=== PATIENT | male | born 1950 | race Two or more races ===

== ENCOUNTER 2023-07-20 11:18 | Outpatient (OUT) | payer MEDICARE, OTHER, SELFPAY ==
[2023-07-20 12:17] LABS: Erythrocyte Sedimentation Rate 32 mm/hr (<=20)
[2023-07-21 06:09] LABS: Rheumatoid Factor (RF) 18.8 IU/mL (<14.0)
[2023-07-21 11:09] LABS: ANA Direct Negative (Negative)
[2023-07-21 12:10] LABS: Anti-CCP Ab, IgG/IgA 8 units (0-19)
[2023-07-21 16:10] LABS: Angiotensin-Converting Enzyme 70 U/L (14-82)
[2023-07-21 20:07] LABS: Anti-GBM Antibodies <0.2 units (0.0-0.9); Anti-MPO Antibodies <0.2 units (0.0-0.9); Anti-PR3 Antibodies <0.2 units (0.0-0.9); Cytoplasmic (C-ANCA) <1:20 titer (Neg:<1:20); Perinuclear (P-ANCA) <1:20 titer (Neg:<1:20)
[2023-07-22 06:11] LABS: QuantiFERON-TB Gold Plus Negative (Negative)
[2023-07-22 17:08] LABS: Coccidioides Ab, IgG, EIA 0.4 EIA Units (.); Coccidioides Ab, IgM, EIA 0.2 EIA Units (.)
[2023-07-23 17:08] LABS: Blastomyces Abs, Qn, DID Negative (Neg:<1:1)
[2023-07-26 13:08] LABS: Histoplasma Gal'mannan Ag Ur Negative (<0.5 ng/mL)
== END 2023-07-20 11:19 | disposition home or self-care (01) ==
LOC: LAB 11:27
PROVIDERS: Visit Provider Internal Medicine
DX: J84.10 Pulmonary fibrosis, unspecified (principal); R91.1 Solitary pulmonary nodule; R59.0 Localized enlarged lymph nodes
CPT/HCPCS: 36415; 82164; 83516; 85652; 86037; 86038; 86200; 86431; 86480; 86612; 86635; 87385

== ENCOUNTER 2023-07-26 12:45 | Outpatient (OUT) | payer MEDICARE, OTHER, SELFPAY ==
--- NOTE | 2023-07-26 | RT_ITS ---
[facility] Test Date: 2023-07-26 Pat Name: ISIDRO CALHOUN Department: Room: - Gender: Male Manager Print: Onelia Hidalgo RRT : 1950 Requested By: Carl Jaime Order Number: [id number] Reading MD: Carl Jaime Interpretive Statements Pulmonary function testing was completed according to ATS criteria. Findings were considered accurate and reproducible. Both pre- and post-bronchodilator values utilized for spirometry. Spirometry: -FEV1/FVC: Normal @ 85% -FEV1: Normal @ 92% -FVC: Low normal @ 80% Lung volumes by plethysmography: -RV: Reduced @ 74% -TLC: Mildly reduced @ 76% Diffusion capacity: -DLCO: Severe reduction @ 45% when corrected for Hb 11.3g/dL Flow-volume loop: -Mild restrictive pattern Impressions: -Spirometry trends towards mild restriction, which is confirmed based on a mildly decreased TLC. Severe diffusion impairment. Overall study is compatible with stated history of pulmonary fibrosis. Clinical correlation required. Electronically Signed On 07-27-2023 16:43:09 EST by Carl Jaime
[2023-07-26 12:56] LABS: Hemoglobin 11.3 g/dL (14.0-18.0)
== END 2023-07-26 12:46 | disposition home or self-care (01) ==
LOC: CARD 12:46
PROVIDERS: Visit Provider Internal Medicine
DX: J84.10 Pulmonary fibrosis, unspecified (principal); J47.9 Bronchiectasis, uncomplicated
CPT/HCPCS: 36415; 85018; 94010; 94726; 94729

== ENCOUNTER 2023-07-29 14:01 | Outpatient (OUT) | payer MEDICARE, OTHER, SELFPAY ==
--- NOTE | 2023-07-29 14:07 | PE_ITS ---
The [address] [address] Patient Name: ISIDRO CALHOUN MRN: [id number] date: 1950 Sex: M Assigned Patient Location: PETCT Current Patient Location: PETCT Accession/Order Number: [id number] Exam Date: 07/29/2023 14:06 Report Date: 07/30/2023 15:53 At the request of: TYLOR JERRY Procedure: PET skull to mid thigh PET/CT: HISTORY: Solitary pulmonary nodule. COMPARISON: Outside CT chest high resolution 06/15/2023. TECHNIQUE: The patient was injected with 14.63 mCi of F-18 fluorodeoxyglucose (FDG), and an emission scan was performed from the base of the skull to the mid thigh. Noncontrast CT was performed for attenuation correction and anatomic localization. The blood glucose level was 113 mg/dl. The uptake time was 50 minutes. FINDINGS: HEAD AND NECK: There is a physiologic distribution of activity, with no hypermetabolic foci. CHEST: The SUVmax of the mediastinum = 3.1 using the patient's body weight as the normalization method. There is a physiologic distribution of activity, with no hypermetabolic mediastinal, hilar, or pulmonary foci. There are no hypermetabolic pulmonary nodules identified. There are fibrotic interstitial lung abnormalities as seen on previous high-resolution chest CT with some associated inflammatory related tracer activity particularly at the bases, left greater than right with SUV max ranging to 3.9. ABDOMEN AND PELVIS: There is a physiologic distribution of activity within the liver, spleen, adrenal glands, urinary tract and bowel, with no hypermetabolic foci. MUSCULOSKELETAL SYSTEM: There is a physiologic distribution of activity within the bone marrow, with no hypermetabolic foci. ADDITIONAL CT FINDINGS: There is moderate partial opacification of the right maxillary sinus. There is moderate cardiomegaly. There is severe atherosclerotic coronary artery calcification. The main pulmonary artery is dilated at 4 cm suspicious for pulmonary hypertension. There is mild cholelithiasis. Spleen is enlarged measuring 15 cm in length. There are multiple nonobstructing bilateral renal stones measuring up to 8 mm on the right. There is a small right renal cyst. There is an exophytic left lower pole renal cyst also noted measuring 3.1 cm. There is a small duodenal diverticulum. There is extensive diverticulosis throughout the colon but no acute diverticulitis. The prostate gland is mildly enlarged. There is mild bladder wall thickening which may be due to underdistention, chronic outlet obstruction, or cystitis. There is a moderate fat-containing right inguinal hernia and a small fat-containing left inguinal hernia. PET/PET skull to mid thigh IMPRESSION: 1. No definite hypermetabolic pulmonary nodules are identified. 2. Fibrotic interstitial lung abnormalities as seen on the previous high-resolution chest CT with some associated inflammatory tracer activity, particularly at the left lung base. 3. Additional CT findings as described above. Electronically authenticated by: HARPAL BARBOSA Date: 07/30/2023 15:53
== END 2023-07-29 14:02 | disposition home or self-care (01) ==
LOC: PETCT 14:01
PROVIDERS: Visit Provider Internal Medicine
DX: R91.1 Solitary pulmonary nodule (principal); R59.0 Localized enlarged lymph nodes
CPT/HCPCS: 78815; A9552

== ENCOUNTER 2023-11-02 10:01 | Outpatient (OUT) | payer MEDICARE, OTHER, SELFPAY ==
--- NOTE | 2023-11-02 10:04 | CT_ITS ---
[address] [address] Patient Name: ISIDRO CALHOUN MRN: [id number] date: 1950 Sex: M Assigned Patient Location: CT Current Patient Location: CT Accession/Order Number: [id number] Exam Date: 11/02/2023 10:10 Report Date: 11/02/2023 11:07 At the request of: TYLOR JERRY Procedure: CT chest wo con EXAMINATION: CT chest wo con HISTORY: Pulmonary Fibrosis J84.10 COMPARISON: CT chest high-resolution 06/15/2023 TECHNIQUE: Multi-planar CT images were obtained without and/or with IV contrast as indicated by examination type. Axial, Coronal, and Sagittal images. Dose reduction techniques were achieved by using automated exposure control and/or adjustment of mA and/or kV according to patient size and/or use of iterative reconstruction technique. FINDINGS: LUNGS: Bilateral peripheral fibrosis, greatest involving the lingula. Coarsening of interstitial markings bilaterally. Bilateral bronchiectasis. No appreciable acute infiltrates. PLEURA: No mass, effusion, or pneumothorax. VASCULATURE: No abnormality. LADARIUS: Mild adenopathy. MEDIASTINUM: Mild adenopathy. CARDIAC: No enlargement or pericardial thickening.. Coronary artery calcifications: Moderate. AORTA: No aneurysm or dissection. CHEST WALL: No mass or axillary adenopathy. BONES: No bone lesion or fracture. LIMITED ABDOMEN: No suspicious findings Limited images of the upper abdomen. OTHER: Negative. CT/CT chest wo con IMPRESSION: 1. Stable moderate peripheral fibrosis and chronic interstitial changes bilaterally. No acute infiltrates. 2. Minimal hilar and mediastinal lymphadenopathy, likely reactive. 3. Mild bilateral bronchiectasis; unchanged. Electronically authenticated by: HARPAL GLOVER Date: 11/02/2023 11:07
--- OUTSIDE RECORDS SUMMARY | 2023-11-02 10:21 | XMS_ITS ---
Patient Summarization (C-CDA 2.1 CCD) Created on: November 02, 2023 ISIDRO CALHOUN : 1950 Sex: Male Author Organization Sample organization Care Team Providers Care Dimension Specification Inspector Name Role Phone Alix Estes Unavailable Unavailable Unavailable Hong Salguero Unavailable BakSaeed hathaway Unavailable Radha Hernandez Unavailable Bakhous, Aziz Admitting Unavailable Bakshys, Aziz Attending Unavailable Alix Estes Primary Care Unavailable Bakhous, Aziz Admitting Unavailable Bakshys, Aziz Attending Unavailable Alix Estes Primary Care Unavailable Joan, Dr. Anayeli Dang Referring Kenisha vailable Franco, Dr. Anayeli Dang Attending Kenisha vailable Joan, Dr. Anayeli Dang Attending Kenisha vailable Joan, Dr. Anayeli Dang Referring Kenisha vailable Alix Estes DO Primary Care Provider ANAYELI FRANCO Attending Unavailable ALIX ESTES Primary Care Unavailable ANAYELI FRANCO Referring Unavailable ALIX ESTES Primary Care Unavailable ADEEL SHARPE Attending Unavailable JOSE LUIS CONWAY Attending Unavailable DANAE SNYDER Admitting Unavailable DANAE SNYDER Attending Unavailable Kashif Gonzalez V. Attending Unavailevelina e BAKHOUS, AZIZ Admitting Unavailable BAKHOUS, AZIZ Attending Unavailable BAKHOUS, AZIZ Attending Unavailable BAKHOUS, AZIZ Admitting Unavailable MD ISIDRO MUHAMMAD Admitting Unavailable MD ISIDRO MUHAMMAD Attending Unavailable BAKHOUS, AZIZ Admitting Unavailable BAKSHYS, AZIZ Attending Unavailable Yamilet YADAV Admitting Unavailable Yamilet YADAV Attending Unavailable [facility], XXXX Consulting Unavailable Traboulssi, Mourhaf Consulting Unavailable Traboulssi, Mourhaf Consulting Unavailable Traboulssi, Mourhaf Consulting Unavailable Traboulssi, Mourhaf Consulting Unavailable Traboulssi, Mourhaf Consulting Unavailable Traboulssi, Mourhaf Consulting Unavailable Traboulssi, Mourhaf Consulting Unavailable Traboulssi, Mourhaf Consulting Unavailable Traboulssi, Mourhaf Consulting Unavailable BAKHOUS, AZIZ Attending Unavailable BAKHOUS, AZIZ Referring Unavailable BAKHOUS, AZIZ Admitting Unavailable Allergies Allergy Classification Reported Allergen(s) Allergy Type Date of Onset Reaction(s) Facility (20 sources) Lisinopril; Translations: [lisinopril] Drug Allergy 04-28-2023 [facility] (15 sources) shellfish, unspecified; Translations: [shellfish] Allergy to substance (finding) [facility] (1 source) Lisinopril Drug Allergy 12-10-2021 [facility] Repository (3 sources) Shellfish; Translations: [SHELLFISH CONTAINING PRODUCTS] Drug Allergy 04-28-2023 Unknown [facility] Work Phone: Encounters Encounter Date Encounter Type Care Provider Facility Start: 09-27-2023 End: 09-28-2023 ambulatory MD ISIDRO MUHAMMAD Facility:[facility] Start: 08-30-2023 End: 08-30-2023 ambulatory ADEEL SHARPE Not Available Start: 06-15-2023 End: 06-16-2023 [facility] Start: 06-09-2023 End: 06-09-2023 ambulatory [facility] Start: 06-09-2023 End: 06-09-2023 Office outpatient visit 25 minutes Anayeli Franco MD Work Phone: [facility] Comment on above: ASCVD (arteriosclero tic cardiovascular disease) (Primary Dx); Benign essential hypertension; Mixed hyperlipidemia; Stage 4 chronic kidney disease (CMS/HCC); Type 2 diabetes mellitus without complication, without long-term current use of insulin (CMS/HCC); Shortness of breath; Lung crackles; Obstructive sleep apnea; Morbid obesity (CMS/HCC) Start: 06-07-2023 End: 06-08-2023 ambulatory Alaa MARCELINOAD Facility:[facility] Start: 05-31-2023 End: 05-31-2023 ambulatory Aziz Bakhous Other [employer] Other Start: 05-31-2023 Office outpatient vi sit 25 minutes Aziz Bakhous [facility] Start: 05-24-2023 End: 05-25-2023 ambulatory AZIZ BAKHOUS Facility:[facility] Start: 05-09-2023 End: 05-09-2023 ambulatory JOSE LUIS CONWAY Not Available Start: 04-19-2023 End: 04-19-2023 ambulatory Aziz Bakhous Other [employer] Other Start: 04-19-2023 Telephone encounter Aziz Bakhous [facility] Start: 04-14-2023 End: 04-15-2023 ambulatory DANAE SNYDER Facility:[facility] Start: 03-08-2023 End: 03-08-2023 ambulatory Aziz Bakhous Other [employer] Other Start: 03-08-2023 Telephone encounter Aziz Bakhous [facility] Start: 01-25-2023 End: 01-25-2023 ambulatory Aziz Bakhous Other [employer] Other Start: 01-25-2023 Office outpatient vi sit 25 minutes Aziz Bakhous [facility] Start: 01-19-2023 End: 01-20-2023 ambulatory AZIZ BAKHOUS Facility:[facility] Start: 12-15-2022 Office outpatient vi sit 25 minutes Alix Estes Work Phone: -[facility] 250 DO Work Phone: Start: 12-15-[address] Anayeli Franco Facility: Start: 11-22-2022 End: 11-22-2022 ambulatory Radha Mary Other [employer] Other Start: 11-22-2022 Telephone encounter Radha Mary [facility] Start: 11-01-2022 Rx Renewal Alix C Meera Work Phone: [facility] 250 DO Work Phone: Start: 10-26-2022 End: 10-26-2022 ambulatory Aziz Bakhous Other [employer] Other Start: 10-26-2022 Office outpatient vi sit 25 minutes Aziz Bakhous [facility] Start: 10-22-2022 End: 10-23-2022 ambulatory AZIZ BAKHOUS Facility:[facility] Start: 10-19-2022 End: 10-20-2022 ambulatory AZIZ BAKHOUS Facility:[facility] Start: 10-04-2022 End: 10-04-2022 ambulatory Aziz Bakhous Facility:[facility] Start: 09-10-2022 Rx Renewal Alix C Meera Work Phone: [facility] 250 DO Work Phone: Start: 08-11-2022 Chart Update Alix C Meera Work Phone: [facility] 250 DO Work Phone: Start: 07-19-2022 Rx Renewal Alix C Meera Work Phone: [facility] 600 DO Work Phone: Start: 07-13-2022 End: 07-13-2022 ambulatory Aziz Bakhous Other [employer] Other Start: 07-13-2022 Telephone encounter Aziz Bakhous [facility] Start: 07-12-2022 End: 07-12-2022 ambulatory Aziz Bakhous Other [employer] Other Start: 07-12-2022 Office outpatient vi sit 25 minutes Aziz Bakhous [facility] Start: 06-15-2022 Office outpatient vi sit 25 minutes Alix C Meera Work Phone: [facility] 250 DO Work Phone: Start: 06-15-[address] Anayeli Franco Facility: Start: 05-25-2022 Rx Renewal Alix C Meera Work Phone: [facility] 250 DO Work Phone: Start: 05-12-2022 Chart Update Alix C Meera Work Phone: [facility] 250 DO Work Phone: Start: 04-15-2022 End: 04-15-2022 ambulatory Hong Salguero Other [facility] [employer] Other Start: 04-15-2022 Telephone encounter Essfrieda Arieashi [facility] Start: 03-01-2022 End: 03-01-2022 ambulatory Aziz Bakhous Other [facility] Other Start: 03-01-2022 Office outpatient vi sit 25 minutes Aziz Bakhous [facility] Start: 02-12-2022 Rx Renewal Alix C Meera Work Phone: [facility] 250 DO Work Phone: Start: 01-14-2022 End: 01-14-2022 ambulatory Aziz Bakhous Other [employer] Other Start: 01-14-2022 Telephone encounter Aziz Bakhous [facility] Start: 01-13-2022 End: 01-13-2022 ambulatory Aziz Bakhous Other [employer] Other Start: 01-13-2022 Office outpatient vi sit 25 minutes Aziz Bakhous [facility] Start: 12-21-2021 End: 12-21-2021 ambulatory Radha Mary Other [employer] Other Start: 12-21-2021 Telephone encounter Radha Mary [facility] Start: 12-11-2021 End: 12-11-2021 ambulatory Aziz Bakhous Other [employer] Other Start: 12-11-2021 Telephone encounter Aziz Bakhous [facility] Start: 12-10-2021 End: 12-10-2021 ambulatory Aziz Bakhous Facility:[facility] Start: 12-04-2021 End: 12-04-2021 ambulatory Aziz Bakhous Other [employer] Other Start: 12-04-2021 Telephone encounter Aziz Bakhous [facility] Start: 11-25-2021 End: 11-25-2021 ambulatory Aziz Bakhous Other [employer] Other Start: 11-25-2021 Office outpatient vi sit 25 minutes Aziz Bakhous [facility] Start: 11-09-2021 Rx Renewal Alix C Meera Work Phone: [facility] [employer] 250 DO Work Phone: Start: 10-14-2021 End: 10-14-2021 ambulatory Aziz Bakhous Other [employer] Other Start: 10-14-2021 Office outpatient vi sit 25 minutes Aziz Bakhous [facility] Start: 09-23-2021 Office outpatient vi sit 25 minutes Alix C Meera Work Phone: [facility] [employer] 250 DO Work Phone: Start: 07-09-2021 Rx Renewal Alixdave Estes Work Phone: [facility] 250 DO Work Phone: Start: 04-16-2021 End: 04-16-2021 ambulatory Hong Jose M Other [facility] Other Start: 04-16-2021 Office outpatient vi sit 15 minutes Hong Jose M [facility] Start: 03-23-2021 Chart Update Alix C Meera Work Phone: [facility] [address] [place] Work Phone: Immunizations Immunization Date Immunization Notes Care Provider Onel [facility] 05-07-2022 pneumococcal polysaccharide vaccine, 23 valent Alix Estes Work Phone: [facility] 04-13-2022 Fluzone High-Dose Quadrivalent 0.7 ML Intramuscular Suspension Prefilled Syringe [facility] Work [facility]: 04-13-2022 influenza, high dose seasonal, preservative-free Anayeli Franco MD Work Phone: [facility] Work Phone: 04-13-2022 Pfizer COVID-19 Vac Bivalent 30 MCG/0.3ML Intramuscular Suspension [facility] Work Phone: 10-15-2021 Comirnaty 30 MCG/0.3 ML Intramuscular Suspension Alix C Meera Work Phone: [facility] 250 DO Work Phone: 05-13-2021 Fluzone High-Dose Quadrivalent 0.7 ML Intramuscular Suspension Prefilled Syringe Alix C Meera Work Phone: [facility] 250 DO Work Phone: 05-13-2021 influenza, high dose seasonal, preservative-free Anayeli Franco MD Work Phone: [facility] Work Phone: 05-06-2021 Pfizer-BioNTech COVI D-19 Vacc 30 MCG/0.3ML Intramuscular Suspension Alix C Meera Work Phone: [facility] 08-22-2020 Pfizer-BioNTech COVI D-19 Vacc 30 MCG/0.3ML Intramuscular Suspension Alix C Meera Work Phone: [facility] 250 DO Work Phone: 08-01-2020 Pfizer-BioNTech COVI D-19 Vacc 30 MCG/0.3ML Intramuscular Suspension Alix C Meera Work Phone: [facility] 250 DO Work Phone: 03-28-2020 influenza, high dose seasonal, preservative-free Alix C Meera Work Phone: [facility] 250 DO Work Phone: 02-28-2020 influenza virus vacc ine, unspecified formulation Alix C Meera Work Phone: [facility] 250 DO Work Phone: 03-30-2019 influenza virus vacc ine, unspecified formulation Alix C Meera Work Phone: [facility] 250 DO Work Phone: 03-21-2019 influenza, high dose seasonal, preservative-free Alix C Meera Work Phone: [facility] 250 DO Work Phone: 02-27-2019 pneumococcal polysaccharide vaccine, 23 valent Alix C Meera Work Phone: [place] [address] DO Work Phone: 02-21-2019 pneumococcal conjuga te vaccine, 13 valent Alix C Meera Work Phone: [place] [address] DO Work Phone: 02-28-2018 influenza, seasonal, injectable Alix C Meera Work Phone: [place] [address] DO Work Phone: 01-28-2018 influenza virus vacc ine, unspecified formulation Alix C Meera Work Phone: [place] [address] DO Work Phone: 04-04-2017 pneumococcal polysaccharide vaccine, 23 valent Alix C Meera Work Phone: [place] [address] DO Work Phone: 01-28-2017 influenza virus vacc ine, unspecified formulation Alix C Meera Work Phone: [place] [address] DO Work Phone: 05-30-2016 pneumococcal polysaccharide vaccine, 23 valent Alix C Meera Work Phone: [place] [address] DO Work Phone: 03-15-2016 influenza, seasonal, injectable, preservative free Alix C Meera Work Phone: [place] [address] DO Work Phone: 02-28-2016 influenza virus vacc ine, unspecified formulation Alix C Meera Work Phone: [facility] 250 DO Work Phone: 02-26-2015 influenza, seasonal, injectable Alix C Meera Work Phone: [facility] 250 DO Work Phone: 01-28-2015 influenza virus vacc ine, unspecified formulation Alix C Meera Work Phone: [facility] [employer] 250 DO Work Phone: 05-30-2014 zoster vaccine, live Alix C Meera Work Phone: [facility] [employer] 250 DO Work Phone: 02-06-2014 influenza virus vacc ine, unspecified formulation Alix C Meera Work Phone: [facility] [employer] 250 DO Work Phone: 04-17-2013 influenza virus vacc ine, unspecified formulation Alix C Meera Work Phone: [facility] [employer] 250 DO Work Phone: influenza virus vacc ine, unspecified formulation Alix C Meera Work Phone: [facility] [employer] DO Work Phone: Comment on above: 2011Feb 2011 Medications Current Medications Medication Drug Class(es) Dates Sig (Normalized) Sig (Original) ascorbic acid 500 mg oral tablet (7 sources) Vitamin C End: 06-09-2023 take 1 tablet by mouth once daily ascorbic acid (Vitamin C) 500 mg tablet Take 1 tablet (500 mg) by mouth once daily. 0 06/09/2023 Discontinued (Therapy completed) aspirin 81 mg delayed release oral tablet (20 sources) Platelet Aggregation Inhibitor, Nonsteroidal Anti-inflammatory Drug Start: 02-12-2022 take 1 tablet by mouth once daily aspirin 81 mg EC tablet Take 1 tablet (81 mg) by mouth once daily. 0 02/12/2022 Active take 1 tablet by tiana th every twenty-four hours Aspirin 81 MG 1 tablet Orally Once a day Active atorvastatin 40 mg oral tablet (20 sources) HMG-CoA Reductase Inhibitor Start: 05-11-2021 take 1 tablet by mouth once daily at bedtime atorvastatin (Lipitor) 40 mg tablet Indications: Hyperlipidemia, unspecified TAKE 1 TABLET BY MOUTH EVERY DAY AT BEDTIME 90 tablet 3 05/18/2023 Active Benadryl Allergy 25 MG (4 sources) take 1 tablet by mouth once daily at bedtime as needed Benadryl Allergy 25 MG 1 tablet at bedtime as needed Orally Once a day Active cholecalciferol 0.125 mg oral capsule (13 sources) Vitamin D End: 06-09-2023 take 1 capsule by mouth once daily cholecalciferol (Vitamin D-3) 125 MCG (5000 UT) capsule Take 1 capsule (125 mcg) by mouth once daily. 0 06/09/2023 Discontinued (Therapy completed) cinnamon bark 500 mg oral capsule (2 sources) take 2 tablets by mouth once daily Cinnamon 500 mg capsule Take 2 tablets by mouth once daily. 0 Active Cinnamon 500 MG as directed Orally Active cinnamon preparation 500 mg oral tablet (20 sources) Non-Standardized Food Allergenic Extract Cinnamon 500 MG as directed Orally Active Cinnamon TABS TA KE 2 TABLET Daily Quantity: 0 Refills: 0 Ordered: 23-Sep-2021 DO Active CoQ10 200 MG (1 source) take 1 capsule by mouth once daily CoQ10 200 MG 1 capsule with a meal Orally Once a day Active diphenhydrAMINE hydrochloride 25 mg oral tablet (20 sources) Histamine-1 Receptor Antagonist take 1 tablet by mouth once daily at bedtime diphenhydrAMINE (Benadryl Allergy) 25 mg tablet Take 1 tablet (25 mg) by mouth once daily at bedtime. 0 Active 0.5 ml dulaglutide 1.5 mg/ml auto-injector (20 sources) GLP-1 Receptor Agonist dulaglutide (Trulici ty) 0.75 mg/0.5 mL pen injector Inject under the skin. 0 Active Trulicity 0.75 M G/0.5ML as directed Subcutaneous Active Trulicity 0.75 M G/0.5ML Subcutaneous Solution Pen-injector once weekly Quantity: 0 Refills: 0 Ordered: 23-Sep-2021 DO Active ezetimibe 10 mg oral tablet (16 sources) Dietary Cholesterol Absorption Inhibitor Start: 06-03-2023 take 1 tablet by mouth once daily ezetimibe (Zetia) 10 mg tablet Indications: Mixed hyperlipidemia TAKE 1 TABLET BY MOUTH EVERY DAY 90 tablet 3 06/03/2023 Active Start: 06-15-2022 take 1 tablet by tiana once daily Ezetimibe 10 MG Oral Tablet TAKE 1 TABLET DAILY. Quantity: 90 Refills: 3 Ordered: 15-Jun-2022 Anayeli Franco MD Start : 15-Jun-2022 Active new start febuxostat 40 mg oral tablet (11 sources) Xanthine Oxidase Inhibitor Start: 07-12-2022 End: 06-09-2023 take 1 tablet by mouth once daily febuxostat (Uloric) 40 mg tablet Take 1 tablet (40 mg) by mouth once daily. 0 07/13/2022 06/09/2023 Discontinued (Therapy completed) fenofibric acid 135 mg delayed release oral capsule (20 sources) Peroxisome Proliferator Receptor alpha Agonist Start: 11-09-2021 End: 04-27-2024 take 1 capsule by mouth once daily choline fenofibrate (Trilipix) [address] capsule Indications: Mixed hyperlipidemia Take 1 capsule (135 mg) by mouth once daily. Do not crush, chew, or split. 30 capsule 11 04/28/2023 04/27/2024 Active take 1 capsule by mouth once abdoul ly Fenofibrate 67 MG Oral Capsule TAKE 1 CAPSULE Daily Quantity: 0 Refills: 0 Ordered: 15-Dec-2022 DO Active take 1 capsule by mouth once abdoul ly Fenofibrate 134 MG Oral Capsule TAKE 1 CAPSULE Daily Quantity: 0 Refills: 0 Ordered: 23-Sep-2021 DO Active finerenone (Kerendia) 10 mg tablet tablet (1 source) End: 06-09-2023 take 1 tablet by mouth once daily finerenone (Kerendia) 10 mg tablet tablet Take 1 tablet (10 mg) by mouth once daily. 0 06/09/2023 Discontinued (Therapy completed) finerenone 10 MG Oral Tablet [Kerendia] (8 sources) Start: 07-12-2022 take 1 tablet by mouth every twenty-four hours Kerendia 10 MG 1 tablet Orally Once a day for 90 days Jun, Active take 1 tablet by tiana th every twenty-four hours Kerendia 10 MG 1 tablet Orally Once a day for 90 days Active take 1 tablet by tiana th every twenty-four hours Kerendia 10 MG 1 tablet Orally Once a day for 30 days Active furosemide 20 mg oral tablet (20 sources) Loop Diuretic Start: 06-09-2023 End: 06-08-2024 take 2 tablets by mouth once daily furosemide (Lasix) 20 mg tablet Indications: Benign essential hypertension Take 2 tablets (40 mg) by mouth once daily. 180 tablet 3 06/09/2023 06/08/2024 Active take 1 tablet by tiana th every twenty-four hours Furosemide 40 MG 1 tablet Orally Once a day for 90 days Active take 1 tablet by mouth once khadar y Furosemide 20 MG Oral Tablet TAKE 1 TABLET DAILY. Quantity: 0 Refills: 0 Ordered: 23-Sep-2021 DO Active garlic preparation 500 mg oral capsule (20 sources) Non-Standardized Food Allergenic Extract garlic 500 mg capsul e Take by mouth. As directed 0 Active Garlic 1000 MG O ral Capsule TAKE DIRECTED. Quantity: 0 Refills: 0 Ordered: 15-Jun-2022 DO Active Garlic 1000 MG O rally Active glimepiride 2 mg oral tablet (20 sources) Sulfonylurea Start: 05-25-2022 take 2 tablets by mouth once daily before mealtime glimepiride (Amaryl) 2 mg tablet Take 2 tablets (4 mg) by mouth once daily in the morning. Take before meals. 0 08/23/2022 Active take 1 tablet by tiana th every twelve hours Glimepiride 4 MG 1 tablet with breakfast or the first main meal of the day Orally BID Active isosorbide dinitrate 30 mg oral tablet (1 source) Nitrate Vasodilator End: 06-09-2023 take 1 tablet by mouth once daily isosorbide dinitrate (Isordil) 30 mg tablet Take 1 tablet (30 mg) by mouth once daily. 0 06/09/2023 Discontinued (Therapy completed) kerendia 10 mg tablet (1 source) take 1 tablet by mouth every twenty-four hours Kerendia 10 MG 1 tablet Orally Once a day for 30 days Active Multivitamin preparation (20 sources) Multivitamin Ora lly Active nitroglycerin 0.4 mg sublingual tablet (20 sources) Nitrate Vasodilator nitroglycerin (Nitrostat) 0.[address] 1 tablet (0.4 mg) under the tongue every 5 minutes if needed for chest pain. 0 Active Nitrostat 0.4 MG as directed Sublingual Active Bagdad 3 1200 MG (20 sources) take 1 capsule by mouth once daily Bagdad 3 1200 MG 1 capsule Orally Once a day Active omega-3 (Super Bagdad-3) 1,000 mg capsule capsule (1 source) take 1 capsule by mouth twice daily omega-3 (Super [place]-3) 1,000 mg capsule capsule Take 1 capsule (1,000 mg) by mouth 2 times a day. 0 Active predniSONE 10 mg oral tablet (2 sources) Start: 01-13-2022 predniSONE 10 MG as directed Orally Once a day for 35 days take 6 tabs daily for 14 days then 4 tabs daily for 7 days then 2 tabs daily for 7 days then 1 tabs daily for 7days then stop Dec, Active tamsulosin hydrochloride 0.4 mg oral capsule (8 sources) alpha-Adrenergic Russell Start: 09-14-2022 take 1 capsule by mouth once daily tamsulosin (Flomax) 0.4 mg 24 hr capsule Take 1 capsule (0.4 mg) by mouth once daily. 0 09/14/2022 Active ubidecarenone 100 mg oral capsule (20 sources) take 1 capsule by mouth once daily coenzyme Q-10 100 mg capsule Take 1 capsule (100 mg) by mouth once daily. 0 Active take 1 capsule by mo ut every twenty-four hours CoQ10 200 MG 1 capsule with a meal Orally Once a day Active vitamin e d-alpha 400 unt oral capsule (1 source) take 1 capsule by mo ut every twenty-four hours Vitamin E 400 UNIT 1 capsule Orally Once a day Active Vitamin E 400 UNIT (19 sources) take 1 capsule by mo uth once daily Vitamin E 400 UNIT 1 capsule Orally Once a day Active Completed/Discontinued Medications Medication Drug Class(es) Dates Sig (Normalized) Sig (Original) allopurinol 300 mg oral tablet (17 sources) Xanthine Oxidase Inhibitor take 1 tablet by mouth once daily Allopurinol 300 MG Oral Tablet TAKE 1 TABLET DAILY. Quantity: 0 Refills: 0 Ordered: 23-Sep-2021 DO Active docosahexaenoic acid 120 mg / eicosapentaenoic acid 180 mg oral capsule (6 sources) take 1 capsule by mouth once daily [place] 3 1000 MG Oral Capsule TAKE 1 CAPSULE Daily Quantity: 0 Refills: 0 Ordered: 15-Jun-2022 DO Active Gluco Cor CAPS (6 sources) Gluco Cor CAPS TAKE 2 CAPSULE Twice daily Quantity: 0 Refills: 0 Ordered: 23-Sep-2021 DO Active indomethacin 50 mg oral capsule (6 sources) Nonsteroidal Anti-inflammatory Drug take 1 capsule by mouth three times daily as needed Indomethacin 50 MG Oral Capsule TAKE 1 CAPSULE 3 TIMES DAILY. NEEDED Quantity: 0 Refills: 0 Ordered: 23-Sep-2021 DO Active irbesartan 150 mg oral tablet (9 sources) Angiotensin 2 Receptor Russell Start: 07-09-2021 take 1 tablet by mouth once daily Irbesartan 150 MG Oral Tablet TAKE 1 TABLET Daily Quantity: 90 Refills: 3 Ordered: 09-Jul-2021 Anayeli Franco MD Start : 09-Jul-2021 Active Kerendia 10 MG Oral Tablet (1 source) take 1 tablet by mouth once daily Kerendia 10 MG Oral Tablet Take 1 tablet daily Quantity: 0 Refills: 0 Ordered: 15-Dec-2022 DO Active [id number] 500 MG (19 sources) [id number] 500 MG Orally Not-Taking [id number] 5 00 MG Orally Active metFORMIN hydrochloride 1000 mg oral tablet (7 sources) Biguanide take 1 tablet by mouth every twelve hours metFORMIN HCl - 1000 MG Oral Tablet TAKE 1 TABLET EVERY 12 HOURS. Quantity: 0 Refills: 0 Ordered: 23-Sep-2021 DO Active take 1 tablet by tiana th every twelve hours metFORMIN HCl 1000 MG 1 tablet with meal s Orally Twice a day Active metoprolol tartrate 25 mg oral tablet (20 sources) beta-Adrenergic Russell Start: 09-10-2022 take 1 tablet by mouth twice daily Metoprolol Tartrate 25 MG Oral Tablet Take 1 tablet twice a day Quantity: 180 Refills: 3 Ordered: 12-Sep-2022 Anayeli Franco MD Start : 10-Sep-2022 Active SITagliptin 25 mg oral tablet (20 sources) Dipeptidyl Peptidase 4 Inhibitor Start: 01-21-2022 End: 06-09-2023 take 1 tablet by mouth once daily Januvia 25 MG Oral Tablet TAKE 1 TABLET BY MOUTH EVERY DAY Quantity: 30 Refills: 0 Ordered: 29-Mar-2022 DO Start : 21-Jan-2022 Active take 1 tablet by tiana th every twenty-four hours Januvia 50 MG 1 tablet Orally Once a day WAITING ON SHIPMENT Active take 1 tablet by tiana th every twenty-four hours Januvia 100 MG 1 tablet Orally Once a day WAITING ON SHIPMENT Active ubidecarenone 100 mg / vitamin e 5 unt oral capsule (1 source) take 1 capsule by mouth once daily CoQ10 100 MG Oral Capsule TAKE 1 CAPSULE Daily Quantity: 0 Refills: 0 Ordered: 15-Dec-2022 DO Active vardenafil 20 mg oral tablet (19 sources) Phosphodiesterase 5 Inhibitor take 1 tablet by mouth once daily as needed Levitra 20 MG 1 tablet as needed 60 minutes before sexual activity Orally Once a day for 30 day(s) Not-Taking Payers Date Payer Category Payer Self-pay 2021 Unknown [id number] 2. [id number] 2017 Medicare [id number] 2.1 6.840.1.178337.19 2017 Medicare [id number]. [id number] 1952 Unknown [id number] 2.16. 840.1.176956.3.579.2.356 1952 Unknown [id number] 2.16. 840.1.035450.3.579.2.356 1952 Unknown [id number] 2.16.8 40.1.782596.3.579.2.1244 1952 Unknown [id number] 2.16.84 0.1.393573.3.579.2.1246 1952 Unknown [id number] 2.16.84 0.1.370257.3.579.2.1259 1952 Unknown [id number] 2.16.840 .1.271146.3.579.2.1259 1952 Unknown [id number] 2.16.8 40.1.304233.3.579.2.727 1952 Unknown [id number] 2.16.8 40.1.367587.3.579.2.727 1952 Unknown [id number] 2.16.8 40.1.101941.3.579.2.727 1952 Unknown [id number] 2.16.8 40.1.915757.3.579.2.727 1952 Unknown [id number] 2.16.8 40.1.382761.3.579.2.727 1952 Unknown [id number] 2.16.8 40.1.600866.3.579.2.727 1952 Unknown [id number] 2.16.8 40.1.512620.3.579.2.727 1952 Unknown [id number] 2.16.8 40.1.747969.3.579.2.727 Unknown Unknown [id number] 2.16.8 40.1.353696.3.579.2.531 Unknown [id number] 2.16.8 40.1.490187.3.579.2.531 Plan of Treatment Date Care Activity Detail Author Start: 12-21-2023 End: 12-21-2023 Patient encounter procedure 12/21/2023 10:10 AM EDT Office Visit [facility] [address] [phone] Anayeli Franco MD 703 [facility] 2, [address] [address] [facility] Start: 06-23-2023 COVID-19 Vaccine (4 - Pfizer series) COVID-19 Vaccine (4 - Pfizer series) [facility] Start: 06-09-2023 End: 06-09-[address] chest high resolution Imaging Routine Shortness of breath Lung crackles Expected: 06/09/2023, Expires: 06/09/2024 [facility] Service Area Work Phone: Comment on above: Expected: 06/09/2023 , Expires: 06/09/2024 Start: 06-09-2023 FUV, Provider: Anayeli Franco, Status: Pen, Time: 10:30 AM [facility], Provider: Anayeli Franco, Status: Pen, Time: 10:30 AM [place] [address] DO Work Phone: Start: 01-08-2023 Glaucoma screening Diabetes: R etinopathy Screening [facility] Start: 12-15-2022 FUV, Provider: Anayeli Franco, Status: Pen, Time: 10:40 AM [facility]UV, Provider: Anayeli Franco, Status: Pen, Time: 10:40 AM [facility] [employer] 250 DO Work Phone: Start: 06-15-2022 FUV, Provider: Anayeli Franco, Status: Pen, Time: 10:50 AM [facility]UV, Provider: Anayeli Franco, Status: Pen, Time: 10:50 AM [facility] [employer] 250 DO Work Phone: Start: 09-23-2021 FUV, Provider: Anayeli Franco, Status: Pen, Time: 10:15 AM [facility]UV, Provider: Anayeli Franco, Status: Pen, Time: 10:15 AM [facility] [employer] [address] [place] Work Phone: Start: 2017 Abdominal aortic aneurysm screening Abdominal Aortic Aneurysm (AAA) Screening [facility] Start: 07-25-2014 Zoster Vaccines (2 o f 3) Zoster Vaccines (2 of 3) [facility] Start: 1974 DTaP/Tdap/Td Vaccine s (1 - Tdap) DTaP/Tdap/Td Vaccines (1 - Tdap) [facility] Start: 09-13-1971 Urine screening for protein Diabetes: Urine Protein Screening [facility] Start: 1970 Hepatitis C screening Hepatitis C Sc reening [facility] Start: 1962 Diabetic foot examination Diabetes: Foot Exam [facility] Start: 1952 Hemoglobin A1c measurement Diabetes: Hemoglobin A1C [facility] Start: 1952 Lipid panel Lipid Panel [facility] Start: 1952 Medicare Annual Wellness Visit Medicare Annual Wellness Visit (AWV) [facility] Start: 1952 Screening for malign ant neoplasm of colon [facility] Problems Active Problems Problem Classification Problem Date Documented Date Episodic/Chronic Chronic kidney disease (20 sources) Chronic kidney disease stage 3; Translations: [Chronic kidney disease, Stage III (moderate)] Onset: 04-28-2023 06-09-2023 Chronic Coronary atherosclerosis and other heart disease (20 sources) Arteriosclerotic vascular disease; Translations: [Cardiovascular disease, unspecified] Onset: 04-28-2023 06-09-2023 Chronic Deficiency and other anemia (9 sources) Anemia, unspecified; Translations: [Anemia, unspecified] Onset: 10-14-2021 Resolved: 01-13-2022 Episodic Diabetes mellitus with complications (20 sources) Disorder of kidney due to diabetes mellitus; Translations: [DM II with renal manifestations, not stated as uncontrolled] Onset: 04-16-2021 Resolved: 01-13-2022 Chronic Diabetes mellitus without complication (16 sources) Diabetes mellitus; Translations: [Diabetes mellitus without mention of complication, type II or unspecified type, not stated as uncontrolled] Onset: 04-28-2023 06-09-2023 Chronic Disorders of lipid metabolism (20 sources) Hyperlipidemia; Translations: [Other and unspecified hyperlipidemia] Onset: 04-16-2021 Resolved: 01-13-2022 Chronic Essential hypertension (20 sources) Benign essential hypertension; Translations: [Benign essential hypertension] Onset: 04-28-2023 06-09-2023 Chronic Fluid and electrolyte disorders (14 sources) Hyperkalemia; Translations: [Acidosis] Onset: 04-16-2021 Resolved: 01-13-2022 Episodic Gout and other crystal arthropathies (20 sources) Gout; Translations: [Gout, unspecified] Onset: 04-16-2021 Resolved: 01-13-2022 Chronic Hyperplasia of prostate (11 sources) Benign prostatic hyperplasia with lower urinary tract symptoms; Translations: [Benign prostatic hypertrophy with outflow obstruction] Onset: 10-04-2022 Chronic Hypertension with complications and secondary hypertension (20 sources) Chronic kidney disease due to hypertension; Translations: [Hypertensive chronic kidney disease with stage 1 through stage 4 chronic kidney disease, or unspecified chronic kidney disease] Onset: 04-16-2021 Resolved: 01-13-2022 Chronic Nutritional deficiencies (20 sources) Vitamin D deficiency; Translations: [Vitamin D deficiency, unspecified] Chronic Other circulatory disease (1 source) Respiratory crackles; Translations: [Other specified symptoms and signs involving the circulatory and respiratory systems] 06-09-2023 Episodic Other circulatory disease (4 sources) Other specified symptoms and signs involving the circulatory and respiratory systems; Translations: [Other specified symptoms and signs involving the circulatory and respiratory systems] Onset: 06-09-2023 Episodic Other endocrine disorders (9 sources) Osteitis fibrosa cystica; Translations: [Primary hyperparathyroidism] Chronic Other endocrine disorders (5 sources) Primary hyperparathyroidism; Translations: [Primary hyperparathyroidism] Onset: 10-04-2022 Chronic Other lower respiratory disease (3 sources) Dyspnea; Translations: [Shortness of breath] Onset: 06-09-2023 06-09-2023 Episodic Other lower respiratory disease (2 sources) Shortness of breath; Translations: [Shortness of breath] Onset: 06-09-2023 Episodic Other nutritional; endocrine; and metabolic disorders (20 sources) Obesity; Translations: [Obesity, unspecified] Chronic Other nutritional; endocrine; and metabolic disorders (20 sources) Body mass index 40+ - severely obese; Translations: [Body mass index (BMI) 40.0-44.9, adult] Chronic Other nutritional; endocrine; and metabolic disorders (10 sources) Body mass index (BMI) 40.0-44.9, adult; Translations: [Body mass index [BMI] 40.0-44.9, adult] Onset: 04-16-2021 Resolved: 01-13-2022 Chronic Other nutritional; endocrine; and metabolic disorders (1 source) Severe obesity; Translations: [Morbid obesity] Chronic Other nutritional; endocrine; and metabolic disorders (1 source) Morbid obesity; Translations: [Morbid (severe) obesity due to excess calories] 06-09-2023 Chronic Residual codes; unclassified (13 sources) Sleep apnea; Translations: [Unspecified sleep apnea] Onset: 04-28-2023 04-28-2023 Chronic Residual codes; unclassified (1 source) Obstructive sleep apnea syndrome; Translations: [Obstructive sleep apnea (adult) (pediatric)] 06-09-2023 Chronic Screening and history of mental health and substance abuse codes (12 sources) Ex-smoker; Translations: [Personal history of tobacco use] Episodic Comment on above: quit 34 years ago; Past or Other Problems Problem Classification Problem Date Documented Da te Episodic/Chronic Chronic kidney disease (19 sources) Chronic kidney disease; Translations: [Chronic kidney disease, stage 3b] Onset: 04-16-2021 Resolved: 01-13-2022 Unclassified (2 sources) Metabolic acidemia E87.20 Unclassified (1 source) Onset: 06-09-2023 06-09-2023 Procedures Date Procedure Procedure Detail Performing Clinician Start: 06-15-2023 CT CHEST HIGH RESOLUTION ANAYELI YANAHIM Adenoid excision Alix mueller Work Phone: Operation on nose Alix Knott nkcarla Work Phone: Tonsillectomy Alix Jayker Work Phone: Total colonoscopy Alix Delgado Ti nker Work Phone: Results Test Name Value Interpretation Reference Range Facility [facility] [place] 09-28-2023 Parathyrin.intact [Mass/Vol] 70 pg/mL High 15-65 [facility] Comment on above: Result Comment: Perf ormed at: [facility] [address] [id number] PhD Christine Galdamez Performed By: #### 2 139041, 91602579, 3502016, 2069001, 8052007, 4908063, 05553889, 6865471, 6715831, 3129462, 699882203, 4683375 #### [facility] [address] [place] [address] CBC w/Indiceson 09-27-2023 Erythrocyte distribution width (RBC) [Ratio] 14.6 % High 10.9-14.2 [facility] Comment on above: Performed By: #### 2 031846, 73306934, 5929986, 6883087, 8877083, 7166810, 71648588, 7700127, 5346099, 4953425, 761656943, 8390211 #### [facility] [address] [place] [address] Hematocrit (Bld) [Volume fraction] 38.6 % Normal 37.7-49.0 [facility] Comment on above: Performed By: #### 2 549995, 04072811, 0927282, 8019139, 5558514, 6757426, 43789137, 7481120, 5815057, 1194019, 492015147, 1813389 #### [facility] [address] [place] [address] Hemoglobin (Bld) [Mass/Vol] 12.7 g/dL Low 13.5-17.5 [facility] Comment on above: Performed By: #### 2 475345, 31960809, 4931755, 6705783, 9845806, 5307446, 33909416, 4050444, 6400292, 9422438, 731316664, 3531816 #### [facility] [address] [place] [address] MCH (RBC) [Entitic mass] 28.4 pg Normal 27.0-34.0 [facility] Comment on above: Performed By: #### 2 800695, 23832890, 6814775, 6673606, 6126305, 8154004, 58240409, 3509849, 1455633, 7314281, 943430435, 0659361 #### [facility] [address] [place] [address] MCHC (RBC) [Mass/Vol] 32.8 g/dL Normal 31.4-36.0 [facility] Comment on above: Performed By: #### 2 701004, 29818525, 4148724, 8049683, 8910450, 3574186, 19495427, 6316781, 9793654, 0462766, 963511602, 8071930 #### [facility] [address] [place] [address] MCV (RBC) [Entitic vol] 86.4 fL Normal 80.0-100.0 [facility] Comment on above: Performed By: #### 2 420869, 31900399, 3467780, 9519356, 3548781, 3348445, 90499780, 3154383, 5514025, 4325124, 948052499, 5976960 #### [facility] [address] [place] [address] Platelet 156.0 E9/L Normal 150.0-500.0 [facility] Comment on above: Performed By: #### 2 484272, 91265097, 2602885, 0306901, 5599783, 1648752, 98033454, 6163114, 7351546, 1777195, 075823422, 6764485 #### [facility] [address] [place] [address] Platelet mean volume (Bld) [Entitic vol] 8.4 fL Normal 6.4-10.8 [facility] Comment on above: Performed By: #### 2 240581, 15557125, 8156094, 2317733, 2723442, 7010849, 55292704, 9313679, 0268958, 4897516, 925664596, 5623718 #### [facility] [address] [place] [address] RBC (Bld) [#/Vol] 4.5 E12/L Normal 4.3-5.9 [facility] Comment on above: Performed By: #### 2 635817, 46058297, 3843687, 5869681, 3909348, 3143182, 44509168, 4172862, 1581780, 9122058, 421805791, 3092472 #### [facility] [address] [place] [address] RBC size Nom (Bld) NORMAL Invalid Interpretation Code [facility] Comment on above: Performed By: #### 2 818448, 38170455, 9387458, 5314546, 9724858, 3059717, 19291483, 9841856, 1711912, 6378042, 508143822, 5774862 #### [facility] [address] [place] [address] WBC corrected for nucl RBC Auto (Bld) [#/Vol] 5.8 E9/L Normal 4.0-11.0 [facility] Comment on above: Performed By: #### 2 390869, 06155668, 7743221, 5129828, 4541486, 8040055, 91435433, 3284526, 9353443, 4619871, 068632319, 2713376 #### [facility] [address] [place] [address] CMPon 09-27-2023 Albumin [Mass/Vol] 4.2 g/dL Normal 3.3-5.0 [facility] Comment on above: Performed By: #### 2 512081, 00056477, 0675125, 7919228, 3225912, 5462887, 91590531, 4952794, 0704204, 9597453, 549123719, 9712493 #### [facility] [address] [place] [address] Albumin/Globulin (S) [Mass conc ratio] 1.4 Normal 1.1-2.2 [facility] Comment on above: Performed By: #### 2 526154, 33925483, 9845232, 0084120, 6338700, 0608988, 59261209, 2761489, 0709681, 8331874, 884571010, 4250784 #### [facility] [address] [place] [address] ALP [Catalytic activity/Vol] 81 Int._Unit/L Normal 21-98 [facility] Comment on above: Performed By: #### 2 102031, 15944135, 4222731, 6866800, 6073264, 9852582, 77177651, 4524892, 3381490, 6720571, 586596228, 2664340 #### [facility] [address] [place] [address] ALT No additional P-5'-P [Catalytic activity/Vol] 26 Int._Unit/L Normal 6-46 [facility] Comment on above: Performed By: #### 2 739448, 40488249, 1823981, 7486140, 6000693, 8710378, 97721770, 0785499, 1038481, 9343205, 710442545, 8212143 #### [facility] [address] [place] [address] Anion gap [Moles/Vol] 13 mmol/L Normal 6-16 [facility] Comment on above: Performed By: #### 2 652668, 17783559, 9079160, 9506212, 0580084, 0501723, 19019473, 9333794, 2749473, 3234714, 471642130, 3669342 #### [facility] [address] [place] [address] AST [Catalytic activity/Vol] 25 Int._Unit/L Normal 5-43 [facility] Comment on above: Performed By: #### 2 258888, 55514561, 6673717, 9809290, 2721510, 0136041, 91392886, 7714284, 7774108, 1301028, 073835637, 4333113 #### [facility] [address] [place] [address] Bilirubin [Mass/Vol] 0.5 mg/dL Normal 0.0-1.1 [facility] Comment on above: Performed By: #### 2 228449, 40723912, 6062135, 1067482, 5159498, 8514765, 48058833, 8458308, 7232153, 5812012, 970928221, 3380663 #### [facility] [address] [place] [address] Calcium [Mass/Vol] 9.6 mg/dL Normal 8.9-11.1 [facility] Comment on above: Performed By: #### 2 523224, 07500467, 0333809, 9657480, 2176253, 5517044, 08828105, 2033074, 2831314, 8525494, 943427027, 4790768 #### [facility] [address] [place] [address] Chloride [Moles/Vol] 107 mmol/L Normal 101-111 [facility] Comment on above: Performed By: #### 2 766149, 90096460, 0936013, 6880194, 6926689, 9319109, 28319795, 0093326, 8496987, 5718853, 287207540, 1250218 #### [facility] [address] [place] [address] CO2 [Moles/Vol] 24 mmol/L Normal 21-31 [facility] Comment on above: Performed By: #### 2 666566, 14513460, 1791427, 9027924, 6707946, 0755801, 57654771, 7428611, 3201116, 6619121, 108595334, 3080267 #### [facility] [address] [place] [address] Creatinine [Mass/Vol] 2.3 mg/dL High 0.5-1.3 [facility] Comment on above: Performed By: #### 2 983543, 94200414, 8580645, 4161284, 0571680, 7213841, 30334871, 9221556, 3585934, 6882002, 829504234, 5170990 #### [facility] [address] [place] [address] Globulin (S) [Mass/Vol] 2.9 g/dL Normal 1.4-4.0 [facility] Comment on above: Performed By: #### 2 216226, 31996914, 6577683, 4955677, 5935586, 5455799, 27005655, 5358876, 4800906, 7057196, 790733821, 3376716 #### [facility] [address] [place] [address] Glucose [Mass/Vol] 134 mg/dL Normal 55-199 [facility] Comment on above: Performed By: #### 2 796583, 88967532, 4098748, 8129450, 3024898, 6029091, 09202644, 3840849, 5372103, 3560870, 348227362, 0606727 #### [facility] [address] [place] [address] Potassium [Moles/Vol] 4.2 mmol/L Normal 3.5-5.3 [facility] Comment on above: Performed By: #### 2 202331, 53433554, 6191761, 5136666, 5668242, 8053646, 50716888, 5701931, 6254822, 8807567, 856033696, 9103778 #### [facility] [address] [place] [address] Protein [Mass/Vol] 7.1 g/dL Normal 6.0-7.8 [facility] Comment on above: Performed By: #### 2 868936, 05294872, 6386425, 8798924, 2811595, 5732276, 59756816, 0049370, 8269403, 4148036, 308278409, 4739132 #### [facility] [address] [place] [address] Sodium [Moles/Vol] 140 mmol/L Normal 135-145 [facility] Comment on above: Performed By: #### 2 421816, 26948843, 2651891, 5733473, 6737163, 5785034, 58457253, 6941803, 2076979, 7776668, 090175587, 4727134 #### [facility] [address] [place] [address] Urea nitrogen [Mass/Vol] 47 mg/dL High 5-21 [facility] Comment on above: Performed By: #### 2 942686, 55855690, 0402469, 3669244, 4286319, 4526259, 74990470, 1675999, 1733137, 4829990, 432810662, 5472199 #### [facility] [address] [place] [address] Urea nitrogen/Creatinine [Mass ratio] 20 No Units Normal 10-20 [facility] Comment on above: Performed By: #### 2 634363, 78328334, 5535530, 4563858, 8242343, 8255821, 10688866, 2328076, 2520509, 3083477, 045343454, 4720353 #### [facility] [address] [place] [address] Consent for Treatmenton 08-30 Consent for Treatment [id number] [id number] 0TIFF Normal [facility] Magnesiumon 09-27-2023 Magnesium [Mass/Vol] 1.8 mg/dL Normal 1.3-2.4 [facility] Comment on above: Performed By: #### 2 362994, 84462111, 9749593, 1188325, 5154853, 8672851, 22090513, 4047061, 6013516, 5325691, 021660122, 1076180 #### [facility] [address] [place] [address] Phosphoruson 09-27-2023 Phosphate [Mass/Vol] 4.0 mg/dL Normal 1.9-4.6 [facility] Comment on above: Performed By: #### 2 382330, 12196000, 5891661, 9385659, 6501075, 8730770, 21064419, 5735605, 6505228, 0670161, 602866481, 6051583 #### [facility] [address] [place] [address] Physician Orderon 09-27-2023 Physician Order [id number]#1. 00TIFF Normal [facility] U Protein/Creat Ratioon 08-30 Protein/Creatinine (U) [Ratio] 13.50 mg/gm Cr Normal .00-200.00 [facility] Comment on above: Performed By: #### 2 761255, 98063041, 3930560, 3658464, 1936904, 3694729, 00452752, 7312244, 6475813, 3278230, 023739706, 1797967 #### [facility] [address] [place] [address] U Creatinine 171.6 mg/dL Invalid Interpretation Code [facility] Comment on above: Performed By: #### 2 544540, 75469151, 1063924, 9462138, 1521214, 1123879, 26566608, 8668560, 8381035, 2252381, 319150451, 9751436 #### [facility] [address] [place] [address] Ur Total Protein 23.1 mg/dL Invalid Interpretation Code [facility] Comment on above: Performed By: #### 2 509182, 88306912, 1085706, 9573071, 5430027, 2229027, 76150324, 2440326, 7631564, 2790458, 527962495, 8302349 #### [facility] [address] [place] [address] Uric Acidon 09-27-2023 Urate (U) [Mass/Vol] 7.9 mg/dL High 2.2-7.4 [facility] Comment on above: Performed By: #### 2 590908, 20238372, 9492394, 0925457, 3980879, 7054018, 78601593, 1092141, 1540799, 1755238, 044834257, 9755368 #### [facility] [address] [place] [address] Urinalysis with Microon 08-30 Bilirubin Ql (U) Negative Normal Negative [facility] Comment on above: Performed By: #### 2 356476, 08922683, 9312142, 4778734, 9291745, 4053360, 08875434, 5711305, 4426565, 1028370, 128997116, 9621833 #### [facility] [address] [place] [address] Clarity (U) Clear Normal Clear [facility] Comment on above: Performed By: #### 2 563159, 19586525, 1104905, 5117858, 6780543, 8935738, 80735073, 1158048, 9511390, 7389189, 622343934, 4095905 #### [facility] [address] [place] [address] Color (U) Yellow Normal Yellow [facility] Comment on above: Result Comment: Micr oscopic readings are only performed on those samples that meet specific criteria set forth by [facility]. Performed By: #### 2 102615, 09778611, 0083070, 6203106, 0708428, 3115695, 47387376, 1241560, 4904789, 5443923, 819569383, 1193141 #### [facility] [address] [place] [address] Glucose Ql (U) Negative Normal Negative [facility] Comment on above: Performed By: #### 2 363048, 04244618, 5790509, 9290148, 9751851, 8793592, 17501547, 0643414, 1889150, 2693095, 756401053, 6250997 #### [facility] [address] [place] [address] Hemoglobin Auto test strip (U) [Mass/Vol] Negative Normal Negative [facility] Comment on above: Performed By: #### 2 446526, 32593881, 4766309, 1128473, 0369742, 4798052, 71268019, 2507318, 8646805, 4888514, 589594722, 6458980 #### [facility] [address] [place] [address] Ketones Auto test strip Ql (U) Negative Normal Negative [facility] Comment on above: Performed By: #### 2 312376, 08828218, 5488753, 6228604, 3236711, 0264157, 20191612, 9377667, 3905882, 0823247, 978051271, 0704534 #### [facility] [address] [place] [address] Leukocyte esterase Auto test strip Ql (U) Negative Normal Negative [facility] Comment on above: Performed By: #### 2 540236, 87752048, 1163178, 8908982, 5932116, 0724450, 91464869, 1290189, 5658663, 8924802, 958200851, 1929520 #### [facility] [address] [place] [address] Nitrite Auto test strip Ql (U) Negative Normal Negative [facility] Comment on above: Performed By: #### 2 724841, 04424678, 6488074, 9774452, 9617382, 9837034, 80936573, 5241440, 9442057, 0535564, 930484059, 0969304 #### [facility] [address] [place] [address] pH (U) 5.0 [pH] Invalid Interpretation Code 5.0-9.0 [facility] Comment on above: Performed By: #### 2 279358, 40668735, 2267956, 6944465, 3472283, 7244763, 42748466, 2653336, 5089512, 3342755, 861280909, 1956387 #### [facility] [address] [place] [address] Protein Ql (U) Trace Abnormal Negative [facility] Comment on above: Performed By: #### 2 748075, 86197528, 6139962, 5938488, 0650410, 7125886, 83354050, 0286746, 5339999, 7406060, 727834777, 8617850 #### [facility] [address] [place] [address] Specific gravity (U) [Rel density] 1.018 Invalid Interpretation Code 1.005-1.030 [facility] Comment on above: Performed By: #### 2 672305, 00056518, 0482582, 3638738, 2397686, 1667003, 80387315, 1970855, 6691066, 8103497, 408682216, 3051897 #### [facility] [address] [place] [address] Type of Urine collection method Clean Catch Normal [facility] Comment on above: Performed By: #### 2 291946, 43387709, 5231218, 3226323, 0377222, 6542114, 51696991, 3304800, 2109025, 2285960, 739665433, 6508269 #### [facility] [address] [place] [address] Urobilinogen (U) [Mass/Vol] Negative Normal Negative [facility] Comment on above: Performed By: #### 2 218034, 81959993, 6677517, 1634062, 2328880, 1274102, 75624341, 2907971, 7162880, 6741684, 924399344, 8261850 #### [facility] [facility] [address] [place] [address] Vitamin D 25 Hydroxyon 09-26 25-hydroxyvitamin D3 [Mass/Vol] 45.1 ng/mL Normal 30.0-100.0 [facility] Comment on above: Performed By: #### 2 466822, [id number], 5054577, 7856552, 9023671, 7333555, 89934743, 2552929, 3800612, 9387677, [id number], 5688193 #### [facility] [address] [place] [address] eGFRon 09-27-2023 eGFR 30 mL/min/1.73 m2 Low >=59 [facility] Comment on above: Order Comment: Order added by Discern Expert. Performed By: #### 2 743615, [id number], 4841880, 1341060, 1463798, 5757063, 20898541, 8950512, 5972682, 8017443, [id number], 2144387 #### [facility] [address] [place] [address] CT CHEST HIGH RESOLUTIONon 0 06-15-2023 CT CHEST HIGH RESOLUTION Interpreted By: Malik Escobedo and Liller Gregory STUDY: CT CHEST HIGH RESOLUTION; 06/15/2023 11:12 am INDICATION: Signs/Symptoms:SHORTNE SS OF BREATH. COMPARISON: None. ACCESSION NUMBER(S): [id number] ORDERING CLINICIAN: ANAYELI FRANCO TECHNIQUE: Using helical multidetector technique, volumetric data acquisition of the chest was obtained without intravenous administration of contrast material under the high resolution chest CT protocol. Examination includes contiguous slices through the chest in supine positioning during inspiration, noncontiguous axial slices in supine positioning during expiration and prone positioning during inspiration. FINDINGS: LUNGS AND AIRWAYS: The trachea and central airways are patent. No endobronchial lesion is seen. There is demonstration of bilateral basilar and subpleural predominant reticulations with associated mild traction bronchiolectasis. In addition, there is superimposed more focal scarring with associated traction bronchiectasis and bronchiolectasis as well as subpleural cystic changes within anterior left upper lobe and lingula. Nodular consolidation is noted within the anterior aspect of the left upper lobe in the area of honeycombing which does not resolve on prone imaging measuring tumor 1.7 cm (series 204, image 99) may represent focal severe scarring. However, in absence of prior comparative examination, superimposed infectious/inflammator y versus neoplastic process is not entirely excluded. There is no pleural effusion or pneumothorax. Expiratory imaging is technically limited, however, there is suggestion of multifocal air trapping. Prone imaging reveals no additional findings. MEDIASTINUM AND LADARIUS, LOWER NECK AND AXILLA: The visualized thyroid gland is within normal limits. Numerous enlarged mediastinal lymph nodes are appreciated. For example, on series 201, image 125 a 1.3 cm prevascular lymph node is seen. On series 21, image 112, a 1.1 cm right paratracheal lymph node is seen. And on series 201, image 97, a right paratracheal lymph node is seen. Lastly, on series 21, image 153, a right paraesophageal lymph node is seen measuring up to 1.3 cm. Esophagus appears within normal limits as seen. HEART AND VESSELS: The thoracic aorta normal in course and caliber.There is mild scattered calcified atherosclerosis present. The pulmonary artery is severely dilated measuring up to 4.3 cm. Severe coronary artery calcifications versus stenting is seen. Please note,the study is not optimized for evaluation of coronary arteries. The heart is mildly enlarged. There is no pericardial effusion seen. UPPER ABDOMEN: Cholelithiasis without evidence of cholecystitis. Bilateral nonobstructing renal stones are seen. 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 CHEST WALL AND OSSEOUS STRUCTURES: Chest wall is within normal limits. No acute osseous pathology.There are no suspicious osseous lesions.Moderate to severe multilevel degenerative changes within visualized spine. IMPRESSION: 1. 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 However, there is more focal area of fibrotic and subpleural cystic change within the anterior left upper lobe which may be a part of the above-mentioned fibrotic process versus sequela of superimposed prior infectious/inflammator y process. Pulmonology consultation is recommended. 2. Nonspecific nodular consolidative opacity is noted within the anterior aspect of the upper lobe as described above. Correlation with prior imaging, if available, may be helpful. Otherwise, attention on short-term follow-up noncontrast CT scan chest within 3 months is recommended to document improvement/resolution . 3. Significantly dilated main pulmonary artery measuring 4.3 cm and correlate with concern for/history of pulmonary hypertension. 4. Severe coronary artery calcifications are noted. Please note that, the present study is not tailored for evaluation of coronary arteries. 5. Multiple prominent mediastinal lymph nodes may be reactive in nature. Attention on follow-up is recommended. 6. Additional findings as above. I personally reviewed the images/study and I agree with the findings as stated above by resident physician, Dr. Aaron Vail. The study was interpreted at [facility] in [facility]. MACRO: None Signed by: Malik Escobedo 06/15/2023 2:55 PM Dictation workstation: [id number] Normal [facility] Discharge Instructionson Discharge Instructions [id number]. 00TIFF Normal [facility] BMPon 06-08-2023 Anion gap [Moles/Vol] 15 mmol/L Normal 6-16 [facility] Comment on above: Performed By: #### 2 555780, 03803985, 5063244, 1570551, 1227324, 7691900, 69104488, 6737449, 0589619, 4705120, 442353515, 9557615 #### [facility] [address] [place] [address] BUN/Creat Ratio 20 No Units Normal 10-20 [facility] Comment on above: Performed By: #### 2 456664, 02008020, 5759034, 4276307, 4687143, 3180146, 11026034, 5803037, 5043528, 0411814, 895430607, 0879229 #### [facility] [address] [place] [address] Calcium [Mass/Vol] 9.3 mg/dL Normal 8.9-11.1 [facility] Comment on above: Performed By: #### 2 566291, 76650921, 3279411, 7443444, 5573582, 6266343, 40453050, 2065050, 0378975, 0026637, 383824996, 4338175 #### [facility] [address] [place] [address] Chloride [Moles/Vol] 103 mmol/L Normal 101-111 [facility] Comment on above: Performed By: #### 2 062686, 49953881, 8045728, 3889458, 4031869, 0029631, 28253569, 4914939, 7430103, 0129802, 053903342, 4334962 #### [facility] [address] [place] [address] CO2 [Moles/Vol] 21 mmol/L Normal 21-31 [facility] Comment on above: Performed By: #### 2 155601, 14252493, 7826049, 6722727, 9732386, 8749189, 20563134, 2322032, 9734287, 5501080, 716012431, 5386339 #### [facility] [address] [place] [address] Creatinine [Mass/Vol] 2.4 mg/dL High 0.5-1.3 [facility] Comment on above: Performed By: #### 2 213708, 35756300, 2309492, 0034555, 3561130, 7258467, 45136742, 0953351, 9232239, 3466500, 029905188, 3257611 #### [facility] [address] [place] [address] Glucose [Mass/Vol] 144 mg/dL Normal 55-199 [facility] Comment on above: Performed By: #### 2 389716, 14809080, 5199531, 6535262, 6386419, 2966609, 58193275, 0358795, 4474621, 5922730, 406391125, 4816511 #### [facility] [address] [place] [address] Potassium [Moles/Vol] 3.6 mmol/L Normal 3.5-5.3 [facility] Comment on above: Performed By: #### 2 180556, 13851816, 7880879, 0937595, 6502136, 0312864, 51651018, 4982050, 7304734, 2135166, 822028056, 8422110 #### [facility] [address] [place] [address] Sodium [Moles/Vol] 135 mmol/L Normal 135-145 [facility] Comment on above: Performed By: #### 2 860207, 28006489, 1443074, 9325399, 9412852, 3166416, 53211738, 7930088, 3550984, 6194829, 319330390, 6387919 #### [facility] [address] [place] [address] Urea nitrogen [Mass/Vol] 47 mg/dL High 5-21 [facility] Comment on above: Performed By: #### 2 910395, 15059513, 2444302, 3720341, 7126392, 1916553, 71278032, 4199219, 2066769, 6818438, 447019842, 3412090 #### [facility] [address] [place] [address] Capillary Glucose [facility] 05-30 0 Glucose [Mass/Vol] 148 mg/dL High 55-99 [facility] Comment on above: Result Comment: Kulwant CISNEROS Performed By: #### 1 6931947, [id number] #### [facility] [address] [place] [address] Glucose [Mass/Vol] 165 mg/dL High [facility] Comment on above: Result Comment: Kulwant CISNEROS Performed By: #### 2 762363, 61849203, 6381402, 9175346, 4746535, 0852956, 21031732, 5028316, 3097678, 3987661, 974610735, 6392643 #### [facility] [address] [place] [address] Consultation Noteon 06-08-19 Consultation Note Patient: ANANDA CALHOUN Age: 72 years Sex: Male : 1950 Associated Diagnoses: None Author: Constantin PIZANO, Iliana Basic Information Cardiac consultation requested for evaluation for chest pain and shortness of breath Chief Complaint 06/07/2023 14:30 EST chest pain and sob 06/07/2023 11:04 EST CP and SOB worsening this morning, states he did have some CP on Tuesday that went away. hx NH in approx. 2005. former smoker. states SOB worsens with exertion. 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 History of Present Illness Patient is known to our practice 72-year-old with advanced chronic kidney disease, mild atherosclerotic coronary artery disease based on remote heart cath hypertension presented to hospital complaining of episode of increasing shortness of breath and chest heaviness. Symptoms lasted few hours and resolved. Patient was given some Lasix and aspirin Subsequently cardiac enzyme and EKG appears to be negative. The patient reported his symptoms were nonexertional. His creatinine on presentation was 2.5 but recently was as high as 2.9. At that time evaluation the patient feels back to his baseline. His telemetry showed frequent PACs Review of Systems Constitutional: Fatigue. Eye: Negative. Ear/Nose/Mouth/Throat: Negative. Respiratory: Shortness of breath. Cardiovascular: Chest pain, Palpitations. Gastrointestinal: Negative. Genitourinary: Negative. Hematology/Lymphatics: Negative. Endocrine: Negative. Immunologic: Negative. Musculoskeletal: Negative. Integumentary: Negative. Neurologic: Negative. Psychiatric: Negative. All other systems are negative Health Status Allergies: Allergic Reactions (Selected) Severity Not Documented Lisinopril- Dry cough. Shellfish- Gout flare. Current medications: (Selected) Inpatient Medications Ordered Al hydroxide/Mg hydroxide/simethicone 200 mg-200 mg-20 mg/5 mL oral suspension: 30 mL, Susp-Oral, Oral, q6hr PRN Indigestion, Routine, Start date 06/07/23 13:36:00 EST Ambien 5 mg Tab: 5 mg = 1 tab(s), Tab, Oral, Bedtime PRN Sleep, Routine, Start date 06/07/23 13:36:00 EST Dextrose 50% Soln-IV: 50 mL, Soln-IV, IV Push, Once PRN Blood glucose, Routine, Start date 06/07/23 13:39:00 EST Insulin Lispro Sliding Scale: 0-10 Unit(s), Injection-Insulin, SubCutaneous, QIDACHS, Routine, Start date 06/07/23 16:30:00 EST Lasix 40 mg/4mL injection: 40 mg = 4 mL, Injection, IV Push, Daily, Routine, Start date 06/08/23 9:00:00 EST, 06/07/23 13:51:00 EST Lopressor 25 mg oral tablet: 25 mg = 1 tab(s), Tab, Oral, BID, Routine, Start date 06/07/23 21:00:00 EST, 06/07/23 18:06:00 EST Milk of Magnesia 8% Susp-Oral: 30 mL, Susp-Oral, Oral, q6hr PRN Constipation, Routine, Start date 06/07/23 13:36:00 EST Zofran 4 mg/2 mL Injection: 4 mg = 2 mL, Injection, IV Push, q6hr PRN Nausea, Routine, Start date 06/07/23 13:36:00 EST, 06/07/23 13:36:00 EST acetaminophen 325 mg Tab: 650 mg = 2 tab(s), Tab, Oral, q6hr PRN Pain, Routine, Start date 06/07/23 13:36:00 EST, 06/07/23 13:36:00 EST aspirin 81 mg Oral EC Tab: 81 mg = 1 tab(s), Tab-EC, Oral, Daily, Routine, Start date 06/08/23 9:00:00 EST, 06/07/23 13:36:00 EST atorvastatin 40 mg Tab: 40 mg = 1 tab(s), Tab, Oral, Bedtime, Routine, Start date 06/07/23 21:00:00 EST, 06/07/23 18:05:00 EST ezetimibe 10 mg Tab: 10 mg = 1 tab(s), Tab, Oral, Daily, Routine, Start date 06/08/23 9:00:00 EST, 06/07/23 18:05:00 EST glimepiride 2 mg Tab: 4 mg = 2 tab(s), Tab, Oral, Daily, Routine, Start date 06/08/23 9:00:00 EST losartan 50 mg Tab: 100 mg = 2 tab(s), Tab, Oral, Daily, Routine, Start date 06/08/23 9:00:00 EST, 06/07/23 18:06:00 EST tamsulosin 0.4 mg Cap: 0.4 mg = 1 cap(s), Cap, Oral, qPM, Routine, Start date 06/08/23 16:30:00 EST, 06/07/23 18:06:00 EST Prescriptions Prescribed isosorbide mononitrate 30 mg ER Tab: 30 mg = 1 tab(s), Oral, qAM, # 30 tab(s), Refills(s) 0, Pharmacy: [facility]/pharmacy #[id number], 186, cm, 06/07/23 11:12:00 EST, Height/Length Dosing, 133.3, kg, 06/07/23 11:12:00 EST, Weight Dosing Documented Medications Documented Fish Oil 1000 mg oral capsule: 1,000 mg = 1 cap(s), Oral, Daily, Refills(s) 0, Prophylaxis Kerendia 10 mg oral tablet: 10 mg = 1 tab(s), Oral, Daily, Refills(s) 0 Lopressor 25 mg oral tablet: 25 mg = 1 tab(s), Oral, BID, Refills(s) 0 Multivitamin, Therapeutic w/ Minerals: 1 tab(s), Oral, Daily, Refill(s) 0, Prophylaxis Nitro 0.4 mg Tab: = 1 tab(s), SubLingual, q5min, PRN Chest pain, # 25 tab(s), Refills(s) 3 Trulicity Pen 1.5 mg/0.5 mL subcutaneous solution: 1.5 mg, SubCutaneous, Tuesday, Refills(s) 0, Blood glucose aspirin 81 mg Oral EC Tab: 81 mg = 1 tab(s), Oral, Daily, # 30 tab(s), Refills(s) 0 atorvastatin 40 mg Tab: 40 mg = 1 tab(s), Oral, Bedtime, Refills(s) 0 ezetimibe 10 mg Tab: 10 mg = 1 tab(s), Oral, Daily, # 30 tab(s), Refills(s) 0 febuxostat 40 mg oral tablet: 40 mg = 1 tab(s), Oral, Daily, # 30 tab(s), Refills(s) 0 furosemide 40 mg Tab: 40 mg = 1 tab(s), Oral, (more content not included)... Normal [facility] Comment on above: Result Comment: Elec tronically Signed By: Iliana Killian MD\.br\Date and Time Signed: 06/08/23 13:29 EST Discharge Note-Nursingon Discharge Note-Nursing ISIDRO CALHOUN :1950 Visit Date:06/07/2023 Inpatient Discharge Instructions Your Care Team Admitting Physician - Yamilet YADAV MD Consulting Physician - [facility], [facility] Iliana Killian MD Reason for Your Visit chest pain and sob Your Diagnosis Chest pain Acute diastolic heart failure Obesity HTN (hypertension) Diabetes mellitus CKD (chronic kidney disease), stage IV Chest pain Shortness of breath Tests Performed Automated Diff BMP Capillary Glucose POC CBC w/ Auto Diff eGFR PT & PTT Troponin 0 Hr. Troponin 3 Hr. Troponin 6 Hr. Troponin 9 Hr. Echo Transthoracic w/ Contrast XR Chest Single View This Is Your Medications List aspirin (aspirin 81 mg Oral EC Tab) atorvastatin (atorvastatin 40 mg Tab) dulaglutide (Trulicity Pen 1.5 mg/0.5 mL subcutaneous solution) ezetimibe (ezetimibe 10 mg Tab) febuxostat (febuxostat 40 mg oral tablet) finerenone (Kerendia 10 mg oral tablet) furosemide (furosemide 40 mg Tab) glimepiride (glimepiride 2 mg Tab) irbesartan (irbesartan 150 mg Tab) isosorbide mononitrate (isosorbide mononitrate 30 mg ER Tab) metoprolol (Lopressor 25 mg oral tablet) multivitamin with minerals (Multivitamin, Therapeutic w/ Minerals) nitroglycerin (Nitro 0.4 mg Tab) omega-3 polyunsaturated fatty acids (Fish Oil 1000 mg oral capsule) tamsulosin (tamsulosin 0.4 mg Cap) Procedure History Colonoscopy (12/21/2021), Cataract extraction (07/03/2019), -right carpal tunnel release (05/14/2016), right cataract extraction with intraocular lens implant (08/07/2013), Cataract (2013), Repair of ventral hernia (03/2007), Repair of umbilical hernia (03/2006), Mohls surgery - left ear (2004), Adenoidectomy, Cellulitis, Colonoscopy, heart cath, Tonsillectomy. Discharge Vitals Temperature (Oral) 37 ?C Heart Rate (Monitored) 45 Respiratory Rate 16 Blood Pressure 126/74 Height 185.42 cm Weight 131.0 kg BMI 38.86 What to do next Instructions From Your Doctor Event Name Event Result Discharge Activity Ambulate as tolerated Discharge Restrictions No restrictions Discharge Diet(s) Low Sodium- 2000 mg Pending Diagnostic Test Results None Pharmacy Information [facility] New Follow Up Appointments after Discharge Follow Up with Alix Estes When: 06/09/2023 11:30 AM EST Comments: Keep scheduled appointment Where: [address] [place] [address]- Business (1) Medications What How Much When Instructions Next Dose New isosorbide mononitrate (isosorbide mononitrate 30 mg ER Tab) 1 Tablets By Mouth Once a day (in the morning) Pickup at [facility]/pharmacy #[id number] 06/09/23 Unchanged aspirin (aspirin 81 mg Oral EC Tab) 1 Tablets By Mouth Every day 06/10/23 Unchanged atorvastatin (atorvastatin 40 mg Tab) 1 Tablets By Mouth At bedtime 06/09/23 @9pm Unchanged dulaglutide (Trulicity Pen 1.5 mg/ 0.5 mL subcutaneous solution) 1.5 Milligram Subcutaneous Tuesday06/11/23 Unchanged ezetimibe (ezetimibe 10 mg Tab) 1 Tablets By Mouth Every day 06/09/23 Unchanged febuxostat (febuxostat 40 mg oral tablet) 1 Tablets By Mouth Every day 06/09/23 Unchanged finerenone (Kerendia 10 mg oral tablet) 1 Tablets By Mouth Every day 06/09/23 Unchanged furosemide (furosemide 40 mg Tab) 1 Tablets By Mouth Every day 06/09/23 Unchanged glimepiride (glimepiride 2 mg Tab) 2 Tablets By Mouth Every day 06/09/23 Unchanged irbesartan (irbesartan 150 mg Tab) 1 Tablets By Mouth Every day 06/09/23 Unchanged metoprolol (Lopressor 25 mg oral tablet) 1 Tablets By Mouth 2 times a day 06/08/23@9pm Unchanged multivitamin with minerals (Multivitamin, Therapeutic w/ Minerals) 1 Tablets By Mouth Every day 06/09/23 Unchanged nitroglycerin (Nitro 0.4 mg Tab) 1 Tablets Sublingual Every 5 minutes as needed for Chest pain Take 1 tablet as needed every 5 minutes as needed for chest pain Unchanged omega-3 polyunsaturated fatty acids (Fish Oil 1000 mg oral capsule) 1 Capsules By Mouth Every day 06/09/23 Unchanged tamsulosin (tamsulosin 0.4 mg Cap) 1 Capsules By Mouth Once a day (in the evening) 06/08/23 @9pm Pharmacy Information [facility]/pharmacy #[id number]: [address], [place] [id number] [phone] Test Results CBC BMP WBC: 8.6 E9/L (06/07/23 11:11:00) Glucose Lvl: 144 mg/dL (06/08/23 06:36:00) RBC: 4.2 E12/L Low (06/07/23 11:11:00) BUN: 47 mg/dL High (06/08/23 06:36:00) HGB: 12 gm/dL Low (06/07/23 11:11:00) Creatinine: 2.4 mg/dL High (06/08/23 06:36:00) Hct: 35.9 % Low (06/07/23 11:11:00) BUN/Creat Ratio: 20 (06/08/23 06:36:00) MCV: 86.6 fL (06/07/23 11:11:00) Sodium Lvl: 135 mmol/L (06/08/23:36:00) MCH: 29 pg (06/07/23:11:00) Potassium Lvl: 3.6 mmol/L (06/08/23:36:00) MCHC: 33.4 gm/dL (06/07/23 11:11:00) Chloride: 103 mmol/L (06/08/23:36:00) RDW: 13.6 % (06/07/23 11:11:00) CO2: 21 mmol/L (06/08/23:36:00) Platelet: 167 E9/L (06/07/23 11:11:00) AGAP: (more content not included)... [facility] [employer] Education Videoon [employer] Education Video Yes Patient Avoiding Infections in the Hospital Normal [facility] Interdisciplinary Note - Richard e Manageron 06-08-2023 Interdisciplinary Note - [employer] Mixer CRM to room earlier and patient was getting an ECHO Back to room. Patient is awake, alert and oriented. Patient is from home, he drove himself here and plans to drive self at DC. Patient verified PCP, home DME and insurance. Patient is an observation for CP/SOB. Patient is assigned to Dr Yadav, patient is a possible DC later once ECHO completed. Patient has been seen by Cardiology. Patient denied DC needs for HH or DME. Patient is okay with Paramed f/u at DC. Patient was provided CRM contact, white board updated. CRM following. [facility] Comment on above: Result Comment: Elec tronically Signed By: La Perez\.br\Date and Time Signed: 06/08/23 11:50 EST Interdisciplinary Note - Soc ial Workeron 06-08-2023 Interdisciplinary Note - Fairing Man This SW responded to a consult on regarding Advance Directives. Patient was currently having testing in his room. SW will check back with the patient later. [facility] Monitor Recordon 06-08-2023 Monitor Record [id number]#1. 00TIFF Normal [facility] Monitor Record [id number]#1. 00TIFF Normal [facility] eGFRon 06-08-2023 eGFR 28 mL/min/1.73 m2 Low >=59 [facility] Comment on above: Order Comment: Order added by Discern Expert. Performed By: #### 2 148790, 92922494, 8380254, 3127945, 4642738, 6757575, 73593033, 4399824, 7400844, 1342309, 323433788, 1061389 #### [facility] [address] [place] [address] Auto Diffon 06-07-2023 Basophils/100 WBC (Bld) 0.3 % Normal 0.0-2.0 [facility] Comment on above: Order Comment: Order Added by Discern Expert. Performed By: #### 2 816057, 80837088, 9635556, 5922405, 7448941, 6279712, 58395493, 1405151, 6886474, 0599732, 665497657, 2203193 #### [facility] [address] [place] [address] Basophils/Leukocytes Auto (Bld) [Pure # fraction] 0.0 E9/L Normal 0.0-0.2 [facility] Comment on above: Order Comment: Order Added by Discern Expert. Performed By: #### 2 030783, 61513863, 4385531, 8343152, 2871184, 8908051, 04952342, 9556210, 4521639, 3501079, 596202061, 7546190 #### [facility] [address] [place] [address] Eosinophils/100 WBC (Bld) 1.2 % Normal 0.0-8.0 [facility] Comment on above: Order Comment: Order Added by Discern Expert. Performed By: #### 2 200591, 44234993, 1214369, 0175163, 7196055, 3127696, 23404193, 4558901, 4771439, 8772154, 187033338, 7684062 #### [facility] [address] [place] [address] Eosinophils/Leukocyte s Auto (Bld) [Pure # fraction] 0.1 E9/L Normal 0.0-0.5 [facility] Comment on above: Order Comment: Order Added by Discern Expert. Performed By: #### 2 402337, 89651567, 8584009, 5374655, 3139870, 6204984, 46478856, 6428353, 9572787, 3827398, 108076749, 1603599 #### [facility] [address] [place] [address] Lymphocytes/100 WBC (Bld) 9.1 % Low 14.0-50.0 [facility] Comment on above: Order Comment: Order Added by Discern Expert. Performed By: #### 2 629720, 28261310, 1376343, 1578746, 1420818, 9373665, 71192512, 1462706, 4545291, 1821775, 921951080, 4349292 #### [facility] [address] [place] [address] Lymphocytes/Leukocyte s Auto (Bld) [Pure # fraction] 0.8 E9/L Low 1.0-4.0 [facility] Comment on above: Order Comment: Order Added by Discern Expert. Performed By: #### 2 086584, 54152060, 8395687, 7939998, 3584102, 0817804, 51483250, 1001045, 6803032, 5793224, 769942343, 0609406 #### [facility] [address] [place] [address] Monocytes/100 WBC (Bld) 11.8 % Normal 4.0-14.0 [facility] Comment on above: Order Comment: Order Added by Discern Expert. Performed By: #### 2 298734, 00248347, 2593800, 7163853, 4870083, 1957226, 91483702, 8780987, 5947919, 5292535, 132282625, 3979816 #### [facility] [address] [place] [address] Monocytes/Leukocytes Auto (Bld) [Pure # fraction] 1.0 E9/L Normal 0.2-1.0 [facility] Comment on above: Order Comment: Order Added by Discern Expert. Performed By: #### 2 109204, 75541643, 6533203, 0573422, 6908620, 9972177, 92721784, 5994946, 5273184, 3292347, 224761620, 0341228 #### [facility] [address] [place] [address] Neutrophils/100 WBC (Bld) 77.6 % High 36.0-75.0 [facility] Comment on above: Order Comment: Order Added by Discern Expert. Performed By: #### 2 248410, 25899371, 1945707, 5615029, 7089626, 5269951, 08824445, 9607489, 0225958, 2837950, 451241590, 0531240 #### [facility] [address] [place] [address] Neutrophils/Leukocyte s Auto (Bld) [Pure # fraction] 6.7 E9/L Normal 2.0-7.5 [facility] Comment on above: Order Comment: Order Added by Discern Expert. Performed By: #### 2 819240, 49488864, 4955756, 3489905, 2229581, 3576948, 92086314, 9394433, 3206968, 9248799, [id number], 2036030 #### [facility] [address] [place] [address] BMPon 06-07-2023 Anion gap [Moles/Vol] 18 mmol/L High 6-[address] [facility] Comment on above: Performed By: #### 2 292154, 62490380, 2232890, 5022522, 7307557, 9050807, 28509174, 5287008, 1084553, 2422581, 954202517, 8495918 #### [facility] [address] [place] [address] BUN/Creat Ratio 17 No Units Normal 10-20 [facility] Comment on above: Performed By: #### 2 888916, 64066667, 2787462, 9403111, 5858593, 4270703, 49618516, 4007281, 5176241, 0361946, 634448829, 5577221 #### [facility] [address] [place] [address] Calcium [Mass/Vol] 9.8 mg/dL Normal 8.9-11.1 [facility] Comment on above: Performed By: #### 2 829845, 19205965, 3430016, 2328814, 6508181, 2730422, 61061242, 1298190, 3283163, 0254844, 141131502, 7105605 #### [facility] [address] [place] [address] Chloride [Moles/Vol] 101 mmol/L Normal 101-111 [facility] Comment on above: Performed By: #### 2 462936, 68041500, 1410447, 2584336, 4207997, 3377192, 03039840, 8547995, 0169309, 3043795, 327640962, 3647816 #### [facility] [address] [place] [address] CO2 [Moles/Vol] 19 mmol/L Low 21-31 [facility] Comment on above: Performed By: #### 2 959194, 45109320, 6955550, 3414921, 3644877, 3563218, 79345955, 9871387, 6783499, 7564196, 500305530, 9905428 #### [facility] [address] [place] [address] Creatinine [Mass/Vol] 2.5 mg/dL High 0.5-1.3 [facility] Comment on above: Performed By: #### 2 871274, 80055805, 0665417, 7147136, 0382367, 7968722, 57806902, 3494443, 6547305, 0259590, 897615116, 5569595 #### [facility] [address] [place] [address] Glucose [Mass/Vol] 187 mg/dL Normal 55-199 [facility] Comment on above: Performed By: #### 2 428601, 68357096, 7395787, 4647243, 8676326, 3500639, 07698495, 8679865, 8427084, 0792487, 929940198, 9978224 #### [facility] [address] [place] [address] Potassium [Moles/Vol] 4.0 mmol/L Normal 3.5-5.3 [facility] Comment on above: Performed By: #### 2 632461, 86892115, 2779706, 2838091, 5568995, 2891894, 78275080, 7012577, 9779483, 0325069, 139538998, 1109991 #### [facility] [address] [place] [address] Sodium [Moles/Vol] 134 mmol/L Low 135-145 [facility] Comment on above: Performed By: #### 2 614625, 46751399, 4067346, 7086745, 0367060, 3994835, 16780196, 8465782, 3001906, 2201429, 495803925, 0434781 #### [facility] [address] [place] [address] Urea nitrogen [Mass/Vol] 43 mg/dL High 5-21 [facility] Comment on above: Performed By: #### 2 402273, 17288011, 0028886, 4372444, 5768706, 9690973, 33530244, 3406017, 8836906, 0310096, 111052310, 6554636 #### [facility] [address] [place] [address] CBC w/ Auto Diffon 4 Erythrocyte distribution width (RBC) [Ratio] 13.6 % Normal 10.9-14.2 [facility] Comment on above: Performed By: #### 2 907803, 04653568, 4996741, 6452114, 2038742, 2135030, 83659492, 9154499, 7742603, 5054771, 106696145, 7905139 #### [facility] [address] [place] [address] Hematocrit (Bld) [Volume fraction] 35.9 % Low 37.7-49.0 [facility] Comment on above: Performed By: #### 2 202463, 47567624, 1581766, 4266968, 5972522, 8026697, 79309999, 2487681, 7025297, 3912440, 537565922, 5636112 #### [facility] [address] [place] [address] Hemoglobin (Bld) [Mass/Vol] 12.0 g/dL Low 13.5-17.5 [facility] Comment on above: Performed By: #### 2 141469, 45736797, 8090511, 3584342, 5388236, 7265895, 39638255, 4426896, 0677292, 8080493, 806686167, 3329392 #### [facility] [address] [place] [address] MCH (RBC) [Entitic mass] 29.0 pg Normal 27.0-34.0 [facility] Comment on above: Performed By: #### 2 411072, 24265851, 5207523, 1020000, 5901477, 5835406, 23470200, 9544044, 1732323, 1232966, 378337717, 0706067 #### [facility] [address] [place] [address] MCHC (RBC) [Mass/Vol] 33.4 g/dL Normal 31.4-36.0 [facility] Comment on above: Performed By: #### 2 495702, 39831517, 3806466, 9011883, 3723902, 5056002, 85767024, 5527406, 1682495, 2670517, 704139103, 5824875 #### [facility] [address] [place] [address] MCV (RBC) [Entitic vol] 86.6 fL Normal 80.0-100.0 [facility] Comment on above: Performed By: #### 2 311955, 16431565, 9306213, 8405015, 9069248, 6534082, 44689084, 5000397, 7922745, 3259337, 775148588, 2762496 #### [facility] [address] [place] [address] Platelet mean volume (Bld) [Entitic vol] 8.3 fL Normal 6.4-10.8 [facility] Comment on above: Performed By: #### 2 453932, 92917788, 9202755, 6825205, 8697313, 5492922, 73195263, 4241165, 0319964, 6658371, 092308853, 4617738 #### [facility] [address] [place] [address] Platelets (Bld) [#/Vol] 167.0 E9/L Normal 150.0-500.0 [facility] Comment on above: Performed By: #### 2 267578, 34239950, 4043333, 8323446, 5621920, 9582526, 16785758, 6692827, 6812833, 8440388, 657157565, 3597010 #### [facility] [address] [place] [address] RBC (Bld) [#/Vol] 4.2 E12/L Low 4.3-5.9 [facility] Comment on above: Performed By: #### 2 028779, 00145097, 7706538, 8666349, 3015777, 5875710, 63353160, 8074595, 2475138, 0197088, 257125693, 3560987 #### [facility] [address] [place] [address] WBC corrected for nucl RBC Auto (Bld) [#/Vol] 8.6 E9/L Normal 4.0-11.0 [facility] Comment on above: Performed By: #### 2 675615, 91461098, 5200652, 4546561, 4502525, 7890621, 25875041, 2681232, 1774182, 5329134, 670570610, 3419460 #### [facility] [address] [place] [address] Capillary Glucose POCon Glucose [Mass/Vol] 177 mg/dL High [facility] Comment on above: Result Comment: Nany judy Meter Performed By: #### 2 963885, 16019000, 2205178, 9770222, 7951284, 7930002, 16556378, 3655682, 8438020, 6992438, 378383963, 8056964 #### [facility] [address] [place] [address] Glucose [Mass/Vol] 218 mg/dL High [facility] Comment on above: Result Comment: Nany judy Meter Performed By: #### 2 204652, 44635047, 2869741, 9534146, 6347476, 1364849, 46140335, 8149229, 5849532, 5173388, 036934840, 7962082 #### [facility] [address] [place] [address] Consent for Treatmenton Consent for Treatment [id number] 0TIFF Normal [facility] ED Clinical Summaryon 2023 ED Clinical Summary [address] [address] ED Clinical Summary Person Information Name: ISIDRO CALHOUN [facility] Age: 72 Years : 1950 Sex: Male Language: Australian PCP: Alix Estes DO Marital Status: Visit Id: Visit Reason: Shortness of breath; Chest pain; CHEST PAIN-SOB Speciality: Acuity: 2 Enc Type: Observation Med Service: Medical Arrival: 06/07/2023 11:01:21 Discharge: LOS: 000 03:14 Checkin: 06/07/2023 11:01:21 Checkout: 06/07/2023 14:15:51 Dispo Type: Admitted as IP to this [facility] EVENTS: Event Name Event Status Request Date/Time Start Date/Time Complete Date/Time Arrive Complete 06/07/2023 11:01:21 06/07/2023 11:01:21 06/07/2023 11:01:21 Document Home Meds Complete 06/07/2023 11:01:21 06/07/2023 11:38:37 06/07/2023 11:38:37 Triage Complete 06/07/2023 11:01:21 06/07/2023 11:12:33 06/07/2023 11:12:33 Bed Assign Complete 06/07/2023 11:04:37 06/07/2023 11:04:37 06/07/2023 11:04:37 Dr Exam Complete 06/07/2023 11:04:37 06/07/2023 11:04:48 06/07/2023 11:04:48 RN Exam Complete 06/07/2023 11:04:37 06/07/2023 12:35:21 06/07/2023 12:35:21 EKG Complete 06/07/2023 11:04:41 06/07/2023 11:08:22 Pending Labs Request 06/07/2023 11:04:41 Lab Complete 06/07/2023 11:04:41 06/07/2023 11:53:50 Patient Care Request 06/07/2023 11:04:41 RT Request 06/07/2023 11:04:41 X-Ray Complete 06/07/2023 11:04:41 06/07/2023 11:12:59 06/07/2023 11:29:58 Registration Complete 06/07/2023 11:04:48 06/07/2023 11:34:31 06/07/2023 11:34:31 Pending Labs Complete 06/07/2023 11:20:06 06/07/2023 11:20:06 06/07/2023 11:53:50 Lab Complete 06/07/2023 11:20:06 06/07/2023 11:20:06 06/07/2023 11:53:50 Pending Labs Complete 06/07/2023 11:26:31 06/07/2023 11:26:31 06/07/2023 11:26:38 Lab Complete 06/07/2023 11:26:31 06/07/2023 11:26:31 06/07/2023 11:26:38 Wet Read Complete 06/07/2023 11:29:58 06/07/2023 11:35:14 06/07/2023 11:35:14 Pending Labs Complete 06/07/2023 11:32:17 06/07/2023 11:32:17 06/07/2023 11:32:18 Reg Complete Request 06/07/2023 11:34:31 Reg Bed Request Complete 06/07/2023 11:34:31 06/07/2023 11:34:31 06/07/2023 11:34:31 Consult Request 06/07/2023 12:43:12 Meds Admin Complete 06/07/2023 12:43:16 06/07/2023 13:07:33 Hospitalist Consult Request 06/07/2023 12:43:16 Patient Care Request 06/07/2023 13:23:07 Patient Care Request 06/07/2023 13:23:07 M[facility]ONOUGH Form Complete 06/07/2023 13:23:08 06/07/2023 13:25:29 Patient Care Request 06/07/2023 13:23:08 Patient Care Request 06/07/2023 13:23:08 Patient Care Request 06/07/2023 13:37:00 Meds Admin Request 06/07/2023 13:37:00 RT Request 06/07/2023 13:37:00 Bed Request Request 06/07/2023 13:37:00 Reg Bed Request Request 06/07/2023 13:37:00 Admit Request 06/07/2023 13:37:00 Consult Request 06/07/2023 13:37:57 Meds Admin Request 06/07/2023 13:39:49 Patient Care Request 06/07/2023 13:39:49 Meds Admin Request 06/07/2023 13:52:19 Pending Labs Request 06/07/2023 13:52:38 Lab Request 06/07/2023 13:52:38 ADDRESS: [address] [place] [address] [address] [place] [phone] PHYS DOC NOTES: MEDICAL INFORMATION: Prescriptions Given: Medications to Continue Taking That Have Changed Other Medications START: tamsulosin (tamsulosin 0.4 mg Cap) 1 Capsules By Mouth once a day (in the evening). STOP: tamsulosin (tamsulosin 0.4 mg Cap) 1 Capsules By Mouth every day. Medications to Continue with No Changes Other Medications aspirin (aspirin 81 mg Oral EC Tab) 1 Tablets By Mouth every day. atorvastatin (atorvastatin 40 mg Tab) 1 Tablets By Mouth at bedtime. dulaglutide (Trulicity Pen 1.5 mg/0.5 mL subcutaneous solution) 1.5 Milligram Subcutaneous Tuesday. ezetimibe (ezetimibe 10 mg Tab) 1 Tablets By Mouth every day. febuxostat (febuxostat 40 mg oral tablet) 1 Tablets By Mouth every day. finerenone (Kerendia 10 mg oral tablet) 1 Tablets By Mouth every day. furosemide (furosemide 40 mg Tab) 1 Tablets By Mouth every day. glimepiride (glimepiride 2 mg Tab) 2 Tablets By Mouth every day. irbesartan (irbesartan 150 mg Tab) 1 Tablets By Mouth every day. metoprolol (Lopressor 25 mg oral tablet) 1 Tablets By Mouth 2 times a day. multivitamin with minerals (Multivitamin, Therapeutic w/ Minerals) 1 Tablets By Mouth every day. nitroglycerin (Nitro 0.4 mg Tab) 1 Tablets Sublingual every 5 minutes as needed Chest pain. omega-3 polyunsaturated fatty acids (Fish Oil 1000 mg oral capsule) 1 Capsules By Mouth every day. PATIENT EDUCATION INFORMATION: Instructions: Follow up: DIAGNOSIS: 1:Chest pain; 2:Acute diastolic heart failure; 3:Obesity; 4:HTN (hypertension); 5:Diabetes mellitus; 6:CKD (chronic kidney disease), stage IV Normal [facility] ED Note-Physicianon 06-07-19 ED Note-Physician Basic Information Time Seen: Reji Chaves DO 06/07/2023 11:04 History of Present Illness 72 male presents to the emergency department with chest pain. Patient states this started earlier this morning intermittently with some substernal chest pain. He does describe some exertional dyspnea associated with this as well. He took an aspirin and then 1 nitro this morning and this did seem to alleviate his symptoms. He did have history of a heart attack back around 2003. He has the following CAD risk factors: Age, gender, obesity, former tobacco user, high blood pressure cholesterol and diabetes. He has no DVT or PE risk factors denies any blood thinners other than daily aspirin. He reports no cough or fevers no abdominal pain no pain or swelling into his legs. No other aggravating or relieving factors no other associated symptoms no other prior treatments or complaints. Family: Reviewed and noncontributory Social: lives at home Review of systems negative unless otherwise specified in the HPI. Physical Exam General: The patient appears well and in no apparent distress. Patient is resting comfortably on cart. Skin: Warm, dry, no pallor noted. Head: Normocephalic, atraumatic Neck: No JVD Eye: PERRLA, EOMI ENT: Moist mucus membranes Cardiovascular: Regular rate normal peripheral perfusion Respiratory: No respiratory distress no accessory muscle use no obvious audible wheezing Chest Wall: no deformity Musculoskeletal: normal ROM, no deformity, no swelling GI: Soft no obvious distention. No rebound or rigidity. No guarding. No tenderness. Neurological: A&O moves all extremities equal strength and symmetry Psychiatric: Cooperative and appropriate Procedure Heart Score for Major Cardiac Event History: Example factors for history - pattern of chest pain, onset, duration, relation with exercise, stress or cold, localization, concominant symptoms. reaction to sublingual nitrates, [x] Highly suspicious +2 [] Moderately suspicious +1 [] Slightly suspicious 0 EKG: [] Significant ST-Depression +2 [] Non specific repolarization disturbance +1 [x] Normal 0 Age: [x] >= 65 +2 [] 45-65 + 1 [] <45 0 Risk Factors: (HLD, HTN, DM, Cigarette Smoking, Pos Family Hx, Obesity) [x] >3 risk factors or hx of atheroslerotic disease + 2 [] 1-2 risk factors + 1 [] No risk factors known 0 Troponin: [] >= 3X normal + 2 [x] 1-3X normal + 1 [] <= Normal 0 [] 0-3 Points 0.9 - 1.7% risk of major adverse cardiac event in 6 weeks [] 4-6 Points 12-16.6% risk of major adverse cardiac event in 6 weeks [x] 7-10 Points 50-65% risk of major adverse cardiac event in 6 weeks [] 0-3 Points with 2 sets of negative cardiac markers <1% risk of major adverse cardiac event in 30 days. Medical Decision Making Workup in the ER has been reviewed and noted. Initial troponin is indeterminate. Patient does have some pulmonary vascular congestion on chest x-ray and therefore is treated with 1 dose of IV Lasix as he was reporting dyspnea with this as well. Ultimately he will need to be admitted for additional evaluation and treatment. He does have CKD looking at his BUN and creatinine. Case discussed with the hospitalist for admission. Critical care time 30 minutes exclusive from separate billable procedures Assessment/Plan Chest pain (R07.9: Chest pain, unspecified) CKD (chronic kidney disease) (N18.9: Chronic kidney disease, unspecified) Dyspnea (R06.00: Dyspnea, unspecified) Pulmonary edema (J81.1: Chronic pulmonary edema) Orders: furosemide, 40 mg = 4 mL, Injection, IV Push, Once, Stop date 06/07/23 12:43:00 EST, STAT, Start date 06/07/23 12:43:00 EST, 06/07/23 12:43:00 EST Automated Diff Basic Metabolic Panel CBC w/ Auto Diff ECG 12 Lead Adult ED Cardiac Monitoring ED Physician consult Hospitalist for continued care eGFR Extra SST Tube Oxygen Saturation Oxygen Therapy PT & PTT Saline Lock Insert Troponin 0 Hr. Troponin 3 Hr. Troponin 6 Hr. Troponin 9 Hr. XR Chest Single View Disposition Plan Discharge Prescription List Prescriptions No active prescription medications Follow-up No qualifying data available Problem List/Past Medical History Ongoing BMI 37.0-37.9, adult Diverticulosis Family history of colon cancer Hemorrhoids History of colon polyps Right knee DJD Right knee sprain Historical Apnea Diabetic II Gout Hypercholesterolemia Hypertension [place] - Myocardial infarction Procedure/Surgical History Colonoscopy (12/21/2021), Cataract extraction (07/03/2019), -right carpal tunnel release (05/14/2016), right cataract extraction with intraocular lens implant (08/07/2013), Cataract (2013), Repair of ventral hernia (03/2007), Repair of umbilical hernia (03/2006), Mohls surgery - left ear (2004), Sandra (more content not included)... Normal [facility] Comment on above: Result Comment: Elec tronically Signed By: Reji Chaves DO\.br\Date and Time Signed: 06/07/23 13:21 EST ED Patient Education Noteon 06-07-2023 ED Patient Education Note Normal [facility] ED Patient Summaryon 024 ED Patient Summary [place] [id number] Patient Discharge Instructions Person Information Name: ISIDRO CALHOUN Age: 72 Years Arrival Date: 06/07/2023 11:01:21 Discharge Diagnosis: 1:Chest pain; 2:Acute diastolic heart failure; 3:Obesity; 4:HTN (hypertension); 5:Diabetes mellitus; 6:CKD (chronic kidney disease), stage IV Primary Care Physician: Alix Estes DO Provider Information Primary Provider: Reji Chaves DO Advanced Inventory Assistant:None The exam and treatment you received in the Emergency Department were for an urgent problem and are not intended as complete care. It is important that you follow up with a doctor, nurse practitioner, or physician?s mechanic assistant for ongoing care. If your symptoms become worse or you do not improve as expected and you are unable to reach your usual health care provider, you should return to the Emergency Department. We are available 24 hours a day. ISIDRO CALHOUN has been given the following list of patient education materials, prescriptions and follow-up instructions: Follow-up Instructions: In the event that this physician does not participate in your insurance network, please consult with your insurance company to find a nearby participating provider. Patient Education Materials: A MESSAGE TO ALL PATIENTS REGARDING OPIOIDS PRESCRIPTION OPIOIDS: WHAT YOU NEED TO KNOW Prescription opioids can be used to help relieve clykgbjq-fb-fitsjq pain and are often prescribed following a surgery or injury, or for certain health conditions. These medications can be an important part of the treatment but also come with serious risks. It is important to work with your healthcare provider to make sure you are getting the safest, most effective care. WHAT ARE THE RISKS AND SIDE EFFECTS OF OPIOID USE? Prescription opioids carry serious risks of addiction and overdose, especially with prolonged use. An opioid overdose, often marked by slowed breathing, can cause sudden . The use of prescription opioids can have a number of side effects as well, even when taken as directed: ? Tolerance?meaning you might need to take more of the medication for the same pain relief ? Physical dependence?meaning you have symptoms of withdrawal when a medication is stopped ? Increased sensitivity to pain ? Constipation ? Nausea, vomiting, and dry mouth ? Sleepiness and dizziness ? Confusion ? Depression ? Low levels of testosterone that can result in lower sex drive, energy, and strength ? Itching and sweating RISKS ARE GREATER WITH: ? History of drug misuse, substance use disorder, or overdose ? Mental health conditions (such as depression or anxiety) ? Sleep apnea ? Older age (65 years and older) ? Avoid alcohol while taking prescription opioids. Also, unless specifically advised by your health care provider, medications to avoid include: ? Benzodiazepines (such as Xanax or Valium) ? Muscle relaxants (such as Soma or Flexeril) ? Hypnotics (such as Ambien or Lunesta) ? Other prescription opioids KNOW YOUR OPTIONS Talk to your health care provider about ways to manage your pain that don?t involve prescription opioids. Some of these options may actually work better and have fewer risks and side effects. Options may include: ? Pain relievers such as acetaminophen, ibuprofen, and naproxen ? Some medication that are also used for depression or seizures ? Physical therapy and exercise ? Cognitive behavioral therapy, a psychological, goal-directed approach, in which patients learn how to modify physical, behavioral, and emotional triggers of pain and stress. IF YOU ARE PRESCRIBED OPIOIDS FOR PAIN: ? Never take opioids in greater amounts or more often than prescribed. ? Follow up with your primary health care provider. o Work together to create a plan on how to manage your pain. o Talk about ways to help manage your pain that don?t involve prescription opioids. o Talk about any and all concerns and side effects. ? Help prevent misuse and abuse o Never sell or share prescription opioids. o Never use another person?s prescription opioids. ? Store prescription opioids in a secure place and out of reach of others (this may include visitors, children, friends, and family). ? Safely dispose of unused prescription opioids: Find your community drug take-back program or your pharmacy mail-back program, or flush them down the toilet, following guidance from the Food and Drug Administration (www.fda.gov/Drugs/Res ourcesForYou). ? Visit www.cdc.gov/drugoverdo se to learn about the risks of opioids abuse and overdose. ? If you believe you may be struggling with addiction, tell your health insurance healthcare representative and ask for guidance or call [facility] National Helpline at 7-211-701-DGBN. v Source: [place] Department of Health and Human Services/Center for [facility] (more content not included)... Normal [facility] Message from Medicareon Message from Medicare [id number] [id number]. 00TIFF [facility] Monitor Recordon 06-07-2023 Monitor Record [id number]. 00TIFF [facility] PT & PTTon 06-07-2023 aPTT Coag (PPP) [Time] 32.4 second(s) Normal 25.1-36.5 [facility] Comment on above: Result Comment: Para meter 15 days - 4 weeks 1 - 5 months 6 - 11 months 1 - 5 years 6 - 10 years 11 - 17 years PTT Mean: 35.4 (27.6-45.6) Mean: 33.5 (24.8-40.7) Mean: 32.4 (25.1-40.7) Mean: 31.6 (24.0-39.2) Mean: 31.6 (26.9-38.7) Mean: 31.0 (24.6-38.4) Pediatric Reference ranges were obtained from a study by Alex Zeng et al. prepared from 1437 samples obtained at 7 different centers using the same coagulation reagent and instrumentation as [facility]. Currently there are no coagulation studies available worldwide for children to 14 days, and no normal ranges. Heparin therapeutic range (represented by Anti-Factor Xa activity of 0.2 - 0.4 U/mL) corresponds to PTT of 56.6 - 109.0 sec. Performed By: #### 2 535271, [id number], 5003500, 2896749, 3499979, 8920687, 26773087, 1604261, 8449567, 9889956, [id number], 7659800 #### [facility] [address] [place] [address] INR Coag (PPP) [Relative time] 1.2 {INR} Invalid Interpretation Code [facility] Comment on above: Result Comment: INR results are specifically intended to assess patients stabilized on long-term Anticoagulation therapy suggested INR?s ?Less Intensive Anticoagulation? 2.0 ? 3.0 Conventional Range 3.0 ? 4.5 Performed By: #### 2 405132, 50271853, 8829493, 4127535, 5159176, 8531701, 22724444, 5159263, 4684464, 2722515, 221347769, 6165713 #### [facility] [address] [place] [address] PT Coag (PPP) [Time] 13.1 second(s) High 9.4-12.5 [facility] Comment on above: Result Comment: 15 d ays - 4 weeks 1 - 5 months 6 -11 months 1- 5 years 6-10 years 11 -17 years Mean: 11.2 (9.5-12.6) Mean: 11.0 (9.7-12.8) Mean: 11.0 (9.8-13.0) Mean: 11.3 (9.9-13.4) Mean: 11.7 (10.0-14.6) Mean: 11.8 (10.0 - 14.1) Pediatric Reference ranges were obtained from a study by Alex Zeng et al. prepared from 1437 samples obtained at 7 different centers using the same coagulation reagent and instrumentation as [facility]. Currently there are no coagulation studies available worldwide for children to 14 days, and no normal ranges. Performed By: #### 2 803572, 85421813, 4181190, 3392101, 4791921, 5481917, 98252209, 2470467, 4769121, 6256333, 909033253, 7527109 #### [facility] [address] [place] [address] Troponin 0 Hr.on 06-07-2023 Troponin 23.10 pg/mL Normal 15.90-38.40 [facility] Comment on above: Result Comment: The 95% CI (Confidence Interval) PPV (Positive Predictive Value) for myocardial infarction in females is 38 pg/mL, in males 51 pg/mL. The results should be used in conjunction with clinical conditions of myocardial infarction. (Access High Sensitivity Troponin I Instructions For Use, [employer], December 2017) Performed By: #### 2 109164, 96516970, 9916633, 0086594, 7605841, 3786756, 48768064, 3758719, 4468400, 4757571, 186590181, 5976034 #### [facility] [address] [place] [address] Troponin 3 Hr.on 06-07-2023 Troponin 31.30 pg/mL Normal 15.90-38.40 [facility] Comment on above: Result Comment: The 95% CI (Confidence Interval) PPV (Positive Predictive Value) for myocardial infarction in females is 38 pg/mL, in males 51 pg/mL. The results should be used in conjunction with clinical conditions of myocardial infarction. (Access High Sensitivity Troponin I Instructions For Use, [employer], December 2017) Performed By: #### 2 750650, 52053514, 4267094, 2800182, 2762301, 1349549, 90643833, 9071270, 8796487, 8092183, 095924978, 9442751 #### [facility] [address] [place] [address] Troponin 6 Hr.on 06-07-2023 Troponin 28.60 pg/mL Normal 15.90-38.40 [facility] Comment on above: Result Comment: The 95% CI (Confidence Interval) PPV (Positive Predictive Value) for myocardial infarction in females is 38 pg/mL, in males 51 pg/mL. The results should be used in conjunction with clinical conditions of myocardial infarction. (Sansan High Sensitivity Troponin I Instructions For Use, [employer], December 2017) Performed By: #### 2 841755, 69092713, 9114121, 0898050, 4697326, 3010528, 62059015, 7651326, 6147881, 9642996, 991527699, 1652608 #### [facility] [address] [place] [address] Troponin 9 Hr.on 06-07-2023 Troponin 30.80 pg/mL Normal 15.90-38.40 [facility] Comment on above: Result Comment: The 95% CI (Confidence Interval) PPV (Positive Predictive Value) for myocardial infarction in females is 38 pg/mL, in males 51 pg/mL. The results should be used in conjunction with clinical conditions of myocardial infarction. (Sansan High Sensitivity Troponin I Instructions For Use, [employer], December 2017) Performed By: #### 2 046790, 87457808, 9521221, 4194035, 5204976, 1989605, 49926199, 1907455, 8933865, 8998646, 871136104, 6615014 #### [facility] [address] [place] [address] XR Chest Single Viewon 06-07 XR Chest Single View Exam Date/Time: 06/07/2023 11:29 EST Reason for Exam: Chest pain Report IMPRESSION: CARDIOMEGALY, PULMONARY VASCULAR CONGESTION, AND INTERSTITIAL PROMINENCE SUGGESTING FLUID OVERLOAD/CHF. INTERSTITIAL PNEUMONIA IS NOT EXCLUDED. EXAM: XR Chest Single View History: Chest pain shortness of breath Technique: Portable AP view of the chest. Comparison: Chest radiographs 05/05/2016 Findings: Atherosclerotic calcification of the thoracic aorta. Heart size is enlarged. Pulmonary vascular congestion. Diffuse interstitial prominence. No overt pleural effusion. No pneumothorax. No acute osseous abnormality. Ordering Provider: Reji Chaves FINAL REPORT Dictated: 06/07/2023 12:22 pm Mat Nicholas DO Signed (Electronic Signature): 06/07/2023 12:22 pm Signed by: Mat Nicholas DO Transcribed by: OFELIA Technologist: SOHA Technical Comments Radiation Dose: Ka,r in mGy = na DAP = na Normal [facility] eGFRon 06-07-2023 eGFR 27 mL/min/1.73 m2 Low >=59 [facility] Comment on above: Order Comment: Order added by Discern Expert. Performed By: #### 2 034768, 10353485, 5124677, 8344006, 5457592, 3848407, 87604430, 1326067, 0592573, 8839788, 555831979, 7580178 #### [facility] [address] [place] [address] PTH [place] 05-25-2023 Parathyrin.intact [Mass/Vol] 74 pg/mL High 15-65 [facility] Comment on above: Result Comment: Perf ormed at: [facility] [address] [id number] PhD Christine Galdamez Performed By: #### 2 475398, 05415674, 6884966, 6879875, 6449167, 0896645, 27203813, 4689110, 3422591, 0381421, 052228363, 4336876 #### [facility] [address] [place] [address] CBC w/Indiceson 05-24-2023 Erythrocyte distribution width (RBC) [Ratio] 13.9 % Normal 10.9-14.2 [facility] Comment on above: Performed By: #### 2 415541, 19493808, 2105466, 3792875, 5246982, 6066939, 63760789, 8642417, 0334083, 9064795, 541480579, 7336395 #### [facility] [address] [place] [address] Hematocrit (Bld) [Volume fraction] 37.0 % Low 37.7-49.0 [facility] Comment on above: Performed By: #### 2 037064, 08090460, 1123975, 6542505, 3564455, 2801850, 59886244, 2873243, 6286241, 0621115, 770660141, 5447543 #### [facility] [address] [place] [address] Hemoglobin (Bld) [Mass/Vol] 12.6 g/dL Low 13.5-17.5 [facility] Comment on above: Performed By: #### 2 358051, 94021483, 0923501, 0870607, 3283380, 5105030, 97628126, 3368153, 4094325, 3427884, 505406359, 4372034 #### [facility] [address] [place] [address] MCH (RBC) [Entitic mass] 29.6 pg Normal 27.0-34.0 [facility] Comment on above: Performed By: #### 2 504956, 89845414, 1273460, 0420056, 9215868, 8289676, 03906599, 6070686, 9166150, 5621660, 529486895, 4027164 #### [facility] [address] [place] [address] MCHC (RBC) [Mass/Vol] 34.1 g/dL Normal 31.4-36.0 [facility] Comment on above: Performed By: #### 2 486564, 92645072, 8391371, 5634756, 6711945, 3625367, 66063980, 1075752, 7661459, 2698882, 324453034, 4048370 #### [facility] [address] [place] [address] MCV (RBC) [Entitic vol] 86.7 fL Normal 80.0-100.0 [facility] Comment on above: Performed By: #### 2 486130, 78297653, 1918213, 5662882, 0093224, 3545155, 37960576, 7511687, 6655037, 2709618, 642441884, 1425032 #### [facility] [address] [place] [address] Platelet mean volume (Bld) [Entitic vol] 8.6 fL Normal 6.4-10.8 [facility] Comment on above: Performed By: #### 2 360222, 22026201, 7796476, 8874364, 5163879, 8255835, 87944473, 6092988, 7034204, 6152598, 546901728, 7716026 #### [facility] [address] [place] [address] Platelets (Bld) [#/Vol] 170.0 E9/L Normal 150.0-500.0 [facility] Comment on above: Performed By: #### 2 974209, 46288987, 6207381, 4545261, 3545426, 0458250, 00358300, 6681548, 6381016, 5936034, 230498875, 3561504 #### [facility] [address] [place] [address] RBC (Bld) [#/Vol] 4.3 E12/L Normal 4.3-5.9 [facility] Comment on above: Performed By: #### 2 732858, 58726606, 9330747, 9055697, 4386160, 3886148, 76264722, 9257377, 5979353, 9588734, 392775885, 7719618 #### [facility] [address] [place] [address] WBC corrected for nucl RBC Auto (Bld) [#/Vol] 5.5 E9/L Normal 4.0-11.0 [facility] Comment on above: Performed By: #### 2 000974, 48457281, 2959328, 3449786, 8661986, 4961773, 30470187, 5142019, 9821245, 3504475, 125036978, 6639952 #### [facility] [address] [place] [address] CMPon 05-24-2023 Albumin [Mass/Vol] 4.3 g/dL Normal 3.3-5.0 [facility] Comment on above: Performed By: #### 2 173187, 02092559, 6129316, 7382044, 5715621, 7357785, 81156313, 3153759, 3578497, 6826313, 795420869, 9305304 #### [facility] [address] [place] [address] Albumin/Globulin [Mass ratio] 1.8 {ratio} Normal 1.1-2.2 [facility] Comment on above: Performed By: #### 2 881685, 35020151, 0047601, 1583158, 1297662, 4443020, 62995130, 9081137, 5567968, 7678342, 552282494, 1555585 #### [facility] [address] [place] [address] Alk Phos 44 Int._Unit/L Normal 21-98 [facility] Comment on above: Performed By: #### 2 916168, 29126762, 2463588, 5793468, 5273555, 5142664, 98745135, 7777081, 0662420, 6682495, 623519295, 0889547 #### [facility] [address] [place] [address] ALT 22 Int._Unit/L Normal 6-46 [facility] Comment on above: Performed By: #### 2 192599, 99719416, 2003096, 8356214, 3809196, 6963048, 97720114, 6057973, 0041650, 8121629, 829739888, 5460296 #### [facility] [address] [place] [address] Anion gap [Moles/Vol] 14 mmol/L Normal 6-16 [facility] Comment on above: Performed By: #### 2 051677, 99366269, 9708104, 9748129, 1490610, 2517060, 21176886, 5115571, 3013611, 3042513, 418118057, 2303985 #### [facility] [address] [place] [address] AST 23 Int._Unit/L Normal 5-43 [facility] Comment on above: Performed By: #### 2 575771, 19863800, 4564150, 0081848, 6547177, 7714040, 11702572, 8036875, 5537753, 3144665, 522291431, 5503045 #### [facility] [address] [place] [address] Bili Total 0.5 mg/dL Normal 0.0-1.1 [facility] Comment on above: Performed By: #### 2 770488, 13204826, 0438156, 4918781, 7820242, 1046316, 33580544, 7531596, 1194462, 0346901, 420200979, 3240369 #### [facility] [address] [place] [address] BUN/Creat Ratio 20 No Units Normal 10-20 [facility] Comment on above: Performed By: #### 2 794803, 52723412, 7259821, 0307053, 9177387, 2082475, 24015114, 5281653, 2434622, 6999984, 268681323, 2303970 #### [facility] [address] [place] [address] Calcium [Mass/Vol] 9.4 mg/dL Normal 8.9-11.1 [facility] Comment on above: Performed By: #### 2 389751, 31160606, 7750043, 7495892, 1907577, 6797432, 79565404, 8816129, 7650741, 6954614, 765474708, 9558748 #### [facility] [address] [place] [address] Chloride [Moles/Vol] 109 mmol/L Normal 101-111 [facility] Comment on above: Performed By: #### 2 606530, 38241250, 8760743, 8474666, 1657815, 6956984, 39240748, 9513713, 4331710, 6454980, 840435865, 4767674 #### [facility] [address] [place] [address] CO2 [Moles/Vol] 23 mmol/L Normal 21-31 [facility] Comment on above: Performed By: #### 2 568142, 55648477, 7004095, 1325166, 0403908, 9032665, 95241804, 7759599, 5122547, 5138465, 686650117, 7219592 #### [facility] [address] [place] [address] Creatinine [Mass/Vol] 2.9 mg/dL High 0.5-1.3 [facility] Comment on above: Performed By: #### 2 552517, 16250180, 3459948, 0880017, 3650555, 0793065, 17439519, 9450078, 6758088, 6735317, 093817971, 3094963 #### [facility] [address] [place] [address] Globulin (S) [Mass/Vol] 2.4 g/dL Normal 1.4-4.0 [facility] Comment on above: Performed By: #### 2 868173, 00904913, 1286416, 5310363, 3402561, 7667838, 31126876, 3906956, 4206520, 3508907, 976762503, 8005236 #### [facility] [address] [place] [address] Glucose [Mass/Vol] 84 mg/dL Normal 55-199 [facility] Comment on above: Performed By: #### 2 755305, 85258944, 4790648, 0924915, 4423877, 5795780, 24686661, 1272685, 1561045, 2110814, 709402688, 6334560 #### [facility] [address] [place] [address] Potassium [Moles/Vol] 4.5 mmol/L Normal 3.5-5.3 [facility] Comment on above: Performed By: #### 2 855766, 02600205, 9684179, 8789228, 8412505, 5451177, 88861686, 0009931, 6323533, 6645498, 799258983, 3801786 #### [facility] [address] [place] [address] Protein [Mass/Vol] 6.7 g/dL Normal 6.0-7.8 [facility] Comment on above: Performed By: #### 2 032498, 74962175, 9045829, 0056306, 7594726, 9848463, 83812511, 9482559, 1010633, 0653192, 049491682, 1344381 #### [facility] [address] [place] [address] Sodium [Moles/Vol] 141 mmol/L Normal 135-145 [facility] Comment on above: Performed By: #### 2 894587, 96281280, 8981820, 4058905, 3286692, 2131603, 36638839, 5930012, 6129377, 3484753, 943012527, 5695580 #### [facility] [address] [place] [address] Urea nitrogen [Mass/Vol] 57 mg/dL High 5-21 [facility] Comment on above: Performed By: #### 2 486958, 79772082, 6142149, 3560907, 5643353, 4819608, 32931434, 9490651, 9178403, 8339057, 869574870, 1935964 #### [facility] [address] [place] [address] Consent for Treatmenton 04-30 Consent for Treatment [id number] [id number]#1.0 0TIFF Normal [facility] Consent for Treatment [id number] [id number]#1.0 0TIFF Normal [facility] Magnesiumon 05-24-2023 Magnesium [Mass/Vol] 2.0 mg/dL Normal 1.3-2.4 [facility] Comment on above: Performed By: #### 2 078097, 93703880, 3411958, 9197166, 6955542, 3209250, 33315299, 8761532, 2247941, 0840211, 922118889, 4091776 #### [facility] [address] [place] [address] Phosphoruson 05-24-2023 Phosphate [Mass/Vol] 3.2 mg/dL Normal 1.9-4.6 [facility] Comment on above: Performed By: #### 2 649579, 06307381, 1613031, 6461795, 5219272, 3519842, 65569258, 4928752, 4584795, 9915494, 986826890, 9611208 #### [facility] [address] [place] [address] Physician Orderon 05-24-2023 Physician Order [id number]#1.0 0TIFF Normal [facility] U Protein/Creat Ratioon 04-30 U Creatinine 88.7 mg/dL Invalid Interpretation Code [facility] Comment on above: Performed By: #### 2 592954, 41868954, 1977488, 3430857, 0674868, 1076622, 47898629, 1838121, 2008004, 0252006, 984306256, 9916246 #### [facility] [address] [place] [address] U Prot/Creat Ratio 24.00 mg/gm Cr Normal .00-200.00 [facility] Comment on above: Performed By: #### 2 697210, 90569437, 8131639, 0652292, 0853125, 2284718, 15460278, 5451339, 7886820, 3237389, 235670636, 8093842 #### [facility] [address] [place] [address] Ur Total Protein 21.3 mg/dL Invalid Interpretation Code [facility] Comment on above: Performed By: #### 2 598676, 49030977, 4572291, 9265383, 1249460, 5605659, 00974070, 9565226, 8255116, 2890389, 575001446, 2596037 #### [facility] [address] [place] [address] Uric Acidon 05-24-2023 Urate [Mass/Vol] 7.0 mg/dL Normal 2.2-7.4 [facility] Comment on above: Performed By: #### 2 569567, 84905620, 1026690, 1829183, 0454464, 0368294, 28184677, 4248791, 0442821, 8232090, 022411469, 3950597 #### [facility] [address] [place] [address] Urinalysison 05-24-2023 Bacteria LM Ql (Urine sed) TRACE Normal Trace [facility] Comment on above: Performed By: #### 2 368082, 66546514, 2088457, 1261554, 8943631, 4404765, 05804960, 4400924, 4785530, 1179177, 227145738, 2679332 #### [facility] [address] [place] [address] Bilirubin Ql (U) Negative Normal Negative [facility] Comment on above: Performed By: #### 2 676160, 74784518, 3583501, 4809199, 6430663, 4408467, 66875137, 3617876, 9858017, 5097965, 385736667, 6325016 #### [facility] [address] [place] [address] Clarity (U) CLEAR Normal Clear [facility] Comment on above: Performed By: #### 2 730177, 84556944, 8081135, 3450793, 1756019, 5951771, 55156690, 8600543, 7516712, 3051240, 327596176, 7623984 #### [facility] [address] [place] [address] Color (U) YELLOW Normal Yellow [facility] Comment on above: Performed By: #### 2 664827, 21484150, 3353342, 7196944, 1392241, 4659663, 39797139, 9782890, 9794983, 5889587, 844757218, 4271090 #### [facility] [address] [place] [address] Epithelial cells.squamous LM.HPF (Urine sed) [#/Area] 0-2 Normal 0-2 [facility] Comment on above: Performed By: #### 2 025346, 24638257, 1883010, 8739577, 1590785, 2717167, 70732788, 8217719, 5729421, 0670610, 238199423, 6334111 #### [facility] [address] [place] [address] Glucose Test strip (U) [Mass/Vol] Negative Normal Negative [facility] Comment on above: Performed By: #### 2 973898, 08910895, 2856669, 6202821, 7544778, 1408583, 56052244, 6733988, 8644191, 9064783, 562081964, 9889084 #### [facility] [address] [place] [address] Hemoglobin Ql (U) Negative Normal Negative [facility] Comment on above: Performed By: #### 2 541857, 92114010, 9797826, 0965549, 0302998, 7787006, 57489715, 6439401, 0615802, 1374083, 892925907, 7352762 #### [facility] [address] [place] [address] Ketones (U) [Mass/Vol] Negative Normal Negative [facility] Comment on above: Performed By: #### 2 904658, 03146280, 3797298, 0339561, 4036606, 3313501, 24765748, 1595965, 9728307, 1516361, 884122096, 4499559 #### [facility] [address] [place] [address] [employer].plasma/Lithiu m.RBC (Bld) [Mass ratio] 0-3 Normal 0-3 [facility] Comment on above: Performed By: #### 2 865382, 84236998, 8037344, 5802430, 3217414, 1449237, 92281800, 0705329, 9291055, 6526896, 511097370, 1892338 #### [facility] [address] [place] [address] Mucus Ql (Urine sed) TRACE Normal [facility] Comment on above: Performed By: #### 2 650145, 99834049, 1906716, 2977944, 8421402, 8701464, 11457304, 4818666, 2247744, 4758274, 547602788, 6438131 #### [facility] [address] [place] [address] Nitrite Ql (U) Negative Normal Negative [facility] Comment on above: Performed By: #### 2 373956, 32267522, 7012624, 0075315, 7164865, 8436339, 11474571, 9983784, 6353610, 8001941, 162383611, 9057818 #### [facility] [address] [place] [address] pH (U) 6.0 [pH] Invalid Interpretation Code 5.0-9.0 [facility] Comment on above: Performed By: #### 2 032305, 47979584, 2945541, 3146029, 6247073, 1592158, 33919426, 7673871, 2787125, 4081052, 559536836, 8279389 #### [facility] [address] [place] [address] Protein (U) [Mass/Vol] Negative Normal Negative [facility] Comment on above: Performed By: #### 2 319488, 92908131, 1720146, 8658708, 2127730, 4730817, 63593346, 7699161, 8116703, 5656855, 441705974, 8573885 #### [facility] [address] [place] [address] Specific gravity (U) [Rel density] 1.015 Invalid Interpretation Code 1.005-1.030 [facility] Comment on above: Performed By: #### 2 199602, 14332191, 1351030, 0676951, 7994778, 7263523, 73254148, 6623049, 3097637, 6678879, 645941637, 5678072 #### [facility] [address] [place] [address] Type of Urine collection method Clean Catch Normal [facility] Comment on above: Performed By: #### 2 269425, 92785840, 3853194, 3525621, 6564514, 3081805, 51797504, 2652631, 8272902, 0379051, 668018151, 2935731 #### [facility] [address] [place] [address] Urobilinogen Qn (U) 0.2 {John'U}/dL Normal 0.0-1.0 [facility] Comment on above: Performed By: #### 2 403661, 01269088, 8121839, 8536554, 2670574, 4225971, 74510410, 6409506, 0581632, 0403838, 100009243, 4351034 #### [facility] [address] [place] [address] WBC Auto Ql (U) Negative Normal Negative [facility] Comment on above: Performed By: #### 2 035736, 99478143, 9555633, 4116876, 1698003, 8917621, 65790494, 0527106, 6643715, 1495247, 298627889, 5469354 #### [facility] [address] [place] [address] WBC LM.HPF (Urine sed) [#/Area] 0-5 Normal 0-5 [facility] Comment on above: Performed By: #### 2 406575, 66699659, 3222862, 5246920, 8479023, 6453371, 11891410, 4573458, 8127846, 9342644, 766379859, 4517609 #### [facility] [address] [place] [address] Vitamin D 25 Hydroxyon 05-24 Vitamin D 25 Hydroxy 53.5 ng/mL Normal 30.0-100.0 [facility] Comment on above: Performed By: #### 2 595201, 88965417, 5503809, 6824614, 4769826, 2266431, 63161430, 1690833, 7560738, 8101573, 626017802, 8037970 #### [facility] [address] [place] [address] eGFRon 05-24-2023 eGFR 22 mL/min/1.73 m2 Low >=59 [facility] Comment on above: Order Comment: Order added by Discern Expert. Performed By: #### 2 201379, 34529540, 6847348, 5597538, 1036723, 7586304, 58762630, 6135771, 1602476, 7679704, 444571588, 2478996 #### [facility] [address] [place] [address] Family Medicine Office/Clini c Noteon 04-14-2023 Family Medicine Office/Clinic Note Chief Complaint EST right knee pain HPI Staff 72 year old male presents with right knee pain for about a week History of Present Illness Reviewed and agree with above documented HPI by medical stenographer. Portions of this record may have been created with voice recognition artificial intelligence software, specifically [employer], Drift[employer]It and or [email or web address]. Substitutions may have occurred due to the inherent limitations of voice recognition and artificial intelligence software. Patient is a 72-year-old male who presents to [facility] care, for right knee pain and swelling, symptoms started last week Tuesday, states he does have a history of gout, does not feel this is his gout, has not had a history of some normal gout, patient states been having some skin tightness, increased swelling, but the skin is warm but not red, states he is able to ambulate with some discomfort, worsening pain from getting out of a car going from sitting to standing, going up and down the steps. Patient states she has no recent falls or trauma. Patient states she does have a history of arthritis as well. Patient denies any fevers, chills, nausea or vomiting, chest pain, shortness of breath, right hip pain, right ankle pain, lumbar back pain, or weakness. Review of Systems PHQ Score Initial Depression Screen Score: 0 SCORE Physical Exam Vitals & Measurements HR: 76(Peripheral) BP: 122/62 SpO2: 98% HT: 73 in HT: 186 cm WT: 129 kg WT: 283.8 lb BMI: 37.29 General: Well developed, well nourished, in no acute distress, patient not appear ill or septic, no respiratory distress noted, pleasant and cooperative, answers questions appropriately in complete sentences, and follows commands appropriately. No facial droop, slurred speech, or difficulty swallowing is noted. Head: Normocephalic/atraumat ic, no upper respiratory infections noted. . Neck: Neck supple. No masses or palpable cervical nodes. Trachea midline. Lungs: Normal respiratory effort and clear to auscultation throughout, no wheezing, Rales, crackles, or decreased breath sounds noted on examination. Cardio: regular rate and rhythm, no murmur Extremity: There is swelling of the right knee compared to left knee, warm to touch, but not red, possible arthritic changes, no joint effusion, crepitus, bursitis, septic joint, fractures, dislocation, or deformity noted on examination. Patient does exhibit full range of motion with increased pain at flexion versus extension. No worsening pain with passive range of motion. There is no laxity. Many musculoskeletal exam is within normal limits. Patient neurovascular intact. Neurologic: Grossly normal Skin: No rashes, ulcerations, or suspicious lesions Lymph Nodes: no lad Mental Status: alert, active Assessment/Plan Right knee imaging for any possible acute findings. Patient declines any pain medication at this time. Reassessed patient after returning from imaging, states she has no worsening pain. Discuss with patient no acute findings were noted on imaging, mostly arthritic changes, but no joint effusion, fractures, bursitis, dislocation was noted. Patient verbally understands she will be contacted with any different findings on the second reading. Patient is agreeable to plan, and prefers to follow-up Dr. Olivares, his orthopedic doctor. 72-year-old male presents to [facility] care, for right knee sprain and right knee DJD, patient had about a week ago, no history of falls or trauma, no septic joint, bursitis, joint effusion, crepitus, cellulitis, fractures, deformity, or dislocation lamination. Patient is instructed apply ice 2-3 times a day for no more than 10 to 12 minutes a session, take hvwi-zst-araaukj Tylenol as needed for pain, not to take any nonsteroidals since he has a history of chronic kidney disease, and follow-up with his orthopedic doctor. Patient agree with plan. 1. 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 Right knee sprain (S83.91XA: Sprain of unspecified site of right knee, initial encounter) See above 3. BMI 37.0-37.9, adult (Z68.37: Body mass index [BMI] 37.0-37.9, adult) The standard range for ages 18 and older is >=18.5 and < 25 kg/m2. Your BMI today was above this range, this falls in the overweight to obese category and there are medical benefits to weight loss. We can offer counselling, referral, and/or medical support in addressing this problem. Your BMI and weight management will be followed at subsequent visits. Follow-up With When Contact Information Gilbert Olivares DO, ORT Within 3 to [address] [place] [phone]- Additional Instructions: Patient Education BMI for Adults Knee Sprain, Adult, Jxlh-zc-Kywx Osteoarthritis Problem List/Past Medical History Ongoing BMI 37.0-37.9, adult Diverticulosis Family history of colon cancer Hemorrhoids History of colon polyps R (more content not included)... Normal [facility] Comment on above: Result Comment: Elec tronically Signed By: CLAUDIO PAGAN, DANAE\.br\Date and Time Signed: 04/14/23 18:45 EST Patient Educationon 04-14-20 23 Patient Education Nutrition BMI for Adults What is BMI? Body mass index (BMI) is a number that is calculated from a person's weight and height. BMI can help estimate how much of a person's weight is composed of fat. BMI does not measure body fat directly. Rather, it is an alternative to procedures that directly measure body fat, which can be difficult and expensive. BMI can help identify people who may be at higher risk for certain medical problems. What are BMI measurements used for? BMI is used as a screening tool to identify possible weight problems. It helps determine whether a person is obese, overweight, a healthy weight, or underweight. BMI is useful for: ? Identifying a weight problem that may be related to a medical condition or may increase the risk for medical problems. ? Promoting changes, such as changes in diet and exercise, to help reach a healthy weight. BMI screening can be repeated to see if these changes are working. How is BMI calculated? BMI involves measuring your weight in relation to your height. Both height and weight are measured, and the BMI is calculated from those numbers. This can be done either in [place] ([place] or metric measurements. Note that charts and online BMI calculators are available to help you find your BMI quickly and easily without having to do these calculations yourself. To calculate your BMI in Australian (U.[place] measurements: 1. Measure your weight in pounds (lb). 2. Multiply the number of pounds by 703. ? For example, for a person who weighs 180 lb, multiply that number by 703, which equals 126,540. 3. Measure your height in inches. Then multiply that number by itself to get a measurement called inches squared. ? For example, for a person who is 70 inches tall, the inches squared measurement is 70 inches x 70 inches, which equals 4,900 inches squared. 4. Divide the total from step 2 (number of lb x 703) by the total from step 3 (inches squared): 126,540 ? 4,900 = 25.8. This is your BMI. To calculate your BMI in metric measurements: 1. Measure your weight in kilograms (kg). 2. Measure your height in meters (m). Then multiply that number by itself to get a measurement called meters squared. ? For example, for a person who is 1.75 m tall, the meters squared measurement is 1.75 m x 1.75 m, which is equal to 3.1 meters squared. 3. Divide the number of kilograms (your weight) by the meters squared number. In this example: 70 ? 3.1 = 22.6. This is your BMI. What do the results mean? BMI charts are used to identify whether you are underweight, normal weight, overweight, or obese. The following guidelines will be used: ? Underweight: BMI less than 18.5. ? Normal weight: BMI between 18.5 and 24.9. ? Overweight: BMI between 25 and 29.9. ? Obese: BMI of 30 or above. Keep these notes in mind: ? Weight includes both fat and muscle, so someone with a muscular build, such as an athlete, may have a BMI that is higher than 24.9. In cases like these, BMI is not an accurate measure of body fat. ? To determine if excess body fat is the cause of a BMI of 25 or higher, further assessments may need to be done by a health care provider. ? BMI is usually interpreted in the same way for men and women. Where to find more information For more information about BMI, including tools to quickly calculate your BMI, go to these websites: ? Centers for Disease Control and Prevention: www.cdc.gov ? [place] Heart Association: www.heart.org ? National Heart, Lung, and Blood [place]: www.nhlbi.nih.gov Summary ? Body mass index (BMI) is a number that is calculated from a person's weight and height. ? BMI may help estimate how much of a person's weight is composed of fat. BMI can help identify those who may be at higher risk for certain medical problems. ? BMI can be measured using [place] measurements or metric measurements. ? BMI charts are used to identify whether you are underweight, normal weight, overweight, or obese. This information is not intended to replace advice given to you by your health care provider. Make sure you discuss any questions you have with your health care provider. Document Revised: 02/06/2020 Document Reviewed: 12/14/2019 [email or web address] Patient Education ? 2022 [email or web address]. Orthopedics Knee Sprain A knee sprain is a stretch or tear in a knee ligament. Knee ligaments are tissues that connect bones in the knee to each other. What are the causes? This condition often results from: ? A fall. ? An injury to the knee. What are the signs or symptoms? Symptoms of this condition include: ? Trouble straightening or bending the leg. ? Swelling in the knee. ? Bruising around the knee. ? Tenderness or pain in the knee. ? Sudden muscle tightening (spasms) around the knee. How is this treated? Treatment for this condition may involve: ? Keeping the knee still (immobilized) with a cast, brace, or splint. (more content not included)... Normal [facility] XR Knee Complete 4+ Views [facility] 04-14-2023 XR Knee Complete 4+ Views Right Exam Date/Time: 04/14/2023 18:12 EST Reason for Exam: Pain, Non Traumatic Report IMPRESSION: There are severe degenerative changes of both knees. There is soft tissue swelling of the right knee. There are meniscal calcifications of both knees prior injury or pseudogout. CLINICAL HISTORY: Pain, Non Traumatic 4 views including AP bilateral knees COMPARISON: NONE. RIGHT KNEE FINDINGS: There are no lytic or sclerotic bone lesions. There is no acute fracture or subluxation. There is bilateral tricompartmental joint space narrowing with severe narrowing of the lateral compartment of the left knee. There are calcifications of the menisci of both the period The patella is within normal limits. There are enthesophytes of the anterior superior patella There is soft tissue swelling anterior to the knee joint and the region of the patellar ligament. There are degenerative changes with enthesophytes of the tibial tuberosity. There are no radiopaque foreign bodies. Ordering Provider: DANAE SNYDER FINAL REPORT Dictated: 04/14/2023 7:00 pm Pratik Schultz MD, V. Signed (Electronic Signature): 04/14/2023 7:00 pm Signed by: Pratik Schultz MD, V. Transcribed by: OFELIA Technologist: SELMA Technical Comments Radiation Dose: Ka,r in mGy = . DAP = . Normal [facility] PTH [place] 01-20-2023 Parathyrin.intact [Mass/Vol] 64 pg/mL Invalid Interpretation Code [facility] Comment on above: Result Comment: Perf ormed at: [facility] [address] [id number] PhD Christine Galdamez Performed By: #### 2 720321, [id number], 5630337, 9979135, 3352689, 6187985, 34017556, 1776990, 3391555, 3180702, 805313760, 8921242 #### [facility] [address] [place] [address] CBC w/Indices[place] 01-19-2023 Erythrocyte distribution width (RBC) [Ratio] 13.7 % Normal 10.9-14.2 [facility] Comment on above: Performed By: #### 2 992199, 12476290, 1832540, 5648207, 4343410, 4337300, 01272384, 3883991, 8118626, 4251699, 197266083, 7369362 #### [facility] [address] [place] [address] Hematocrit (Bld) [Volume fraction] 36.8 % Low 37.7-49.0 [facility] Comment on above: Performed By: #### 2 150805, 58614525, 3293591, 3092965, 0599172, 5218277, 35620902, 2325178, 4310134, 6854550, 349379943, 1213977 #### [facility] [address] [place] [address] Hemoglobin (Bld) [Mass/Vol] 12.5 g/dL Low 13.5-17.5 [facility] Comment on above: Performed By: #### 2 286811, 92918099, 5931790, 0571516, 8707354, 6196901, 49517645, 8652206, 6256469, 7514163, 403168324, 0967862 #### [facility] [address] [place] [address] MCH (RBC) [Entitic mass] 29.6 pg Normal 27.0-34.0 [facility] Comment on above: Performed By: #### 2 035729, 82199832, 9227657, 3301101, 2210836, 1911469, 11812592, 6971018, 5445763, 4206926, 755797806, 6649503 #### [facility] [address] [place], [place] [address] MCHC (RBC) [Mass/Vol] 33.9 g/dL Normal 31.4-36.0 [facility] Comment on above: Performed By: #### 2 321988, 93310326, 9056632, 2028655, 5082792, 3449931, 37780952, 9257912, 0273575, 6485966, 534467367, 8398050 #### [facility] [address] [place] [address] MCV (RBC) [Entitic vol] 87.3 fL Normal 80.0-100.0 [facility] Comment on above: Performed By: #### 2 581958, 44183582, 9017699, 3349514, 0273525, 6979101, 43834288, 1857276, 7949070, 4736443, 135790941, 9669995 #### [facility] [address] [place] [address] Platelet mean volume (Bld) [Entitic vol] 8.2 fL Normal 6.4-10.8 [facility] Comment on above: Performed By: #### 2 905757, 50906344, 0025002, 7487567, 4623786, 5928922, 70720209, 4458138, 8633294, 3671891, 667389886, 1500821 #### [facility] [address] [place] [address] Platelets (Bld) [#/Vol] 137.0 E9/L Low 150.0-500.0 [facility] Comment on above: Performed By: #### 2 991974, 00649332, 2801299, 1902583, 9195025, 0694876, 36737786, 1683015, 8897984, 4555706, 774645476, 4802421 #### [facility] [address] [place] [address] RBC (Bld) [#/Vol] 4.2 E12/L Low 4.3-5.9 [facility] Comment on above: Performed By: #### 2 384555, 26763757, 7220991, 5951382, 2223989, 9775850, 11349120, 7616438, 4850638, 6742518, 978645007, 8352351 #### [facility] [address] [place] [address] WBC corrected for nucl RBC Auto (Bld) [#/Vol] 5.5 E9/L Normal 4.0-11.0 [facility] Comment on above: Performed By: #### 2 510975, 39518055, 3124414, 2292854, 8120340, 8908970, 12487798, 3018671, 5207430, 6098431, 267062080, 0217749 #### [facility] [address] [place] [address] CMPon 01-19-2023 Albumin [Mass/Vol] 3.9 g/dL Normal 3.3-5.0 [facility] Comment on above: Performed By: #### 2 858620, 86477925, 9834500, 7669734, 2735054, 5903985, 09854636, 7079131, 6926328, 7207994, 402718667, 7866162 #### [facility] [address] [place] [address] Albumin/Globulin (S) [Mass conc ratio] 1.2 Normal 1.1-2.2 [facility] Comment on above: Performed By: #### 2 549219, 68191141, 0892916, 1157441, 5823376, 1581156, 00795882, 6726580, 8889966, 7823101, 014075918, 5947293 #### [facility] [address] [place] [address] ALP [Catalytic activity/Vol] 90 Int._Unit/L Normal 21-98 [facility] Comment on above: Performed By: #### 2 172224, 99004997, 9035662, 1321956, 8411958, 0801506, 87686162, 7136110, 8391272, 9054607, 106800470, 9740278 #### [facility] [address] [place] [address] ALT No additional P-5'-P [Catalytic activity/Vol] 49 Int._Unit/L High 6-46 [facility] Comment on above: Performed By: #### 2 427964, 14484418, 8072077, 5947112, 0820162, 7507988, 21512562, 4676601, 4501235, 0851451, 836973057, 3361503 #### [facility] [address] [place] [address] Anion gap [Moles/Vol] 12 mmol/L Normal 6-16 [facility] Comment on above: Performed By: #### 2 122024, 70973189, 1469740, 5133036, 5032230, 3818225, 64603474, 3159462, 1042293, 8570945, 850303678, 5512209 #### [facility] [address] [place] [address] AST [Catalytic activity/Vol] 38 Int._Unit/L Normal 5-43 [facility] Comment on above: Performed By: #### 2 940944, 46271399, 7066744, 5014048, 6808030, 7625758, 19317690, 6903312, 8107467, 4284174, 594633686, 0959820 #### [facility] [address] [place] [address] Bilirubin [Mass/Vol] 0.4 mg/dL Normal 0.0-1.1 [facility] Comment on above: Performed By: #### 2 057653, 41032680, 2389231, 6073975, 7383956, 7580331, 43253968, 2827783, 8623447, 6473364, 518045468, 1423291 #### [facility] [address] [place] [address] Calcium [Mass/Vol] 9.3 mg/dL Normal 8.9-11.1 [facility] Comment on above: Performed By: #### 2 409780, 55342807, 5768712, 7425146, 9232990, 3557350, 62259605, 7818345, 2839209, 8105075, 873636817, 6827484 #### [facility] [address] [place] [address] Chloride [Moles/Vol] 112 mmol/L High 101-111 [facility] Comment on above: Performed By: #### 2 511052, 07935113, 5221425, 6885290, 6862116, 1464460, 15019572, 0470694, 6311591, 7448965, 740426926, 3153632 #### [facility] [address] [place] [address] CO2 [Moles/Vol] 19 mmol/L Low 21-31 [facility] Comment on above: Performed By: #### 2 882346, 49455364, 9093901, 1994752, 7440749, 2790784, 12267673, 8240454, 3551649, 3799898, 825156719, 5002553 #### [facility] [address] [place] [address] Creatinine [Mass/Vol] 2.6 mg/dL High 0.5-1.3 [facility] Comment on above: Performed By: #### 2 828431, 95856964, 6562117, 9535484, 2339683, 8830758, 41000277, 4992119, 1160469, 2230009, 011302474, 3964299 #### [facility] [address] [place] [address] Globulin (S) [Mass/Vol] 3.3 g/dL Normal 1.4-4.0 [facility] Comment on above: Performed By: #### 2 795801, 33223325, 5020001, 4511723, 7072655, 1365338, 70508528, 5033884, 2988773, 1305450, 759867599, 0484832 #### [facility] [address] [place] [address] Glucose [Mass/Vol] 135 mg/dL Normal 55-199 [facility] Comment on above: Result Comment: If t his glucose result represents a fasting glucose, interpretation should refer to the following reference range: 55-99 mg/dL Performed By: #### 2 513771, 10714831, 2943156, 8247850, 1282387, 0739366, 12804130, 9191096, 2724714, 2357682, 219352653, 1456151 #### [facility] [address] [place] [address] Potassium [Moles/Vol] 4.4 mmol/L Normal 3.5-5.3 [facility] Comment on above: Performed By: #### 2 065211, 73358629, 1207387, 8136273, 3090672, 7206106, 29757506, 9142490, 1935546, 3691769, 930468474, 0214089 #### [facility] [address] [place] [address] Protein [Mass/Vol] 7.2 g/dL Normal 6.0-7.8 [facility] Comment on above: Performed By: #### 2 594599, 31091358, 9189728, 3580189, 5701332, 5291264, 36501715, 0473291, 9455584, 4218033, 973957866, 7241846 #### [facility] [address] [place] [address] Sodium [Moles/Vol] 139 mmol/L Normal 135-145 [facility] Comment on above: Performed By: #### 2 866451, 65453708, 1372854, 8128207, 0342786, 6866422, 35467887, 1239302, 5073557, 3655989, 341608465, 0538608 #### [facility] [address] [place] [address] Urea nitrogen [Mass/Vol] 61 mg/dL High 5-21 [facility] Comment on above: Performed By: #### 2 322905, 78772375, 0637732, 4027892, 8465055, 7241172, 19933269, 0059251, 3805043, 3140119, 322219160, 1983020 #### [facility] [address] [place] [address] Urea nitrogen/Creatinine [Mass ratio] 24 No Units High 10-20 [facility] Comment on above: Performed By: #### 2 620146, 54133841, 8655372, 0502830, 0758222, 3561368, 18582011, 5649761, 7628443, 2515245, 029639346, 9885411 #### [facility] [address] [place] [address] Consent for Treatmenton 12-29 Consent for Treatment [id number] 0CD:127 Normal [facility] Ferritinon 01-19-2023 Ferritin [Mass/Vol] 173 ng/mL Normal 24-336 [facility] Comment on above: Result Comment: NORM ALS MEN <30 YRS 16-132 ng/mL MEN >30 YRS 8-338 ng/mL WOMEN (PREMEN) 6-104 ng/mL WOMEN (POSTMEN) 12-210 ng/mL Performed By: #### 1 0576448, [id number] #### [facility] [address] [place] [address] Folateon 01-19-2023 Folate [Mass/Vol] 18.6 ng/mL Normal >=6.7 [facility] Comment on above: Performed By: #### 1 2723133, 1997865946 #### [facility] [address] [place] [address] Ironon 01-19-2023 Iron [Mass/Vol] 74 microgram/dL Normal 35-153 [facility] Comment on above: Performed By: #### 2 977014, 82452027, 5524884, 8500237, 7804346, 4138419, 29716998, 3341418, 7680573, 6424625, 588188858, 1422061 #### [facility] [address] [place] [address] Magnesiumon 01-19-2023 Magnesium [Mass/Vol] 1.9 mg/dL Normal 1.3-2.4 [facility] Comment on above: Performed By: #### 2 787479, 41073793, 2494216, 3343204, 7892508, 3492998, 66553264, 3469575, 8932968, 8410436, 821481152, 2927209 #### [facility] [address] [place] [address] Phosphoruson 01-19-2023 Phosphate [Mass/Vol] 4.5 mg/dL Normal 1.9-4.6 [facility] Comment on above: Performed By: #### 2 041755, 08067783, 7511128, 3423806, 6435902, 7182435, 86474585, 9939732, 3744000, 7447622, 559410797, 5703665 #### [facility] [address] [place] [address] Physician Orderon 01-19-2023 Physician Order [id number] 00CD:127 Normal [facility] TIBC Calculatedon 01-19-2023 Iron binding capacity [Mass/Vol] 323 microgram/dL Normal 250-400 [facility] Comment on above: Performed By: #### 2 950627, 26946800, 4546963, 4392269, 8293017, 3762009, 28568762, 2815391, 3906859, 6626918, 414814344, 7383928 #### [facility] [address] [place] [address] Transferrin [Mass/Vol] 231 mg/dL Normal 200-370 [facility] Comment on above: Performed By: #### 2 177353, 93453962, 3256462, 9474952, 4856384, 5930282, 03765661, 4367951, 1877556, 8829060, 298197794, 4413765 #### [facility] [address] [place] [address] U Protein/Creat Ratioon 12-29 Albumin Elph (U) [Mass fraction] 19.0 mg/dL Invalid Interpretation Code [facility] Comment on above: Result Comment: The reference range and other method performance specifications have not been established for this test; results should be integrated into the clinical context for interpretation. Performed By: #### 2 219451, 47965265, 8760931, 6620357, 0909088, 4192039, 90669401, 7395875, 4659443, 0594787, 724254217, 4310358 #### [facility] [address] [place] [address] Creatinine (U) [Mass/Vol] 137.4 mg/dL Invalid Interpretation Code [facility] Comment on above: Result Comment: The reference range and other method performance specifications have not been established for this test; results should be integrated into the clinical context for interpretation. Performed By: #### 2 047385, 40534910, 4431201, 0042470, 6054184, 9936449, 32446831, 9309724, 8290454, 1010614, 900946887, 4592382 #### [facility] [address] [place] [address] U Prot/Creat Ratio 138.30 mg/gm Cr Normal .00-200.00 [facility] Comment on above: Performed By: #### 2 693166, 64776035, 6334176, 1277940, 2654183, 6981328, 70488574, 1279885, 3729793, 9040687, 639005548, 9917075 #### [facility] [address] [place] [address] Uric Acidon 01-19-2023 Urate [Mass/Vol] 7.6 mg/dL High 2.2-7.4 [facility] Comment on above: Performed By: #### 2 947395, 25495918, 6292081, 2790728, 9247723, 2235849, 20940217, 9955670, 4045792, 1734579, 307183448, 9653223 #### [facility] [address] [place] [address] Vit B12on 01-19-2023 Cobalamin (Vitamin B12) [Mass/Vol] 706 pg/mL Normal 50-1500 [facility] Comment on above: Performed By: #### 1 8043109, [id number] #### [facility] [address] [place] [address] Vitamin D 25 Hydroxyon 01-19 25-hydroxyvitamin D3 [Mass/Vol] 45.7 ng/mL Normal 30.0-100.0 [facility] Comment on above: Result Comment: Vit arriaza D deficiency has been defined as a level of serum 25-OH vitamin D less than 20 ng/mL (1,2) by the [place] of [employer] and an Endocrine Society practice guideline. The Endocrine Society further defined vitamin D insufficiency as a level between 21 and 29 ng/mL (2). 1. IOM ([place] of Medicine). 2010. Dietary reference intakes for calcium and D. [place]: The National Academies Press. 2. Lizzette MF, Parul SANDOVAL, Fanny HELLER, et al. Evaluation, treatment, and prevention of vitamin D deficiency: an Endocrine Society clinical practice guideline. JCEM. 2010; 96 (7):1911-30. Performed By: #### 1 4948075, [id number] #### [facility] [address] [place] [address] eGFRon 01-19-2023 GFR/1.73 sq M.predicted among non-blacks MDRD (S/P/Bld) [Vol rate/Area] 26 mL/min/1.73 m2 Low >=59 [facility] Comment on above: Order Comment: Order added by Discern Expert. Result Comment: Structural Manager denise kidney disease could be indicated at eGFR's of less than 60 mL/min/1.73m2. Kidney failure is indicated at less than 15 mL/min/1.73m2. Performed By: #### 2 488946, 56328275, 5438590, 5753663, 8955472, 8928732, 72684232, 4054257, 6062618, 9429248, 659588671, 7973789 #### [facility] [address] [place] [address] Office Visit (Cardiology)on 12-15-2022 Follow-up visit Diagnoses/Problems Assessed ASCVD (arteriosclerotic cardiovascular disease) (429.2,440.9) (I25.10) Benign essential hypertension (401.1) (I10) Hyperlipidemia (272.4) (E78.5) Diabetes mellitus (250.00) (E11.9) CKD (chronic kidney disease), stage III (585.3) (N18.30) Sleep apnea (780.57) (G47.30) Class 2 severe obesity with serious comorbidity and body mass index (BMI) of 38.0 to 38.9 in adult (278.01,V85.38) (E66.01,Z68.38) Former smoker (V15.82) (Z87.891) quit 34 years ago Orders ASCVD (arteriosclerotic cardiovascular disease) Renew: Aspirin Low Dose 81 MG Oral Tablet Delayed Release; TAKE 1 TABLET BY MOUTH EVERY DAY Class 2 severe obesity with serious comorbidity and body mass index (BMI) of 38.0 to 38.9 in adult Healthy Weight Tips; Status:Complete - Retrospective Authorization; Done: [id number] Some eating tips that can help you lose weight.; Status:Complete - Retrospective Authorization; Done: [id number] SocHx: Former smoker Tobacco Use Screening; Status:Complete; Done: [id number] Patient Instructions Please bring all medicines, vitamins, and herbal supplements with you when you come to the office. Prescriptions will not be filled unless you are compliant with your follow up appointments or have a follow up appointment scheduled as per instruction of your physician. Refills should be requested at the time of your visit. Follow up in 6 months Same med Chief Complaint ISIDRO CALHOUN is being seen for a 6 month follow-up of. Patient is in the office for follow-up for the problems noted below. Since he was last seen in the office his weight has come down nicely, his kidney function has remained in stage IV and he follows with nephrology. I believe at 1 point in time he will need dialysis. Cardiac thomas he remains without any chest pain palpitations orthopnea or PND and has no significant lower extremity edema. His labs have been followed periodically and they have been under control. Last blood work was from this past spring and his LDL cholesterol was down to 61 mg/dL. He does not seem to have any side effect of medications. ASSESSMENT AND PLAN: 1. Coronary artery disease with no prior intervention , cardiac catheterization 2004 revealed 40?50 percent mid LAD lesion managed medically last stress test 2011 was normal. Nuclear stress test December 2020 was normal. We will continue to emphasize risk factors modifications. 2. stage IV chronic kidney disease, being monitored by nephrology 3. Hypertension, presently under control. 4. Hyperlipidemia, LDL in July 2022 was 61 mg/dL on atorvastatin and ezetimibe 5. Diabetes, managed by PCP. Currently under control 6. Morbid obesity, more weight loss is recommended and low-calorie diet and exercise were encouraged. Patient lost several pounds since last visit. 7. Sleep apnea, on CPAP machine which the patient is compliant. 8. Carotid duplex scan 2020 normal Anayeli Franco MD, [facility] Surgical History Problems History of Adenoidectomy History of Complete colonoscopy History of Nose surgery History of Tonsillectomy Current Meds Medication NameInstruction Aspirin Low Dose 81 MG Oral Tablet Delayed ReleaseTAKE 1 TABLET BY MOUTH EVERY DAY Atorvastatin Calcium 40 MG Oral TabletTAKE 1 TABLET Bedtime Benadryl 25 MG TABSTAKE 1 TABLET AT BEDTIME. Cinnamon TABSTAKE 2 TABLET Daily CoQ10 100 MG Oral CapsuleTAKE 1 CAPSULE Daily Ezetimibe 10 MG Oral TabletTAKE 1 TABLET DAILY. Febuxostat 40 MG Oral TabletTAKE 1 TABLET DAILY. Fenofibrate 67 MG Oral CapsuleTAKE 1 CAPSULE Daily Flomax 0.4 MG Oral CapsuleTAKE 1 CAPSULE Daily Furosemide 40 MG Oral TabletTake 1 tablet daily Garlic 1000 MG Oral CapsuleTAKE DIRECTED. Glimepiride 2 MG Oral TabletTAKE 2 TABLETS ONCE A DAY WITH FOOD Januvia 25 MG Oral TabletTAKE 1 TABLET BY MOUTH EVERY DAY Kerendia 10 MG Oral TabletTake 1 tablet daily Metoprolol Tartrate 25 MG Oral TabletTake 1 tablet twice a day Nitroglycerin 0.4 MG Sublingual Tablet SublingualPLACE 1 TABLET UNDER THE TONGUE EVERY 5 MINUTES FOR UP TO 3 DOSES NEEDED FOR CHEST PAIN.CALL 911 IF PAIN PERSISTS. [place] 3 1000 MG Oral CapsuleTAKE 1 CAPSULE Daily Trulicity 0.75 MG/0.5ML Subcutaneous Solution Pen-injectoronce weekly Vitamin C 500 MG Oral TabletTAKE 1 TABLET DAILY. Vitamin D3 125 MCG (5000 UT) Oral CapsuleTAKE 1 CAPSULE Daily Allergies Medication lisinopril Cough; Recorded By: Cherie Lane; 05/11/2021 8:11:13 AM NonMedication Shellfish Recorded By: Cherie Lane; 05/11/2021 8:11:13 AM Social History Problems Caffeine use (V49.89) (Z78.9) Former smoker (V15.82) (Z87.891) quit 34 years ago No alcohol use No illicit drug use Review of Systems Constitutional: not feeling tired. Cardiovascular: no intermittent leg claudication and as noted in HPI. Respiratory: no cough and no shortness of breath. Gastrointestinal: no change in bowel habits and no blood in stools. Integumentary: no skin rashes. Neurological: (more content not included)... Normal [facility] Tobacco Screening.on 023 Fall risk assessment a) No falls within the last year [facility] y [address] DO Work Phone: Tobacco use status [facility] b) No [facility] y 250 DO Work Phone: US Renalon 10-28-2022 US Renal Exam Date/Time: 10/22/2022 14:43 EDT Reason for Exam: N18.32 Chronic kidney disease, stage 3b Report IMPRESSION: No hydronephrosis. Increased parenchymal echogenicity bilaterally, suggestive of medical renal disease. EXAMINATION: US Renal HISTORY: N18.32 Chronic kidney disease, stage 3b. Diabetes. TECHNIQUE: Sonography of the kidneys was performed. Images were obtained and stored in a permanent archive. COMPARISON: None RESULT: Right Kidney: -Renal length: 11.9 cm cm -Parenchyma: Parenchyma echogenicity is increased. Normal parenchymal thickness. -Collecting system: No hydronephrosis. -Calculus: No echogenic, shadowing calculus. -Lesion: None. Left Kidney: -Renal length: 12.1 cm cm -Parenchyma: Parenchyma echogenicity is increased. Normal parenchymal thickness. -Collecting system: No hydronephrosis. -Calculus: No echogenic, shadowing calculus. -Lesion: 2.4 cm lower pole anechoic cyst. Bladder: Not evaluated. Report Ordering Provider: , FINAL REPORT Dictated: 10/28/2022 3:31 pm Marlon Harrison MD Signed (Electronic Signature): 10/28/2022 3:31 pm Signed by: Marlon Harrison MD Transcribed by: OFELIA Technologist: HW Normal [facility] Consent for Treatmenton 09-28 Consent for Treatment [id number] [id number] 0CD:127 Normal [facility] Physician Orderon 10-21-2022 Physician Order [id number] 0CD:127 Normal [facility] CBC w/Indiceson 10-19-2022 Erythrocyte distribution width (RBC) [Ratio] 14.0 % Normal 10.9-14.2 [facility] Comment on above: Performed By: #### 2 696465, 82815007, 6532807, 0935012, 2110329, 2442818, 77233923, 8317850, 2565564, 0938963, 705401110, 8702854 #### [facility] [address] [place] [address] Hematocrit (Bld) [Volume fraction] 36.2 % Low 37.7-49.0 [facility] Comment on above: Performed By: #### 2 353723, 30372295, 7035031, 6386488, 2430698, 4169298, 20146815, 5137782, 5907736, 6621058, 810870642, 9725125 #### [facility] [address] [place] [address] Hemoglobin (Bld) [Mass/Vol] 12.5 g/dL Low 13.5-17.5 [facility] Comment on above: Performed By: #### 2 802812, 55970210, 4308269, 2826625, 7307937, 5454410, 28198939, 0318474, 9362560, 3322217, 780499257, 5831597 #### [facility] [address] [place] [address] MCH (RBC) [Entitic mass] 30.2 pg Normal 27.0-34.0 [facility] Comment on above: Performed By: #### 2 969795, 19039420, 2906212, 8095723, 9085658, 4905290, 59718337, 0007269, 5538206, 2819245, 165102330, 0022583 #### [facility] [address] [place] [address] MCHC (RBC) [Mass/Vol] 34.4 g/dL Normal 31.4-36.0 [facility] Comment on above: Performed By: #### 2 294645, 20776952, 8783578, 3793385, 2029033, 8481802, 30465092, 1159621, 2663243, 3052346, 625046607, 2614708 #### [facility] [address] [place] [address] MCV (RBC) [Entitic vol] 87.7 fL Normal 80.0-100.0 [facility] Comment on above: Performed By: #### 2 326469, 12848657, 1460783, 7692291, 1412031, 8778334, 56794253, 3216781, 2436515, 4701840, 795842829, 2536785 #### [facility] [address] [place] [address] Platelet mean volume (Bld) [Entitic vol] 7.9 fL Normal 6.4-10.8 [facility] Comment on above: Performed By: #### 2 950474, 77603878, 5720003, 8871078, 6492329, 5322891, 13583608, 3141698, 6210766, 3078832, 119691696, 4577058 #### [facility] [address] [place] [address] Platelets (Bld) [#/Vol] 151.0 E9/L Normal 150.0-500.0 [facility] Comment on above: Performed By: #### 2 646047, 18873746, 0654915, 0642842, 4358249, 7677210, 15313476, 6285509, 1509811, 8211991, 358219223, 5631459 #### [facility] [address] [place] [address] RBC (Bld) [#/Vol] 4.1 E12/L Low 4.3-5.9 [facility] Comment on above: Performed By: #### 2 611801, 89572953, 3337397, 4011521, 9592953, 5220659, 76016012, 4826061, 2867857, 3358167, 233731342, 4297813 #### [facility] [address] [place] [address] WBC corrected for nucl RBC Auto (Bld) [#/Vol] 6.9 E9/L Normal 4.0-11.0 [facility] Comment on above: Performed By: #### 2 627653, 93906294, 2847287, 6263438, 9605903, 3947703, 76534804, 1644795, 5828027, 7167838, 789172856, 6175392 #### [facility] [address] [place] [address] CMPon 10-19-2022 Albumin [Mass/Vol] 4.5 g/dL Normal 3.3-5.0 [facility] Comment on above: Performed By: #### 2 281205, 20648817, 0022282, 1807977, 1881898, 6081467, 95364231, 1563084, 0664108, 6014489, 087547004, 5573165 #### [facility] [address] [place] [address] Albumin/Globulin (S) [Mass conc ratio] 1.4 Normal 1.1-2.2 [facility] Comment on above: Performed By: #### 2 240293, 04160392, 7183618, 3321123, 1307408, 2930630, 58005275, 1884747, 2923923, 8936116, 300074865, 0921234 #### [facility] [address] [place] [address] ALP [Catalytic activity/Vol] 51 Int._Unit/L Normal 21-98 [facility] Comment on above: Performed By: #### 2 057791, 09858201, 6115523, 7168414, 9901361, 9720066, 95755429, 9586964, 5012038, 2568616, 844426451, 9816042 #### [facility] [address] [place] [address] ALT No additional P-5'-P [Catalytic activity/Vol] 38 Int._Unit/L Normal 6-46 [facility] Comment on above: Performed By: #### 2 486736, 44394710, 3040108, 2462366, 6866714, 7540381, 09009754, 0844926, 0520221, 0492559, 121795805, 6328300 #### [facility] [address] [place] [address] Anion gap [Moles/Vol] 12 mmol/L Normal 6-16 [facility] Comment on above: Performed By: #### 2 292581, 09603642, 5171553, 5911013, 2024119, 0798802, 48310424, 9091023, 6614295, 1051904, 478014306, 1688183 #### [facility] [address] [place] [address] AST [Catalytic activity/Vol] 33 Int._Unit/L Normal 5-43 [facility] Comment on above: Performed By: #### 2 039365, 71675074, 0260470, 6528663, 7993154, 2494018, 17657074, 0181907, 2103098, 4975656, 165342186, 8164878 #### [facility] [address] [place] [address] Bilirubin [Mass/Vol] 0.5 mg/dL Normal 0.0-1.1 [facility] Comment on above: Performed By: #### 2 112794, 59230389, 7290724, 8045219, 6197966, 0538065, 79755142, 8841953, 4676314, 0579637, 876997690, 7989961 #### [facility] [address] [place] [address] Calcium [Mass/Vol] 9.7 mg/dL Normal 8.9-11.1 [facility] Comment on above: Performed By: #### 2 089207, 75364916, 2193271, 7905520, 5060960, 5871357, 54284766, 7171774, 9138131, 2532374, 689002683, 4545397 #### [facility] [address] [place] [address] Chloride [Moles/Vol] 107 mmol/L Normal 101-111 [facility] Comment on above: Performed By: #### 2 338407, 96993922, 3244150, 8484803, 7181669, 0186716, 92415072, 6992818, 3532073, 9925373, 055069402, 2743432 #### [facility] [address] [place] [address] CO2 [Moles/Vol] 25 mmol/L Normal 21-31 [facility] Comment on above: Performed By: #### 2 416911, 95053535, 2607465, 0330645, 1229939, 2338001, 00534145, 2781489, 2458673, 0982361, 108883414, 2804609 #### [facility] [address] [place] [address] Creatinine [Mass/Vol] 3.5 mg/dL High 0.5-1.3 [facility] Comment on above: Performed By: #### 2 030037, 27342979, 8763336, 3361610, 9118190, 6541871, 05515693, 5066322, 0270795, 9037901, 271694247, 9514128 #### [facility] [address] [place] [address] Globulin (S) [Mass/Vol] 3.2 g/dL Normal 1.4-4.0 [facility] Comment on above: Performed By: #### 2 532096, 19463902, 8958810, 8083834, 1841196, 5290255, 29243224, 7553188, 5329293, 9682601, 714573947, 5105667 #### [facility] [address] [place] [address] Glucose [Mass/Vol] 83 mg/dL Normal 55-199 [facility] Comment on above: Result Comment: If t his glucose result represents a fasting glucose, interpretation should refer to the following reference range: 55-99 mg/dL Performed By: #### 2 565848, 55101080, 2643398, 6063840, 7328740, 3949022, 89237349, 4256358, 4300003, 2265180, 095741599, 9569647 #### [facility] [address] [place] [address] Potassium [Moles/Vol] 4.3 mmol/L Normal 3.5-5.3 [facility] Comment on above: Performed By: #### 2 486081, 36153097, 8754889, 1131828, 2974581, 7830025, 98031340, 2180245, 2893039, 9414607, 359858996, 7225959 #### [facility] [address] [place] [address] Protein [Mass/Vol] 7.7 g/dL Normal 6.0-7.8 [facility] Comment on above: Performed By: #### 2 655159, 47685059, 6950527, 3523711, 8841213, 0181465, 62672427, 8522816, 2759956, 6961162, 604067475, 8506218 #### [facility] [address] [place] [address] Sodium [Moles/Vol] 140 mmol/L Normal 135-145 [facility] Comment on above: Performed By: #### 2 513005, 39708486, 4846788, 9197351, 3417313, 7273631, 23586070, 3244119, 7863891, 5443005, 237791259, 8502725 #### [facility] [address] [place] [address] Urea nitrogen [Mass/Vol] 65 mg/dL High 5-21 [facility] Comment on above: Performed By: #### 2 607004, 78683165, 1605812, 0014337, 2613855, 2737973, 21402515, 1799840, 2110597, 2059239, 860340535, 4194330 #### [facility] [address] [place] [address] Urea nitrogen/Creatinine [Mass ratio] 19 No Units Normal 10-20 [facility] Comment on above: Performed By: #### 2 691408, 70980853, 9928245, 3724708, 4927215, 8808363, 59214750, 8488869, 3447083, 2677711, 799063515, 1367267 #### [facility] [address] [place] [address] Consent for Treatmenton 09-28 Consent for Treatment [id number] [id number] 0CD:127 Normal [facility] Magnesiumon 10-19-2022 Magnesium [Mass/Vol] 2.1 mg/dL Normal 1.3-2.4 [facility] Comment on above: Performed By: #### 2 708910, 75805608, 0728572, 0219241, 7525406, 4779318, 85460870, 1946967, 5410506, 4263172, 004406241, 5382793 #### [facility] [address] [place] [address] Physician Orderon 10-19-2022 Physician Order [id number]. [id number]:127 Normal [facility] U Protein/Creat Ratioon 09-28 Albumin Elph (U) [Mass fraction] 25.4 mg/dL Invalid Interpretation Code [facility] Comment on above: Result Comment: The reference range and other method performance specifications have not been established for this test; results should be integrated into the clinical context for interpretation. Performed By: #### 1 3559630, [id number] #### [facility] [address] [place] [address] Creatinine (U) [Mass/Vol] 117.5 mg/dL Invalid Interpretation Code [facility] Comment on above: Result Comment: The reference range and other method performance specifications have not been established for this test; results should be integrated into the clinical context for interpretation. Performed By: #### 1 4972373, [id number] #### [facility] [address] [place] [address] U Prot/Creat Ratio 216.20 mg/gm Cr High .00-200.00 [facility] Comment on above: Performed By: #### 1 3683898, 1885153114 #### [facility] [address] [place] [address] Urinalysison 10-19-2022 Bilirubin Ql (U) Negative Normal Negative [facility] Comment on above: Performed By: #### 1 5936461, [id number] #### [facility] [address] [place] [address] Clarity (U) CLEAR Normal Clear [facility] Comment on above: Performed By: #### 1 1510301, [id number] #### [facility] [address] [place] [address] Color (U) YELLOW Normal Yellow [facility] Comment on above: Performed By: #### 1 4147112, [id number] #### [facility] [address] [place] [address] Epithelial cells.squamous LM.HPF (Urine sed) [#/Area] 0-2 Normal 0-2 [facility] Comment on above: Performed By: #### 1 3037691, [id number] #### [facility] [address] [place] [address] Glucose Test strip (U) [Mass/Vol] Negative Normal Negative [facility] Comment on above: Performed By: #### 1 4102568, [id number] #### [facility] [address] [place] [address] Hemoglobin Ql (U) Negative Normal Negative [facility] Comment on above: Performed By: #### 1 1529530, [id number] #### [facility] [address] [place] [address] Ketones (U) [Mass/Vol] Negative Normal Negative [facility] Comment on above: Performed By: #### 1 5663002, [id number] #### [facility] [address] [place] [address] [employer].plasma/Lithiu m.RBC (Bld) [Mass ratio] 0-3 Normal 0-3 [facility] Comment on above: Performed By: #### 1 3434842, [id number] #### [facility] [address] [place] [address] Nitrite Ql (U) Negative Normal Negative [facility] Comment on above: Performed By: #### 1 7968822, [id number] #### [facility] [address] [place] [address] pH (U) 6.0 [pH] Invalid Interpretation Code 5.0-9.0 [facility] Comment on above: Performed By: #### 1 7036104, [id number] #### [facility] [address] [place] [address] Protein (U) [Mass/Vol] Negative Normal Negative [facility] Comment on above: Performed By: #### 1 1638342, [id number] #### [facility] [address] [place] [address] Specific gravity (U) [Rel density] 1.020 Invalid Interpretation Code 1.005-1.030 [facility] Comment on above: Performed By: #### 1 0057321, [id number] #### [facility] [address] [place] [address] Type of Urine collection method Clean Catch Normal [facility] Comment on above: Performed By: #### 1 7452778, [id number] #### [facility] [address] [place] [address] Urobilinogen Qn (U) 0.2 {John'U}/dL Normal 0.0-1.0 [facility] Comment on above: Performed By: #### 1 1984864, [id number] #### [facility] [address] [place] [address] WBC Auto Ql (U) Negative Normal Negative [facility] Comment on above: Performed By: #### 1 5017222, [id number] #### [facility] [address] [place] [address] WBC LM.HPF (Urine sed) [#/Area] 0-5 Normal 0-5 [facility] Comment on above: Performed By: #### 1 8408883, [id number] #### [facility] [address] [place] [address] eGFRon 10-19-2022 GFR/1.73 sq M.predicted among non-blacks MDRD (S/P/Bld) [Vol rate/Area] 18 mL/min/1.73 m2 Low >=59 [facility] Comment on above: Order Comment: Order added by Discern Expert. Result Comment: Structural Manager denise kidney disease could be indicated at eGFR's of less than 60 mL/min/1.73m2. Kidney failure is indicated at less than 15 mL/min/1.73m2. Performed By: #### 2 584713, 07768493, 7175724, 1456512, 5471881, 9073507, 54349665, 5578259, 6030269, 6868811, 428463311, 6706361 #### [facility] [address] [place] [address] Comprehensive Metabolic Pane ricky 10-04-2022 Albumin [Mass/Vol] 4.5 g/dL Normal 3.5-5.7 [facility] Comment on above: Order Comment: PT FA STED 12 HOURS Reason for Exam Chronic kidney disease, stage 3b;Hypertensive chronic kidney Performed By: #### C MP, MG #### [facility] [address] [place] [address] [place] Albumin/Globulin [Mass ratio] 2.0 {ratio} Normal [facility] Comment on above: Order Comment: PT FA STED 12 HOURS Reason for Exam Chronic kidney disease, stage 3b;Hypertensive chronic kidney Performed By: #### C MP, MG #### [facility] [address] [place] [address] [place] ALP [Catalytic activity/Vol] 41 U/L Normal 34-104 [facility] Comment on above: Order Comment: PT FA STED 12 HOURS Reason for Exam Chronic kidney disease, stage 3b;Hypertensive chronic kidney Performed By: #### C MP, MG #### [facility] [address] ALT [Catalytic activity/Vol] 33 U/L Normal 7-52 [facility] Comment on above: Order Comment: PT FA STED 12 HOURS Reason for Exam Chronic kidney disease, stage 3b;Hypertensive chronic kidney Performed By: #### C MP, MG #### [facility] [address] Anion gap [Moles/Vol] 15.1 mmol/L High 6.0-15.0 [facility] Comment on above: Order Comment: PT FA STED 12 HOURS Reason for Exam Chronic kidney disease, stage 3b;Hypertensive chronic kidney Performed By: #### C MP, MG #### [facility] [address] [place] [address] AST [Catalytic activity/Vol] 31 U/L Normal 13-39 [facility] Comment on above: Order Comment: PT FA STED 12 HOURS Reason for Exam Chronic kidney disease, stage 3b;Hypertensive chronic kidney Performed By: #### C MP, MG #### [facility] [address] Bilirubin [Mass/Vol] 0.7 mg/dL Normal 0.3-1.0 [facility] Comment on above: Order Comment: PT FA STED 12 HOURS Reason for Exam Chronic kidney disease, stage 3b;Hypertensive chronic kidney Performed By: #### C MP, MG #### [facility] [address] [place] [address] [place] Calcium [Mass/Vol] 9.4 mg/dL Normal 8.6-10.3 [facility] Comment on above: Order Comment: PT FA STED 12 HOURS Reason for Exam Chronic kidney disease, stage 3b;Hypertensive chronic kidney Performed By: #### C MP, MG #### [facility] [address] Chloride [Moles/Vol] 103 mmol/L Normal 98-107 [facility] Comment on above: Order Comment: PT FA STED 12 HOURS Reason for Exam Chronic kidney disease, stage 3b;Hypertensive chronic kidney Performed By: #### C MP, MG #### [facility] [address] [place] [id number] [place] CO2 [Moles/Vol] 23.7 mmol/L Normal 21.0-31.[address] [facility] Comment on above: Order Comment: PT FA STED 12 HOURS Reason for Exam Chronic kidney disease, stage 3b;Hypertensive chronic kidney Performed By: #### C MP, MG #### [facility] [address] Creatinine [Mass/Vol] 3.22 mg/dL High 0.70-1.30 [facility] Comment on above: Order Comment: PT FA STED 12 HOURS Reason for Exam Chronic kidney disease, stage 3b;Hypertensive chronic kidney Performed By: #### C MP, MG #### [facility] [address] [place], [place] [address] [place] GFR/1.73 sq M.predicted MDRD (S/P/Bld) [Vol rate/Area] 19.901 mL/min/{1.73_m2} [facility] Comment on above: Order Comment: PT FA STED 12 HOURS Reason for Exam Chronic kidney disease, stage 3b;Hypertensive chronic kidney Performed By: #### C MP, MG #### [facility] [address] [place] [id number] [place] Globulin (S) [Mass/Vol] 2.2 g/dL [facility] Comment on above: Order Comment: PT FA STED 12 HOURS Reason for Exam Chronic kidney disease, stage 3b;Hypertensive chronic kidney Performed By: #### C MP, MG #### [facility] [address] [place] [id number] [place] Glucose [Mass/Vol] 118 mg/dL High 70-100 [facility] Comment on above: Order Comment: PT FA STED 12 HOURS Reason for Exam Chronic kidney disease, stage 3b;Hypertensive chronic kidney Result Comment: [place] Glucose Reference Range is dependent on time and content of last meal. Glucose of more than 200 mg/dL in a nonstressed, ambulatory subject supports the diagnosis of Diabetes Mellitus. ADA recommended reference range Performed By: #### C MP, MG #### [facility] [address] [place] [address] [place] Potassium [Moles/Vol] 4.8 mmol/L Normal 3.5-5.1 [facility] Comment on above: Order Comment: PT FA STED 12 HOURS Reason for Exam Chronic kidney disease, stage 3b;Hypertensive chronic kidney Performed By: #### C MP, MG #### [facility] [address] [place] [address] [place] Protein [Mass/Vol] 6.7 g/dL Normal 6.4-8.9 [facility] Comment on above: Order Comment: PT FA STED 12 HOURS Reason for Exam Chronic kidney disease, stage 3b;Hypertensive chronic kidney Performed By: #### C MP, MG #### [facility] [address] Sodium [Moles/Vol] 137 mmol/L Normal 136-145 [facility] Comment on above: Order Comment: PT FA STED 12 HOURS Reason for Exam Chronic kidney disease, stage 3b;Hypertensive chronic kidney Performed By: #### C MP, MG #### [facility] [address] [place] [address] [place] Urea nitrogen [Mass/Vol] 76 mg/dL High 7-25 [facility] Comment on above: Order Comment: PT FA STED 12 HOURS Reason for Exam Chronic kidney disease, stage 3b;Hypertensive chronic kidney Performed By: #### C MP, MG #### [facility] [address] [place] [address] [place] Dipstick and Microscopicon 0 10-04-2022 Appearance (U) Clear Normal Clear [facility] Comment on above: Order Comment: Reaso n for Exam Chronic kidney disease, stage 3b;Hypertensive chronic kidney Name Collection Type:: Clean-Voided Midstream Performed By: #### A DDONUAPLUS ####[facility] [id number] [place] [address] [place] Bacteria,Urine None Seen Normal None Seen [facility] Comment on above: Order Comment: Reaso n for Exam Chronic kidney disease, stage 3b;Hypertensive chronic kidney Name Collection Type:: Clean-Voided Midstream Performed By: #### A DDONUAPLUS ####[facility] [id number] [place] [address] [place] Bilirubin,Urine Negative Normal Negative [facility] Comment on above: Order Comment: Reaso n for Exam Chronic kidney disease, stage 3b;Hypertensive chronic kidney Name Collection Type:: Clean-Voided Midstream Performed By: #### A DDONUAPLUS ####[address] [address] [place] Color (U) Yellow Normal Yellow [facility] Comment on above: Order Comment: Reaso n for Exam Chronic kidney disease, stage 3b;Hypertensive chronic kidney Name Collection Type:: Clean-Voided Midstream Performed By: #### A DDONUAPLUS ####[address] [address] [facility] Glucose Ql (U) Normal Normal Normal [facility] Comment on above: Order Comment: Reaso n for Exam Chronic kidney disease, stage 3b;Hypertensive chronic kidney Name Collection Type:: Clean-Voided Midstream Performed By: #### A DDONUAPLUS ####[address] [address] [place] Hyaline Casts,Urine 0-8 Normal 0-8 [facility] Comment on above: Order Comment: Reaso n for Exam Chronic kidney disease, stage 3b;Hypertensive chronic kidney Name Collection Type:: Clean-Voided Midstream Result Comment: PERF ORMED BY: [facility] [address] [place] [id number] PATHOLOGIST CLINICAL REHAB SPECIALIST JAMI BERNABE M.D. Performed By: #### A DDONUAPLUS ####[address] [address] [place] Ketones Ql (U) Negative Normal Negative [facility] Comment on above: Order Comment: Reaso n for Exam Chronic kidney disease, stage 3b;Hypertensive chronic kidney Name Collection Type:: Clean-Voided Midstream Performed By: #### A DDONUAPLUS ####[address] [address] [place] Leukocyte esterase Test strip Ql (U) Negative Normal Negative [facility] Comment on above: Order Comment: Reaso n for Exam Chronic kidney disease, stage 3b;Hypertensive chronic kidney Name Collection Type:: Clean-Voided Midstream Performed By: #### A DDONUAPLUS ####[place] [id number] [facility] Nitrite,Urine Negative Normal Negative [facility] Comment on above: Order Comment: Reaso n for Exam Chronic kidney disease, stage 3b;Hypertensive chronic kidney Name Collection Type:: Clean-Voided Midstream Performed By: #### A DDONUAPLUS ####[place] [id number] [facility] Occult Blood,Urine Negative Normal Negative [facility] Comment on above: Order Comment: Reaso n for Exam Chronic kidney disease, stage 3b;Hypertensive chronic kidney Name Collection Type:: Clean-Voided Midstream Result Comment: PERF ORMED BY: [facility] [address] [place] [address] PATHOLOGIST CLINICAL REHAB SPECIALIST JAMI BERNABE M.D. Performed By: #### A DDONUAPLUS ####[place] [id number] [facility] pH (U) 5.5 [pH] Normal 5.0-9.0 [facility] Comment on above: Order Comment: Reaso n for Exam Chronic kidney disease, stage 3b;Hypertensive chronic kidney Name Collection Type:: Clean-Voided Midstream Performed By: #### A DDONUAPLUS ####[place] [id number] [facility] Protein,Urine Trace High Negative [facility] Comment on above: Order Comment: Reaso n for Exam Chronic kidney disease, stage 3b;Hypertensive chronic kidney Name Collection Type:: Clean-Voided Midstream Performed By: #### A DDONUAPLUS ####[place] [id number] [place] RBC LM.HPF (Urine sed) [#/Area] 0 /[HPF] Normal 0-4 [facility] Comment on above: Order Comment: Reaso n for Exam Chronic kidney disease, stage 3b;Hypertensive chronic kidney Name Collection Type:: Clean-Voided Midstream Performed By: #### A DDONUAPLUS ####[facility] Specificy [place]us,Urine 1.015 Normal 1.001-1.030 [facility] Comment on above: Order Comment: Reaso n for Exam Chronic kidney disease, stage 3b;Hypertensive chronic kidney Name Collection Type:: Clean-Voided Midstream Performed By: #### A DDONUAPLUS ####[address] Squamous Epithelial Cell,Urine None Seen Normal 0-2 [facility] Comment on above: Order Comment: Reaso n for Exam Chronic kidney disease, stage 3b;Hypertensive chronic kidney Name Collection Type:: Clean-Voided Midstream Performed By: #### A DDONUAPLUS ####[address] Urobilinogen,Urine Normal Normal Normal [facility] Comment on above: Order Comment: Reaso n for Exam Chronic kidney disease, stage 3b;Hypertensive chronic kidney Name Collection Type:: Clean-Voided Midstream Performed By: #### A DDONUAPLUS ####[place] [id number] [facility] WBC,Urine 1-2 Normal 0-4 [facility] Comment on above: Order Comment: Reaso n for Exam Chronic kidney disease, stage 3b;Hypertensive chronic kidney Name Collection Type:: Clean-Voided Midstream Performed By: #### A DDONUAPLUS ####[address] Hemogram CBC Without Diffon 10-04-2022 Erythrocyte distribution width (RBC) [Ratio] 13.6 % Normal 12.0-14.8 [facility] Comment on above: Order Comment: Reaso n for Exam Chronic kidney disease, stage 3b;Hypertensive chronic kidney Performed By: #### C BCNO #### [facility] [address] Hematocrit (Bld) [Volume fraction] 35.2 % Low 38.8-50.0 [facility] Comment on above: Order Comment: Reaso n for Exam Chronic kidney disease, stage 3b;Hypertensive chronic kidney Performed By: #### C BCNO #### [facility] [address] Hemoglobin (Bld) [Mass/Vol] 12.0 g/dL Low 13.0-17.0 [facility] Comment on above: Order Comment: Reaso n for Exam Chronic kidney disease, stage 3b;Hypertensive chronic kidney Performed By: #### C BCNO #### [facility] [address] MCH (RBC) [Entitic mass] 30.0 pg Normal 27.5-35.2 [facility] Comment on above: Order Comment: Reaso n for Exam Chronic kidney disease, stage 3b;Hypertensive chronic kidney Performed By: #### C BCNO #### [address] MCV (RBC) [Entitic vol] 88.3 fL Normal 83.5-101 [facility] Comment on above: Order Comment: Reaso n for Exam Chronic kidney disease, stage 3b;Hypertensive chronic kidney Performed By: #### C BCNO #### [address] Mean Corpuscular HGB Conc 34.0 g/dL Normal 32.5-35.6 [facility] Comment on above: Order Comment: Reaso n for Exam Chronic kidney disease, stage 3b;Hypertensive chronic kidney Performed By: #### C BCNO #### [address] Platelet mean volume (Bld) [Entitic vol] 8.6 fL Normal 6.6-10.1 [facility] Comment on above: Order Comment: Reaso n for Exam Chronic kidney disease, stage 3b;Hypertensive chronic kidney Result Comment: PERF ORMED BY: [place] [address] PATHOLOGIST CLINICAL REHAB SPECIALIST JAMI BERNABE M.D. Performed By: #### C BCNO #### [address] Platelets (Bld) [#/Vol] 126 10*3/uL Low 150-450 [facility] Comment on above: Order Comment: Reaso n for Exam Chronic kidney disease, stage 3b;Hypertensive chronic kidney Performed By: #### C BCNO #### [facility] [address] RBC (Bld) [#/Vol] 3.99 10*6/uL Normal 3.90-5.60 [facility] Comment on above: Order Comment: Reaso n for Exam Chronic kidney disease, stage 3b;Hypertensive chronic kidney Performed By: #### C BCNO #### [facility] [address] WBC (Bld) [#/Vol] 6.1 10*3/uL Normal 4.1-10.5 [facility] Comment on above: Order Comment: Reaso n for Exam Chronic kidney disease, stage 3b;Hypertensive chronic kidney Performed By: #### C BCNO #### [address] Magnesiumon 10-04-2022 Magnesium [Mass/Vol] 2.3 mg/dL Normal 1.9-2.7 [facility] Comment on above: Order Comment: PT FA STED 12 HOURS Reason for Exam Chronic kidney disease, stage 3b;Hypertensive chronic kidney Result Comment: PERF ORMED BY: [place] [address] PATHOLOGIST CLINICAL REHAB SPECIALIST JAMI BERNABE M.D. Performed By: #### C MP, MG #### [address] Protein Creat Ratio Ur Rando mon 10-04-2022 Creatinine, Urine (Random) 91.0 mg/dL High 14.0-26.0 [facility] Comment on above: Order Comment: Reaso n for Exam Chronic kidney disease, stage 3b;Hypertensive chronic kidney Performed By: #### P ROCRERAT #### [address] Protein (U) [Mass/Vol] 24 mg/dL High 0-9 [facility] Comment on above: Order Comment: Reaso n for Exam Chronic kidney disease, stage 3b;Hypertensive chronic kidney Performed By: #### P ROCRERAT #### [facility] [address] [place] [address] Urine Protein/Creatinine Ratio 264 mg/g{Cre} High 0-200 [facility] Comment on above: Order Comment: Reaso n for Exam Chronic kidney disease, stage 3b;Hypertensive chronic kidney Result Comment: PERF ORMED BY: [place] [address] PATHOLOGIST CLINICAL REHAB SPECIALIST JAMI BERNABE M.D. Performed By: #### P ROCRERAT #### [facility] [address] [place] [address] US renal BIon 10-04-2022 US renal BI [facility] Main [place] [address] [place] [address] Ultrasound Report Signed Patient: sIidro Calhoun MR#: [id number] 11 : 1950 Acct:[id number] Age/Sex: 72 / M ADM Date: 10/04/22 Loc: Room: Type: [facility] Attending Dr: Saeed Aiken MD Ordering Provider: Saeed Aiken MD Date of Service: 10/04/22 US/US renal BI: Chronic kidney disease, stage 3b;Hypertensive chronic kidney Copies to: Saeed Aiken MD BILATERAL RENAL AND BLADDER ULTRASOUND CLINICAL HISTORY: Stage III 3b chronic kidney disease COMPARISON: None Estimation of renal size is approximately 11.8 cm on the right and 12.7 cm on the left. No contour deforming mass, shadowing stone or hydronephrosis. 2.3 cm cyst left kidney. The urinary bladder is partially distended with a volume of 190.70 ml. No shadowing stone or focal lesion. Prostatomegaly. US/US renal BI IMPRESSION: No acute findings. Impression dictated by: Shiv De Leon Jr., D.O.10/04/2022 12:16 PM Dictation Location: [place] [address] Tech: Rosie Kaur Transcribed By: [facility] 10/04/22 121 Dictated By: Shiv De Leon Jr, DO 10/04/221212 Signed By: 10/04/22 1216 [facility] Laboratory - Chemistry and C hemistry - challengeon 08-11-2022 Cholesterol [Mass/Vol] 61 mg/dL Normal <=129 [facility] [facility] 250 DO Work Phone: Cholesterol in LDL [Mass/Vol] 49 mg/dL above high threshold 7-40 [facility] [facility] 250 DO Work Phone: No Panel Informationon 08-11 244 mg/dL above high threshold <=149 [facility] [facility] 250 DO Work Phone: 27 [facility] Work Phone: Comment on above: HDL > or equal to 60 mg/dL: Low cardiovascular riskHDL < 40 mg/dL : High cardiovascular risk 120 mg/dL Normal 120-200 [facility] 250 DO Work Phone: Office Visit (Cardiology)on 06-15-2022 Follow-up visit Diagnoses/Problems Assessed ASCVD (arteriosclerotic cardiovascular disease) (429.2,440.9) (I25.10) Benign essential hypertension (401.1) (I10) Hyperlipidemia (272.4) (E78.5) Diabetes mellitus (250.00) (E11.9) CKD (chronic kidney disease), stage III (585.3) (N18.30) Sleep apnea (780.57) (G47.30) Former smoker (V15.82) (Z87.891) Morbid obesity with BMI of 40.0-44.9, adult (278.01,V85.41) (E66.01,Z68.41) Orders ASCVD (arteriosclerotic cardiovascular disease) Renew: Aspirin Low Dose 81 MG Oral Tablet Delayed Release; TAKE 1 TABLET BY MOUTH EVERY DAY ASCVD (arteriosclerotic cardiovascular disease), Hyperlipidemia Start: Ezetimibe 10 MG Oral Tablet (Zetia); TAKE 1 TABLET DAILY Lipid Panel; Status:Active - Retrospective Authorization; Requested for:10Aug2022; Morbid obesity with BMI of 40.0-44.9, adult Healthy Weight Tips; Status:Complete - Retrospective Authorization; Done: 15Jun2022 Some eating tips that can help you lose weight.; Status:Complete - Retrospective Authorization; Done: 15Jun2022 SocHx: Former smoker Tobacco Use Screening; Status:Complete; Done: 15Jun2022 Patient Instructions Please bring all medicines, vitamins, and herbal supplements with you when you come to the office. Prescriptions will not be filled unless you are compliant with your follow up appointments or have a follow up appointment scheduled as per instruction of your physician. Refills should be requested at the time of your visit. Retrieve lab from [facility]/chem 6 Zetia 10 mg daily Lipid lab in 6 weeks Retrieve kidney BX from [facility] Follow up in 6 months Chief Complaint ISIDRO CALHOUN is being seen for an annual follow-up of. Patient is in the office for follow-up for the problems noted below. Since he was last seen in the office several months ago has had no cardiac events. His weight has bounced back again significantly due to and activities. He just bought an equipment for exercise at home. He has no angina orthopnea PND or lower extremity edema. His pressure is under control. His lipids are not completely under control. We will add Zetia 10 mg daily. His diabetes under very good control on present medications. His pressures is right on target. He is compliant with CPAP machine. No cardiac investigations are necessary at this time. ASSESSMENT AND PLAN: 1. Coronary artery disease with no prior intervention , cardiac catheterization 2004 revealed 40?50 percent mid LAD lesion managed medically last stress test 2011 was normal. Nuclear stress test December 2020 was normal. We will continue to emphasize risk factors modifications. 2. Stable stage III chronic kidney disease, nonprogressive, being monitored. Patient follows with nephrology, recent lab were ordered after having recent kidney biopsy. He did receive a course of steroid 3. Hypertension, presently under control. 4. Hyperlipidemia, LDL just over 80 mg/dL. We will add Zetia 10 mg daily and follow his lipids in few weeks 5. Diabetes, managed by PCP. Currently under control 6. Morbid obesity, more weight loss is recommended and low-calorie diet and exercise were encouraged. 7. Sleep apnea, on CPAP machine which the patient is compliant. 8. Carotid duplex scan 2020 normal Anayeli Franco MD, [facility] Surgical History Problems History of Adenoidectomy History of Complete colonoscopy History of Nose surgery History of Tonsillectomy Current Meds Medication NameInstruction Aspirin Low Dose 81 MG Oral Tablet Delayed ReleaseTAKE 1 TABLET BY MOUTH EVERY DAY Atorvastatin Calcium 40 MG Oral TabletTAKE 1 TABLET Bedtime Benadryl 25 MG TABSTAKE 1 TABLET AT BEDTIME. Cinnamon TABSTAKE 2 TABLET Daily Fenofibric Acid 135 MG Oral Capsule Delayed ReleaseTAKE 1 CAPSULE Daily Furosemide 20 MG Oral TabletTAKE 1 TABLET DAILY. Garlic 1000 MG Oral CapsuleTAKE DIRECTED. Glimepiride 2 MG Oral TabletTAKE 2 TABLETS ONCE A DAY WITH FOOD Januvia 25 MG Oral TabletTAKE 1 TABLET BY MOUTH EVERY DAY Metoprolol Tartrate 25 MG Oral TabletTAKE 1 TABLET TWICE DAILY. Nitroglycerin 0.4 MG Sublingual Tablet SublingualPLACE 1 TABLET UNDER THE TONGUE EVERY 5 MINUTES FOR UP TO 3 DOSES NEEDED FOR CHEST PAIN.CALL 911 IF PAIN PERSISTS. [place] 3 1000 MG Oral CapsuleTAKE 1 CAPSULE Daily Trulicity 0.75 MG/0.5ML Subcutaneous Solution Pen-injectoronce weekly Vitamin C 500 MG Oral TabletTAKE 1 TABLET DAILY. Vitamin D3 125 MCG (5000 UT) Oral CapsuleTAKE 1 CAPSULE Daily Allergies Medication lisinopril Cough; Recorded By: Cherie Lane; 05/11/2021 8:11:13 AM NonMedication Shellfish Recorded By: Cherie Lane; 05/11/2021 8:11:13 AM Social History Problems Caffeine use (V49.89) (Z78.9) Former smoker (V15.82) (Z87.891) No alcohol use No illicit drug use Review of Systems Constitutional: not feeling tired. Cardiovascular: no intermittent leg claudication and as noted in HPI. Respiratory: shortness of breath during exertion, but no cough and no shortness of breath. Gastroi (more content not included)... Normal [facility] Tobacco Screening.on 023 Adult depression screening assessment No [facility] [facility] 250 DO Work Phone: Fall risk assessment a) No falls within the last year [facility] 250 DO Work Phone: Tobacco use status [facility] b) No [facility] 250 DO Work Phone: Laboratory - Chemistry and C hemistry - challengeon 05-12-2022 Cholesterol [Mass/Vol] 80 mg/dL Normal <=129 [facility] DO Work Phone: Cholesterol in LDL [Mass/Vol] 38 mg/dL Normal 7-40 [facility] 250 DO Work Phone: No Panel Informationon 05-12 24 {Int._Unit/L} Normal 6-46 [facility] Work Phone: 29 {Int._Unit/L} Normal 5-43 [facility] DO Work Phone: 190 mg/dL above high threshold <=149 [facility] y 250 DO Work Phone: 27 mg/dL [facility] DO Work Phone: Comment on above: HDL > or equal to 60 mg/dL: Low cardiovascular riskHDL < 40 mg/dL : High cardiovascular risk 141 mg/dL Normal 120-200 [facility] 250 DO Work Phone: CT guided biopsyon 2 CT guided biopsy [facility] Main [place] [address] [place] [address] CT Scan Report Signed Patient: Isidro Calhoun MR#: [id number] 11 : 1950 Acct:[id number] Age/Sex: 71 / M ADM Date: 12/10/21 Loc: Room: Type: [facility] Attending Dr: Saeed Aiken MD Copies to: Saeed Aiken MD Ordering Provider: Saeed Aiken MD Date of Service: 12/10/21 CT/CT guided biopsy: Kidney biopsy Random CT-guided renal biopsy TECHNIQUE: Informed consent was obtained. The skin entry site of the RIGHT back region was localized with CT. Skin entry was prepped and draped in sterile fashion and local lidocaine administered. 17-gauge 16 cm introducer was administered to the inferior pole of the RIGHT kidney with CT guidance. 3 18-gauge core biopsy samples were obtained. Minimal localized bleeding identified. No immediate complications. CT/CT guided biopsy IMPRESSION: Successful CT-guided random renal biopsy Impression dictated by: Celso Vasquez M.D.12/10/2021 1:09 PM Dictation Location: [place] [address] Transcribed By: [facility] 12/10/21 1309 Dictated By: Celso Vasquez DO 12/10/21 1303 Signed By: 12/10/21 1309 Normal [facility] Complete Blood Count Auto Di ffon 12-10-2021 Basophils (Bld) [#/Vol] 0.0 10*3/uL Normal 0.0-0.2 [facility] Comment on above: Order Comment: STAT FOR US BX Result Comment: PERF ORMED BY: [place] [address] PATHOLOGIST CLINICAL REHAB SPECIALIST JAMI BERNABE M.D. Performed By: #### P T, PTT, CBC #### [address] Basophils/100 WBC (Bld) 0.6 % Normal . [facility] Comment on above: Order Comment: STAT FOR US BX Performed By: #### P T, PTT, CBC #### [address] Eosinophils (Bld) [#/Vol] 0.4 10*3/uL Normal 0.0-0.45 [facility] Comment on above: Order Comment: STAT FOR US BX Performed By: #### P T, PTT, CBC #### [address] Eosinophils/100 WBC (Bld) 5.6 % Normal . [facility] Comment on above: Order Comment: STAT FOR US BX Performed By: #### P T, PTT, CBC #### [address] Erythrocyte distribution width (RBC) [Ratio] 15.1 % High 12.0-14.8 [facility] Comment on above: Order Comment: STAT FOR US BX Performed By: #### P T, PTT, CBC #### [facility] [address] Hematocrit (Bld) [Volume fraction] 32.2 % Low 38.8-50.0 [facility] Comment on above: Order Comment: STAT FOR US BX Performed By: #### P T, PTT, CBC #### [facility] [address] Hemoglobin (Bld) [Mass/Vol] 10.7 g/dL Low 13.0-17.0 [facility] Comment on above: Order Comment: STAT FOR US BX Performed By: #### P T, PTT, CBC #### [address] Lymphocytes (Bld) [#/Vol] 0.9 10*3/uL Low 1.00-4.8 [facility] Comment on above: Order Comment: STAT FOR US BX Performed By: #### P T, PTT, CBC #### [facility] [address] [place] [address] Lymphocytes/100 WBC (Bld) 12.3 % Normal . [facility] Comment on above: Order Comment: STAT FOR US BX Performed By: #### P T, PTT, CBC #### [facility] [address] [place] [address] MCH (RBC) [Entitic mass] 30.7 pg Normal 27.5-35.2 [facility] Comment on above: Order Comment: STAT FOR US BX Performed By: #### P T, PTT, CBC #### [address] MCV (RBC) [Entitic vol] 92.0 fL Normal 83.5-101 [facility] Comment on above: Order Comment: STAT FOR US BX Performed By: #### P T, PTT, CBC #### [address] Mean Corpuscular HGB Conc 33.3 g/dL Normal 32.5-35.6 [facility] Comment on above: Order Comment: STAT FOR US BX Performed By: #### P T, PTT, CBC #### [facility] [address] [place] [address] [place] Monocytes (Bld) [#/Vol] 0.6 10*3/uL Normal 0.0-0.8 [facility] Comment on above: Order Comment: STAT FOR US BX Performed By: #### P T, PTT, CBC #### [facility] [address] [place] [address] [place] Monocytes/100 WBC (Bld) 8.6 % Normal . [facility] Comment on above: Order Comment: STAT FOR US BX Performed By: #### P T, PTT, CBC #### [facility] [address] [place] [address] [place] Neutrophils (Bld) [#/Vol] 5.3 10*3/uL Normal 1.8-7.7 [facility] Comment on above: Order Comment: STAT FOR US BX Performed By: #### P T, PTT, CBC #### [facility] [address] [place] [address] [place] Neutrophils/100 WBC (Bld) 72.9 % Normal . [facility] Comment on above: Order Comment: STAT FOR US BX Performed By: #### P T, PTT, CBC #### [facility] [address] [place] [address] [place] Nucleated RBC/100 WBC (Bld) [Ratio] 0.1 % Normal 0-0.5 [facility] Comment on above: Order Comment: STAT FOR US BX Performed By: #### P T, PTT, CBC #### [facility] [address] [place] [address] [place] Platelet mean volume (Bld) [Entitic vol] 8.2 fL Normal 6.6-10.1 [facility] Comment on above: Order Comment: STAT FOR US BX Performed By: #### P T, PTT, CBC #### [facility] [address] [place] [address] [place] Platelets (Bld) [#/Vol] 203 10*3/uL Normal 150-450 [facility] Comment on above: Order Comment: STAT FOR US BX Performed By: #### P T, PTT, CBC #### [address] [place] [address] [place] RBC (Bld) [#/Vol] 3.49 10*6/uL Low 3.90-5.60 [facility] Comment on above: Order Comment: STAT FOR US BX Performed By: #### P T, PTT, CBC #### [facility] [address] WBC (Bld) [#/Vol] 7.3 10*3/uL Normal 4.5-11.0 [facility] Comment on above: Order Comment: STAT FOR US BX Performed By: #### P T, PTT, CBC #### [facility] [address] 12-10-2021 L -- ---- Specimen: [id number] Received: 12/10/21 Status: MI Cotton Num: [id number] Spec Type: Surgical Subm Dr: Celso Vasquez DO Tissues: A Gross Only Procedures: Gross Exam - L1 ---- Age/ Patient Sex Location Account Attending Physician ---- Isidro Calhoun 71/M [id number] Saeed Aiken MD ---- SPEC NUM: [id number] RECD: 12/10/21 STATUS: MI REDulce NUM: [id number] MACK: 12/10/[address] [facility] [address]: Celso Vasquez DO ENTERED: 12/10/[address]: SPEC TYPE: Surgical DEPT: S ENTERED BY: [id number] RECV BY: [id number] ORDERED: Gross Exam - L1 ORDERED: Gross Exam - L1 Pathological Diagnosis 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 Comment: The biopsy shows mild glomerular C3 deposition in the absence of proliferative glomerular changes by light microscopy. While of unknown clinical significance , this finding and the predominantly chronic interstitial inflammation can be seen in the setting of a mild/resolving infection associated glomerulonephritis, and clinical correlation to exclude ongoing or recent infection is suggested. Should the patient have no history of recent/underlying infection then clinical correlation to exclude potential etiologies of interstitial nephritis is suggested. Chronicity Summary Total Glomeruli: 14 Global Glomerulosclerosis: 4 Segmental Sclerosis: Absent ---- Specimen: [id number] Received: 12/10/21 Status: MI Cotton Num: [id number] Spec Type: Surgical Subm Dr: Celso Vasquez DO Tissues: A Gross Only Procedures: Gross Exam - L1 ---- Patient: Isidro Calhoun [id number] (Continued) ---- Specimen: [id number] Received: 12/10/21 (Continued) Pathological Diagnosis (Continued) Signed (signature on file) Jami Bernabe MD 12/23/21 1452 ---- Specimen: [id number] Received: 12/10/21 Status: MI Cotton Num: [id number] Spec Type: Surgical Subm Dr: Celso Vasquez DO Tissues: A Gross Only Procedures: Gross Exam - L1 ---- Patient: Isidro Calhoun [id number] (Continued) ---- Specimen: [id number] Received: 12/10/21 (Continued) Pathological Diagnosis (Continued) Interstitial Fibrosis: Moderate Tubular Atrophy: Moderate Arterial Intimal Fibrosis: Severe Arteriolar Hyalinosis: Moderate Please see [facility] report ([id number]) for further details. Clinical Information CKD stage III, Diabetes, elevated kidney function, gout Gross Description Received fresh labeled with the patient's name and random biopsy kidney are two cores of perez white, focally hyperemic tissue measuring 1.7 x 0.1 cm each. One tissue is placed in formalin and one tissue is placed in Mello's transport media. The specimen is sent to [facility] for renal studies. (LG/JS/) Microscopic Description The entire specimen is forwarded to [facility]. Their laboratory has performed the microscopic examination inclusive of special stain and additional studies as diagnostically necessary. The above reported pathologic diagnoses are those of the banking consultant. See their attached consultative report for a complete description ([facility] #[id number]). [id number] ---- ---- Specimen: [id number] Received: 12/10/21-1027 Status: MI Cotton Num: [id number] Spec Type: Surgical Subm Dr: Celso Vasquez DO Tissues: A Gross Only Procedures: Gross Exam - L1 ---- Patient: Isidro Calhoun [id number] (Continued) ---- Signed (signature on file) Jami Bernabe MD 12/23/21 1452 Normal [facility] Partial Thromboplastin Timeo n 12-10-2021 aPTT Coag (Bld) [Time] 28.6 s Normal 25.1-36.5 [facility] Comment on above: Order Comment: STAT FOR US BX Result Comment: PERF ORMED BY: [facility] [address] [place] [address] PATHOLOGIST CLINICAL REHAB SPECIALIST JAMI BERNABE M.D. Performed By: #### P T, PTT, CBC #### [facility] [address] Prothrombin Time INRon 12-10 INR Coag (PPP) [Relative time] 1.1 {INR} Normal [facility] Comment on above: Order Comment: STAT FOR US BX Result Comment: INR Therapeutic Range A) Pre- and Peroperative OAT started two weeks before surgery. NOT HIP SURGERY: 1.5 - 2.5 HIP SURGERY: 2 - 3 B) Primary and secondary prevention of venous THROMBOSIS: 2 - 3 C) Active venous thrombosis, pulmonary embolism and prevention of recurrent venous thrombosis: 2 - 3 D) Prevention of arterial thromboembolism including patients with mechanical heart valves: 3 - 4.5 Performed By: #### P T, PTT, CBC #### [facility] [address] [place] [address] [facility] PT Coag (PPP) [Time] 12.1 s Normal 9.0-12.9 [facility] Comment on above: Order Comment: STAT FOR US BX Performed By: #### P T, PTT, CBC #### [facility] [address] [place] [address] [facility] Tobacco Screening.on 022 Adult depression screening assessment [facility] velasquez 250 DO Work Phone: Fall risk assessment a) No falls within the last year [facility] Jayashree velasquez 250 DO Work Phone: Tobacco use status [facility] b) [facility] Jayash[facility] velasquez 250 DO Work Phone: Laboratory - Chemistry and C hemistry - challengeon 03-23-2021 Cholesterol [Mass/Vol] 72 mg/dL Normal <=129 [facility] Jayashree velasquez [address] [place] Work Phone: Cholesterol in LDL [Mass/Vol] 45 mg/dL above high threshold 7-40 [facility] Jayashree velasquez [address] [place] Work Phone: No Panel Informationon 03-23 40 {Int._Unit/L} Normal 6-46 [facility] Jayashree velasquez [address] [place] Work Phone: 37 {Int._Unit/L} Normal 5-43 [facility] Jayashree velasquez [address] [place] Work Phone: 224 mg/dL above high threshold <=149 [facility] Jayashree velasquez [address] [place] Work Phone: 25 mg/dL [facility] [address] [place] Work Phone: Comment on above: HDL > or equal to 60 mg/dL: Low cardiovascular riskHDL < 40 mg/dL : High cardiovascular risk 143 mg/dL Normal 120-200 [facility] [address] [place] Work Phone: [facility] CARDIAC STRESS/REST INJE CTIONon 01-14-2021 [facility] CARDIAC STRESS/REST INJECTION Patient Name: ISIDRO CALHOUN STUDY: MYOCARDIAL PERFUSION STRESS TEST WITH LEXISCAN Performing facility: [facility], [address] [place] [address], [address], [address] Provider: Anayeli Franco MD, [facility] PCP: Dr. Bonilla estes Supervising provider: Anayeli Franco MD, [facility] INDICATION: CAD; HISTORY: Gender: M; Age: 70 y/o ; Height: 185.42 cm; Weight: 317.7184009 kg. CAD; High Cholesterol; Diabetes; HTN; Quit smoking 31 years ago. Cardiac catheterization on 2004. COMPARISON: Previous nuclear testing completed [id number] at [facility]. ACCESSION NUMBER(S): [id number]; [id number]; [id number] ORDERING CLINICIAN: ANAYELI FRANCO TECHNIQUE: TWO DAY protocol. Stress injection: Date:01-14-21, 36.0 mCi of Myoview IV 20 seconds after rapid injection of Lexiscan. Rest injection: Date: 01-15-21, 35.6 mCi of Myoview IV at rest. The patient had a rapid injection of 0.4 mg of Lexiscan IV over 10 seconds. Imaging was performed by gated tomographic technique. Reason for Lexiscan: dizziness/unsteady/fal l risk STRESS TEST DATA: Resting heart rate was 53 BPM. Resting blood pressure was 122/84 mmHg. Peak blood pressure was 120/80 mmHg. Peak heart rate was 61 BPM. TEST TERMINATED DUE TO: Protocol completed FINDINGS: STRESS TEST RESULTS: Resting electrocardiogram revealed sinus bradycardia. There were no significant ischemic ECG changes or dysrhythmias. The patient did not have chest pains/symptoms during procedure. There was a normal recovery phase. IMAGING RESULTS: Image quality was good. Rest and stress tomographic images were reviewed and revealed normal perfusion without evidence of ischemia, myocardial infarction, or left ventricular dilatation with stress. Overall left ventricular systolic function appeared to be normal without regional wall motion abnormalities. Ejection fraction was 53%. TID is 0.95 and is normal. There was no evidence of attenuation artifact. IMPRESSION: Normal Lexiscan Myoview cardiac perfusion stress test. No evidence of ischemia or myocardial infarction by perfusion imaging. Normal left ventricular systolic function, ejection fraction 53%. When compared to the study from 2011 there has been no significant interval changes. Electronically signed by: ANAYELI FRANCO MD Normal [facility] LAB Carotid Artery Dupl ex Ultrasounon 03-20-2020 [facility] Carotid Artery Duplex Ultrasoun [address], [place] [address] Vascular Lab Report Carotid Artery Duplex Ultrasound Patient Name: ISIDRO Denney Physician: [id number] Anayeli Franco MD, [facility] Study Date: 03/20/2020 Referring [id number] Anayeli Franco MD, [facility]: [id number] PCP: [id number] Alix Estes DO Accession/Order#: [id number] CC Report to: Date of : 1950 Technologist: Suzanna Naranjo RDCS Lili Gender: M Technologist 2: Admission Status: Outpatient Location Performed: [facility] Diagnosis/ICD: R09.89-Other specified symptoms and signs involving the circulatory and respiratory systems Indication: ASCVD, CKD-Stage III, HTN, Hyperlipidemia, Diabetes, Former Smoker, Morbid Obesity, GAGE Procedure/CPT: 28079 Cerebrovascular Carotid Duplex scan complete-[id number] CONCLUSIONS: Right Carotid: Findings are consistent with less than 50% stenosis of the right proximal ICA. Laminar flow seen by color Doppler. Right external carotid artery appears patent with no evidence of stenosis. No evidence of hemodynamically significant stenosis of the right common carotid artery. The right vertebral artery is patent with antegrade flow. Left Carotid: Findings are consistent with less than 50% stenosis of the left proximal ICA. Laminar flow seen by color Doppler. Left external carotid artery appears patent with no evidence of stenosis. No evidence of hemodynamically significant stenosis of the left common carotid artery. The left vertebral artery is patent with antegrade flow. Imaging & Doppler Findings: Right Left PSV EDV PSV EDV 75 cm/s 15 cm/s CCA P 79 cm/s 18 cm/s 50 cm/s 15 cm/s CCA M 58 cm/s 22 cm/s 43 cm/s 13 cm/s CCA D 55 cm/s 18 cm/s 61 cm/s 20 cm/s ICA P 51 cm/s 14 cm/s 47 cm/s 17 cm/s ICA M 53 cm/s 23 cm/s 68 cm/s 27 cm/s ICA D 68 cm/s 30 cm/s 112 cm/s ECA 82 cm/s 27 cm/s Vertebral 67 cm/s Right Left ICA/CCA Ratio 1.4 0.9 [id number] Anayeli Franco MD, FACC Final Normal [facility] Social History Date Type Detail Facility Start: 06-09-2023 Caffeine use Caffeine use [facility] [employer] Other Comment on above: quit 34 years ago; Start: 06-09-2023 Sex Assigned At [facility] [employer] Other Start: 06-09-2023 Tobacco smoking stat us NHIS Ex-smoker [facility] Work Phone: Start: 06-09-2023 Tobacco use and exposure Smokeless tobacco non-user [facility] Work Phone: Start: 06-09-2023 Alcohol intake Current drinke r of alcohol (finding) [facility] Work Phone: Start: 06-02-2023 Gender identity Identifies as male gender (finding) [facility] Work Phone: Start: 06-02-2023 Sexual orientation Heterosexual (fin ding) [facility] Work Phone: Start: 05-30-2023 End: 06-09-2023 Exposure to SARS-CoV-2 (event) Not sure [facility] Start: 1950 [facility] of [facility] use Current smoker [facility] Work Phone: History of tobacco use Cigarette Smoker [facility] Work Phone: Vital Signs Date Time Vital Sign Value Performing Clinician Facility 06-09-2023 10:34-0500 Body height 185.4 cm Anayeli Fracno MD Work Phone: [facility] 06-09-2023 10:34-0500 Body mass index (BMI) [Ratio] 37.47 kg/m2 Anayeli Franco MD Work Phone: [facility] 06-09-2023 10:34-0500 Body weight 128.82 kg Anayeli Franco MD Work Phone: [facility] 06-09-2023 10:34-0500 Diastolic blood pressure 62 mm[Hg] Anayeli Franco MD Work Phone: [facility] 06-09-2023 10:34-0500 Heart rate 52 /min Anayeli Franco MD Work Phone: [facility] 06-09-2023 10:34-0500 Systolic blood pressure 100 mm[Hg] Anayeli Franco MD Work Phone: [facility] 05-31-2023 11:40-0500 Body height 185.42 cm Saeed [employer] Other [facility] [employer] Other 05-31-2023 11:40-0500 Body mass index (BMI) [Ratio] 38.73 kg/m2 [employer] Other [facility] [employer] Other 05-31-2023 11:40-0500 Body temperature 97.1 [degF] [employer] Other [facility] [employer] Other 05-31-2023 11:40-0500 Body weight 133.18 kg Saeed Bakhous Other [employer] Other 05-31-2023 11:40-0500 Diastolic blood pressure 80 mm[Hg] Aziz Bakhous Other [employer] Other 05-31-2023 11:40-0500 Respiratory rate 16 /min Aziz Bakhous Other [employer] Other 05-31-2023 11:40-0500 SaO2% (BldA) [Mass fraction] 97 % Aziz Bakhous Other [employer] Other 05-31-2023 11:40-0500 Systolic blood pressure 127 mm[Hg] Aziz Bakhous Other [employer] Other 01-25-2023 11:00-0400 Body height 185.42 cm Azjanie Bakhous Other [employer] Other 01-25-2023 11:00-0400 Body mass index (BMI) [Ratio] 38.39 kg/m2 Azjanie Bakhous Other [employer] Other 01-25-2023 11:00-0400 Body temperature 97 [degF] Aziz Bakhous Other [employer] Other 01-25-2023 11:00-0400 Body weight 132 kg Aziz Bakhous Other [employer] Other 01-25-2023 11:00-0400 Diastolic blood pressure 73 mm[Hg] Aziz Bakhous Other [employer] Other 01-25-2023 11:00-0400 Respiratory rate 16 /min Aziz Bakhous Other [facility] [employer] Other 01-25-2023 11:00-0400 SaO2% (BldA) [Mass fraction] 98 % Saeed Aiken Other [facility] [employer] Other 01-25-2023 11:00-0400 Systolic blood pressure 115 mm[Hg] Saeed Aiken Other [facility] [employer] Other 12-15-2022 10:41-0400 Body height 185.42 cm Alix C Meera Work Phone: [facility] 250 DO Work Phone: 12-15-2022 10:41-0400 Body mass index (BMI) [Ratio] 38.13 kg/m2 Alix C Meera Work Phone: [facility] 250 DO Work Phone: 12-15-2022 10:41-0400 Body surface area Derived from formula 2.52 m2 Alix C Meera Work Phone: [facility] 250 DO Work Phone: 12-15-2022 10:41-0400 Body weight 131.09 kg Alix C Meera Work Phone: [facility] 250 DO Work Phone: 12-15-2022 10:41-0400 Diastolic blood pressure 64 mm[Hg] Alix C Meera Work Phone: [facility] 250 DO Work Phone: 12-15-2022 10:41-0400 Heart rate 60 /min Alix C Meera Work Phone: [facility] 250 DO Work Phone: 12-15-2022 10:41-0400 Systolic blood pressure 100 mm[Hg] Alix Jayker Work Phone: [facility] 250 DO Work Phone: 10-26-2022 11:00-0400 Body height 185.42 cm Azjanie [employer] Other [facility] [employer] Other 10-26-2022 11:00-0400 Body mass index (BMI) [Ratio] 38.49 kg/m2 Aziz Bakhous Other [facility] [employer] Other 10-26-2022 11:00-0400 Body temperature 96.4 [degF] Aziz Bakhous Other [employer] Other 10-26-2022 11:00-0400 Body weight 132.36 kg Aziz Bakhous Other [facility] [employer] Other 10-26-2022 11:00-0400 Diastolic blood pressure 73 mm[Hg] Aziz Bakhous Other [employer] Other 10-26-2022 11:00-0400 Respiratory rate 16 /min Aziz Bakhous Other [employer] Other 10-26-2022 11:00-0400 SaO2% (BldA) [Mass fraction] 98 % Aziz Bakhous Other [employer] Other 10-26-2022 11:00-0400 Systolic blood pressure 111 mm[Hg] Aziz Bakhous Other [employer] Other 07-12-2022 10:40-0500 Body height 185.42 cm Aziz Bakhous Other [employer] Other 07-12-2022 10:40-0500 Body mass index (BMI) [Ratio] 39.36 kg/m2 Saeed Redds Other [employer] Other 07-12-2022 10:40-0500 Body temperature 96.8 [degF] Saeed Aiken Other [employer] Other 07-12-2022 10:40-0500 Body weight 135.35 kg Saeed Redds Other [employer] Other 07-12-2022 10:40-0500 Diastolic blood pressure 77 mm[Hg] Saeed Aiken Other [employer] Other 07-12-2022 10:40-0500 Respiratory rate 18 /min Saeed Aiken Other [employer] Other 07-12-2022 10:40-0500 SaO2% (BldA) [Mass fraction] 99 % Saeed Aiken Other [employer] Other 07-12-2022 10:40-0500 Systolic blood pressure 122 mm[Hg] Saeed Aiken Other [employer] Other 06-15-2022 11:05-0500 Body height 182.88 cm Alix Estes Work Phone: [facility] 250 DO Work Phone: 06-15-2022 11:05-0500 Body mass index (BMI) [Ratio] 40.96 kg/m2 Alix Estes Work Phone: [facility] 250 DO Work Phone: 06-15-2022 11:05-0500 Body surface area Derived from formula 2.54 m2 Alix C Meera Work Phone: [facility] 250 DO Work Phone: 06-15-2022 11:05-0500 Body weight 136.99 kg Alix C Meera Work Phone: [facility] 250 DO Work Phone: 06-15-2022 11:05-0500 Diastolic blood pressure 64 mm[Hg] Alix C Meera Work Phone: [facility] 250 DO Work Phone: 06-15-2022 11:05-0500 Heart rate 54 /min Alix C Meera Work Phone: [facility] 250 DO Work Phone: 06-15-2022 11:05-0500 Systolic blood pressure 122 mm[Hg] Alix C Meera Work Phone: [facility] 250 DO Work Phone: 03-01-2022 16:00-0400 Body height 185.42 cm [employer] Other [employer] Other 03-01-2022 16:00-0400 Body mass index (BMI) [Ratio] 39.13 kg/m2 [employer] Other [employer] Other 03-01-2022 16:00-0400 Body temperature 97.1 [degF] [employer] Other [employer] Other 03-01-2022 16:00-0400 Body weight 134.54 kg Ablexisjanie Bakhous Other [employer] Other 03-01-2022 16:00-0400 Diastolic blood pressure 73 mm[Hg] Aziz Bakhous Other [employer] Other 03-01-2022 16:00-0400 Respiratory rate 18 /min Aziz Bakhous Other [employer] Other 03-01-2022 16:00-0400 SaO2% (BldA) [Mass fraction] 97 % Aziz Bakhous Other [employer] Other 03-01-2022 16:00-0400 Systolic blood pressure 105 mm[Hg] Aziz Bakhous Other [employer] Other 01-13-2022 12:40-0400 Body height 185.42 cm Aziz Bakhous Other [employer] Other 01-13-2022 12:40-0400 Body mass index (BMI) [Ratio] 38.15 kg/m2 Aziz Bakhous Other [employer] Other 01-13-2022 12:40-0400 Body temperature 96.5 [degF] Aziz Bakhous Other [employer] Other 01-13-2022 12:40-0400 Body weight 131.18 kg Aziz Bakhous Other [employer] Other 01-13-2022 12:40-0400 Diastolic blood pressure 88 mm[Hg] Aziz Bakhous Other [employer] Other 01-13-2022 12:40-0400 Respiratory rate 18 /min Azjanie Bakshys Other [employer] Other 01-13-2022 12:40-0400 SaO2% (BldA) [Mass fraction] 96 % Aziz Bakhous Other [employer] Other 01-13-2022 12:40-0400 Systolic blood pressure 138 mm[Hg] Aziz Bakhous Other [employer] Other 11-25-2021 11:00-0400 Body height 185.42 cm Azjanie Redds Other [employer] Other 11-25-2021 11:00-0400 Body mass index (BMI) [Ratio] 38.42 kg/m2 Azjanie Redds Other [employer] Other 11-25-2021 11:00-0400 Body temperature 96.6 [degF] Azjanie Bakshys Other [employer] Other 11-25-2021 11:00-0400 Body weight 132.09 kg Saeed Bakshys Other [employer] Other 11-25-2021 11:00-0400 Diastolic blood pressure 74 mm[Hg] Aziz Bakhous Other [employer] Other 11-25-2021 11:00-0400 Respiratory rate 18 /min Azjanie Bakhous Other [employer] Other 11-25-2021 11:00-0400 SaO2% (BldA) [Mass fraction] 98 % Aziz Bakhous Other [employer] Other 11-25-2021 11:00-0400 Systolic blood pressure 114 mm[Hg] Aziz Bakshys Other [employer] Other 10-14-2021 10:00-0400 Body height 185.42 cm Azjanie Bakhous Other [employer] Other 10-14-2021 10:00-0400 Body mass index (BMI) [Ratio] 38.18 kg/m2 Azjanie Redds Other [employer] Other 10-14-2021 10:00-0400 Body temperature 96.4 [degF] Saeed Nicolehous Other [employer] Other 10-14-2021 10:00-0400 Body weight 131.27 kg Saeed Redds Other [employer] Other 10-14-2021 10:00-0400 Diastolic blood pressure 74 mm[Hg] Azjanie Redds Other [employer] Other 10-14-2021 10:00-0400 Respiratory rate 18 /min Saeed Nicolehous Other [employer] Other 10-14-2021 10:00-0400 SaO2% (BldA) [Mass fraction] 98 % Saeed Bakhous Other [employer] Other 10-14-2021 10:00-0400 Systolic blood pressure 115 mm[Hg] Aziz Bakhous Other [employer] Other 09-23-2021 10:23-0400 Body height 185.42 cm Alix Estes Work Phone: [facility] 250 DO Work Phone: 09-23-2021 10:23-0400 Body mass index (BMI) [Ratio] 37.87 kg/m2 Alix C Meera Work Phone: [facility] 250 DO Work Phone: 09-23-2021 10:23-0400 Body surface area Derived from formula 2.51 m2 Alix Danny Meera Work Phone: [facility] 250 DO Work Phone: 09-23-2021 10:23-0400 Body weight 130.18 kg Alix C Meera Work Phone: [facility] 250 DO Work Phone: 09-23-2021 10:23-0400 Diastolic blood pressure 70 mm[Hg] Alix C Meera Work Phone: [facility] 250 DO Work Phone: 09-23-2021 10:23-0400 Heart rate 72 /min Alix C Meera Work Phone: [facility] 250 DO Work Phone: 09-23-2021 10:23-0400 Systolic blood pressure 132 mm[Hg] Alix C Meera Work Phone: [facility] 250 DO Work Phone: 04-16-2021 16:20-0500 Body height 185.42 cm Hong Salguero Other [employer] Other 04-16-2021 16:20-0500 Body mass index (BMI) [Ratio] 41.03 kg/m2 Hong Salguero Other [employer] Other 04-16-2021 16:20-0500 Body temperature 97.1 [degF] Hong Salguero Other [employer] Other 04-16-2021 16:20-0500 Body weight 141.07 kg Hong Salguero Other [employer] Other 04-16-2021 16:20-0500 Diastolic blood pressure 87 mm[Hg] Hong Salguero Other [employer] Other 04-16-2021 16:20-0500 Respiratory rate 18 /min Hong Salguero Other [employer] Other 04-16-2021 16:20-0500 SaO2% (BldA) [Mass fraction] 95 % Hong Salguero Other [employer] Other 04-16-2021 16:20-0500 Systolic blood pressure 139 mm[Hg] Hong Salguero Other [employer] Other Clinical Notes 04-16-2021 to 06-09-2023 Anayeli Franco MD - 06/09/2023 10:30 AM ESTPatient Instructions Note Date & Type Note Facility 06-09-2023 History of Present illness Narrative Subjective Isidro Eliud Calhoun is a 72 y.o. male Chief Complaint Follow-up HPI Patient is in the office for follow-up for the problems noted below. He was in the emergency department and subsequently admitted to [facility] for chest pain and dyspnea. He was assessed by my associate Dr. Yu, his consult was reviewed. He was placed on long-acting nitroglycerin while his cardiac enzymes and EKG showed no acute changes. The patient also follows with nephrology for stage IV chronic kidney disease. Creatinine during this recent admission was 2.4 mg/dL which is an improvement from 2.9 as of April 2023. Patient has no orthopnea PND or lower extremity edema. He is currently on Lasix 40 mg daily. He is also on fenofibrate's. His examination reveals findings somewhat suggestive of interstitial pulmonary disease more than heart failure. I suggested doing high-resolution CT scan of the chest. ASSESSMENT AND PLAN: 1. Coronary artery disease with no prior intervention , cardiac catheterization 2004 revealed 40-50 percent mid LAD lesion managed medically . Nuclear stress test December 2020 was normal. We will continue to emphasize risk factors modifications. Admission to [facility] May 2023 demonstrated normal cardiac enzymes and no EKG changes indicating probable noncardiac cause of chest pain 2. stage IV chronic kidney disease, being monitored by nephrology 3. Hypertension, presently under control. 4. Hyperlipidemia, LDL in July 2022 was 61 mg/dL on atorvastatin and ezetimibe, will discontinue fenofibrate's 5. Diabetes, managed by PCP. Currently under control 6. Morbid obesity, more weight loss is recommended and low-calorie diet and exercise were encouraged. Patient lost several pounds since last visit. 7. Sleep apnea, on CPAP machine which the patient is compliant. 8. Carotid duplex scan 2020 normal Anayeli Franco MD, [facility] Review of Systems Cardiovascular: Positive for chest pain. Respiratory: Positive for shortness of breath. Visit Vitals BP 100/62 (BP Location: Left arm, Patient Position: Sitting) Pulse 52 Ht 1.854 m (6' 1 ) Wt 129 kg (284 lb) BMI 37.47 kg/m Smoking Status Former BSA 2.58 m Objective Physical Exam Constitutional: Appearance: Normal appearance. He is normal weight. HENT: Nose: Nose normal. Neck: Vascular: No carotid bruit. Cardiovascular: Rate and Rhythm: Normal rate. Pulses: Normal pulses. Heart sounds: Normal heart sounds. Pulmonary: Effort: Pulmonary effort is normal. Comments: crackles Abdominal: General: Bowel sounds are normal. Palpations: Abdomen is soft. Genitourinary: Rectum: Normal. Musculoskeletal: General: Normal range of motion. Cervical back: Normal range of motion. Right lower leg: No edema. Left lower leg: No edema. Skin: General: Skin is warm and dry. Neurological: General: No focal deficit present. Mental Status: He is alert. Psychiatric: Mood and Affect: Mood normal. Behavior: Behavior normal. Thought Content: Thought content normal. Judgment: Judgment normal. Current Medications Current Outpatient Medications: aspirin 81 mg EC tablet, Take 1 tablet (81 mg) by mouth once daily., Disp: , Rfl: atorvastatin (Lipitor) 40 mg tablet, TAKE 1 TABLET BY MOUTH EVERY DAY AT BEDTIME, Disp: 90 tablet, Rfl: 3 choline fenofibrate (Trilipix) [address] capsule, Take 1 capsule (135 mg) by mouth once daily. Do not crush, chew, or split., Disp: 30 capsule, Rfl: 11 Cinnamon 500 mg capsule, Take 2 tablets by mouth once daily., Disp: , Rfl: coenzyme Q-10 100 mg capsule, Take 1 capsule (100 mg) by mouth once daily., Disp: , Rfl: diphenhydrAMINE (Benadryl Allergy) 25 mg tablet, Take 1 tablet (25 mg) by mouth once daily at bedtime., Disp: , Rfl: dulaglutide (Trulicity) 0.75 mg/0.5 mL pen injector, Inject under the skin., Disp: , Rfl: ezetimibe (Zetia) 10 mg tablet, TAKE 1 TABLET BY MOUTH EVERY DAY, Disp: 90 tablet, Rfl: 3 garlic 500 mg capsule, Take by mouth. As directed, Disp: , Rfl: glimepiride (Amaryl) 2 mg tablet, Take 2 tablets (4 mg) by mouth once daily in the morning. Take before meals., Disp: , Rfl: metoprolol tartrate (Lopressor) 25 mg tablet, Take 1 tablet (25 mg) by mouth 2 times a day., Disp: , Rfl: nitroglycerin (Nitrostat) 0.4 mg SL tablet, Place 1 tablet (0.4 mg) under the tongue every 5 minutes if needed for chest pain., Disp: , Rfl: omega-3 (Super [place]-3) 1,000 mg capsule capsule, Take 1 capsule (1,000 mg) by mouth 2 times a day., Disp: , Rfl: tamsulosin (Flomax) 0.4 mg 24 hr capsule, Take 1 capsule (0.4 mg) by mouth once daily., Disp: , Rfl: furosemide (Lasix) 20 mg tablet, Take 2 tablets (40 mg) by mouth once daily., Disp: 180 tablet, Rfl: 3 Assessment/Plan 1. ASCVD (arteriosclerotic cardiovascular disease) Follow Up In Cardiology 2. Benign essential hypertension furosemide (Lasix) 20 mg tablet 3. Mixed hyperlipidemia 4. Stage 4 chronic kidney disease (CMS/HCC) 5. Type 2 diabetes mellitus without complication, without long-term current use of insulin (CMS/HCC) 6. Shortness of breath CT chest high resolution 7. Lung crackles CT chest high resolution 8. Obstructive sleep apnea 9. Morbid obesity ([facility]/HCC) documented in this encounter [facility] Work Phone: 06-09-2023 Instructions Rudy Mackey MA - 06/09/2023 10:30 AM EST Please bring all medicines, vitamins, and herbal supplements with you when you come to the office. Prescriptions will not be filled unless you are compliant with your follow up appointments or have a follow up appointment scheduled as per instruction of your physician. Refills should be requested at the time of your visit. documented in this encounter [facility] Work Phone: 06-08-2023 Note Echocardiology Procedure Exam Date/Time Accession # Ordering Echo Transthoracic w/ 06/08/2023 11:24 EST [id number] Iliana Killian MD CPT code C8929 Reason for Exam (Echo Transthoracic w/ Contrast) Dyspnea Report [address] [address] Adult Echocardiogram Report Name: ISIDRO CALHUON Study Date: 06/08/2023 10:39 AM BP: 139/71 mmHg Patient Location: [address] [place] [address] HR: 97 : 1950 Gender: Male Height: 73 in Age: 72 yrs Ethnicity: T Weight: 289 lb Reason For Study: Dyspnea BSA: 2.5 m2 History: NH, Hypertension, Hypercholesterolemia, DM Ordering Physician: Iliana Killian Performed By: Anamaria Kirk, ARACELI Interpretation Summary mild to moderate left ventricular hypertrophy. Ejection Fraction = 60-65%. Grade I diastolic dysfunction, (abnormal relaxation pattern). The left atrium is mild to moderately dilated. There is Trace mitral regurgitation. There is mild tricuspid regurgitation. Right ventricular systolic pressure is 35 mmHg. There is mild pulmonary hypertension. No comparison study is available. Procedure A complete two-dimensional transthoracic echocardiogram was performed using contrast (2D, M-mode, spectral and color flow Doppler). Study quality is good. Left Ventricle The left ventricle is normal in size. mild to moderate left ventricular hypertrophy. Ejection Fraction = 60-65%. The left ventricular wall motion is normal. Grade I diastolic dysfunction, (abnormal relaxation pattern). Left Atrium The left atrium is mild to moderately dilated. Echocardiology Report Right Atrium Right atrial size is normal. Right Ventricle The right ventricular systolic function is normal. The right ventricle is normal size. The right ventricular wall motion is normal. Aortic Valve The trileaflet aortic valve opening is normal. No aortic regurgitation. Mitral Valve The mitral valve is normal in structure and function. There is Trace mitral regurgitation. Tricuspid Valve Structurally normal tricuspid valve. There is mild tricuspid regurgitation. Right ventricular systolic pressure is 35 mmHg. There is mild pulmonary hypertension. Pulmonic Valve The pulmonic valve is normal. Arteries The aortic root is normal in size. Venous The inferior vena cava is normal in size, and collapses normally with respiration. Effusion There is no pericardial effusion. There is no pleural effusion noted on this exam. [facility] [place] available. MMode/2D Measurements & Calculations RVDd: 3.5 cm LVIDd: 5.5 cm FS: 27.2 % Ao root diam: 4.0 cm IVSd: 1.7 cm LVIDs: 4.0 cm EDV(Teich): 144.9 ml LVPWd: 1.2 cm ESV(Teich): 69.0 ml Ao root area: 12.8 cm2 EF(Teich): 52.4 % LA dimension: 4.0 cm asc Aorta Diam: 3.4 cm LVLd ap4: 8.3 cm EDV(MOD-sp2): 99.8 ml SV(MOD-sp4): 113.0 ml EDV(MOD-sp4): 164.0 ml ESV(MOD-sp2): 37.0 ml LVLs ap4: 6.5 cm EF(MOD-sp2): 62.9 % ESV(MOD-sp4): 51.0 ml EF(MOD-sp4): 68.9 % TAPSE: 3.6 cm Ao Sinus of Valsalva: 3.9 cm Ao Sinotubular Junction: 3.0 cm IVC Diam: 2.1 cm RVIDd/LVIDd: 0.64 EF (MOD-bp): 66.7 % LA Vol Index: 50.0 ml/m2 Doppler Measurements & Calculations Echocardiology Report MV E max cynthia: 63.4 cm/sec MV dec slope: 307.9 cm/sec2 Ao V2 max: 147.0 cm/sec LV V1 max P.7 mmHg MV A max cynthia: 56.6 cm/sec MV dec time: 0.21 sec Ao max P.6 mmHg LV V1 mean P.0 mmHg MV E/A: 1.1 Ao V2 mean: 101.0 cm/sec LV V1 max: 119.0 cm/sec Lat Peak E' Cynthia: 9.6 cm/sec Ao mean P.0 mmHg LV V1 mean: 82.3 cm/sec E/E' Lat: 6.6 Ao V2 VTI: 23.7 cm LV V1 VTI: 23.0 cm Med Peak E' Cynthia: 9.4 cm/sec E/E' Med: 6.8 TR max cynthia: 282.0 cm/sec RAP systole: 3.0 mmHg AV VR: 0.81 MV P1/2t-pr_phl: 60.3 msec TR max P.8 mmHg RVSP(TR): 34.8 mmHg FINAL REPORT Dictated: 06/08/2023 10:39 am Iliana Killian MD Signed (Electronic Signature): 06/08/2023 12:36 pm Signed by: Iliana Killian MD Transcribed by: IL Technologist: BETSY [facility] 06-08-2023 Note Admission and Discha rge Information Admitting Physician - SHAN PIZANO, Yamilet Consulting Physician - GRIFFIN, XXXX Admitting Diagnoses: Discharge Diagnoses 1. Chest pain, 06/07/2023 2. Acute diastolic heart failure, 06/07/2023 3. Obesity, 06/07/2023 4. HTN (hypertension), 06/07/2023 5. Diabetes mellitus, 06/07/2023 6. CKD (chronic kidney disease), stage IV, 06/07/2023 Chest pain, 06/07/2023 Shortness of breath, 06/07/2023 Procedure History Colonoscopy (12/21/2021), Cataract extraction (07/03/2019), -right carpal tunnel release (05/14/2016), right cataract extraction with intraocular lens implant (08/07/2013), Cataract (2013), Repair of ventral hernia (03/2007), Repair of umbilical hernia (03/2006), Mohls surgery - left ear (2004), Adenoidectomy, Cellulitis, Colonoscopy, heart cath, Tonsillectomy. Hospital Course 72-year-old white male past medical history obesity, hypertension, hyperlipidemia, diabetes type 2, CAD, sleep apnea on CPAP, and history of gout who presented to emergency room with a chest pain or shortness of breath. He has been complaining of chest pain since yesterday. It is on and off pain. He describes it as a and chest tightness. No radiation. No aggravating or elevating factors. Associated with exertional dyspnea. No orthopnea or PND. No leg edema. No cough. No fever or chills. He denies having runny nose or sore throat. He denies having abdominal pain. No nausea or vomiting. Denies any dysuria, hematuria, or frequency. Patient was admitted to the hospital for observation. Troponin were negative x 3. Cardiology was consulted. Echocardiogram was done. Imdur 30 mg was added. He was discharged home in stable condition. 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 Services Consulted Consult to Cardiology - Ordered -- 06/07/23 13:37:00 EST, chest pain, Consult and Co-manage, [facility] Consult to Supervisor Refining - Ordered -- 06/07/23 15:13:40 EST Physical Exam Vitals & Measurements T: 36.7 ?C(Oral) TMIN: 36.3 ?C(Oral) TMAX: 36.8 ?C(Oral) HR: 94(Apical) RR: 16 BP: 139/71 SpO2: 95% HT: 185.42 cm WT: 131.0 kg General: alert, no acute distress Skin: warm, dry Head: no trauma, normocephalic Neck: Trachea midline, no adenopathy, no tenderness Eye: normal conjunctiva, sclera clear ENMT: TM's clear, oral mucosa moist, no pharyngeal erythema or exudate Cardiovascular: regular rate and rhythm, normal peripheral perfusion Respiratory: Lungs CTA, respirations non labored Chest wall: no deformity. Gastrointestinal: soft, non distended, no tenderness, no guarding. Back: No tenderness, Normal ROM, Normal alignment. Extremities: no deformity, no trauma Neurological: oriented x 4, LOC appropriate for age, CN II-XII intact, motor strength equal & normal bilaterally, sensation equal & normal bilaterally, speech normal Psychiatric: cooperative, affect appropriate for age, normal judgement, normal psychiatric thoughts. Laboratory Results Automated Diff (06/07/2023) Neutro Auto - 77.6 % Lymph Auto - 9.1 % [place] Auto - 11.8 % Eos Auto - 1.2 % Basophil Auto - 0.3 % Neutro Absolute - 6.7 E9/L Lymph Absolute - 0.8 E9/L [place] Absolute - 1.0 E9/L Eos Absolute - 0.1 E9/L Basophil Absolute - 0.0 E9/L BMP (06/08/2023) Glucose Lvl - 144 mg/dL BUN - 47 mg/dL Creatinine - 2.4 mg/dL BUN/Creat Ratio - 20 Sodium Lvl - 135 mmol/L Potassium Lvl - 3.6 mmol/L Chloride - 103 mmol/L CO2 - 21 mmol/L AGAP - 15 mEq/L Calcium Lvl - 9.3 mg/dL Capillary Glucose POC (06/08/2023) Glucose Cap - 148 mg/dL POC Device SN - [id number] POC User ID - [id number] POC Username - [email or web address] BERGMAN CBC w/ Auto Diff (06/07/2023) WBC - 8.6 E9/L RBC - 4.2 E12/L Hgb - 12.0 gm/dL Hct - 35.9 % MCV - 86.6 fL MCH - 29.0 pg MCHC - 33.4 gm/dL RDW - 13.6 % Platelet - 167.0 E9/L MPV - 8.3 fL eGFR (06/08/2023) eGFR - 28 mL/min/1.73 m2 PT & PTT (06/07/2023) PT - 13.1 second(s) INR - 1.2 PTT - 32.4 second(s) Troponin 0 Hr. (06/07/2023) Troponin - 23.10 pg/mL Troponin 3 Hr. (06/07/2023) Troponin - 31.30 pg/mL Troponin 6 Hr. (06/07/2023) Troponin - 28.60 pg/mL Troponin 9 Hr. (06/07/2023) Troponin - 30.80 pg/mL Tests Performed Automated Diff BMP Capillary Glucose POC CBC w/ Auto Diff eGFR PT & PTT Troponin 0 Hr. Troponin 3 Hr. Troponin 6 Hr. Troponin 9 Hr. Echo Transthoracic Complete -- Results Pending -- XR Chest Single View Please visit your patient portal for your results or contact your primary care physician. Discharge Plan Patient Discharge Condition Stable Discharge Disposition Discharged to - Home independently Home Discharge Diet Discharge Diet(s): Low Sodium- 2000 mg (06/08/23 10:57:00) Discharge Medication List Prescriptions isosorbide mononitrate 30 mg ER Tab, 30 mg= 1 tab(s), Oral, qAM Home aspirin 81 mg Oral EC Tab, 81 mg= 1 tab(s), Oral, Daily atorvastatin 40 mg Tab, 40 mg= 1 tab(s), Oral, Bedtime ezetimibe 10 (more content not included)... [facility] Comment on above: Result Comment: Elec tronically Signed By: SHAN PIZANO, Yamilet\.br\Date and Time Signed: 06/08/23 11:01 EST 06-07-2023 Note Chief Complaint CP and SOB worsening this morning, states he did have some CP on Tuesday that went away. hx NH in approx. 2005. former smoker. states SOB worsens with exertion. 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 History of Present Illness 72-year-old white male past medical history obesity, hypertension, hyperlipidemia, diabetes type 2, CAD, sleep apnea on CPAP, and history of gout who presented to emergency room with a chest pain or shortness of breath. He has been complaining of chest pain since yesterday. It is on and off pain. He describes it as a and chest tightness. No radiation. No aggravating or elevating factors. Associated with exertional dyspnea. No orthopnea or PND. No leg edema. No cough. No fever or chills. He denies having runny nose or sore throat. He denies having abdominal pain. No nausea or vomiting. Denies any dysuria, hematuria, or frequency. Review of Systems Constitutional: no fever, no chills, no sweats, no weakness Skin: no Jaundice, no rash, no lesions, nopetechiae ENMT: no ear pain, no sore throat, no congestion, no hoarseness Respiratory: mild shortness of breath, no cough, no orthopnea, no wheezing Cardiovascular: mild chest pain, no palpitations, no edema Gastrointestinal: no nausea, no vomiting, no diarrhea, no GI bleeding Genitourinary: no dysuria, no hematuria, no discharge, no pain Musculoskeletal: no back pain, no trauma Neurologic: no headache, no dizziness, no numbness, no weakness Psychiatric: no sleeping problems, no irritability, no mood swings/depression. Heme/Lymph: no bleeding tendency, no bruising tendency, no petechiae, no swollen nodes Allergy/Immunologic: no seasonal allergies, no food allergies, no recurrent infections, no impaired immunity Additional ROS info: Except as noted in the above Review of Systems and in the History of Present Illness all other systems have been reviewed and are negative or noncontributory. Scoring Gonzalez Fall Risk Score: 35 (06/07/23) Physical Exam Vitals & Measurements T: 36.8 ?C(Oral) HR: 98(Monitored) RR: 12 BP: 139/63 SpO2: 98% HT: 186 cm WT: 133.3 kg General: alert, no acute distress Skin: warm, dry Head: no trauma, normocephalic Neck: Trachea midline, no adenopathy, no tenderness Eye: normal conjunctiva, sclera clear ENMT: TM's clear, oral mucosa moist, no pharyngeal erythema or exudate Cardiovascular: regular rate and rhythm, normal peripheral perfusion Respiratory: Lungs CTA, respirations non labored Chest wall: no deformity. Gastrointestinal: soft, non distended, no tenderness, no guarding. Back: No tenderness, Normal ROM, Normal alignment. Extremities: no deformity, no trauma Neurological: oriented x 4, LOC appropriate for age, CN II-XII intact, motor strength equal & normal bilaterally, sensation equal & normal bilaterally, speech normal Psychiatric: cooperative, affect appropriate for age, normal judgement, normal psychiatric thoughts. Lab Results WBC: 8.6 E9/L (06/07/23 11:11:00) RBC: 4.2 E12/L Low (06/07/23 11:11:00) HGB: 12 gm/dL Low (06/07/23 11:11:00) Hct: 35.9 % Low (06/07/23 11:11:00) MCV: 86.6 fL (06/07/23 11:11:00) MCH: 29 pg (06/07/23 11:11:00) MCHC: 33.4 gm/dL (06/07/23 11:11:00) RDW: 13.6 % (06/07/23 11:11:00) Platelet: 167 E9/L (06/07/23 11:11:00) MPV: 8.3 fL (06/07/23 11:11:00) Neutro Auto: 77.6 % High (06/07/23 11:11:00) Lymph Auto: 9.1 % Low (06/07/23 11:11:00) [place] Auto: 11.8 % (06/07/23 11:11:00) Eos Auto: 1.2 % (06/07/23 11:11:00) Basophil Auto: 0.3 % (06/07/23 11:11:00) Neutro Absolute: 6.7 E9/L (06/07/23 11:11:00) Lymph Absolute: 0.8 E9/L Low (06/07/23 11:11:00) [place] Absolute: 1 E9/L (06/07/23 11:11:00) Eos Absolute: 0.1 E9/L (06/07/23 11:11:00) Basophil Absolute: 0 E9/L (06/07/23 11:11:00) PT: 13.1 second(s) High (06/07/23 11:11:00) INR: 1.2 (06/07/23 11:11:00) PTT: 32.4 second(s) (06/07/23 11:11:00) Glucose Lvl: 187 mg/dL (06/07/23 11:11:00) BUN: 43 mg/dL High (06/07/23 11:11:00) Creatinine: 2.5 mg/dL High (06/07/23 11:11:00) eGFR: 27 mL/min/1.73 m2 Low (06/07/23 11:11:00) BUN/Creat Ratio: 17 (06/07/23 11:11:00) Sodium Lvl: 134 mmol/L Low (06/07/23 11:11:00) Potassium Lvl: 4 mmol/L (06/07/23 11:11:00) Chloride: 101 mmol/L (06/07/23 11:11:00) CO2: 19 mmol/L Low (06/07/23 11:11:00) AGAP: 18 mEq/L High (06/07/23 11:11:00) Calcium Lvl: 9.8 mg/dL (06/07/23 11:11:00) Troponin: 23.1 pg/mL (06/07/23 11:11:00) Assessment/Plan [id number] R [address] is set up for either tomorr or tuesday with Mounika Duncan. They will call [facility] preform machine operator and have you paged between 12 to 2pm. You will need Case Ref # [id number]. they have all clinical notes. Good luck! thank you IMP 1. Chest pain (R07.9: Chest pain, unspecified) 23-hour observation Cardiac telemetry Troponin x 3 Echocardiogram Serial EKG Aspirin daily Lipitor daily Cardiology consult 2. Acute diastolic heart failure (I50.31: Acute diastolic (congestive) heart failure) Strict i (more content not included)... [facility] Comment on above: Result Comment: Elec tronically Signed By: SHAN PIZANO, Yamilet\.br\Date and Time Signed: 06/07/23 13:51 EST 05-31-2023 Evaluation note Encounter Date Diagnosis Assessment Notes May, Hypertensive chronic kidney disease with stage 1 through stage 4 chronic kidney disease, or unspecified chronic kidney disease (ICD-10 - I12.9) Blood pressure well controlled. Irbesartan was stopped before I asked the patient to monitor his blood pressure closely while on steroid and to call my office if his blood pressure increases more than 150/90 May, Chronic kidney disease, stage 3b (ICD-10 - N18.32) He has baseline chronic kidney disease from diabetic nephropathy. Patient was treated in 2021 with prednisone for possible AIN . Kidney function improved . SCr has been around 2.6-3.0 mg/dl. baseline SCr fluctuates from diuresis Pro/Cr 150-300 mg/g. remains off ACEI/ARB Blood pressure seems well controlled. vlume status is well controlled. will continue same dose of lasix DM is well controlled. continue Kerendia advised the patient to avoid all NSAIDs I will follow-up with the patient in 3 months May, Hyperkalemia (ICD-10 - E87.5) This has resolved. Continue furosemide and low potassium diet.Ok to continue Kerendia Will monitor K level May, Type 2 diabetes mellitus with diabetic chronic kidney disease (ICD-10 - E11.22) F/U with Dr. Estes now. Diabetes is well controlled. I explained to the patient the necessity of controlling diabetes to attenuate chronic kidney disease progression. Hemoglobin A1c target below 7% May, Hyperlipemia (ICD-10 - E78.5) F/U with Dr. Estes May, Gout (ICD-10 - M10.9) No more episodes of gout. Uric acid level improved to 7.0 with adding uloric May, BMI 40.0-44.9, adult (ICD-10 - Z68.41) Importance of weight loss has been addressed. May, Anemia, unspecified type (ICD-10 - D64.9) this visit hemoglobin > 12 g/dL. VB12, folate and iron Sat are all within normal ranges.No need for ERIN continue to monitor H&H as the patient has advanced CKD. 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 No nee for active VD May, BPH loc w urin obs/LUTS (ICD-10 - N40.1) will continue flomax May, Metabolic acidemia (ICD-10 - E87.20) serum HC03 is WNL this visit [employer] Other 11-21-2023 Evaluation note* Encounter Date Diagnosis Assessment Notes Treatment Notes Treatment Clinical Notes Mar, BPH loc w urin obs/LUTS (ICD-10 - N40.1) [employer] Other 10-10-2023 Evaluation note* Encounter Date Diagnosis Assessment Notes Treatment Notes Treatment Clinical Notes Feb, Chronic kidney disease, stage 3b (ICD-10 - N18.32) [employer] Other 08-29-2023 Evaluation note* Encounter Date Diagnosis Assessment Notes Treatment Notes Treatment Clinical Notes Dec, Hypertensive chronic kidney disease with stage 1 through stage 4 chronic kidney disease, or unspecified chronic kidney disease (ICD-10 - I12.9) Blood pressure well controlled. Irbesartan was stopped before I asked the patient to monitor his blood pressure closely while on steroid and to call my office if his blood pressure increases more than 150/90 Dec, Chronic kidney disease, stage 3b (ICD-10 - N18.32) He has baseline chronic kidney disease from diabetic nephropathy. Patient was treated in 2021 with prednisone for possible AIN . Kidney function improved . SCr this visit is at baseline 2.6 mg/dl. baseline SCr fluctuates from diuresis Pro/Cr 150-300 mg/g. remains off ACEI/ARB Blood pressure seems well controlled. vlume status is well controlled. will continue same dose of lasix DM is well controlled. continue Kerendia advised the patient to avoid all NSAIDs I will follow-up with the patient in 3 months Dec, Hyperkalemia (ICD-10 - E87.5) This has resolved. Continue furosemide and low potassium diet.Ok to continue Kerendia Will monitor K level Dec, Type 2 diabetes mellitus with diabetic chronic kidney disease (ICD-10 - E11.22) F/U with Dr. Estes now. Diabetes is well controlled. I explained to the patient the necessity of controlling diabetes to attenuate chronic kidney disease progression. Hemoglobin A1c target below 7% Dec, Hyperlipemia (ICD-10 - E78.5) F/U with Dr. Estes Dec, Gout (ICD-10 - M10.9) No mor e episodes of gout. Uric acid level improved to 7.6 with adding uloric Dec, BMI 40.0-44.9, adult (ICD-10 - Z68.41) Importance of weight loss has been addressed. Dec, Anemia, unspecified type (ICD-10 - D64.9) this visit hemoglobin > 12 g/dL. VB12, folate and iron Sat are all within normal ranges.No need for ERIN continue to monitor H&H as the patient has advanced CKD. Dec, Hyperparathyroid bon e disease (ICD-10 - E21.0) PTH remains WNL with replacing VD. No nee for active VD Dec, BPH loc w urin obs/LUTS (ICD-10 - N40.1) will continue flomax Dec, Metabolic acidemia (ICD-10 - E87.20) SERUM BICARB IS SLIGHTLY LOW. WILL CONTINUE TO MONITOR [facility] Other 06-26-2023 Evaluation note* Encounter Date Diagnosis Assessment Notes Treatment Notes Treatment Clinical Notes Oct, Chronic kidney disease, stage 3b (ICD-10 - N18.32) [facility] Other 05-30-2023 Evaluation note* Encounter Date Diagnosis Assessment Notes Treatment Notes Treatment Clinical Notes September, Hypertensive chronic kidney disease with stage 1 through stage 4 chronic kidney disease, or unspecified chronic kidney disease (ICD-10 - I12.9) Blood pressure well controlled. Irbesartan is on hold. I asked the patient to monitor his blood pressure closely while on steroid and to call my office if his blood pressure increases more than 150/90 September, Chronic kidney disease, stage 3b (ICD-10 - N18.32) He has baseline chronic kidney disease from diabetic nephropathy. Patient was treated in 2021 with prednisone for possible AIN . Kidney function improved . current baseline Scr 3.2-3.5 mg/dl Pro/Cr 200-300 mg/g. remains off ACEI/ARB Blood pressure seems well controlled. vlume status is well controlled. will continue same dose of lasix DM is well controlled. continue Kerendia advised the patient to avoid all NSAIDs I will follow-up with the patient in 3 months September, Hyperkalemia (ICD-10 - E87.5) This has resolved. Continue furosemide and low potassium diet. Will monitor K level September, Type 2 diabetes mellitus with diabetic chronic kidney disease (ICD-10 - E11.22) F/U with Dr. Estes now. Diabetes is well controlled. I explained to the patient the necessity of controlling diabetes to attenuate chronic kidney disease progression. Hemoglobin A1c target below 7% September, Hyperlipemia (ICD-10 - E78.5) F/U with Dr. Estes September, Gout (ICD-10 - M10.9) No mor e episodes of gout. Uric acid level improved to 7.8 with adding uloric September, BMI 40.0-44.9, adult (ICD-10 - Z68.41) Importance of weight loss has been addressed. September, Anemia, unspecified type (ICD-10 - D64.9) this visit hemoglobin > 12 g/dL. No need for ERIN continue to monitor H&H as the patient has advanced CKD. September, Hyperparathyroid bon e disease (ICD-10 - E21.0) PTH is 31 No nee for active VD September, BPH loc w urin obs/LUTS (ICD-10 - N40.1) will continue [employer] Other 02-14-2023 Evaluation note* Encounter Date Diagnosis Assessment Notes Treatment Notes Treatment Clinical Notes Jun, Hypertensive chronic kidney disease with stage 1 through stage 4 chronic kidney disease, or unspecified chronic kidney disease (ICD-10 - I12.9) Jun, Gout (ICD-10 - M10.9) Jun, Chronic kidney disease, stage 3b (ICD-10 - N18.32) [facility] Other 02-13-2023 Evaluation note* Encounter Date Diagnosis Assessment Notes Treatment Notes Treatment Clinical Notes Jun, Hypertensive chronic kidney disease with stage 1 through stage 4 chronic kidney disease, or unspecified chronic kidney disease (ICD-10 - I12.9) Blood pressure well controlled. Irbesartan is on hold. has legs edema. Will increase lasix to 40 PO daily I asked the patient to monitor his blood pressure closely while on steroid and to call my office if his blood pressure increases more than 150/90 Jun, Chronic kidney disease, stage 3b (ICD-10 - N18.32) He has baseline chronic kidney disease from diabetic nephropathy. Patient was treated in 07.21 with prednisone for possible AIN . Kidney function improved . SCr this visit is up again to 3.3 mg/dl Protein to creatinine ratio 333 mg/g. Blood pressure seems well controlled DM is well controlled. Will start krenedia 10 mg PO daily advised the patient to avoid all NSAIDs I will follow-up with the patient in 2 months Jun, Hyperkalemia (ICD-10 - E87.5) This has resolved. Continue furosemide and low potassium diet. Will monitor Jun, Type 2 diabetes mellitus with diabetic chronic kidney disease (ICD-10 - E11.22) F/U with Dr. Estes now. Diabetes is well controlled. I explained to the patient the necessity of controlling diabetes to attenuate chronic kidney disease progression. Hemoglobin A1c target below 7% Jun, Hyperlipemia (ICD-10 - E78.5) F/U with Dr. Estes Jun, Gout (ICD-10 - M10.9) No mor e episodes of gout. Uric acid level is 11. will start Uloric Jun, BMI 40.0-44.9, adult (ICD-10 - Z68.41) Importance of weight loss has been addressed. Jun, Anemia, unspecified type (ICD-10 - D64.9) Last clinic visit hemoglobin > 12 g/dL. No need for ERIN continue to monitor H&H as the patient has advanced CKD. Jun, Hyperparathyroid bon e disease (ICD-10 - E21.0) PTH is 75. likley from CKD. No nee for active VD [facility] Other 11-17-2022 Evaluation note* Encounter Date Diagnosis Assessment Notes Treatment Notes Treatment Clinical Notes Mar, Hypertensive chronic kidney disease with stage 1 through stage 4 chronic kidney disease, or unspecified chronic kidney disease (ICD-10 - I12.9) [facility] Other 10-03-2022 Evaluation note* Encounter Date Diagnosis Assessment Notes Treatment Notes Treatment Clinical Notes Feb, Hypertensive chronic kidney disease with stage 1 through stage 4 chronic kidney disease, or unspecified chronic kidney disease (ICD-10 - I12.9) Blood pressure well controlled. Irbesartan is on hold. I asked the patient to monitor his blood pressure closely while on steroid and to call my office if his blood pressure increases more than 150/90 Feb, Chronic kidney disease, stage 3b (ICD-10 - N18.32) He has baseline chronic kidney disease from diabetic nephropathy. Patient was treated recently with prednisone for possible AIN . Kidney function improved Creatinine is not back to baseline. Baseline creatinine seems around 1.8 last year 2020. Serum creatinine this visit 2.7 mg deciliter Protein to creatinine ratio 500 mg/g. No compelling reason to start ARB or JUSTUS inhibitor Blood pressure seems well controlled Continue low-dose Lasix to help controlling volume. advised the patient to avoid all NSAIDs I will follow-up with the patient in 3 months Feb, Hyperkalemia (ICD-10 - E87.5) This has resolved. Continue furosemide and low potassium diet. Feb, Type 2 diabetes mellitus with diabetic chronic kidney disease (ICD-10 - E11.22) F/U with Dr. Estes now. Diabetes is well controlled. I explained to the patient the necessity of controlling diabetes to attenuate chronic kidney disease progression. Hemoglobin A1c target below 7% Feb, Hyperlipemia (ICD-10 - E78.5) F/U with Dr. Estes Feb, Gout (ICD-10 - M10.9) No more episodes of gout. Uric acid level is 5.8. Continue holding allopurinol Feb, BMI 40.0-44.9, adult (ICD-10 - Z68.41) Importance of weight loss has been addressed. Feb, Metabolic acidosis (ICD-10 - E87.2) This has resolved. Serum bicarb level has been within normal limit. Feb, Anemia, unspecified type (ICD-10 - D64.9) Last clinic visit hemoglobin > 12 g/dL. No need for ERIN continue to monitor H&H as the patient has advanced CKD. [facility] Other 08-17-2022 Evaluation note* Encounter Date Diagnosis Assessment Notes Treatment Notes Treatment Clinical Notes Dec, Hypertensive chronic kidney disease with stage 1 through stage 4 chronic kidney disease, or unspecified chronic kidney disease (ICD-10 - I12.9) Blood pressure well controlled. Irbesartan is on hold. I asked the patient to monitor his blood pressure closely while on steroid and to call my office if his blood pressure increases more than 150/90 Dec, Chronic kidney disease, stage 3b (ICD-10 - N18.32) He has baseline chronic kidney disease from diabetic nephropathy. Worsening kidney function from possibly interstitial nephritis as was evident by kidney biopsy. Patient has had no infections since last year. Continue holding allopurinol and irbesartan I will try a course of prednisone for 5 weeks with tapering dose. I will follow-up with the patient 6 weeks Dec, Hyperkalemia (ICD-10 - E87.5) This has resolved. Continue furosemide and low potassium diet. Dec, Type 2 diabetes mellitus with diabetic chronic kidney disease (ICD-10 - E11.22) F/U with Dr. Estes now. Metformin was stopped. Diabetes is well controlled. I asked the patient to monitor blood glucose level closely while his steroid hydrocortisone primary doctor if blood glucose level increases Dec, Hyperlipemia (ICD-10 - E78.5) F/U with Dr. Estes Dec, Gout (ICD-10 - M10.9) No more episodes of gout. Uric acid level is 5.8. Continue holding allopurinol Dec, BMI 40.0-44.9, adult (ICD-10 - Z68.41) Importance of weight loss has been addressed. Dec, Metabolic acidosis (ICD-10 - E87.2) This has resolved. Serum bicarb level 22 Dec, Anemia, unspecified type (ICD-10 - D64.9) Hemoglobin 11.8 g/dL. No need for ERIN [facility] Other 06-29-2022 Evaluation note* Encounter Date Diagnosis Assessment Notes Treatment Notes Treatment Clinical Notes Oct, Hypertensive chronic kidney disease with stage 1 through stage 4 chronic kidney disease, or unspecified chronic kidney disease (ICD-10 - I12.9) Blood pressure well controlled. I will stop ARB due to worsening kidney function. I asked the patient to monitor his blood pressure at home to call my office if blood pressure increases to more than 140 Oct, Chronic kidney disease, stage 3b (ICD-10 - N18.32) Serum creatinine continues to get worse. Serum creatinine up to 3.8 mg/dL. UA showed +1 protein and white cells 6-8. No RBCs. Urine protein to pheresis negative for M spike As patient with kidney biopsy I will stop ARB Follow-up with the patient 2 months Oct, Hyperkalemia (ICD-10 - E87.5) This has resolved. Continue furosemide and low potassium diet. Oct, Type 2 diabetes mellitus with diabetic chronic kidney disease (ICD-10 - E11.22) F/U with Dr. Estes now. Metformin was stopped. Diabetes is well controlled Oct, Hyperlipemia (ICD-10 - E78.5) F/U with Dr. Estes Oct, Gout (ICD-10 - M10.9) No more episodes of gout. Uric acid level is 5.8. Continue same dose of allopurinol Oct, BMI 40.0-44.9, adult (ICD-10 - Z68.41) Importance of weight loss has been addressed. Oct, Metabolic acidosis (ICD-10 - E87.2) Serum bicarb level is is better at 21 despite worsening kidney function. I will hold on starting bicarb tablet. Oct, Anemia, unspecified type (ICD-10 - D64.9) Hemoglobin 11.1 g/dL. I will check iron storage study in 6 months. No need for ERIN [facility] Other 05-18-2022 Evaluation note* Encounter Date Diagnosis Assessment Notes Treatment Notes Treatment Clinical Notes September, Hypertensive chronic kidney disease with stage 1 through stage 4 chronic kidney disease, or unspecified chronic kidney disease (ICD-10 - I12.9) Blood pressure well controlled. I will continue same blood pressure medications September, Chronic kidney disease, stage 3b (ICD-10 - N18.32) He has mild chronic kidney disease related to diabetes and hypertension. Renal function is worse this visit. Creatinine up to 3.1 mg/dL. Might be related to hyperglycemia associate diuresis. I asked the patient to increase his water intake. Okay to continue ARB. I instructed the patient to stay away from NSAIDs. I will check with the patient and 6 weeks. I will repeat renal function panel with UA and protein to creatinine ratio September, Hyperkalemia (ICD-10 - E87.5) This has resolved. Continue furosemide and low potassium diet. September, Type 2 diabetes mellitus with diabetic chronic kidney disease (ICD-10 - E11.22) F/U with Dr. Estes now. I asked the patient to contact his PCP to stop metformin. Patient said he is going to contact Dr. Estes today September, Hyperlipemia (ICD-10 - E78.5) F/U with Dr. Estes September, Gout (ICD-10 - M10.9) No more episodes of gout. Uric acid level is 5.8. Continue same dose of allopurinol September, BMI 40.0-44.9, adult (ICD-10 - Z68.41) Importance of weight loss has been addressed. September, Metabolic acidosis (ICD-10 - E87.2) Serum bicarb level is low at 18. I will recheck serum bicarb level next visit in 6 weeks. If remains low I will add sodium bicarb September, Anemia, unspecified type (ICD-10 - D64.9) Hemoglobin 11.1 g/dL. I will check iron storage study in 6 months. No need for ERIN [facility] Other 11-18-2021 Evaluation note* Encounter Date Diagnosis Assessment Notes Treatment Notes Treatment Clinical Notes Mar, Hypertensive chronic kidney disease with stage 1 through stage 4 chronic kidney disease, or unspecified chronic kidney disease (ICD-10 - I12.9) He has variable blood pressure however it is mostly controlled. He still has edema. He was advised to increase furosemide to 20 mg twice a day if systolic blood pressure at home more than 130s. He has sphygmomanometer and he stated that blood pressure at home ranges between 120s to 130s. Mar, Chronic kidney disease, stage 3b (ICD-10 - N18.32) He has mild chronic kidney disease related to diabetes and hypertension. Renal function is stable with creatinine 1.5-1.8 mg/dl . He is on irbesartan with minimal proteinuria. Monitor renal function every 6 months and adjust medications as indicated. Mar, Hyperkalemia (ICD-10 - E87.5) Continue furosemide and low potassium diet. Mar, Type 2 diabetes mellitus with diabetic chronic kidney disease (ICD-10 - E11.22) F/U with Dr. Estes now. Hemoglobin A1c is better down to 7% after addition of insulin and weight loss. Mar, Hyperlipemia (ICD-10 - E78.5) F/U with Dr. Estes Mar, Gout (ICD-10 - M10.9) No more episodes of gout. Mar, BMI 40.0-44.9, adult (ICD-10 - Z68.41) Importance of weight loss has been addressed. [employer] Other Evaluation noteNo [employer]Nort [employer] Other Evaluation note* Diagnosis ASCVD (arteriosclerotic cardiovascular disease)- Primary Unspecified cardiovascular disease Benign essential hypertension Essential hypertension, benign Mixed hyperlipidemia Stage 4 chronic kidney disease ([facility]/H[facility]) Type 2 diabetes mellitus without complication, without long-term current use of insulin ([facility]) Shortness of breath Lung crackles Obstructive sleep apnea Obstructive sleep apnea (adult) (pediatric) Morbid obesity ([facility]) Morbid obesity documented in this encounter [facility] Work Phone: History general Narrative - Reported* Type Description Date Medical History renal failure Medical History diabetes mellitus Medical History hypertension Medical History myocardial infarction, f/u with Dr. Vu Medical History asthma Medical History chicken pox Medical History Gout Medical History high cholesterol Medical History skin cancers Medical History left lower leg, cellulitus x2 Medical History COVID VACCINES X 2 PFIZER Surgical History heart cath Surgical History cataract removal, R eye 07/2013 Surgical History carpal tunnel release, Right [employer] Other History general Narrative - Reported* Type Description Date Medical History renal failure Medical History diabetes mellitus Medical History hypertension Medical History myocardial infarction, f/u with Dr. Vu Medical History asthma Medical History chicken pox Medical History Gout Medical History high cholesterol Medical History skin cancers Medical History left lower leg, cellulitus x2 Medical History COVID VACCINES X 2 PFIZER Surgical History heart cath Surgical History cataract removal, R eye 07/2013 Surgical History carpal tunnel release, Right Surgical History KIDNEY BIOPSY 12/10/2021 Surgical History COLONOSCOPY 12/2021 [employer] Other Summary Purpose Family History No Family History Records FoundUnknown Family Member Name Dates Details Heart problem: Brother Status:Active Unknown Family Member Name Dates Details Heart problem: Brother Status:Active Unknown Family Member Name Dates Details Heart problem: Brother Status:Active Unknown Family Member Name Dates Details Heart problem: Brother Status:Active Unknown Family Member Name Dates Details Heart problem: Brother Status:Active Unknown Family Member Name Dates Details Heart problem: Brother Status:Active Unknown Family Member Name Dates Details Heart problem: Brother Status:Active Unknown Family Member Name Dates Details Heart problem: Brother Status:Active Unknown Family Member Name Dates Details Heart problem: Brother Status:Active Unknown Family Member Name Dates Details Heart problem: Brother Status:Active Unknown Family Member Name Dates Details Heart problem: Brother Status:Active Unknown Family Member Name Dates Details Heart problem: Brother Status:Active Advance Directives No Advanced Directives Records FoundNo Advanced Directives Records FoundNo Advanced Directives Records FoundNo Advanced Directives Records FoundNo Advanced Directives Records FoundNo Advanced Directives Records FoundNo Advanced Directives Records FoundNo Advanced Directives Records Found Chief Complaint * ISIDRO CALHOUN is being seen for a 9 month follow-up of. * Patient is in the office for follow-up for coronary artery disease with no prior interventions. This is based on cardiac catheterization 2004. Last summer he had nuclear stress test which came back normal. Also had carotid study since his last visit which came back normal. His weight is down pounds from last visit which is encouraging. He denies any symptoms of palpitations chest pain dizziness or lightheadedness. His lab data from recent testing were reviewed and his lab data looked very encouraging. * ASSESSMENT AND PLAN: * 1. Coronary artery disease with no prior intervention , cardiac catheterization 2004 revealed 40 50percent mid LAD lesion managed medically last stress test 2011 was normal. Nuclear stress test December 2020 was normal. We will continue to emphasize risk factors modifications. * 2. Stable stage III chronic kidney disease, nonprogressive, being monitored. Patient follows with nephrology * 3. Hypertension, presently under control. * 4. Hyperlipidemia, LDL currently under control * 5. Diabetes, managed by PCP. Currently under control * 6. Morbid obesity, discussed with the patient the necessary measures control weight. He has lost more than 15 pounds in the last several months * 7. Sleep apnea, on CPAP machine which the patient is compliant. * 8. Carotid duplex scan 2020 normal * Anayeli Franco MD, FACC * ISIDRO CALHOUN is being seen for an annual follow-up of. * Patient is in the office for follow-up for the problems noted below. Since he was last seen in the office several months ago has had no cardiac events. His weight has bounced back again significantlydue to and activities. He just bought an equipment for exercise at home. He has no angina orthopneaPND or lower extremity edema. His pressure is under control. His lipids are not completely under control. We will add Zetia 10 mg daily. His diabetes under very good control on present medications. His pressures is right on target. He is compliant with CPAP machine. No cardiac investigations are necessary at this time. * ASSESSMENT AND PLAN: * 1. Coronary artery disease with no prior intervention , cardiac catheterization 2004 revealed 40 50percent mid LAD lesion managed medically last stress test 2011 was normal. Nuclear stress test December 2020 was normal. We will continue to emphasize risk factors modifications. * 2. Stable stage III chronic kidney disease, nonprogressive, being monitored. Patient follows with nephrology, recent lab were ordered after having recent kidney biopsy. He did receive a course of steroid * 3. Hypertension, presently under control. * 4. Hyperlipidemia, LDL just over 80 mg/dL. We will add Zetia 10 mg daily and follow his lipids in few weeks * 5. Diabetes, managed by PCP. Currently under control * 6. Morbid obesity, more weight loss is recommended and low-calorie diet and exercise were encouraged. * 7. Sleep apnea, on CPAP machine which the patient is compliant. * 8. Carotid duplex scan 2020 normal * [facility] MD, [facility] * ISIDRO CALHOUN is being seen for a 6 month follow-up of. * Patient is in the office for follow-up for the problems noted below. Since he was last seen in the office his weight has come down nicely, his kidney function has remained in stage IV and he follows with nephrology. I believe at 1 point in time he will need dialysis. Cardiac thomas he remains withoutany chest pain palpitations orthopnea or PND and has no significant lower extremity edema. His labshave been followed periodically and they have been under control. Last blood work was from this past spring and his LDL cholesterol was down to 61 mg/dL. He does not seem to have any side effect of medications. * ASSESSMENT AND PLAN: * 1. Coronary artery disease with no prior intervention , cardiac catheterization 2004 revealed 40 50percent mid LAD lesion managed medically last stress test 2011 was normal. Nuclear stress test December 2020 was normal. We will continue to emphasize risk factors modifications. * 2. stage IV chronic kidney disease, being monitored by nephrology * 3. Hypertension, presently under control. * 4. Hyperlipidemia, LDL in July 2022 was 61 mg/dL on atorvastatin and ezetimibe * 5. Diabetes, managed by PCP. Currently under control * 6. Morbid obesity, more weight loss is recommended and low-calorie diet and exercise were encouraged. Patient lost several pounds since last visit. * 7. Sleep apnea, on CPAP machine which the patient is compliant. * 8. Carotid duplex scan 2020 normal * Anayeli Franco MD, [facility] Reason for Referral Specialty Diagnoses / Procedures Referred By Jonny yu Referred To Contact Radiology Diagnoses Shortness of breath Lung crackles Procedures CT chest high resolution Anayeli Franco MD [address] [place] [address], [address] [address] Referral ID Status Reason Start Date Expiration Date Visits Requested Visits Authorized Pending Review Perform Procedure 06/09/2023 06/08/2024 1 1 Specialty Diagnoses / Procedures Referred By Jonny yu Referred To Contact Cardiology Diagnoses ASCVD (arteriosclerotic cardiovascular disease) Procedures Follow Up In Cardiology Anayeli Franco MD [address] [place] [address] 2, [address] [address] Anayeli Franco MD [address] [place] [address] 2, [address] [address] Referral ID Status Reason Start Date Expiration Date V isits Requested Visits Authorized Authorized 06/09/2023 06/08/2024 1 1 Additional Source Comments (unrecognized sect ion and content) No Status Records FoundNo Status Records FoundNo Status Records FoundNo Status Records FoundNo Status Records FoundNo Status Records FoundNo Status Records FoundNo Status Records Found INFORMATION SOURCE (unrecogn ized section and content) DATE CREATED AUTHOR 01/24/2021 [facility] DATE CREATED AUTHOR AUTHOR'S ORGANIZ ATION 10/05/2022 [facility] DATE CREATED AUTHOR AUTHOR'S ORGANIZ ATION 12/16/2022 [facility] DATE CREATED AUTHOR AUTHOR'S ORGANIZ ATION 12/16/2022 [employer] DATE CREATED AUTHOR AUTHOR'S ORGANIZ ATION 06/12/2023 [facility] DATE CREATED AUTHOR AUTHOR'S ORGANIZ ATION 06/19/2023 [facility] DATE CREATED AUTHOR AUTHOR'S ORGANIZ ATION 08/31/2023 [facility] EPIC DATE CREATED AUTHOR AUTHOR'S ORGANIZ ATION 09/30/2023 [facility] REASON FOR VISIT (unrecogniz ed section and content) Reason Comments Follow-up 6m Care Teams (unrecognized sec tion and content) Dimension Specification Inspector Relationship Specialty Start Date End Date Alix Estes DO [address] [place] [address] PCP - General Family Medicine 06/09/23 FOR RECORDS PERTAINING TO PATIENTS WHO ARE OR HAVE BEEN ENROLLED IN A CHEMICAL DEPENDENCY/SUBSTANCEABUSE PROGRAM, SOME INFORMATION MAY BE OMITTED. This clinical summary was aggregated from multiple sources. Caution should be exercised in using it in the provision of clinical care. This summary normalizes information from multiple sources, and as a consequence, information in this document may materially change the coding, format and clinical context of patient data. In addition, data may be omitted in some cases. CLINICAL DECISIONS SHOULD BE BASED ON THE PRIMARY CLINICAL RECORDS. [employer] provides no warranty or guarantee of the accuracy or completeness of information in this document.
== END 2023-11-02 10:02 | disposition home or self-care (01) ==
LOC: CT 10:01
PROVIDERS: Visit Provider Internal Medicine
DX: J84.10 Pulmonary fibrosis, unspecified (principal)
CPT/HCPCS: 71250

== ENCOUNTER 2024-08-10 12:40 | Outpatient (OUT) | payer MEDICARE, OTHER, SELFPAY ==
--- NOTE | 2024-08-10 | RT_ITS ---
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 Findings were considered accurate and reproducible. No bronchodilator was administered due to normal spirometric values. Spirometry: -FEV1/FVC: Normal @ 87% -FEV1: Normal @ 88% -FVC: Mildly reduced @ 74% Lung volumes by plethysmography: -RV: Reduced @ 61% -TLC: Mildly reduced @ 71% Diffusion capacity: -DLCO: Severe reduction @ 40% when corrected for Hb 12.8g/dL Comparison from 07/26/2023: -FVC: 80% -T% -DLCO: 45% Impressions: -Spiromery suggests mild restriction, confirmed with a decreased TLC. Severe diffusion impairment. Overall study is consistent with stated history of pulmonary fibrosis. When compared to prior PFT, there is a slight decline along all parameters. Clinical correlation required. Electronically Signed On 08-15-2024 17:54:02 EDT by Carl Jaime
--- OUTSIDE RECORDS SUMMARY | 2024-08-10 12:55 | XMS_ITS | CCD ---
Author Organization [facility] Care Team Providers Care Wave Guide Assembler Name Role Phone Alix Garcia Unavailable Unavailable Unavailable Hong Salguero Unavailable Saeed Aiken Unavailable Radha Hernandez Unavailable Saeed Aiken Admitting Unavailable Saeed Aiken Attending Unavailable Alix Garcia Primary Care Unavailable Saeed Aiken Admitting Unavailable Saeed Aiken Attending Unavailable Alix Garcia Primary Care Unavailable Joan, Dr. Anayeli Dang Referring Kensiha vailable Ayala, Dr. Anayeli Dang Attending Kenisha vailable Joan, Dr. Anayeli Dang Attending Kenisha vailable Joan, Dr. Anayeli Dang Referring Kenisha vailable Alix Garcia DO Primary Care Provider [phone] ANAYELI AYALA Referring Unavailable ALIX GARCIA Primary Care Unavailable MD SAEED AIKEN Admitting Unavailable MD SAEED AIKEN Attending Unavailable Yamilet YADAV Admitting Unavailable Yamilet YADAV Attending Unavailable [facility], [facility] Consulting Unavailable Iliana Killian Consulting Unavailable MD Iliana Killian Consulting Unavailab Iliana Ruiz Consulting Unavailable Iliana Killian Consulting Unavailable Iliana Killian Consulting Unavailable Iliana Killian Consulting Unavailable Iliana Killian Consulting Unavailable Iliana Killian Consulting Unavailable Ilaina Killian Consulting Unavailable DANAE SNYDER Admitting Unavailable DANAE SNYDER Attending Unavailable Kashif Gonzalez V. Attending Unavailevelina Ayala, Guadalupe Admitting Unavailable Ayala, Guadalupe Attending Unavailable MD ISIDRO MUHAMMAD Admitting Unavailable MD ISIDRO MUHAMMAD Attending Unavailable MD SAEED AIKEN Admitting Unavailable MD SAEED AIKEN Attending Unavailable MD SAEED AIKEN Attending Unavailable MD SAEED AIKEN Admitting Unavailable Ayala, Guadalupe Admitting Unavailable Ayala, Guadalupe Attending Unavailable MD SAEED AIKEN Attending Unavailable MD SAEED AIKEN Admitting Unavailable SAEED AIKEN Attending Unavailable NATI, SAEED Admitting Unavailable Alix Garcia MD Primary Care Provider ADEEL SHARPE Attending Unavailable JOSE LUIS ALTAMIRANO Attending Unavailable Ayala, Guadalupe Admitting Unavailable Ayala, Guadalupe Attending Unavailable AYALA, ANAYELI M Attending Unavailable AYALA, GUADALUPE M Referring Unavailable ALIX GARCIA Primary Care Unavailable AYALA, GUADALUPE M Attending Unavailable AYALA, GUADALUPE M Referring Unavailable ALIX GARCIA Primary Care Unavailable Ayala, Guadalupe Admitting Unavailable Ayala, Guadalupe Attending Unavailable Allergies Allergy Classification Reported Allergen(s) Allergy Type Date of Onset Reaction(s) Facility (20 sources) Lisinopril; Translations: [lisinopril] Drug Allergy 04-28-2023 [facility] (19 sources) shellfish, unspecified; Translations: [shellfish] Allergy to substance (finding) [facility] Repository (1 source) Lisinopril Drug Allergy 12-10-2021 [facility] Repository (4 sources) Shellfish; Translations: [SHELLFISH CONTAINING PRODUCTS] Drug Allergy 04-28-2023 Unknown [facility] Work Phone: (3 sources) Lisinopril Allergy to substance 04-28-2023 [facility] Work Phone: (3 sources) Shellfish Allergy to substance 04-28-2023 Unknown [facility] Healthcare Medications Current Medications Medication Drug Class(es) Dates [...] Platelet Aggregation Inhibitor, Nonsteroidal Anti-inflammatory Drug Start: 11-02-2023 take 1 tablet by mouth once daily aspirin 81 mg EC tablet Indications: ASCVD (arteriosclerotic cardiovascular disease) TAKE 1 TABLET BY MOUTH EVERY DAY 90 tablet 3 11/02/2023 Active Start: 02-12-2022 take 1 tablet by tiana th once daily aspirin 81 mg EC tablet Take 1 tablet (81 mg) by mouth once daily. 0 02/12/2022 Active take 1 tablet by tiana th every twenty-four hours Aspirin 81 MG 1 tablet Orally Once a day Active atorvastatin 40 mg oral tablet (20 sources) HMG-CoA Reductase Inhibitor Start: 05-08-2024 take 1 tablet by mouth once daily at bedtime atorvastatin (Lipitor) 40 mg tablet Indications: Hyperlipidemia, unspecified TAKE 1 TABLET BY MOUTH EVERYDAY AT BEDTIME 90 tablet 3 05/08/2024 Active Start: 05-11-2021 take 1 tablet by tiana th once daily at bedtime atorvastatin (Lipitor) 40 [...] completed) cinnamon bark 500 mg oral capsule (3 sources) take 2 tablets by mouth once daily Cinnamon 500 mg capsule Take 2 tablets by mouth once daily. Active Cinnamon 500 MG as directed Orally [...] mg) by mouth once daily at bedtime. Active docosahexaenoic acid 120 mg / eicosapentaenoic acid 180 mg oral capsule (9 sources) take 1 capsule by mouth in the morning omega-3 1000 MG capsule capsule Take 1,000 mg by mouth in the morning and 1,000 mg in the evening. Active take 1 capsule by mouth once abdoul ly Friendship 3 1000 MG Oral Capsule TAKE 1 CAPSULE Daily Quantity: 0 Refills: 0 Ordered: 15-Jun-2022 DO Active 0.5 ml dulaglutide 1.5 mg/ml auto-injector (20 sources) GLP-1 Receptor Agonist dulagluti de (Trulicity) 0.75 mg/0.5 mL pen injector Inject under the skin. Active Trulicity 0.75 M G/0.5ML as directed Subcutaneous Active Trulicity 0.75 M G/0.5ML Subcutaneous Solution Pen-injector once weekly Quantity: 0 Refills: 0 Ordered: 23-Sep-2021 DO Active ezetimibe 10 mg oral tablet (20 sources) Dietary Cholesterol Absorption Inhibitor Start: 06-15-2022 take 1 tablet by mouth once daily ezetimibe (Zetia) 10 mg tablet Indications: Mixed hyperlipidemia TAKE 1 TABLET BY MOUTH EVERY DAY 90 tablet 3 04/25/2024 Active febuxostat 40 mg oral tablet (15 sources) Xanthine Oxidase Inhibitor Start: 05-05-2024 take 1 tablet by mouth in the morning febuxostat (Uloric) 40 mg tablet Take 1 tablet (40 mg) by mouth early in the morning.. 05/05/2024 Active Start: 07-12-2022 End: 06-09-2023 take 1 tablet by mouth in the morning febuxostat (Uloric) 40 MG tablet Take 40 mg by mouth in the morning. 07/13/2022 Active fenofibric acid 135 mg delayed release oral capsule (20 sources) Peroxisome Proliferator Receptor alpha Agonist Start: 07-02-2024 End: 07-02-2025 take 1 capsule by mouth once daily choline fenofibrate (Trilipix) [address] capsule Indications: Mixed hyperlipidemia TAKE 1 CAPSULE (135 MG) BY MOUTH ONCE DAILY. DO NOT CRUSH, CHEW, OR SPLIT. 90 capsule 3 07/02/2024 07/02/2025 Active Start: 10-04-2022 take 1 capsule by mo uth in the morning fenofibrate micronized (Lofibra) 67 MG capsule Take 67 mg by mouth in the morning. 10/04/2022 Active Start: 11-09-2021 End: 04-27-2024 take 1 capsule by mouth once daily choline fenofibrate (Trilipix) [address] capsule Indications: Mixed hyperlipidemia Take 1 capsule (135 mg) by mouth once daily. Do not crush, chew, or split. 30 capsule 11 04/28/2023 04/27/2024 Active take 1 capsule by mo uth once daily Fenofibrate 134 MG Oral Capsule TAKE 1 CAPSULE Daily Quantity: 0 Refills: 0 Ordered: 23-Sep-2021 DO Active finerenone (Kerendia) 10 MG tablet (3 sources) take 1 tablet by mouth in the morning finerenone (Kerendia) 10 MG tablet Take 10 mg by mouth in the morning. Active finerenone (Kerendia) 10 mg tablet tablet [...] mouth once daily. 180 tablet 3 06/09/2023 Active Start: 04-25-2023 take 1 tablet by tiana th once daily furosemide (Lasix) 40 MG tablet TAKE 1 TABLET BY MOUTH EVERY DAY FOR 90 DAYS 04/25/2023 Active take 1 tablet by tiana th once daily Furosemide 20 MG Oral Tablet TAKE 1 TABLET DAILY. Quantity: 0 Refills: 0 Ordered: 23-Sep-2021 DO Active garlic preparation 500 mg oral capsule (20 sources) Non-Standardized Food Allergenic Extract garlic 500 mg capsul e Take by mouth. As directed Active GARLIC PO Take b y mouth Active garlic 500 mg ca psule Take by mouth. As directed 0 Active [...] daily in the morning. Take before meals. 08/23/2022 Active take 1 tablet by tiana [...] Once a day for 30 days Active Kerendia 10 mg tablet tablet (1 source) take 1 tablet by mouth once daily Kerendia 10 mg tablet tablet Take 1 tablet (10 mg) by mouth once daily. Active metoprolol tartrate 25 mg oral tablet (20 sources) beta-Adrenergic Russell Start: 09-10-2022 metoprolol tartrate (Lopressor) 25 mg tablet Indications: Atherosclerotic heart disease of [place] coronary artery without angina pectoris TAKE 1 TABLET TWICE A DAY 180 tablet 3 08/31/2023 Active Multivitamin preparation (20 sources) Multivitamin Ora lly Active nitroglycerin 0.4 mg sublingual tablet (20 sources) Nitrate Vasodilator nitroglycerin (Nitrostat) 0.[address] 1 tablet (0.4 mg) under the tongue every 5 minutes if needed for chest pain. Active Nitrostat 0.4 MG as directed Sublingual Active Friendship 3 1200 MG (20 sources) take 1 capsule by mo uth once daily Friendship 3 1200 MG 1 capsule Orally Once a day Active omega-3 (Super Friendship-3) 1,000 mg capsule capsule (2 sources) take 1 capsule by mo uth twice daily omega-3 (Super Friendship-3) 1,000 mg capsule capsule Take 1 capsule (1,000 mg) by mouth 2 times a day. Active take 1 capsule by mouth twice da mesha omega-3 (Super Friendship-3) 1,000 mg capsule capsule Take 1 capsule [...] Active tamsulosin hydrochloride 0.4 mg oral capsule (12 sources) alpha-Adrenergi c Russell Start: 09-14-2022 take 1 capsule by mouth once daily tamsulosin (Flomax) 0.4 mg 24 hr capsule Take 1 capsule (0.4 mg) by mouth once daily. 09/14/2022 Active Start: 09-14-2022 take 1 capsule by mo uth every twenty-four hours in the morning tamsulosin (Flomax) 0.4 MG 24 hr capsule Take 0.4 mg by mouth in the morning. 09/14/2022 Active ubidecarenone 100 mg oral capsule (20 sources) take 1 capsule by mo uth once daily coenzyme Q-10 100 mg capsule Take 1 capsule (100 mg) by mouth once daily. Active take 1 capsule by mo uth every twenty-four hours CoQ10 200 MG 1 capsule with a meal Orally Once a day Active ubidecarenone 100 mg / vitam in e 5 unt oral capsule (4 sources) take 1 capsule by mo uth in the morning coenzyme Q-10 100 MG capsule Take 100 mg by mouth in the morning. Active vitamin e d-alpha 400 unt or al capsule (1 source) take 1 capsule by [...] 0 Refills: 0 Ordered: 23-Sep-2021 DO Active Gluco Cor CAPS (6 sources) [...] Quantity: 90 Refills: 3 Ordered: 09-Jul-2021 Anayeli Ayala MD Start : 09-Jul-2021 Active Kerendia 10 MG Oral Tablet (1 source) take 1 tablet by mouth once daily Kerendia 10 MG Oral Tablet Take 1 tablet daily Quantity: 0 Refills: 0 Ordered: 15-Dec-2022 DO Active I-[id number]-440 500 MG (19 sources) S-Mqcsafbd-198 5 00 MG Orally Not-Taking C-Kowvhxrx-356 5 00 MG Orally Active metFORMIN hydrochloride 1000 mg oral tablet (7 sources) Biguanide take 1 tablet by mouth every twelve hours metFORMIN HCl - 1000 MG Oral Tablet TAKE 1 TABLET EVERY 12 HOURS. Quantity: 0 Refills: 0 Ordered: 23-Sep-2021 DO Active take 1 tablet by tiana every twelve hours metFORMIN HCl 1000 MG 1 tablet with meal s Orally Twice a day Active SITagliptin 25 mg oral tablet (20 [...] Once a day WAITING ON SHIPMENT Active vardenafil 20 mg oral tablet (19 sources) Phosphodiesterase 5 Inhibitor take 1 tablet by mouth once daily as needed Levitra 20 MG 1 tablet as needed 60 minutes before sexual activity Orally Once a day for 30 day(s) Not-Taking Problems Active Problems Problem Classification Problem Date [...] Resolved: 01-13-2022 Chronic Diabetes mellitus without complication (18 sources) Diabetes mellitus; Translations: [Diabetes mellitus without [...] kidney disease] Onset: 04-16-2021 Resolved: 01-13-2022 Chronic Neoplasms of unspecified nature or uncertain behavior (2 sources) Neoplastic disease; Translations: [Neoplasm of unspecified behavior of bone, soft tissue, and skin] 05-08-2024 Episodic Nutritional deficiencies (20 sources) Vitamin D deficiency; Translations: [Vitamin D deficiency, unspecified] Chronic Other circulatory disease (1 source) Respiratory crackles; Translations: [Other specified symptoms and signs involving the circulatory and respiratory systems] 06-09-2023 Episodic Other circulatory disease (2 sources) Other specified symptoms and signs involving the circulatory and respiratory systems; Translations: [Other specified symptoms and signs involving the circulatory and respiratory systems] Onset: 06-15-2023 Episodic Other endocrine disorders (9 sources) Osteitis fibrosa cystica; Translations: [Primary hyperparathyroidism] Chronic Other endocrine disorders (5 sources) Primary hyperparathyroidism; Translations: [Primary hyperparathyroidism] Onset: 10-04-2022 Chronic Other lower respiratory disease (2 sources) Dyspnea; Translations: [Shortness of breath] Onset: 06-15-2023 06-09-2023 Episodic Other lower respiratory disease (1 source) Shortness of breath; Translations: [Shortness of breath] Onset: 06-15-2023 Episodic Other non-epithelial cancer of skin (2 sources) History of malignant basal cell neoplasm of skin; Translations: [Personal history of other malignant neoplasm of skin] 05-08-2024 Episodic Other nutritional; endocrine; and metabolic disorders [...] obesity due to excess calories] 06-09-2023 Chronic Other nutritional; endocrine; and metabolic disorders (2 sources) Body mass index 30+ - obesity; Translations: [Body mass index (BMI) 38.0-38.9, adult] Onset: 12-21-2023 07-12-2024 Chronic Other nutritional; endocrine; and metabolic disorders (1 source) Obese class II; Translations: [Class 2 obesity] 07-12-2024 Chronic Other nutritional; endocrine; and metabolic disorders (2 sources) Body mass index (BMI) 38.0-38.9, adult; Translations: [Body mass index (BMI) 38.0-38.9, adult] Onset: 07-12-2024 Chronic Other nutritional; endocrine; and metabolic disorders (2 sources) Body mass index (BMI) 37.0-37.9, adult; Translations: [Body mass index (BMI) 37.0-37.9, adult] Onset: 12-21-2023 Chronic Other skin disorders (2 sources) Lentiginosis; Translations: [Other melanin hyperpigmentation] 05-08-2024 Episodic Other skin disorders (2 sources) Actinic keratosis; Translations: [Actinic keratosis] 05-08-2024 Episodic Other skin disorders (2 sources) Seborrheic keratosis; Translations: [Other seborrheic keratosis] 05-08-2024 Episodic Residual codes; unclassified (14 sources) Sleep apnea; Translations: [Unspecified sleep apnea] Onset: 04-28-2023 04-28-2023 Chronic Residual codes; unclassified (2 sources) Obstructive sleep apnea syndrome; Translations: [Obstructive sleep apnea (adult) (pediatric)] 06-09-2023 Chronic Residual codes; unclassified (2 sources) Obstructive sleep apnea (adult) (pediatric); Translations: [Obstructive sleep apnea (adult) (pediatric)] Onset: 04-28-2023 Chronic Past or Other Problems Problem Classification Problem Date Documented Da te Episodic/Chronic Chronic kidney disease (19 sources) Chronic kidney disease; Translations: [Chronic kidney disease, stage 3b] Onset: 04-16-2021 Resolved: 01-13-2022 Inflammation; infection of eye (except that caused by tuberculosis or sexually transmitteddisease) (3 sources) Blepharitis of upper and lower eyelids of bilateral eyes; Translations: [Unspecified blepharitis right eye, upper and lower eyelids] Onset: 08-30-2023 08-30-2023 Episodic Other eye disorders (3 sources) Dry eyes; Translations: [Dry eye syndrome of bilateral lacrimal glands] Onset: 08-30-2023 08-30-2023 Episodic Screening and history of mental health and substance abuse codes (16 sources) Ex-smoker; Translations: [Personal history of tobacco use] Onset: 12-21-2023 07-12-2024 Episodic Comment on above: quit 34 years ago; Unclassified (2 sources) Metabolic acidemia E87.20 Unclassified (2 sources) Onset: 06-09-2023 Resolved: 12-21-2023 06-09-2023 Results Test Name Value Interpretation Reference Range Facility [place] 07-06-2024 ALT No additional P-5'-P [Catalytic activity/Vol] 20 Int._Unit/L Normal 6-[address] [facility] Comment on above: Performed By: #### 2 [id number] #### [facility] [address] [place] [address] [place] 07-06-2024 AST [Catalytic activity/Vol] 24 Int._Unit/L Normal 5-[address] [facility] Comment on above: Performed By: #### 2 [id number] #### [facility] [address] [place] [address] BMPon 07-06-2024 Anion gap [Moles/Vol] 14 mmol/L Normal 6-16 [facility] Comment on above: Performed By: #### 2 [id number] #### [facility] [address] [place] [address] Calcium [Mass/Vol] 9.6 mg/dL Normal 8.9-11.[address] [facility] Comment on above: Performed By: #### 2 [id number] #### [facility] [address] [place] [address] Chloride [Moles/Vol] 107 mmol/L Normal 101-111 [facility] Comment on above: Performed By: #### 2 [id number] #### [facility] [address] [place] [address] CO2 [Moles/Vol] 22 mmol/L Normal 21-31 [facility] Comment on above: Performed By: #### 2 [id number] #### [facility] [address] [place] [address] Creatinine [Mass/Vol] 2.8 mg/dL High 0.5-1.3 [facility] Comment on above: Performed By: #### 2 [id number] #### [facility] [address] [place] [address] Glucose [Mass/Vol] 80 mg/dL Normal 55-[address] [facility] Comment on above: Performed By: #### 2 [id number] #### [facility] [address] [place] [address] Potassium [Moles/Vol] 4.2 mmol/L Normal 3.5-5.3 [facility] Comment on above: Performed By: #### 2 [id number] #### [facility] [address] [place] [address] Sodium [Moles/Vol] 139 mmol/L Normal 135-[address] [facility] Comment on above: Performed By: #### 2 [id number] #### [facility] [address] [place] [address] Urea nitrogen [Mass/Vol] 56 mg/dL High 5-[address] [facility] Comment on above: Performed By: #### 2 [id number] #### [facility] [address] [place] [address] Urea nitrogen/Creatinine [Mass ratio] 20 No Units Normal 10-[address] [facility] Comment on above: Performed By: #### 2 [id number] #### [facility] [address] [place] [address] CBC w/Indiceson 07-06-2024 Erythrocyte distribution width (RBC) [Ratio] 13.3 % Normal 10.9-14.[address] [facility] Comment on above: Performed By: #### 2 [id number] #### [facility] [address] [place] [address] Hematocrit (Bld) [Volume fraction] 38.9 % Normal 37.7-49.[address] [facility] Comment on above: Performed By: #### 2 [id number] #### [facility] [address] [place] [address] Hemoglobin (Bld) [Mass/Vol] 13.5 g/dL Normal 13.5-17.[address] [facility] Comment on above: Performed By: #### 2 [id number] #### [facility] [address] [place] [address] MCH (RBC) [Entitic mass] 30.7 pg Normal 27.0-34.[address] [facility] Comment on above: Performed By: #### 2 [id number] #### [facility] [address] [place] [address] MCHC (RBC) [Mass/Vol] 34.8 g/dL Normal 31.4-36.0 [facility] Comment on above: Performed By: #### 2 [id number] #### [facility] [address] [place] [address] MCV (RBC) [Entitic vol] 88.3 fL Normal 80.0-100.[address] [facility] Comment on above: Performed By: #### 2 [id number] #### [facility] [address] [place] [address] Platelet 163.0 E9/L Normal 150.0-500.[address] [facility] Comment on above: Performed By: #### 2 [id number] #### [facility] [address] [place] [address] Platelet mean volume (Bld) [Entitic vol] 8.0 fL Normal 6.4-10.[address] [facility] Comment on above: Performed By: #### 2 [id number] #### [facility] [address] [place] [address] RBC (Bld) [#/Vol] 4.4 E12/L Normal 4.3-5.[address] [facility] Comment on above: Performed By: #### 2 [id number] #### [facility] [address] [place] [address] RBC size Nom (Bld) NORMAL Invalid Interpretation Code [facility] Comment on above: Performed By: #### 2 [id number] #### [facility] [address] [place] [address] WBC corrected for nucl RBC Auto (Bld) [#/Vol] 6.2 E9/L Normal 4.0-11.[address] [facility] Comment on above: Performed By: #### 2 [id number] #### [facility] [address] [place] [address] Lipid Panelon 07-06-2024 Cholesterol [Mass/Vol] 110 mg/dL Low 120-[address] [facility] Comment on above: Performed By: #### 2 [id number] #### [facility] [address] [place] [address] Cholesterol in HDL [Mass/Vol] 31 mg/dL Invalid Interpretation Code [facility] Comment on above: Result Comment: '>= 60 LOW RISK' '<= 40 HIGH RISK' Performed By: #### 2 [id number] #### [facility] [address] [place] [address] Cholesterol in LDL [Mass/Vol] 55 mg/dL Normal <=[address] [facility] Comment on above: Performed By: #### 2 [id number] #### [facility] [address] [place] [address] Cholesterol in VLDL [Mass/Vol] 43 mg/dL High 7-[address] [facility] Comment on above: Performed By: #### 2 [id number] #### [facility] [address] [place] [address] Triglyceride [Mass/Vol] 213 mg/dL High <=[address] [facility] Comment on above: Performed By: #### 2 [id number] #### [facility] [address] [place] [address] eGFRon 07-06-2024 eGFR 23 mL/min/1.73 m2 Low >=[address] [facility] Comment on above: Performed By: #### 1 [id number] #### [facility] [address] [place] [address] No Panel Informationon 05-08 Type of biopsy: tangential Informed consent: discussed and consent obtained Informed consent comment: The risks and benefits of the biopsy were discussed. Risks include but are not limited to bleeding, infection, scarring, pain, and nerve damage. An opportunity to ask questions prior to the procedure was permitted and all questions were answered. Patient was prepped and draped in usual sterile fashion: area cleansed with alcohol. Anesthesia: the lesion was anesthetized in a standard fashion Anesthetic: 1% lidocaine w/ epinephrine 1-100,000 buffered w/ 8.4% NaHCO3 Instrument used: DermaBlade Hemostasis achieved with: suture and electrodesiccation Outcome: patient tolerated procedure well Outcome comment: The specimen was placed in a prelabeled formalin container to be sent for pathology Post-procedure details: sterile dressing applied and wound care instructions given Post-procedure details comment: Emphasized need to contact clinic for any signs of infection, uncontrollable bleeding, or complications. Dressing type: bandage Additional details: Photo taken Amount of lidocaine used: 1.[address] [facility] Int[place] 04-27-2024 Parathyrin.intact [Mass/Vol] 79 pg/mL High 15-[address] [facility] Comment on above: Result Comment: Perf ormed at: [facility] [address] [id number] PhD Christine Galdamez Performed By: #### 1 [id number] #### [facility] [address] [place] [address] CBC w/Indiceson 04-25-2024 Erythrocyte distribution width (RBC) [Ratio] 13.9 % Normal 10.9-14.[address] [facility] Comment on above: Performed By: #### 2 [id number] #### [facility] [address] [place] [address] Hematocrit (Bld) [Volume fraction] 37.4 % Low 37.7-49.[address] [facility] Comment on above: Performed By: #### 2 [id number] #### [facility] [address] [place] [address] Hemoglobin (Bld) [Mass/Vol] 12.9 g/dL Low 13.5-17.[address] [facility] Comment on above: Performed By: #### 2 [id number] #### [facility] [address] [place] [address] MCH (RBC) [Entitic mass] 30.9 pg Normal 27.0-34.[address] [facility] Comment on above: Performed By: #### 2 [id number] #### [facility] [address] [place] [address] MCHC (RBC) [Mass/Vol] 34.6 g/dL Normal 31.4-36.0 [facility] Comment on above: Performed By: #### 2 [id number] #### [facility] [address] [place] [address] MCV (RBC) [Entitic vol] 89.3 fL Normal 80.0-100.[address] [facility] Comment on above: Performed By: #### 2 [id number] #### [facility] [address] [place] [address] Platelet mean volume (Bld) [Entitic vol] 8.3 fL Normal 6.4-10.[address] [facility] Comment on above: Performed By: #### 2 [id number] #### [facility] [address] [place] [address] Platelets (Bld) [#/Vol] 153.0 E9/L Normal 150.0-500.[address] [facility] Comment on above: Performed By: #### 2 [id number] #### [facility] [address] [place] [address] RBC (Bld) [#/Vol] 4.2 E12/L Low 4.3-5.[address] [facility] Comment on above: Performed By: #### 2 [id number] #### [facility] [address] [place] [address] RBC size Nom (Bld) NORMAL Invalid Interpretation Code [facility] Comment on above: Performed By: #### 2 [id number] #### [facility] [address] [place] [address] WBC corrected for nucl RBC Auto (Bld) [#/Vol] 4.9 E9/L Normal 4.0-11.[address] [facility] Comment on above: Performed By: #### 2 [id number] #### [facility] [address] [place] [address] Ferritinon 04-25-2024 Ferritin [Mass/Vol] 219 ng/mL Normal 24-336 [facility] Comment on above: Performed By: #### 2 [id number] #### [facility] [address] [place] [address] Ironon 04-25-2024 Iron [Mass/Vol] 79 microgram/dL Normal 35-153 [facility] Comment on above: Performed By: #### 2 [id number] #### [facility] [address] [place] [address] Magnesiumon 04-25-2024 Magnesium [Mass/Vol] 1.8 mg/dL Normal 1.3-2.4 [facility] Comment on above: Performed By: #### 2 [id number] #### [facility] [address] [place] [address] Renal Panelon 04-25-2024 Albumin [Mass/Vol] 4.4 g/dL Normal 3.3-5.[address] [facility] Comment on above: Performed By: #### 1 [id number] #### [facility] [address] [place] [address] Anion gap [Moles/Vol] 13 mmol/L Normal 6-16 [facility] Comment on above: Performed By: #### 1 [id number] #### [facility] [address] [place] [address] Calcium [Mass/Vol] 9.4 mg/dL Normal 8.9-11.[address] [facility] Comment on above: Performed By: #### 1 [id number] #### [facility] [address] [place] [address] Chloride [Moles/Vol] 111 mmol/L Normal 101-111 [facility] Comment on above: Performed By: #### 1 [id number] #### [facility] [address] [place] [address] CO2 [Moles/Vol] 22 mmol/L Normal 21-31 [facility] Comment on above: Performed By: #### 1 [id number] #### [facility] [address] [place] [address] Creatinine [Mass/Vol] 2.5 mg/dL High 0.5-1.3 [facility] Comment on above: Performed By: #### 1 [id number] #### [facility] [address] [place] [address] Glucose [Mass/Vol] 128 mg/dL Normal 55-[address] [facility] Comment on above: Performed By: #### 1 [id number] #### [facility] [address] [place] [address] Phosphate [Mass/Vol] 3.4 mg/dL Normal 1.9-4.6 [facility] Comment on above: Performed By: #### 1 [id number] #### [facility] [address] [place] [address] Potassium [Moles/Vol] 4.6 mmol/L Normal 3.5-5.3 [facility] Comment on above: Performed By: #### 1 [id number] #### [facility] [address] [facility] [place] [address] Sodium [Moles/Vol] 141 mmol/L Normal 135-[address] [facility] Comment on above: Performed By: #### 1 [id number] #### [facility] [address] [place] [address] Urea nitrogen [Mass/Vol] 45 mg/dL High 5-[address] [facility] Comment on above: Performed By: #### 1 [id number] #### [facility] [address] [place] [address] Urea nitrogen/Creatinine [Mass ratio] 18 No Units Normal 10-[address] [facility] Comment on above: Performed By: #### 1 [id number] #### [facility] [address] [place] [address] TIBC Calculatedon 04-25-2024 Iron binding capacity [Mass/Vol] 393 microgram/dL Normal 250-[address] [facility] Comment on above: Performed By: #### 1 [id number] #### [facility] [address] [place] [address] Transferrin [Mass/Vol] 281 mg/dL Normal 200-[address] [facility] Comment on above: Performed By: #### 1 [id number] #### [facility] [address] [place] [address] U Protein/Creat Ratioon 03-31 Protein/Creatinine (U) [Ratio] 35.70 mg/gm Cr Normal .00-200.[address] [facility] Comment on above: Performed By: #### 1 [id number] #### [facility] [address] [place] [address] U Creatinine 107.0 mg/dL Invalid Interpretation Code [facility] Comment on above: Performed By: #### 1 [id number] #### [facility] [address] [place] [address] Ur Total Protein 38.2 mg/dL Invalid Interpretation Code [facility] Comment on above: Performed By: #### 1 [id number] #### [facility] [address] [place] [address] Uric Acidon 04-25-2024 Urate [Mass/Vol] 6.9 mg/dL Normal 2.2-7.4 [facility] Comment on above: Performed By: #### 2 [id number] #### [facility] [address] [place] [address] Vitamin D 25 Hydroxyon 04-25 25-hydroxyvitamin D3 [Mass/Vol] 28.1 ng/mL Low 30.0-100.[address] [facility] Comment on above: Performed By: #### 5 [id number] #### [facility] [address] [place] [address] eGFRon 04-25-2024 eGFR 27 mL/min/1.73 m2 Low >=[address] [facility] Comment on above: Order Comment: Order added by Discern Expert. Performed By: #### 1 [id number] #### [facility] [address] [place] [address] PTH Intacton 01-12-2024 Parathyrin.intact [Mass/Vol] 85 pg/mL High [address] [facility] Comment on above: Result Comment: Perf ormed at: [facility] [address] [id number] PhD Christine Galdamez Performed By: #### 1 [id number] #### [facility] [address] [place] [address] CBC w/Indiceson 01-11-2024 Erythrocyte distribution width (RBC) [Ratio] 14.4 % High 10.9-14.[address] [facility] Comment on above: Performed By: #### 2 [id number] #### [facility] [address] [place] [address] Hematocrit (Bld) [Volume fraction] 39.2 % Normal 37.7-49.[address] [facility] Comment on above: Performed By: #### 2 [id number] #### [facility] [address] [place] [address] Hemoglobin (Bld) [Mass/Vol] 13.3 g/dL Low 13.5-17.[address] [facility] Comment on above: Performed By: #### 2 [id number] #### [facility] [address] [place] [address] MCH (RBC) [Entitic mass] 29.4 pg Normal 27.0-34.[address] [facility] Comment on above: Performed By: #### 2 [id number] #### [facility] [address] [place] [address] MCHC (RBC) [Mass/Vol] 33.9 g/dL Normal 31.4-36.0 [facility] Comment on above: Performed By: #### 2 [id number] #### [facility] [address] [place] [address] MCV (RBC) [Entitic vol] 86.8 fL Normal 80.0-100.[address] [facility] Comment on above: Performed By: #### 2 [id number] #### [facility] [address] [place] [address] Platelet mean volume (Bld) [Entitic vol] 8.2 fL Normal 6.4-10.[address] [facility] Comment on above: Performed By: #### 2 [id number] #### [facility] [address] [place] [address] Platelets (Bld) [#/Vol] 171.0 E9/L Normal 150.0-500.[address] [facility] Comment on above: Performed By: #### 2 [id number] #### [facility] [address] [place] [address] RBC (Bld) [#/Vol] 4.5 E12/L Normal 4.3-5.[address] [facility] Comment on above: Performed By: #### 2 [id number] #### [facility] [address] [place] [address] RBC size Nom (Bld) NORMAL Invalid Interpretation Code [facility] Comment on above: Performed By: #### 2 [id number] #### [facility] [address] [place] [address] WBC corrected for nucl RBC Auto (Bld) [#/Vol] 6.0 E9/L Normal 4.0-11.[address] [facility] Comment on above: Performed By: #### 2 [id number] #### [facility] [address] [place] [address] [place] [address] Ferritinon 01-11-2024 Ferritin [Mass/Vol] 188 ng/mL Normal 24-336 [facility] Comment on above: Performed By: #### 2 [id number] #### [facility] [address] [place] [address] Folateon 01-11-2024 Folate [Mass/Vol] 12.1 ng/mL Normal >=6.[address] [facility] Comment on above: Performed By: #### 2 [id number] #### [facility] [address] [place] [address] Ironon 01-11-2024 Iron [Mass/Vol] 102 microgram/dL Normal 35-153 [facility] Comment on above: Performed By: #### 2 [id number] #### [facility] [address] [place] [address] Magnesiumon 01-11-2024 Magnesium [Mass/Vol] 1.7 mg/dL Normal 1.3-2.4 [facility] Comment on above: Performed By: #### 2 [id number] #### [facility] [address] [place] [address] Renal Panelon 01-11-2024 Albumin [Mass/Vol] 4.4 g/dL Normal 3.3-5.[address] [facility] Comment on above: Performed By: #### 1 [id number] #### [facility] [address] [place] [address] Anion gap [Moles/Vol] 13 mmol/L Normal 6-16 [facility] Comment on above: Performed By: #### 1 [id number] #### [facility] [address] [place] [address] Calcium [Mass/Vol] 9.4 mg/dL Normal 8.9-11.[address] [facility] Comment on above: Performed By: #### 1 [id number] #### [facility] [address] [place] [address] Chloride [Moles/Vol] 107 mmol/L Normal 101-111 [facility] Comment on above: Performed By: #### 1 [id number] #### [facility] [address] [place] [address] CO2 [Moles/Vol] 24 mmol/L Normal 21-31 [facility] Comment on above: Performed By: #### 1 [id number] #### [facility] [address] [place] [address] Creatinine [Mass/Vol] 2.7 mg/dL High 0.5-1.3 [facility] Comment on above: Performed By: #### 1 [id number] #### [facility] [address] [place] [address] Glucose [Mass/Vol] 84 mg/dL Normal 55-[address] [facility] Comment on above: Performed By: #### 1 [id number] #### [facility] [address] [place] [address] Phosphate [Mass/Vol] 4.0 mg/dL Normal 1.9-4.6 [facility] Comment on above: Performed By: #### 1 [id number] #### [facility] [address] [place] [address] Potassium [Moles/Vol] 4.2 mmol/L Normal 3.5-5.3 [facility] Comment on above: Performed By: #### 1 [id number] #### [facility] [address] [place] [address] Sodium [Moles/Vol] 140 mmol/L Normal 135-[address] [facility] Comment on above: Performed By: #### 1 [id number] #### [facility] [address] [place] [address] Urea nitrogen [Mass/Vol] 46 mg/dL High 5-[address] [facility] Comment on above: Performed By: #### 1 [id number] #### [facility] [address] [place] [address] Urea nitrogen/Creatinine [Mass ratio] 17 No Units Normal 10-[address] [facility] Comment on above: Performed By: #### 1 [id number] #### [facility] [address] [place] [address] TIBC Calculatedon 01-11-2024 Iron binding capacity [Mass/Vol] 414 microgram/dL High 250-[address] [facility] Comment on above: Performed By: #### 1 [id number] #### [facility] [address] [place] [address] Transferrin [Mass/Vol] 296 mg/dL Normal 200-[address] [facility] Comment on above: Performed By: #### 1 [id number] #### [facility] [address] [place] [address] Uric Acidon 01-11-2024 Urate (U) [Mass/Vol] 6.7 mg/dL Normal 2.2-7.4 [facility] Comment on above: Performed By: #### 2 [id number] #### [facility] [address] [place] [address] Vit B12on 01-11-2024 Cobalamin (Vitamin B12) [Mass/Vol] 308 pg/mL Normal 50-[address] [facility] Comment on above: Performed By: #### 2 [id number] #### [facility] [address] [place] [address] Vitamin D 25 Hydroxyon 01-10 25-hydroxyvitamin D3 [Mass/Vol] 43.0 ng/mL Normal 30.0-100.[address] [facility] Comment on above: Performed By: #### 5 [id number] #### [facility] [address] [place] [address] eGFRon 01-11-2024 eGFR 24 mL/min/1.73 m2 Low >=[address] [facility] Comment on above: Order Comment: Order added by Discern Expert. Performed By: #### 1 [id number] #### [facility] [address] [place] [address] Mauricio 12-17-2023 ALT No additional P-5'-P [Catalytic activity/Vol] 15 Int._Unit/L Normal 6-[address] [facility] Comment on above: Performed By: #### 2 [id number] #### [facility] [address] [place] [address] Mookie 12-17-2023 AST [Catalytic activity/Vol] 21 Int._Unit/L Normal 5-[address] [facility] Comment on above: Performed By: #### 2 [id number] #### [facility] [address] [place] [address] BMPon 12-17-2023 Anion gap [Moles/Vol] 12 mmol/L Normal 6-16 [facility] Comment on above: Performed By: #### 2 [id number] #### [facility] [address] [place] [address] Calcium [Mass/Vol] 9.3 mg/dL Normal 8.9-11.[address] [facility] Comment on above: Performed By: #### 2 [id number] #### [facility] [address] [place] [address] Chloride [Moles/Vol] 110 mmol/L Normal 101-111 [facility] Comment on above: Performed By: #### 2 [id number] #### [facility] [address] [place] [address] CO2 [Moles/Vol] 21 mmol/L Normal 21-31 [facility] Comment on above: Performed By: #### 2 [id number] #### [facility] [address] [place] [address] Creatinine [Mass/Vol] 2.5 mg/dL High 0.5-1.3 [facility] Comment on above: Performed By: #### 2 [id number] #### [facility] [address] [place] [address] Glucose [Mass/Vol] 105 mg/dL Normal 55-[address] [facility] Comment on above: Performed By: #### 2 [id number] #### [facility] [address] [place] [address] Potassium [Moles/Vol] 5.3 mmol/L Normal 3.5-5.3 [facility] Comment on above: Performed By: #### 2 [id number] #### [facility] [address] [place] [address] Sodium [Moles/Vol] 138 mmol/L Normal 135-[address] [facility] Comment on above: Performed By: #### 2 [id number] #### [facility] [address] [place] [address] Urea nitrogen [Mass/Vol] 47 mg/dL High 5-[address] [facility] Comment on above: Performed By: #### 2 [id number] #### [facility] [address] [place] [address] Urea nitrogen/Creatinine [Mass ratio] 19 No Units Normal 10-[address] [facility] Comment on above: Performed By: #### 2 [id number] #### [facility] [address] [place] [address] CBC w/ Auto Diffon 4 Basophils/100 WBC (Bld) 0.6 % Normal 0.0-2.[address] [facility] Comment on above: Performed By: #### 2 [id number] #### [facility] [address] [place] [address] Basophils/Leukocytes Auto (Bld) [Pure # fraction] 0.0 E9/L Normal 0.0-0.[address] [facility] Comment on above: Performed By: #### 2 [id number] #### [facility] [address] [place] [address] Eosinophils (Bld) [#/Vol] 0.4 E9/L Normal 0.0-0.[address] [facility] Comment on above: Performed By: #### 2 [id number] #### [facility] [address] [place] [address] Eosinophils/100 WBC (Bld) 6.6 % Normal 0.0-8.[address] [facility] Comment on above: Performed By: #### 2 438995 #### [facility] [address] [place] [address] Erythrocyte distribution width (RBC) [Ratio] 14.7 % High 10.9-14.[address] [facility] Comment on above: Performed By: #### 2 [id number] #### [facility] [address] [place] [address] Hematocrit (Bld) [Volume fraction] 36.8 % Low 37.7-49.[address] [facility] Comment on above: Performed By: #### 2 [id number] #### [facility] [address] [place] [address] Hemoglobin (Bld) [Mass/Vol] 12.7 g/dL Low 13.5-17.[address] [facility] Comment on above: Performed By: #### 2 [id number] #### [facility] [address] [place] [address] Lymphocytes (Bld) [#/Vol] 1.1 E9/L Normal 1.0-4.[address] [facility] Comment on above: Performed By: #### 2 [id number] #### [facility] [address] [place] [address] Lymphocytes/100 WBC (Bld) 18.3 % Normal 14.0-50.[address] [facility] Comment on above: Performed By: #### 2 [id number] #### [facility] [address] [place] [address] MCH (RBC) [Entitic mass] 29.7 pg Normal 27.0-34.[address] [facility] Comment on above: Performed By: #### 2 [id number] #### [facility] [address] [place] [address] MCHC (RBC) [Mass/Vol] 34.4 g/dL Normal 31.4-36.0 [facility] Comment on above: Performed By: #### 2 [id number] #### [facility] [address] [place] [address] MCV (RBC) [Entitic vol] 86.4 fL Normal 80.0-100.[address] [facility] Comment on above: Performed By: #### 2 [id number] #### [facility] [address] [place] [address] Monocytes (Bld) [#/Vol] 0.5 E9/L Normal 0.2-1.[address] [facility] Comment on above: Performed By: #### 2 [id number] #### [facility] [address] [place] [address] Neutrophils (Bld) [#/Vol] 3.9 E9/L Normal 2.0-7.[address] [facility] Comment on above: Performed By: #### 2 [id number] #### [facility] [address] [place] [address] Neutrophils/100 WBC (Bld) 66.1 % Normal 36.0-75.[address] [facility] Comment on above: Performed By: #### 2 [id number] #### [facility] [address] [place] [address] Platelet 159.0 E9/L Normal 150.0-500.[address] [facility] Comment on above: Performed By: #### 2 [id number] #### [facility] [address] [place] [address] Platelet mean volume (Bld) [Entitic vol] 7.7 fL Normal 6.4-10.[address] [facility] Comment on above: Performed By: #### 2 [id number] #### [facility] [address] [place] [address] RBC (Bld) [#/Vol] 4.3 E12/L Normal 4.3-5.[address] [facility] Comment on above: Performed By: #### 2 [id number] #### [facility] [address] [place] [address] WBC corrected for nucl RBC Auto (Bld) [#/Vol] 5.9 E9/L Normal 4.0-11.[address] [facility] Comment on above: Performed By: #### 2 [id number] #### [facility] [address] [place] [address] Lipid Panelon 12-17-2023 Cholesterol [Mass/Vol] 102 mg/dL Low 120-[address] [facility] Comment on above: Performed By: #### 2 [id number] #### [facility] [address] [place] [address] Cholesterol in HDL [Mass/Vol] 29 mg/dL Invalid Interpretation Code [facility] Comment on above: Result Comment: '>= 60 LOW RISK' '<= 40 HIGH RISK' Performed By: #### 2 [id number] #### [facility] [address] [place] [address] Cholesterol in LDL [Mass/Vol] 54 mg/dL Normal <=[address] [facility] Comment on above: Performed By: #### 2 [id number] #### [facility] [address] [place] [address] Cholesterol in VLDL [Mass/Vol] 27 mg/dL Normal 7-[address] [facility] Comment on above: Performed By: #### 2 [id number] #### [facility] [address] [place] [address] Triglyceride [Mass/Vol] 136 mg/dL Normal <=[address] [facility] Comment on above: Performed By: #### 2 [id number] #### [facility] [address] [place] [address] eGFRon 12-17-2023 eGFR 27 mL/min/1.73 m2 Low >=[address] [facility] Comment on above: Order Comment: Order added by Discern Expert. Performed By: #### 1 [id number] #### [facility] [address] [place] [address] PTH Intacton 09-28-2023 Parathyrin.intact [Mass/Vol] 70 pg/mL High 15-[address] [facility] Comment on above: Result Comment: Perf ormed at: [facility] [address] [id number] PhD Christine Galdamez Performed By: #### 2 [id number], [id number], [id number], [id number], [id number], [id number] #### [facility] [address] [place] [address] CBC w/Indiceson 09-27-2023 Erythrocyte distribution width (RBC) [Ratio] 14.6 % High 10.9-14.[address] [facility] Comment on above: Performed By: #### 2 695977, 6860002, 9049552, 012572348, 1151182, 2587688, 52222540 ####[facility] [address] [place] [address] Hematocrit (Bld) [Volume fraction] 38.6 % Normal 37.7-49.[address] [facility] Comment on above: Performed By: #### 2 652307, 4535738, 6867999, 894911026, 8766118, 8069517, 66504996 ####[facility] [address] [place] [address] Hemoglobin (Bld) [Mass/Vol] 12.7 g/dL Low 13.5-17.[address] [facility] Comment on above: Performed By: #### 2 857831, 1933910, 3567115, 250376497, 9827161, 7595653, 58136227 ####[facility] [address] [place] [address] MCH (RBC) [Entitic mass] 28.4 pg Normal 27.0-34.[address] [facility] Comment on above: Performed By: #### 2 442116, 0801170, 7935910, 200350512, 5520401, 6890127, 99530061 ####[facility] [address] [place] [address] MCHC (RBC) [Mass/Vol] 32.8 g/dL Normal 31.4-36.0 [facility] Comment on above: Performed By: #### 2 701569, 0376389, 5478963, 479299657, 7841809, 9416649, 80157028 ####[address] [place] [address] MCV (RBC) [Entitic vol] 86.4 fL Normal 80.0-100.[address] [facility] Comment on above: Performed By: #### 2 614368, 4084935, 9669781, 929754319, 8328635, 0179383, 44920247 ####[facility] [address] [place] [address] Platelet 156.0 E9/L Normal 150.0-500.[address] [facility] Comment on above: Performed By: #### 2 137850, 5871865, 9390105, 582607211, 1417941, 6148422, 75643251 ####[facility] [address] [place] [address] Platelet mean volume (Bld) [Entitic vol] 8.4 fL Normal 6.4-10.[address] [facility] Comment on above: Performed By: #### 2 539166, 6739849, 9457767, 797625003, 5572218, 6764993, 97054659 ####[address] [place] [address] RBC (Bld) [#/Vol] 4.5 E12/L Normal 4.3-5.[address] [facility] Comment on above: Performed By: #### 2 549980, 4081743, 4765358, 786086803, 1478406, 1907528, 22605498 ####[address] [address] RBC size Nom (Bld) NORMAL Invalid Interpretation Code [facility] Comment on above: Performed By: #### 2 887171, 8951425, 3537610, 781884441, 6843201, 3200670, 05179519 ####[address] [place] [address] WBC corrected for nucl RBC Auto (Bld) [#/Vol] 5.8 E9/L Normal 4.0-11.[address] [facility] Comment on above: Performed By: #### 2 245393, 4374894, 3229105, 847003898, 5402764, 2280487, 63597346 ####[address] [address] CMPon 09-27-2023 Albumin [Mass/Vol] 4.2 g/dL Normal 3.3-5.[address] [facility] Comment on above: Performed By: #### 2 922871, 0921801, 1734384, 593811597, 4474084, 8548033, 83583398 ####[facility] [address] [place] [address] Albumin/Globulin (S) [Mass conc ratio] 1.4 Normal 1.1-2.[address] [facility] Comment on above: Performed By: #### 2 064160, 7366331, 0186231, 381645876, 1096335, 7351839, 18082543 ####[facility] [address] [place] [address] ALP [Catalytic activity/Vol] 81 Int._Unit/L Normal 21-[address] [facility] Comment on above: Performed By: #### 2 664866, 8234164, 8392379, 211602523, 6182850, 4917330, 18162310 ####[facility] [address] [place] [address] ALT No additional P-5'-P [Catalytic activity/Vol] 26 Int._Unit/L Normal 6-[address] [facility] Comment on above: Performed By: #### 2 553642, 5037316, 5507945, 569730652, 7342389, 7164395, 34911117 ####[facility] [address] [place] [address] Anion gap [Moles/Vol] 13 mmol/L Normal 6-16 [facility] Comment on above: Performed By: #### 2 574996, 9191611, 5321048, 492855142, 8082968, 1508952, 72730224 ####[facility] [address] [place] [address] AST [Catalytic activity/Vol] 25 Int._Unit/L Normal 5-[address] [facility] Comment on above: Performed By: #### 2 667876, 4512986, 5355336, 040700624, 2708530, 1513694, 60184356 ####[facility] [address] [place] [address] Bilirubin [Mass/Vol] 0.5 mg/dL Normal 0.0-1.1 [facility] Comment on above: Performed By: #### 2 502785, 3188341, 0868282, 608145120, 7659670, 6972833, 84713584 ####[facility] [address] [place] [address] Calcium [Mass/Vol] 9.6 mg/dL Normal 8.9-11.[address] [facility] Comment on above: Performed By: #### 2 845548, 8399444, 2308221, 790731060, 1450138, 3313764, 83660540 ####[facility] [address] [place] [address] Chloride [Moles/Vol] 107 mmol/L Normal 101-111 [facility] Comment on above: Performed By: #### 2 621815, 5251833, 1676229, 221174691, 6858648, 7288216, 04644298 ####[facility] [address] [place] [address] CO2 [Moles/Vol] 24 mmol/L Normal 21-31 [facility] Comment on above: Performed By: #### 2 409500, 0586983, 6929495, 753303681, 4630219, 0219381, 91023918 ####[facility] [address] [place] [address] Creatinine [Mass/Vol] 2.3 mg/dL High 0.5-1.3 [facility] Comment on above: Performed By: #### 2 933167, 7192398, 3768947, 351387394, 9743191, 5418392, 53789706 ####[facility] [address] [place] [address] Globulin (S) [Mass/Vol] 2.9 g/dL Normal 1.4-4.[address] [facility] Comment on above: Performed By: #### 2 061299, 1096454, 9087811, 892899904, 0799920, 6862854, 25412521 ####[facility] [address] [place] [address] Glucose [Mass/Vol] 134 mg/dL Normal 55-[address] [facility] Comment on above: Performed By: #### 2 542603, 5934585, 7901685, 673785746, 3108886, 2566936, 03644243 ####[facility] [address] [place] [address] Potassium [Moles/Vol] 4.2 mmol/L Normal 3.5-5.3 [facility] Comment on above: Performed By: #### 2 983752, 1035922, 3285186, 904577843, 1117069, 8997626, 98326067 ####[facility] [address] [place] [address] Protein [Mass/Vol] 7.1 g/dL Normal 6.0-7.[address] [facility] Comment on above: Performed By: #### 2 866652, 3145538, 9414654, 270517607, 9621223, 7807871, 52463829 ####[facility] [address] [place] [address] Sodium [Moles/Vol] 140 mmol/L Normal 135-[address] [facility] Comment on above: Performed By: #### 2 342476, 4589000, 0215791, 757264441, 1200792, 3902241, 00438165 ####[facility] [address] [place] [address] Urea nitrogen [Mass/Vol] 47 mg/dL High 5-[address] [facility] Comment on above: Performed By: #### 2 084145, 1405913, 0200202, 343907379, 0844733, 3326068, 46568203 ####[facility] [address] [place] [address] Urea nitrogen/Creatinine [Mass ratio] 20 No Units Normal 10-[address] [facility] Comment on above: Performed By: #### 2 173677, 4987905, 5164859, 380401905, 0675583, 5798155, 07952741 ####[facility] [address] [place] [address] Consent for Treatmenton 08-30 Consent for Treatment [id number] 0TIFF Normal [facility] Magnesiumon 09-27-2023 Magnesium [Mass/Vol] 1.8 mg/dL Normal 1.3-2.4 [facility] Comment on above: Performed By: #### 2 176051, 0954924, 8630062, 982709839, 7179671, 2555711, 44663293 ####[facility] [address] [place] [address] Phosphoruson 09-27-2023 Phosphate [Mass/Vol] 4.0 mg/dL Normal 1.9-4.6 [facility] Comment on above: Performed By: #### 2 541502, 7140475, 4601503, 420166993, 9983924, 4072821, 27900580 ####[facility] [address] [place] [address] Physician Orderon 09-27-2023 Physician Order [id number]#1. 00TIFF Normal [facility] U Protein/Creat Ratioon 08-30 Protein/Creatinine (U) [Ratio] 13.50 mg/gm Cr Normal .00-200.[address] [facility] Comment on above: Performed By: #### 2 882756, 1193984, 7836188, 9683357, 33772114, 0829954 #### [facility] [address] [place] [address] U Creatinine 171.6 mg/dL Invalid Interpretation Code [facility] Comment on above: Performed By: #### 2 020539, 7776587, 6387543, 6196266, 22457255, 9379661 #### [facility] [address] [place] [address] Ur Total Protein 23.1 mg/dL Invalid Interpretation Code [facility] Comment on above: Performed By: #### 2 951918, 4690722, 3889232, 4709648, 84914197, 1283978 #### [facility] [address] [place] [address] Uric Acidon 09-27-2023 Urate (U) [Mass/Vol] 7.9 mg/dL High 2.2-7.4 [facility] Comment on above: Performed By: #### 2 849963, 0884719, 7928155, 815637985, 4952792, 8056718, 33747271 ####[facility] [address] [place] [address] Urinalysis with Microon 08-30 Bilirubin Ql (U) Negative Normal Negative [facility] Comment on above: Performed By: #### 2 789119, 0732339, 1832314, 8049557, 78760294, 9239073 #### [facility] [address] [place] [address] Clarity (U) Clear Normal Clear [facility] Comment on above: Performed By: #### 2 112738, 1150250, 4935264, 2540564, 83989074, 6225911 #### [facility] [address] [place] [address] Color (U) Yellow Normal Yellow [facility] Comment on above: Result Comment: Micr oscopic readings are only performed on those samples that meet specific criteria set forth by [facility]. Performed By: #### 2 788791, 2465309, 4225839, 6634684, 15293762, 4003129 #### [facility] [address] [place] [address] Glucose Ql (U) Negative Normal Negative [facility] Comment on above: Performed By: #### 2 180642, 8995779, 2599261, 2381563, 85835378, 9792477 #### [facility] [address] [place] [address] Hemoglobin Auto test strip (U) [Mass/Vol] Negative Normal Negative [facility] Comment on above: Performed By: #### 2 795171, 9915337, 6370920, 5875103, 89098405, 0331603 #### [facility] [address] [place] [address] Ketones Auto test strip Ql (U) Negative Normal Negative [facility] Comment on above: Performed By: #### 2 369360, 5598605, 9069900, 7626607, 68758725, 6431804 #### [facility] [address] [place] [address] Leukocyte esterase Auto test strip Ql (U) Negative Normal Negative [facility] Comment on above: Performed By: #### 2 432607, 8813258, 5880651, 3476433, 64167672, 1248714 #### [facility] [address] [place] [address] Nitrite Auto test strip Ql (U) Negative Normal Negative [facility] Comment on above: Performed By: #### 2 160335, 5206450, 9595136, 3045420, 47381053, 4301111 #### [facility] [address] [place] [address] pH (U) 5.0 [pH] Invalid Interpretation Code 5.0-9.[address] [facility] Comment on above: Performed By: #### 2 270429, 1848877, 9488258, 1228558, 13150327, 0839710 #### [facility] [address] [place] [address] Protein Ql (U) Trace Abnormal Negative [facility] Comment on above: Performed By: #### 2 780336, 0976847, 2337718, 2600703, 40801716, 8465636 #### [facility] [address] [place] [address] Specific gravity (U) [Rel density] 1.018 Invalid Interpretation Code 1.005-1.[address] [facility] Comment on above: Performed By: #### 2 503492, 8107654, 0476818, 1698889, 14163859, 3736242 #### [facility] [address] [place] [address] Urobilinogen (U) [Mass/Vol] Negative Normal Negative [facility] Comment on above: Performed By: #### 2 016096, 8567674, 9430497, 9030060, 16118030, 1602580 #### [facility] [address] [place] [address] Type of Urine collection method Clean Catch Normal [facility] Comment on above: Performed By: #### 2 720394, 3973546, 1663116, 9609258, 26974704, 1107955 #### [facility] [address] [place] [address] Vitamin D 25 Hydroxyon 09-26 25-hydroxyvitamin D3 [Mass/Vol] 45.1 ng/mL Normal 30.0-100.[address] [facility] Comment on above: Performed By: #### 2 890062, 7813410, 8845098, 763738397, 7752746, 6937630, 14630625 ####[facility] [address] [place] [address] eGFRon 09-27-2023 eGFR 30 mL/min/1.73 m2 Low >=[address] [facility] Comment on above: Order Comment: Order added by Discern Expert. Performed By: #### 2 675992, 7378426, 5432546, 025061662, 6502766, 4655633, 78544106 ####[facility] [address] [place] [address] CT CHEST HIGH RESOLUTIONon 06-15-2023 CT CHEST HIGH RESOLUTION Interpreted By: Malik Escobedo and Liller Gregory STUDY: CT CHEST HIGH RESOLUTION; 06/15/2023 11:12 am INDICATION: Signs/Symptoms:SHORTNE SS OF BREATH. COMPARISON: None. ACCESSION NUMBER(S): [id number] ORDERING CLINICIAN: ANAYELI AYALA TECHNIQUE: Using helical multidetector technique, volumetric data [...] Aaron Vail. The study was interpreted at [facility] in [facility]. MACRO: None Signed by: Malik Escobedo 06/15/2023 2:55 PM Dictation workstation: [id number] Normal [facility] Discharge Instructionson Discharge Instructions [id number]#1. 00TIFF Normal [facility] BMPon 06-08-2023 Anion gap [Moles/Vol] 15 mmol/L Normal 6-16 [facility] Comment on above: Performed By: #### 2 101062, 0291253, 5051317, 5567029, 61731630, 4427122 #### [facility] [address] [place] [address] BUN/Creat Ratio 20 No Units Normal 10-20 [facility] Comment on above: Performed By: #### 2 423099, 5354078, 7366739, 3587556, 68610512, 6260592 #### [facility] [address] [place] [address] Calcium [Mass/Vol] 9.3 mg/dL Normal 8.9-11.[address] [facility] Comment on above: Performed By: #### 2 943339, 3386833, 2166066, 9758737, 28066169, 2214051 #### [facility] [address] [place] [address] Chloride [Moles/Vol] 103 mmol/L Normal 101-111 [facility] Comment on above: Performed By: #### 2 640628, 1540271, 4191500, 1967694, 53166601, 3039276 #### [facility] [address] [place] [address] CO2 [Moles/Vol] 21 mmol/L Normal 21-31 [facility] Comment on above: Performed By: #### 2 169897, 1201851, 7072934, 7435311, 06888632, 2517709 #### [facility] [address] [place] [address] Creatinine [Mass/Vol] 2.4 mg/dL High 0.5-1.3 [facility] Comment on above: Performed By: #### 2 906779, 3096399, 3281167, 0244477, 21181613, 8776267 #### [facility] [address] [place] [address] Glucose [Mass/Vol] 144 mg/dL Normal 55-[address] [facility] Comment on above: Performed By: #### 2 531731, 4501652, 2660139, 3196769, 59373542, 8137492 #### [facility] [address] [place] [address] Potassium [Moles/Vol] 3.6 mmol/L Normal 3.5-5.3 [facility] Comment on above: Performed By: #### 2 457227, 7801933, 5823090, 2298977, 06634246, 4059933 #### [facility] [address] [place] [address] Sodium [Moles/Vol] 135 mmol/L Normal 135-[address] [facility] Comment on above: Performed By: #### 2 868938, 1034047, 2106913, 7066070, 74127816, 0206790 #### [facility] [address] [place] [address] Urea nitrogen [Mass/Vol] 47 mg/dL High 5-[address] [facility] Comment on above: Performed By: #### 2 512066, 6829767, 7396525, 4947418, 37192375, 9014511 #### [facility] [address] [place] [address] Capillary Glucose POCon 05-30 0-2023 Glucose [Mass/Vol] 165 mg/dL High 55-[address] [facility] Comment on above: Result Comment: Kulwant CISNEROS Performed By: #### 2 193017, 4080352, 3875873, 2933886, 28744651, 5747413 #### [facility] [address] [place] [address] Glucose [Mass/Vol] 148 mg/dL High 55-[address] [facility] Comment on above: Result Comment: Kulwant CISNEROS Performed By: #### 2 850661, 9483702, 8358028, 9370847, 53555097, 7674081 #### [facility] [address] [place] [address] Consultation Noteon 06-08-19 24 Consultation Note Patient: ANANDA CALHOUN Age: 72 years Sex: Male : 1950 Associated Diagnoses: None Author: Constantin PIZANO, Iliana Basic Information Cardiac consultation requested for evaluation for chest pain and shortness of breath Chief Complaint 06/07/2023 14:30 EST chest pain and sob 06/07/2023 11:04 EST CP and SOB worsening this morning, states he did have some CP on Tuesday that went away. hx [place] in approx. 2005. former smoker. states SOB worsens with exertion. 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 History of Present Illness Patient is known [...] qAM, # 30 tab(s), Refills(s) 0, Pharmacy: [facility]/pharmacy #[id number], 186, cm, 06/07/23 11:12:00 EST, Height/Length [...] tab(s), Oral, (more content not included)... Normal [facility] Comment on above: Result Comment: Elec tronically Signed By: TraboulIliana hassan MD\.br\Date and Time Signed: 06/08/23 13:29 EST Discharge Note-Nursingon Discharge Note-Nursing ISIDRO CALHOUN :1950 Visit Date:06/07/2023 Inpatient Discharge Instructions Your Care Team Admitting Physician - SHAN PIZANO, Yamilet Consulting Physician - [facility], XXXX Iliana Killian MD Reason for Your [...] Pending Diagnostic Test Results None Pharmacy Information [facility] New Follow Up Appointments after Discharge Follow Up with Alix Garcia When: 06/09/2023 11:30 AM EST Comments: Keep scheduled appointment Where: [address] [place] [address]- Business (1) Medications What How Much When Instructions Next Dose New isosorbide mononitrate (isosorbide mononitrate 30 mg ER Tab) 1 Tablets By Mouth Once a day (in the morning) Pickup at [facility]/pharmacy #[id number] 06/09/23 Unchanged aspirin (aspirin 81 mg Oral [...] (in the evening) 06/08/23 @9pm Pharmacy Information [facility]/pharmacy #[id number]: [address] [place], [place] [id number] [phone] Test Results CBC BMP WBC: 8.6 E9/L (06/07/23 11:11:00) Glucose Lvl: 144 mg/dL (06/08/23 06:36:00) RBC: 4.2 E12/L Low (06/07/23 11:11:00) BUN: 47 mg/dL High (06/08/23:36:00) HGB: 12 gm/dL Low (06/07/23 11:11:00) Creatinine: 2.4 mg/dL High (06/08/23:36:00) Hct: 35.9 % Low (06/07/23 11:11:00) BUN/Creat Ratio: 20 (06/08/23:36:00) MCV: 86.6 fL (06/07/23 11:11:00) Sodium Lvl: 135 mmol/L (06/08/23:36:00) MCH: 29 pg (06/07/23 11:11:00) Potassium Lvl: 3.6 mmol/L (06/08/23:36:00) MCHC: 33.4 gm/dL (06/07/23 11:11:00) Chloride: 103 mmol/L (06/08/23:36:00) RDW: 13.6 % (06/07/23 11:11:00) CO2: 21 mmol/L (06/08/23:36:00) Platelet: 167 E9/L (06/07/23 11:11:00) AGAP: (more content not included)... Normal [facility] Cogn[employer] Education Videoon GetWell Education Video Yes Patient Avoiding Infections in the Hospital Normal [facility] Interdisciplinary Note - Richard e Manageron 06-08-2023 Interdisciplinary Note - Distance Learning Unit Leader CRM to room earlier and patient was [...] at DC. Patient was provided CRM contact, zahraa board updated. CRM following. Normal [facility] Comment on above: Result Comment: Elec tronically Signed By: La Perez\.br\Date and Time Signed: 06/08/23 11:50 EST Interdisciplinary Note - Soc ial Workeron 06-08-2023 Interdisciplinary Note - Manager Employee Benefits This SW responded to a consult on regarding Advance Directives. Patient was currently having testing in his room. SW will check back with the patient later. Normal [facility] Monitor Recordon 06-08-2023 Monitor Record [id number]#1. 00TIFF Normal [facility] Monitor Record [id number]#1. 00TIFF Normal [facility] eGFRon 06-08-2023 eGFR 28 mL/min/1.73 m2 Low >=[address] [facility] Comment on above: Order Comment: Order added by Discern Expert. Performed By: #### 2 440860, 2408282, 7961678, 7775037, 00255613, 3785118 #### [facility] [address] [place] [address] Auto Diffon 06-07-2023 Basophils/100 WBC (Bld) 0.3 % Normal 0.0-2.[address] [facility] Comment on above: Order Comment: Order Added by Discern Expert. Performed By: #### 1 8420656, 6757592, 6112915, 79814957, 9299699, 11511592 ####[facility] [address] [place] [address] Basophils/Leukocytes Auto (Bld) [Pure # fraction] 0.0 E9/L Normal 0.0-0.[address] [facility] Comment on above: Order Comment: Order Added by Discern Expert. Performed By: #### 1 9050590, 5117508, 0665072, 43001387, 3190783, 98456603 ####[facility] [address] [place] [address] Eosinophils/100 WBC (Bld) 1.2 % Normal 0.0-8.[address] [facility] Comment on above: Order Comment: Order Added by Discern Expert. Performed By: #### 1 9031288, 8621544, 7061967, 25026164, 3265700, 40605435 ####[address] [place] [address] Eosinophils/Leukocyte s Auto (Bld) [Pure # fraction] 0.1 E9/L Normal 0.0-0.[address] [facility] Comment on above: Order Comment: Order Added by Discern Expert. Performed By: #### 1 6896095, 6730433, 1418254, 31137682, 8719166, 45949689 ####[address] [address] Lymphocytes/100 WBC (Bld) 9.1 % Low 14.0-50.[address] [facility] Comment on above: Order Comment: Order Added by Discern Expert. Performed By: #### 1 9465774, 6910181, 0326655, 35002526, 9126936, 83689645 ####[address] [place] [address] Lymphocytes/Leukocyte s Auto (Bld) [Pure # fraction] 0.8 E9/L Low 1.0-4.[address] [facility] Comment on above: Order Comment: Order Added by Willian Expert. Performed By: #### 1 2554665, 1116038, 3609265, 92424312, 5316069, 81449218 ####[address] [place] [address] Monocytes/100 WBC (Bld) 11.8 % Normal 4.0-14.[address] [facility] Comment on above: Order Comment: Order Added by Discern Expert. Performed By: #### 1 2649156, 3563196, 4728361, 40071393, 4623157, 24568135 ####[facility] [address] [place] [address] Monocytes/Leukocytes Auto (Bld) [Pure # fraction] 1.0 E9/L Normal 0.2-1.[address] [facility] Comment on above: Order Comment: Order Added by Discern Expert. Performed By: #### 1 4626058, 7548705, 3886004, 60086020, 1440999, 85545584 ####[place] [address] [place] [address] Neutrophils/100 WBC (Bld) 77.6 % High 36.0-75.[address] [facility] Comment on above: Order Comment: Order Added by Discern Expert. Performed By: #### 1 8856976, 4447586, 8582377, 84464951, 4708769, 33091909 ####[facility] [address] [place] [address] Neutrophils/Leukocyte s Auto (Bld) [Pure # fraction] 6.7 E9/L Normal 2.0-7.[address] [facility] Comment on above: Order Comment: Order Added by Discern Expert. Performed By: #### 1 6429058, 7662179, 8664383, 06115373, 1678388, 31894322 ####[facility] [address] [place] [address] BMPon 06-07-2023 Anion gap [Moles/Vol] 18 mmol/L High 6-16 [facility] Comment on above: Performed By: #### 1 0103718, 1628415, 4204304, 32050848, 3171531, 69384017 ####[facility] [address] [place] [address] BUN/Creat Ratio 17 No Units Normal 10-20 [facility] Comment on above: Performed By: #### 1 1470097, 0678819, 0222014, 44396928, 4571626, 46461820 ####[facility] [address] [place] [address] Calcium [Mass/Vol] 9.8 mg/dL Normal 8.9-11.[address] [facility] Comment on above: Performed By: #### 1 5137203, 4774679, 3382980, 56369932, 3452850, 73873582 ####[facility] [address] [place] [address] Chloride [Moles/Vol] 101 mmol/L Normal 101-111 [facility] Comment on above: Performed By: #### 1 7452584, 2420524, 7706126, 97036142, 9898085, 39502119 ####[facility] [address] [place] [address] CO2 [Moles/Vol] 19 mmol/L Low 21-31 [facility] Comment on above: Performed By: #### 1 5214426, 5962517, 1935689, 55160358, 5583272, 58235064 ####[facility] [address] [place] [address] Creatinine [Mass/Vol] 2.5 mg/dL High 0.5-1.3 [facility] Comment on above: Performed By: #### 1 3376480, 9707999, 4528251, 68515437, 6267820, 86196989 ####[facility] [address] [place] [address] Glucose [Mass/Vol] 187 mg/dL Normal 55-[address] [facility] Comment on above: Performed By: #### 1 8550252, 7070710, 8376839, 64809737, 0381135, 55009583 ####[facility] [address] [place] [address] Potassium [Moles/Vol] 4.0 mmol/L Normal 3.5-5.3 [facility] Comment on above: Performed By: #### 1 2597233, 7209843, 7925885, 99662678, 9110610, 81544521 ####[facility] [address] [place] [address] Sodium [Moles/Vol] 134 mmol/L Low 135-[address] [facility] Comment on above: Performed By: #### 1 8998861, 9854312, 5732196, 41814918, 5754533, 78934308 ####[facility] [address] [place] [address] Urea nitrogen [Mass/Vol] 43 mg/dL High 5-[address] [facility] Comment on above: Performed By: #### 1 9237218, 5480059, 2162445, 65659070, 3909569, 26114682 ####[facility] [address] [place] [address] CBC w/ Auto Diffon Erythrocyte distribution width (RBC) [Ratio] 13.6 % Normal 10.9-14.[address] [facility] Comment on above: Performed By: #### 1 3498863, 3137874, 4882912, 24090272, 7239257, 14718655 ####[facility] [address] [place] [address] Hematocrit (Bld) [Volume fraction] 35.9 % Low 37.7-49.[address] [facility] Comment on above: Performed By: #### 1 0718344, 9739970, 5882600, 70680902, 7871681, 56285495 ####[facility] [address] [place] [address] Hemoglobin (Bld) [Mass/Vol] 12.0 g/dL Low 13.5-17.[address] [facility] Comment on above: Performed By: #### 1 5004299, 1840679, 6215904, 62293422, 2817663, 19555103 ####[facility] [address] [place] [address] MCH (RBC) [Entitic mass] 29.0 pg Normal 27.0-34.[address] [facility] Comment on above: Performed By: #### 1 8335249, 9466575, 9451292, 37606481, 1934943, 45115482 ####[address] [place] [address] MCHC (RBC) [Mass/Vol] 33.4 g/dL Normal 31.4-36.0 [facility] Comment on above: Performed By: #### 1 0236121, 2344622, 9946012, 50324527, 5673596, 85842855 ####[address] [place] [address] MCV (RBC) [Entitic vol] 86.6 fL Normal 80.0-100.[address] [facility] Comment on above: Performed By: #### 1 1714943, 6416296, 2689737, 88358253, 0383644, 34048316 ####[place] [address] Platelet mean volume (Bld) [Entitic vol] 8.3 fL Normal 6.4-10.[address] [facility] Comment on above: Performed By: #### 1 6515271, 7390678, 2625791, 84366107, 3384335, 12503948 ####[address] [address] Platelets (Bld) [#/Vol] 167.0 E9/L Normal 150.0-500.[address] [facility] Comment on above: Performed By: #### 1 3108207, 2478882, 9786653, 81628636, 1893604, 24387824 ####[address] [place] [address] RBC (Bld) [#/Vol] 4.2 E12/L Low 4.3-5.[address] [facility] Comment on above: Performed By: #### 1 7588516, 3774685, 7071990, 05127767, 1609517, 94121431 ####[address] [address] WBC corrected for nucl RBC Auto (Bld) [#/Vol] 8.6 E9/L Normal 4.0-11.[address] [facility] Comment on above: Performed By: #### 1 7745239, 9669367, 0082960, 16149443, 6263645, 22677281 ####[facility] [address] [place] [address] Capillary Glucose POCon Glucose [Mass/Vol] 218 mg/dL High 55-[address] [facility] Comment on above: Result Comment: Nany judy Meter Performed By: #### 2 402863, 8472426, 9160595, 2753417, 80205429, 8373768 #### [facility] [address] [place] [address] Glucose [Mass/Vol] 177 mg/dL High - [facility] Comment on above: Result Comment: Nany judy Meter Performed By: #### 2 85890362 ####[facility] [address] [place] [address] Consent for Treatmenton Consent for Treatment [id number] 0TIFF Normal [facility] ED Clinical Summaryon 2023 ED Clinical Summary [address] [address] ED Clinical Summary Person Information Name: ISIDRO CALHOUN [facility] Age: 72 Years : 1950 Sex: Male Language: [place] PCP: Alix Garcia DO Marital Status: Visit Id: Visit Reason: Shortness of breath; Chest pain; CHEST PAIN-SOB Speciality: Acuity: 2 Enc Type: Observation Med Service: Medical Arrival: 06/07/2023 11:01:21 Discharge: LOS: 000 03:14 Checkin: 06/07/2023 11:01:21 Checkout: 06/07/2023 14:15:51 Dispo Type: Admitted as IP to this [facility] EVENTS: Event Name Event Status Request Date/Time [...] 06/07/2023 13:52:38 Lab Request 06/07/2023 13:52:38 ADDRESS: [address] [place] [address] [address] [place] [id number] PHYS DOC NOTES: MEDICAL INFORMATION: Prescriptions Given: [...] 6:CKD (chronic kidney disease), stage IV Normal [facility] ED Note-Physicianon 06-07-19 ED Note-Physician Basic [...] Historical Apnea Diabetic II Gout Hypercholesterolemia Hypertension [place] - Myocardial infarction Procedure/Surgical History Colonoscopy (12/21/2021), Cataract extraction (07/03/2019), -right carpal tunnel release (05/14/2016), right cataract extraction with intraocular lens implant (08/07/2013), Cataract (2013), Repair of ventral hernia (03/2007), Repair of umbilical hernia (03/2006), Mohls surgery - left ear (2004), Sandra (more content not included)... Normal [facility] Comment on above: Result Comment: Elec tronically Signed By: Reji Chaves DO\.br\Date and Time Signed: 06/07/23 13:21 EST ED Patient Education Noteon 06-07-2023 ED Patient Education Note Normal [facility] ED Patient Summaryon 024 ED Patient Summary [place] [address] Patient Discharge Instructions Person Information Name: ISIDRO CALHOUN Eliud Age: 72 Years Arrival Date: 06/07/2023 11:01:21 Discharge Diagnosis: 1:Chest pain; 2:Acute diastolic heart failure; 3:Obesity; 4:HTN (hypertension); 5:Diabetes mellitus; 6:CKD (chronic kidney disease), stage IV Primary Care Physician: Alix Garcia DO Provider Information Primary Provider: Reji Chaves DO Advanced Dispensing Operator:None The exam and treatment you received in the Emergency Department were for an urgent problem and are not intended as complete care. It is important that you follow up with a doctor, nurse practitioner, or physician?s care management assistant for ongoing care. If your symptoms [...] opioids can be used to help relieve acrvqexi-fn-fioyyp pain and are often prescribed following a [...] be struggling with addiction, tell your health managed care analyst and ask for guidance or call [facility]?S National Helpline at 0-482-814-TFQC. v Source: [place] Department of Health and Human Services/[place] for [facility] (more content not included)... Normal [facility] Message from Medicareon Message from Medicare [id number]#1. 00TIFF [facility] Monitor Recordon 06-07-2023 Monitor Record [id number]#1. 00TIFF [facility] PT & PTTon 06-07-2023 aPTT Coag (PPP) [Time] 32.4 second(s) Normal 25.1-36.[address] [facility] Comment on above: Result Comment: Para meter 15 days - 4 weeks 1 - 5 months 6 - 11 months 1 - 5 years 6 - 10 years 11 - 17 years PTT Mean: 35.4 (27.6-45.6) Mean: 33.5 (24.8-40.7) Mean: 32.4 (25.1-40.7) Mean: 31.6 (24.0-39.2) Mean: 31.6 (26.9-38.7) Mean: 31.0 (24.6-38.4) Pediatric Reference ranges were obtained from a study by jr [employer]anto[employer]. prepared from 1437 samples obtained at 7 different centers using the same coagulation reagent and instrumentation as [facility]. Currently there are no coagulation studies available worldwide for children to 14 days, and no normal ranges. Heparin therapeutic range (represented by Anti-Factor Xa activity of 0.2 - 0.4 U/mL) corresponds to PTT of 56.6 - 109.0 sec. Performed By: #### 1 2890947, 6307143, 7909619, 23696369, 4359820, 37408445 ####[facility] [address] [place] [address] INR Coag (PPP) [Relative time] 1.2 {INR} Invalid Interpretation Code [facility] Comment on above: Result Comment: INR results are specifically intended to assess patients stabilized on long-term Anticoagulation therapy suggested INR?s ?Less Intensive Anticoagulation? 2.0 ? 3.0 Conventional Range 3.0 ? 4.5 Performed By: #### 1 6134683, 5485883, 9128250, 52343493, 4257434, 18090011 ####[facility] [address] [place] [address] PT Coag (PPP) [Time] 13.1 second(s) High 9.4-12.[address] [facility] Comment on above: Result Comment: 15 [...] the same coagulation reagent and instrumentation as [facility]. Currently there are no coagulation studies available worldwide for children to 14 days, and no normal ranges. Performed By: #### 1 4258270, 1557247, 3295467, 47888791, 8643451, 20205547 ####[facility] [address] [place] [address] Troponin 0 Hr.on 06-07-2023 Troponin 23.10 pg/mL Normal 15.90-38.[address] [facility] Comment on above: Result Comment: The 95% CI (Confidence Interval) PPV (Positive Predictive Value) for myocardial infarction in females is 38 pg/mL, in males 51 pg/mL. The results should be used in conjunction with clinical conditions of myocardial infarction. (Access High Sensitivity Troponin I Instructions For Use, [employer], December 2017) Performed By: #### 1 4872851, 5207296, 6011302, 75699203, 3064440, 18956788 ####[facility] [address] [place] [address] Troponin 3 Hr.on 06-07-2023 Troponin 31.30 pg/mL Normal 15.90-38.[address] [facility] Comment on above: Result Comment: The 95% CI (Confidence Interval) PPV (Positive Predictive Value) for myocardial infarction in females is 38 pg/mL, in males 51 pg/mL. The results should be used in conjunction with clinical conditions of myocardial infarction. (Access High Sensitivity Troponin I Instructions For Use, [employer]December 2017) Performed By: #### 1 6476732 ####[facility] [address] [place] [address] Troponin 6 Hr.on 06-07-2023 Troponin 28.60 pg/mL Normal 15.90-38.[address] [facility] Comment on above: Result Comment: The 95% CI (Confidence Interval) PPV (Positive Predictive Value) for myocardial infarction in females is 38 pg/mL, in males 51 pg/mL. The results should be used in conjunction with clinical conditions of myocardial infarction. (Access High Sensitivity Troponin I Instructions For Use, [employer]December 2017) Performed By: #### 1 [id number] #### [facility] [address] [place] [address] Troponin 9 Hr.on 06-07-2023 Troponin 30.80 pg/mL Normal 15.90-38.[address] [facility] Comment on above: Result Comment: The 95% CI (Confidence Interval) PPV (Positive Predictive Value) for myocardial infarction in females is 38 pg/mL, in males 51 pg/mL. The results should be used in conjunction with clinical conditions of myocardial infarction. (Access High Sensitivity Troponin I Instructions For Use, [employer] [place], December 2017) Performed By: #### 2 212394, 4329350, 1154269, 9579145, 09058847, 1232712 #### [facility] [address] [place] [address] XR Chest Single Viewon 06-07 XR Chest [...] mGy = na DAP = na Normal [facility] eGFRon 06-07-2023 eGFR 27 mL/min/1.73 m2 Low >=[address] [facility] Comment on above: Order Comment: Order added by Discern Expert. Performed By: #### 1 0670177, 3258888, 4859329, 35170760, 0834412, 83382671 ####[facility] [address] [place] [address] PTH Intacton 05-25-2023 Parathyrin.intact [Mass/Vol] 74 pg/mL High 15-[address] [facility] Comment on above: Result Comment: Perf ormed at: [facility] [address] [id number] PhD Christine Galdamez Performed By: #### 2 809346, 9758042, 6495477, 5870501, 44210918, 2121759 #### [facility] [address] [place] [address] CBC w/Indiceson 05-24-2023 Erythrocyte distribution width (RBC) [Ratio] 13.9 % Normal 10.9-14.[address] [facility] Comment on above: Performed By: #### 2 923161, 5148982, 1716731, 1125672, 77242292, 5146192 #### [facility] [address] [place] [address] Hematocrit (Bld) [Volume fraction] 37.0 % Low 37.7-49.[address] [facility] Comment on above: Performed By: #### 2 274889, 2408463, 7293596, 4643325, 88911524, 7722180 #### [facility] [address] [place] [address] Hemoglobin (Bld) [Mass/Vol] 12.6 g/dL Low 13.5-17.[address] [facility] Comment on above: Performed By: #### 2 866229, 1569589, 1994397, 7466895, 59065800, 2223839 #### [facility] [address] [place] [address] MCH (RBC) [Entitic mass] 29.6 pg Normal 27.0-34.[address] [facility] Comment on above: Performed By: #### 2 648349, 9500493, 9093811, 8979373, 41051240, 7187280 #### [facility] [address] [place] [address] MCHC (RBC) [Mass/Vol] 34.1 g/dL Normal 31.4-36.0 [facility] Comment on above: Performed By: #### 2 302646, 8949786, 0868724, 7847122, 82997162, 8760100 #### [facility] [address] [place] [address] MCV (RBC) [Entitic vol] 86.7 fL Normal 80.0-100.[address] [facility] Comment on above: Performed By: #### 2 316017, 9593482, 8927717, 9216406, 90544283, 3036226 #### [facility] [address] [place] [address] Platelet mean volume (Bld) [Entitic vol] 8.6 fL Normal 6.4-10.[address] [facility] Comment on above: Performed By: #### 2 098906, 4856855, 1541685, 3758930, 55769009, 7628795 #### [facility] [address] [place] [address] Platelets (Bld) [#/Vol] 170.0 E9/L Normal 150.0-500.[address] [facility] Comment on above: Performed By: #### 2 023329, 8343182, 7577269, 7185425, 62087402, 1009529 #### [facility] [address] [place] [address] RBC (Bld) [#/Vol] 4.3 E12/L Normal 4.3-5.[address] [facility] Comment on above: Performed By: #### 2 416146, 7766461, 2597570, 8835351, 21023160, 9415209 #### [facility] [address] [place] [address] WBC corrected for nucl RBC Auto (Bld) [#/Vol] 5.5 E9/L Normal 4.0-11.[address] [facility] Comment on above: Performed By: #### 2 346598, 8916975, 3883360, 7767826, 00163636, 1223998 #### [facility] [address] [place] [address] CMPon 05-24-2023 Albumin [Mass/Vol] 4.3 g/dL Normal 3.3-5.[address] [facility] Comment on above: Performed By: #### 2 555904, 0155731, 4313625, 7162271, 26317232, 6513554 #### [facility] [address] [place] [address] Albumin/Globulin [Mass ratio] 1.8 {ratio} Normal 1.1-2.[address] [facility] Comment on above: Performed By: #### 2 375014, 7823679, 3191245, 7858876, 58756818, 8831326 #### [facility] [address] [place] [address] Alk Phos 44 Int._Unit/L Normal 21-98 [facility] Comment on above: Performed By: #### 2 430233, 5800398, 9798888, 1112987, 72117226, 4193622 #### [facility] [address] [place] [address] ALT 22 Int._Unit/L Normal 6-46 [facility] Comment on above: Performed By: #### 2 721771, 5439035, 7958999, 6773996, 47378976, 9897434 #### [facility] [address] [place] [address] Anion gap [Moles/Vol] 14 mmol/L Normal 6-16 [facility] Comment on above: Performed By: #### 2 585197, 4902487, 0241354, 0512432, 27491815, 6717875 #### [facility] [address] [place] [address] AST 23 Int._Unit/L Normal 5-43 [facility] Comment on above: Performed By: #### 2 706532, 4152784, 3564950, 1272599, 56335050, 8087561 #### [facility] [address] [place] [address] Bili Total 0.5 mg/dL Normal 0.0-1.[address] [facility] Comment on above: Performed By: #### 2 114406, 7673278, 2870590, 8617470, 03289878, 2786208 #### [facility] [address] [place] [address] BUN/Creat Ratio 20 No Units Normal 10-20 [facility] Comment on above: Performed By: #### 2 889818, 5161705, 0734490, 3678813, 86523640, 4317121 #### [facility] [address] [place] [address] Calcium [Mass/Vol] 9.4 mg/dL Normal 8.9-11.[address] [facility] Comment on above: Performed By: #### 2 573424, 4902324, 9663840, 0392259, 14877351, 2066210 #### [facility] [address] [place] [address] Chloride [Moles/Vol] 109 mmol/L Normal 101-111 [facility] Comment on above: Performed By: #### 2 388860, 6520469, 8138701, 7495820, 28630604, 2580737 #### [facility] [address] [place] [address] CO2 [Moles/Vol] 23 mmol/L Normal 21-31 [facility] Comment on above: Performed By: #### 2 075920, 8153329, 2362203, 8086258, 54468523, 3119063 #### [facility] [address] [place] [address] Creatinine [Mass/Vol] 2.9 mg/dL High 0.5-1.3 [facility] Comment on above: Performed By: #### 2 012224, 2479909, 0321877, 8541024, 87091149, 8221891 #### [facility] [address] [place] [address] Globulin (S) [Mass/Vol] 2.4 g/dL Normal 1.4-4.[address] [facility] Comment on above: Performed By: #### 2 506484, 6998915, 1399974, 2996080, 31849532, 7914874 #### [facility] [address] [place] [address] Glucose [Mass/Vol] 84 mg/dL Normal 55-[address] [facility] Comment on above: Performed By: #### 2 226199, 4716495, 9782388, 5041468, 42264589, 4955911 #### [facility] [address] [place] [address] Potassium [Moles/Vol] 4.5 mmol/L Normal 3.5-5.3 [facility] Comment on above: Performed By: #### 2 912564, 2071315, 1812823, 3021530, 37311585, 4637614 #### [facility] [address] [place] [address] Protein [Mass/Vol] 6.7 g/dL Normal 6.0-7.[address] [facility] Comment on above: Performed By: #### 2 742235, 1741268, 0817319, 3939185, 20660537, 8672301 #### [facility] [address] [place] [address] Sodium [Moles/Vol] 141 mmol/L Normal 135-[address] [facility] Comment on above: Performed By: #### 2 601701, 1207592, 5321069, 8709749, 68637191, 9309875 #### [facility] [address] [place] [address] Urea nitrogen [Mass/Vol] 57 mg/dL High 5-[address] [facility] Comment on above: Performed By: #### 2 162665, 4230397, 1650161, 9860804, 04559653, 5870495 #### [facility] [address] [place] [address] Consent for Treatmenton 04-30 Consent for Treatment [id number] 0TIFF Normal [facility] Consent for Treatment [id number] 0TIFF Normal [facility] Magnesiumon 05-24-2023 Magnesium [Mass/Vol] 2.0 mg/dL Normal 1.3-2.4 [facility] Comment on above: Performed By: #### 2 385915, 5727552, 3365637, 3252410, 65624896, 9353855 #### [facility] [address] [place] [address] Phosphoruson 05-24-2023 Phosphate [Mass/Vol] 3.2 mg/dL Normal 1.9-4.6 [facility] Comment on above: Performed By: #### 2 054709, 3740143, 9678723, 3684928, 24528010, 0008498 #### [facility] [address] [place] [address] Physician Orderon 05-24-2023 Physician Order [id number] 0TIFF Normal [facility] U Protein/Creat Ratioon 04-30 U Creatinine 88.7 mg/dL Invalid Interpretation Code [facility] Comment on above: Performed By: #### 1 [id number] ####[facility] [address] [place] [address] U Prot/Creat Ratio 24.00 mg/gm Cr Normal .00-200.00 [facility] Comment on above: Performed By: #### 1 [id number] ####[facility] [address] [place] [address] Ur Total Protein 21.3 mg/dL Invalid Interpretation Code [facility] Comment on above: Performed By: #### 1 [id number] ####[facility] [address] [place] [address] Uric Acidon 05-24-2023 Urate [Mass/Vol] 7.0 mg/dL Normal 2.2-7.4 [facility] Comment on above: Performed By: #### 2 342303, 9620461, 4403411, 4979961, 24299765, 2041515 #### [facility] [address] [place] [address] Urinalysison 05-24-2023 Bacteria LM Ql (Urine sed) TRACE Normal Trace [facility] Comment on above: Performed By: #### 2 669370, 3574202, 3524608, 2159862, 64368345, 8695999 #### [facility] [address] [place] [address] Bilirubin Ql (U) Negative Normal Negative [facility] Comment on above: Performed By: #### 2 193434, 4323529, 2109112, 9729258, 73234900, 8466370 #### [facility] [address] [place] [address] Clarity (U) CLEAR Normal Clear [facility] Comment on above: Performed By: #### 2 667581, 7210925, 4727821, 9610631, 84342186, 5944040 #### [facility] [address] [place] [address] Color (U) YELLOW Normal Yellow [facility] Comment on above: Performed By: #### 2 775134, 3643466, 1831204, 6503213, 72609921, 1731033 #### [facility] [address] [place] [address] Epithelial cells.squamous LM.HPF (Urine sed) [#/Area] 0-2 Normal 0-2 [facility] Comment on above: Performed By: #### 2 706013, 6188951, 0485568, 7251535, 56993929, 8596358 #### [facility] [address] [place] [address] Glucose Test strip (U) [Mass/Vol] Negative Normal Negative [facility] Comment on above: Performed By: #### 2 646035, 8434736, 3416581, 6641399, 11932541, 7473682 #### [facility] [address] [place] [address] Hemoglobin Ql (U) Negative Normal Negative [facility] Comment on above: Performed By: #### 2 964497, 5724196, 0289816, 0054775, 62564434, 7124226 #### [facility] [address] [place] [address] Ketones (U) [Mass/Vol] Negative Normal Negative [facility] Comment on above: Performed By: #### 2 103202, 1651925, 5472768, 8356023, 74470202, 5259145 #### [facility] [address] [place] [address] [place].plasma/Lithiu m.RBC (Bld) [Mass ratio] 0-3 Normal 0-[address] [facility] Comment on above: Performed By: #### 2 721430, 7974829, 6247345, 8602449, 31698569, 2457729 #### [facility] [address] [place] [address] Mucus Ql (Urine sed) TRACE Normal [facility] Comment on above: Performed By: #### 2 034717, 0280657, 9748906, 5500241, 43535295, 4695241 #### [facility] [address] [place] [address] Nitrite Ql (U) Negative Normal Negative [facility] Comment on above: Performed By: #### 2 248935, 8874716, 5131971, 4859185, 97606171, 5878398 #### [facility] [address] [place] [address] pH (U) 6.0 [pH] Invalid Interpretation Code 5.0-9.[address] [facility] Comment on above: Performed By: #### 2 682558, 3414346, 0959643, 5160487, 23239238, 7234928 #### [facility] [address] [place] [address] Protein (U) [Mass/Vol] Negative Normal Negative [facility] Comment on above: Performed By: #### 2 298971, 5759302, 8328059, 6257187, 14927472, 2015342 #### [facility] [address] [place] [address] Specific gravity (U) [Rel density] 1.015 Invalid Interpretation Code 1.005-1.[address] [facility] Comment on above: Performed By: #### 2 242980, 9711571, 7219710, 0072682, 26767613, 1579916 #### [facility] [address] [place] [address] Type of Urine collection method Clean Catch Normal [facility] Comment on above: Performed By: #### 2 741476, 5202121, 7325530, 9994723, 58601556, 1870870 #### [facility] [address] [place] [address] Urobilinogen Qn (U) 0.2 {John'U}/dL Normal 0.0-1.[address] [facility] Comment on above: Performed By: #### 2 867957, 9542081, 0623586, 6159877, 57074051, 6204357 #### [facility] [address] [place] [address] WBC Auto Ql (U) Negative Normal Negative [facility] Comment on above: Performed By: #### 2 901347, 4472646, 6205828, 3599363, 38837160, 7585216 #### [facility] [address] [place] [address] WBC LM.HPF (Urine sed) [#/Area] 0-5 Normal 0-[address] [facility] Comment on above: Performed By: #### 2 389575, 6221167, 1623808, 9885387, 20170163, 4069856 #### [facility] [address] [place] [address] Vitamin D 25 Hydroxyon 05-24 Vitamin D 25 Hydroxy 53.5 ng/mL Normal 30.0-100.0 [facility] Comment on above: Performed By: #### 5 [id number] ####[facility] [address] [place] [address] eGFRon 05-24-2023 eGFR 22 mL/min/1.73 m2 Low >=[address] [facility] Comment on above: Order Comment: Order added by Discern Expert. Performed By: #### 2 365997, 0359967, 6264191, 3152255, 91565515, 6371710 #### [facility] [address] [place] [address] Family Medicine Office/Clini c Noteon 04-14-2023 Family Medicine Office/Clinic Note Chief Complaint EST right knee pain HPI Staff 72 year old male presents with right knee pain for about a week History of Present Illness Reviewed and agree with above documented HPI by medical translator. Portions of this record may have been created with voice recognition artificial intelligence software, specifically Given.to, NoWait and or SeeFuture. Substitutions may have occurred due to the inherent limitations of voice recognition and artificial intelligence software. Patient is a 72-year-old male who presents to [facility], for right knee pain and swelling, [...] his orthopedic doctor. 72-year-old male presents to [facility], for right knee sprain and right knee DJD, patient had about a week ago, no history of falls or trauma, no septic joint, bursitis, joint effusion, crepitus, cellulitis, fractures, deformity, or dislocation lamination. Patient is instructed apply ice 2-3 times a day for no more than 10 to 12 minutes a session, take [id number]-[id number] Tylenol as needed for pain, not to [...] DO, ORT Within 3 to [address] [place], [place] [id number]- Additional Instructions: Patient Education BMI for Adults Knee Sprain, Adult, Xlcw-bd-Femu Osteoarthritis Problem List/Past Medical History Ongoing BMI 37.0-37.9, adult Diverticulosis Family history of colon cancer Hemorrhoids History of colon polyps R (more content not included)... Normal [facility] Comment on above: Result Comment: Elec tronically Signed By: DANAE SNYDER PA-C\.br\Date and Time Signed: 04/14/23 18:45 EST Patient Educationon 04-14-20 Patient Education Nutrition BMI for Adults What [...] numbers. This can be done either in [place] ([place] or metric measurements. Note that charts and online BMI calculators are available to help you find your BMI quickly and easily without having to do these calculations yourself. To calculate your BMI in [place] ([place] measurements: 1. Measure your weight in [...] for Disease Control and Prevention: www.cdc.gov ? [place] Heart Association: www.heart.org ? National Heart, Lung, and Blood [place]: www.nhlbi.nih.gov Summary ? Body mass index (BMI) is a number that is calculated from a person's weight and height. ? BMI may help estimate how much of a person's weight is composed of fat. BMI can help identify those who may be at higher risk for certain medical problems. ? BMI can be measured using [place] measurements or metric measurements. ? BMI charts are used to identify whether you are underweight, normal weight, overweight, or obese. This information is not intended to replace advice given to you by your health care provider. Make sure you discuss any questions you have with your health care provider. Document Revised: 02/06/2020 Document Reviewed: 12/14/2019 [email or web address] Patient Education ? 2022 [employer]. Orthopedics Knee Sprain A knee sprain is [...] or splint. (more content not included)... Normal [facility] XR Knee Complete 4+ Views [facility] 04-14-2023 XR Knee Complete 4+ Views [...] mGy = . DAP = . Normal [facility] PTH [place] 01-20-2023 Parathyrin.intact [Mass/Vol] 64 pg/mL Invalid Interpretation Code [facility] Comment on above: Result Comment: Perf ormed at: [facility] [address] [id number] PhD Christine Galdamez Performed By: #### 2 019852, 3669902, 0398786, 8814946, 52545452, 2548863 #### [facility] [address] [place] [address] CBC w/Indiceson 01-19-2023 Erythrocyte distribution width (RBC) [Ratio] 13.7 % Normal 10.9-14.[address] [facility] Comment on above: Performed By: #### 2 514818, 7062149, 8061088, 4923588, 74035388, 1890893 #### [facility] [address] [place] [address] Hematocrit (Bld) [Volume fraction] 36.8 % Low 37.7-49.[address] [facility] Comment on above: Performed By: #### 2 633631, 1829254, 9737642, 8978641, 06363284, 7422529 #### [facility] [address] [place] [address] Hemoglobin (Bld) [Mass/Vol] 12.5 g/dL Low 13.5-17.[address] [facility] Comment on above: Performed By: #### 2 128003, 3134965, 6696593, 9335403, 18046910, 1247226 #### [facility] [address] [place] [address] MCH (RBC) [Entitic mass] 29.6 pg Normal 27.0-34.[address] [facility] Comment on above: Performed By: #### 2 536926, 6704989, 4397657, 0941905, 91555666, 3831976 #### [facility] [address] [place] [address] MCHC (RBC) [Mass/Vol] 33.9 g/dL Normal 31.4-36.0 [facility] Comment on above: Performed By: #### 2 665621, 2298805, 2035088, 9071873, 26468031, 3202563 #### [facility] [address] [place], [place] [address] MCV (RBC) [Entitic vol] 87.3 fL Normal 80.0-100.[address] [facility] Comment on above: Performed By: #### 2 140433, 2463540, 2747254, 7225590, 66405010, 0373975 #### [facility] [address] [place] [address] Platelet mean volume (Bld) [Entitic vol] 8.2 fL Normal 6.4-10.[address] [facility] Comment on above: Performed By: #### 2 705001, 9936217, 7934433, 7188382, 27011588, 7575613 #### [facility] [address] [place] [address] Platelets (Bld) [#/Vol] 137.0 E9/L Low 150.0-500.[address] [facility] Comment on above: Performed By: #### 2 495043, 0396366, 1328718, 8609977, 55832521, 2524844 #### [facility] [address] [place] [address] RBC (Bld) [#/Vol] 4.2 E12/L Low 4.3-5.[address] [facility] Comment on above: Performed By: #### 2 051949, 7669530, 6551292, 5010989, 39608641, 7491504 #### [facility] [address] [place] [address] WBC corrected for nucl RBC Auto (Bld) [#/Vol] 5.5 E9/L Normal 4.0-11.[address] [facility] Comment on above: Performed By: #### 2 131263, 8579162, 7913110, 4815725, 04504925, 9075266 #### [facility] [address] [place] [address] CMPon 01-19-2023 Albumin [Mass/Vol] 3.9 g/dL Normal 3.3-5.[address] [facility] Comment on above: Performed By: #### 2 158306, 9683762, 0759446, 2056417, 66078157, 0258823 #### [facility] [address] [place] [address] Albumin/Globulin (S) [Mass conc ratio] 1.2 Normal 1.1-2.[address] [facility] Comment on above: Performed By: #### 2 320425, 1316842, 6839632, 7670644, 14859490, 2493348 #### [facility] [address] [place] [address] ALP [Catalytic activity/Vol] 90 Int._Unit/L Normal 21-[address] [facility] Comment on above: Performed By: #### 2 544274, 2484421, 1796683, 1731523, 65886291, 0011582 #### [facility] [address] [place] [address] ALT No additional P-5'-P [Catalytic activity/Vol] 49 Int._Unit/L High 6-[address] [facility] Comment on above: Performed By: #### 2 744443, 1489552, 8664861, 6941171, 21487503, 7467734 #### [facility] [address] [place] [address] Anion gap [Moles/Vol] 12 mmol/L Normal 6-16 [facility] Comment on above: Performed By: #### 2 385168, 4813116, 8791993, 9961670, 50124375, 8375709 #### [facility] [address] [place] [address] AST [Catalytic activity/Vol] 38 Int._Unit/L Normal 5-[address] [facility] Comment on above: Performed By: #### 2 366912, 5182267, 5319877, 6420884, 80382127, 2616112 #### [facility] [address] [place] [address] Bilirubin [Mass/Vol] 0.4 mg/dL Normal 0.0-1.1 [facility] Comment on above: Performed By: #### 2 607739, 3057790, 8500765, 8428251, 53927444, 4639653 #### [facility] [address] [place] [address] Calcium [Mass/Vol] 9.3 mg/dL Normal 8.9-11.[address] [facility] Comment on above: Performed By: #### 2 800093, 6610589, 3279413, 6150851, 26396747, 1965330 #### [facility] [address] [place] [address] Chloride [Moles/Vol] 112 mmol/L High 101-111 [facility] Comment on above: Performed By: #### 2 337799, 3114862, 2475218, 8931958, 72817989, 7508872 #### [facility] [address] [place] [address] CO2 [Moles/Vol] 19 mmol/L Low 21-31 [facility] Comment on above: Performed By: #### 2 982926, 3047533, 9759418, 4861437, 18243767, 4208168 #### [facility] [address] [place] [address] Creatinine [Mass/Vol] 2.6 mg/dL High 0.5-1.3 [facility] Comment on above: Performed By: #### 2 473172, 4774598, 7109860, 2976420, 99625664, 8546504 #### [facility] [address] [place] [address] Globulin (S) [Mass/Vol] 3.3 g/dL Normal 1.4-4.[address] [facility] Comment on above: Performed By: #### 2 931408, 8614812, 1756316, 0122696, 97241879, 3448652 #### [facility] [address] [place] [address] Glucose [Mass/Vol] 135 mg/dL Normal 55-[address] [facility] Comment on above: Result Comment: If t his glucose result represents a fasting glucose, interpretation should refer to the following reference range: 55-99 mg/dL Performed By: #### 2 972611, 8380208, 9789549, 9312786, 35943830, 4893799 #### [facility] [address] [place] [address] Potassium [Moles/Vol] 4.4 mmol/L Normal 3.5-5.3 [facility] Comment on above: Performed By: #### 2 177989, 7060374, 5953827, 9390522, 20692428, 2353395 #### [facility] [address] [place] [address] Protein [Mass/Vol] 7.2 g/dL Normal 6.0-7.[address] [facility] Comment on above: Performed By: #### 2 541723, 7276796, 4802975, 2346941, 04406668, 1044269 #### [facility] [address] [place] [address] Sodium [Moles/Vol] 139 mmol/L Normal 135-[address] [facility] Comment on above: Performed By: #### 2 831912, 4420536, 8610950, 5692766, 74259538, 9410287 #### [facility] [address] [place] [address] Urea nitrogen [Mass/Vol] 61 mg/dL High 5-[address] [facility] Comment on above: Performed By: #### 2 294438, 0880828, 2893226, 5881324, 95267297, 9659475 #### [facility] [address] [place] [address] Urea nitrogen/Creatinine [Mass ratio] 24 No Units High 10-[address] [facility] Comment on above: Performed By: #### 2 193685, 0387443, 8991407, 5600242, 67112959, 7308801 #### [facility] [address] [place] [address] Consent for Treatmenton 12-29 Consent for Treatment [id number] [facility] [id number] 0CD:[address] [facility] Ferritinon 01-19-2023 Ferritin [Mass/Vol] 173 ng/mL Normal 24-336 [facility] Comment on above: Result Comment: NORM ALS MEN <30 YRS 16-132 ng/mL MEN >30 YRS 8-338 ng/mL WOMEN (PREMEN) 6-104 ng/mL WOMEN (POSTMEN) 12-210 ng/mL Performed By: #### 2 425855, 3737377, 7967596, 4845082, 52024285, 0156048 #### [facility] [address] [place] [address] Folateon 01-19-2023 Folate [Mass/Vol] 18.6 ng/mL Normal >=6.[address] [facility] Comment on above: Performed By: #### 2 272857, 3485243, 1354003, 6294534, 16112981, 3859879 #### [facility] [address] [place] [address] Ironon 01-19-2023 Iron [Mass/Vol] 74 microgram/dL Normal 35-153 [facility] Comment on above: Performed By: #### 2 390267, 4069251, 0636136, 5457799, 94250626, 8467716 #### [facility] [address] [place] [address] Magnesiumon 01-19-2023 Magnesium [Mass/Vol] 1.9 mg/dL Normal 1.3-2.4 [facility] Comment on above: Performed By: #### 2 201521, 4589428, 7098648, 4156832, 65239329, 7201120 #### [facility] [address] [place] [address] Phosphoruson 01-19-2023 Phosphate [Mass/Vol] 4.5 mg/dL Normal 1.9-4.6 [facility] Comment on above: Performed By: #### 2 697572, 4677770, 5234489, 9759950, 64820673, 0601208 #### [facility] [address] [place] [address] Physician Orderon 01-19-2023 Physician Order [id number]. 00CD:[address] [facility] TIBC Calculatedon 01-19-2023 Iron binding capacity [Mass/Vol] 323 microgram/dL Normal 250-[address] [facility] Comment on above: Performed By: #### 2 133189, 7986636, 1339778, 0698775, 38243199, 3580576 #### [facility] [address] [place] [address] Transferrin [Mass/Vol] 231 mg/dL Normal 200-[address] [facility] Comment on above: Performed By: #### 2 428267, 0418225, 3063058, 9799038, 88336133, 8012462 #### [facility] [address] [place] [address] U Protein/Creat Ratioon 12-29 Albumin Elph (U) [Mass fraction] 19.0 mg/dL Invalid Interpretation Code [facility] Comment on above: Result Comment: The reference range and other method performance specifications have not been established for this test; results should be integrated into the clinical context for interpretation. Performed By: #### 1 [id number] ####[facility] [address] [place] [address] Creatinine (U) [Mass/Vol] 137.4 mg/dL Invalid Interpretation Code [facility] Comment on above: Result Comment: The reference range and other method performance specifications have not been established for this test; results should be integrated into the clinical context for interpretation. Performed By: #### 1 [id number] ####[facility] [address] [place] [address] U Prot/Creat Ratio 138.30 mg/gm Cr Normal .00-200.00 F [facility] Comment on above: Performed By: #### 1 [id number] ####[facility] [address] [place] [address] Uric Acidon 01-19-2023 Urate [Mass/Vol] 7.6 mg/dL High 2.2-7.4 [facility] Comment on above: Performed By: #### 2 547408, 9929901, 7432373, 7337553, 79456350, 2794641 #### [facility] [address] [place] [address] Vit B12on 01-19-2023 Cobalamin (Vitamin B12) [Mass/Vol] 706 pg/mL Normal 50-[address] [facility] Comment on above: Performed By: #### 2 099354, 4825103, 3371666, 3248402, 15811135, 9979330 #### [facility] [address] [place] [address] Vitamin D 25 Hydroxyon 01-19 25-hydroxyvitamin D3 [Mass/Vol] 45.7 ng/mL Normal 30.0-100.[address] [facility] Comment on above: Result Comment: Vit arriaza D deficiency has been defined as a level of serum 25-OH vitamin D less than 20 ng/mL (1,2) by the [place] of Medicine and an Endocrine Society practice guideline. The Endocrine Society further defined vitamin D insufficiency as a level between 21 and 29 ng/mL (2). 1. IOM ([place] of Medicine). 2010. Dietary reference intakes for calcium and D. [place]: The National Academies Press. 2. Lizzette MF, Parul SANDOVAL, Fanny HELLER, et al. Evaluation, treatment, and prevention of vitamin D deficiency: an Endocrine Society clinical practice guideline. JCEM. 2010; 96 (7):1911-30. Performed By: #### 2 899758, 3877911, 9143995, 7725493, 15865544, 0323514 #### [facility] [address] [place] [address] eGFRon 01-19-2023 GFR/1.73 sq M.predicted among non-blacks MDRD (S/P/Bld) [Vol rate/Area] 26 mL/min/1.73 m2 Low >=[address] [facility] Comment on above: Order Comment: Order added by Discern Expert. Result Comment: Marketing Representative denise kidney disease could be indicated at eGFR's of less than 60 mL/min/1.73m2. Kidney failure is indicated at less than 15 mL/min/1.73m2. Performed By: #### 2 079179, 4468609, 8513080, 5431091, 93889623, 6040569 #### [facility] [address] [place] [address] Office Visit (Cardiology)on 12-15-2022 Follow-up visit Diagnoses/Problems [...] Weight Tips; Status:Complete - Retrospective Authorization; Done: [id number] Some eating tips that can help you lose weight.; Status:Complete - Retrospective Authorization; Done: [id number] SocHx: Former smoker Tobacco Use Screening; Status:Complete; Done: [id number] Patient Instructions Please bring all medicines, vitamins, [...] 8. Carotid duplex scan 2020 normal Anayeli Ayala MD, FACC Surgical History Problems History of Adenoidectomy History [...] FOR CHEST PAIN.CALL 911 IF PAIN PERSISTS. [place] 3 1000 MG Oral CapsuleTAKE 1 CAPSULE [...] rashes. Neurological: (more content not included)... Normal [employer] Tobacco Screening.on 023 Fall risk assessment a) No falls within the last year -[facility] [address] DO Work Phone: Tobacco use status CP b) No -[facility] [address] DO Work Phone: Comprehensive Metabolic Pane ivan 10-04-2022 Albumin [Mass/Vol] 4.5 g/dL Normal 3.5-5.7 [facility] Comment on above: Order Comment: PT FA STED 12 HOURS Reason for Exam Chronic kidney disease, stage 3b;Hypertensive chronic kidney Performed By: #### C MP, MG #### [facility] [address] [id number] [facility] Albumin/Globulin [Mass ratio] 2.0 {ratio} Normal [facility] Comment on above: Order Comment: PT FA STED 12 HOURS Reason for Exam Chronic kidney disease, stage 3b;Hypertensive chronic kidney Performed By: #### C MP, MG #### [facility] [address] [id number] [place] ALP [Catalytic activity/Vol] 41 U/L Normal 34-104 [facility] Comment on above: Order Comment: PT FA STED 12 HOURS Reason for Exam Chronic kidney disease, stage 3b;Hypertensive chronic kidney Performed By: #### C MP, MG #### [facility] [address] [place] [id number] [place] ALT [Catalytic activity/Vol] 33 U/L Normal 7-52 [facility] Comment on above: Order Comment: PT FA STED 12 HOURS Reason for Exam Chronic kidney disease, stage 3b;Hypertensive chronic kidney Performed By: #### C MP, MG #### [facility] [address] [place] [id number] [place] Anion gap [Moles/Vol] 15.1 mmol/L High 6.0-15.0 [facility] Comment on above: Order Comment: PT FA STED 12 HOURS Reason for Exam Chronic kidney disease, stage 3b;Hypertensive chronic kidney Performed By: #### C MP, MG #### [facility] [address] [place] [address] [place] AST [Catalytic activity/Vol] 31 U/L Normal 13-39 [facility] Comment on above: Order Comment: PT FA STED 12 HOURS Reason for Exam Chronic kidney disease, stage 3b;Hypertensive chronic kidney Performed By: #### C MP, MG #### [facility] [address] [place] [address] [place] Bilirubin [Mass/Vol] 0.7 mg/dL Normal 0.3-1.0 [facility] Comment on above: Order Comment: PT FA STED 12 HOURS Reason for Exam Chronic kidney disease, stage 3b;Hypertensive chronic kidney Performed By: #### C MP, MG #### [facility] [address] [place] [address] [place] Calcium [Mass/Vol] 9.4 mg/dL Normal 8.6-10.3 [facility] Comment on above: Order Comment: PT FA STED 12 HOURS Reason for Exam Chronic kidney disease, stage 3b;Hypertensive chronic kidney Performed By: #### C MP, MG #### [facility] [address] [place] [address] [place] Chloride [Moles/Vol] 103 mmol/L Normal 98-107 [facility] Comment on above: Order Comment: PT FA STED 12 HOURS Reason for Exam Chronic kidney disease, stage 3b;Hypertensive chronic kidney Performed By: #### C MP, MG #### [facility] [address] [place] [address] [place] CO2 [Moles/Vol] 23.7 mmol/L Normal 21.0-31.0 [facility] Comment on above: Order Comment: PT FA STED 12 HOURS Reason for Exam Chronic kidney disease, stage 3b;Hypertensive chronic kidney Performed By: #### C MP, MG #### [facility] [address] [place] [address] [place] Creatinine [Mass/Vol] 3.22 mg/dL High 0.70-1.30 [facility] Comment on above: Order Comment: PT FA STED 12 HOURS Reason for Exam Chronic kidney disease, stage 3b;Hypertensive chronic kidney Performed By: #### C MP, MG #### [facility] [address] [place] [id number] [place] GFR/1.73 sq M.predicted MDRD (S/P/Bld) [Vol rate/Area] 19.901 mL/min/{1.73_m2} [facility] Comment on above: Order Comment: PT FA STED 12 HOURS Reason for Exam Chronic kidney disease, stage 3b;Hypertensive chronic kidney Performed By: #### C MP, MG #### [facility] [address] [place] [phone] [place] Globulin (S) [Mass/Vol] 2.2 g/dL [facility] Comment on above: Order Comment: PT FA STED 12 HOURS Reason for Exam Chronic kidney disease, stage 3b;Hypertensive chronic kidney Performed By: #### C MP, MG #### [facility] [address] [place] [phone] [facility] Glucose [Mass/Vol] 118 mg/dL High 70-100 [facility] Comment on above: Order Comment: PT FA STED 12 HOURS Reason for Exam Chronic kidney disease, stage 3b;Hypertensive chronic kidney Result Comment: [place] Glucose Reference Range is dependent on time and content of last meal. Glucose of more than 200 mg/dL in a nonstressed, ambulatory subject supports the diagnosis of Diabetes Mellitus. ADA recommended reference range Performed By: #### C MP, MG #### [facility] [address] [place] [phone] [place] Potassium [Moles/Vol] 4.8 mmol/L Normal 3.5-5.1 [facility] Comment on above: Order Comment: PT FA STED 12 HOURS Reason for Exam Chronic kidney disease, stage 3b;Hypertensive chronic kidney Performed By: #### C MP, MG #### [facility] [address] [place] [phone] [place] Protein [Mass/Vol] 6.7 g/dL Normal 6.4-8.9 [facility] Comment on above: Order Comment: PT FA STED 12 HOURS Reason for Exam Chronic kidney disease, stage 3b;Hypertensive chronic kidney Performed By: #### C MP, MG #### [facility] [address] [place] [phone] [place] Sodium [Moles/Vol] 137 mmol/L Normal 136-145 [facility] Comment on above: Order Comment: PT FA STED 12 HOURS Reason for Exam Chronic kidney disease, stage 3b;Hypertensive chronic kidney Performed By: #### C MP, MG #### [facility] [address] [place] [address] [place] Urea nitrogen [Mass/Vol] 76 mg/dL High 12-21 [facility] Comment on above: Order Comment: PT FA STED 12 HOURS Reason for Exam Chronic kidney disease, stage 3b;Hypertensive chronic kidney Performed By: #### C MP, MG #### [facility] [address] [place] [address] [place] Dipstick and Microscopicon 0 10-04-2022 Appearance (U) Clear Normal Clear [facility] Comment on above: Order Comment: Reaso n for Exam Chronic kidney disease, stage 3b;Hypertensive chronic kidney Name Collection Type:: Clean-Voided Midstream Performed By: #### A DDONUAPLUS ####[address] Bacteria,Urine None Seen Normal None Seen [facility] Comment on above: Order Comment: Reaso n for Exam Chronic kidney disease, stage 3b;Hypertensive chronic kidney Name Collection Type:: Clean-Voided Midstream Performed By: #### A DDONUAPLUS ####[place] [id number] [place] Bilirubin,Urine Negative Normal Negative [facility] Comment on above: Order Comment: Reaso n for Exam Chronic kidney disease, stage 3b;Hypertensive chronic kidney Name Collection Type:: Clean-Voided Midstream Performed By: #### A DDONUAPLUS ####[place] [id number] [place] Color (U) Yellow Normal Yellow [facility] Comment on above: Order Comment: Reaso n for Exam Chronic kidney disease, stage 3b;Hypertensive chronic kidney Name Collection Type:: Clean-Voided Midstream Performed By: #### A DDONUAPLUS ####[place] [id number] [place] Glucose Ql (U) Normal Normal Normal [facility] Comment on above: Order Comment: Reaso n for Exam Chronic kidney disease, stage 3b;Hypertensive chronic kidney Name Collection Type:: Clean-Voided Midstream Performed By: #### A DDONUAPLUS ####[facility] [place] [address] [facility] Hyaline Casts,Urine 0-8 Normal 0-8 [facility] Comment on above: Order Comment: Reaso n for Exam Chronic kidney disease, stage 3b;Hypertensive chronic kidney Name Collection Type:: Clean-Voided Midstream Result Comment: PERF ORMED BY: [facility] [address] [place] [id number] PATHOLOGIST ELECTROTYPER JAMI BERNABE M.D. Performed By: #### A DDONUAPLUS ####[address] [address] [facility] Ketones Ql (U) Negative Normal Negative [facility] Comment on above: Order Comment: Reaso n for Exam Chronic kidney disease, stage 3b;Hypertensive chronic kidney Name Collection Type:: Clean-Voided Midstream Performed By: #### A DDONUAPLUS ####[address] [address] [facility] Leukocyte esterase Test strip Ql (U) Negative Normal Negative [facility] Comment on above: Order Comment: Reaso n for Exam Chronic kidney disease, stage 3b;Hypertensive chronic kidney Name Collection Type:: Clean-Voided Midstream Performed By: #### A DDONUAPLUS ####[address] [address] [place] Nitrite,Urine Negative Normal Negative [facility] Comment on above: Order Comment: Reaso n for Exam Chronic kidney disease, stage 3b;Hypertensive chronic kidney Name Collection Type:: Clean-Voided Midstream Performed By: #### A DDONUAPLUS ####[address] [address] [place] Occult Blood,Urine Negative Normal Negative [facility] Comment on above: Order Comment: Reaso n for Exam Chronic kidney disease, stage 3b;Hypertensive chronic kidney Name Collection Type:: Clean-Voided Midstream Result Comment: PERF ORMED BY: [facility] [address] [place] [address] PATHOLOGIST ELECTROTYPER JAMI BERNABE M.D. Performed By: #### A DDONUAPLUS ####[address] pH (U) 5.5 [pH] Normal 5.0-9.0 [facility] Comment on above: Order Comment: Reaso n for Exam Chronic kidney disease, stage 3b;Hypertensive chronic kidney Name Collection Type:: Clean-Voided Midstream Performed By: #### A DDONUAPLUS ####[address] Protein,Urine Trace High Negative [facility] Comment on above: Order Comment: Reaso n for Exam Chronic kidney disease, stage 3b;Hypertensive chronic kidney Name Collection Type:: Clean-Voided Midstream Performed By: #### A DDONUAPLUS ####[address] RBC LM.HPF (Urine sed) [#/Area] 0 /[HPF] Normal 0-4 [facility] Comment on above: Order Comment: Reaso n for Exam Chronic kidney disease, stage 3b;Hypertensive chronic kidney Name Collection Type:: Clean-Voided Midstream Performed By: #### A DDONUAPLUS ####[address] Specificy Clyo,Urine 1.015 Normal 1.001-1.030 [facility] Comment on above: Order Comment: Reaso n for Exam Chronic kidney disease, stage 3b;Hypertensive chronic kidney Name Collection Type:: Clean-Voided Midstream Performed By: #### A DDONUAPLUS ####[address] Squamous Epithelial Cell,Urine None Seen Normal 0-2 [facility] Comment on above: Order Comment: Reaso n for Exam Chronic kidney disease, stage 3b;Hypertensive chronic kidney Name Collection Type:: Clean-Voided Midstream Performed By: #### A DDONUAPLUS ####[address] Urobilinogen,Urine Normal Normal Normal [facility] Comment on above: Order Comment: Reaso n for Exam Chronic kidney disease, stage 3b;Hypertensive chronic kidney Name Collection Type:: Clean-Voided Midstream Performed By: #### A DDONUAPLUS ####[facility] [place] [id number] [facility] WBC,Urine 1-2 Normal 0-4 [facility] Comment on above: Order Comment: Reaso n for Exam Chronic kidney disease, stage 3b;Hypertensive chronic kidney Name Collection Type:: Clean-Voided Midstream Performed By: #### A DDONUAPLUS ####[address] Hemogram CBC Without Diffon 10-04-2022 Erythrocyte distribution width (RBC) [Ratio] 13.6 % Normal 12.0-14.8 [facility] Comment on above: Order Comment: Reaso n for Exam Chronic kidney disease, stage 3b;Hypertensive chronic kidney Performed By: #### C BCNO #### [address] Hematocrit (Bld) [Volume fraction] 35.2 % Low 38.8-50.0 [facility] Comment on above: Order Comment: Reaso n for Exam Chronic kidney disease, stage 3b;Hypertensive chronic kidney Performed By: #### C BCNO #### [facility] [address] [place] [address] Hemoglobin (Bld) [Mass/Vol] 12.0 g/dL Low 13.0-17.0 [facility] Comment on above: Order Comment: Reaso n for Exam Chronic kidney disease, stage 3b;Hypertensive chronic kidney Performed By: #### C BCNO #### [facility] [address] [place] [address] MCH (RBC) [Entitic mass] 30.0 pg Normal 27.5-35.2 [facility] Comment on above: Order Comment: Reaso n for Exam Chronic kidney disease, stage 3b;Hypertensive chronic kidney Performed By: #### C BCNO #### [address] MCV (RBC) [Entitic vol] 88.3 fL Normal 83.5-101 [facility] Comment on above: Order Comment: Reaso n for Exam Chronic kidney disease, stage 3b;Hypertensive chronic kidney Performed By: #### C BCNO #### [facility] [address] Mean Corpuscular HGB Conc 34.0 g/dL Normal 32.5-35.6 [facility] Comment on above: Order Comment: Reaso n for Exam Chronic kidney disease, stage 3b;Hypertensive chronic kidney Performed By: #### C BCNO #### [facility] [address] Platelet mean volume (Bld) [Entitic vol] 8.6 fL Normal 6.6-10.1 [facility] Comment on above: Order Comment: Reaso n for Exam Chronic kidney disease, stage 3b;Hypertensive chronic kidney Result Comment: PERF ORMED BY: [place] [address] PATHOLOGIST ELECTROTYPER JAMI BERNABE M.D. Performed By: #### C BCNO #### [address] Platelets (Bld) [#/Vol] 126 10*3/uL Low 150-450 [facility] Comment on above: Order Comment: Reaso n for Exam Chronic kidney disease, stage 3b;Hypertensive chronic kidney Performed By: #### C BCNO #### [address] RBC (Bld) [#/Vol] 3.99 10*6/uL Normal 3.90-5.60 [facility] Comment on above: Order Comment: Reaso n for Exam Chronic kidney disease, stage 3b;Hypertensive chronic kidney Performed By: #### C BCNO #### [facility] [address] [place] [address] WBC (Bld) [#/Vol] 6.1 10*3/uL Normal 4.1-10.5 [facility] Comment on above: Order Comment: Reaso n for Exam Chronic kidney disease, stage 3b;Hypertensive chronic kidney Performed By: #### C BCNO #### [facility] [address] [place] [address] Magnesiumon 10-04-2022 Magnesium [Mass/Vol] 2.3 mg/dL Normal 1.9-2.7 [facility] Comment on above: Order Comment: PT FA STED 12 HOURS Reason for Exam Chronic kidney disease, stage 3b;Hypertensive chronic kidney Result Comment: PERF ORMED BY: [place] [address] PATHOLOGIST ELECTROTYPER JAMI BERNABE M.D. Performed By: #### C MP, MG #### [facility] [address] [place] [address] [place] Protein Creat Ratio Ur Rando mon 10-04-2022 Creatinine, Urine (Random) 91.0 mg/dL High 14.0-26.0 [facility] Comment on above: Order Comment: Reaso n for Exam Chronic kidney disease, stage 3b;Hypertensive chronic kidney Performed By: #### P ROCRERAT #### [facility] [address] [place] [address] Protein (U) [Mass/Vol] 24 mg/dL High 0-9 [facility] Comment on above: Order Comment: Reaso n for Exam Chronic kidney disease, stage 3b;Hypertensive chronic kidney Performed By: #### P ROCRERAT #### [facility] [address] [place] [address] [place] Urine Protein/Creatinine Ratio 264 mg/g{Cre} High 0-200 [facility] Comment on above: Order Comment: Reaso n for Exam Chronic kidney disease, stage 3b;Hypertensive chronic kidney Result Comment: PERF ORMED BY: [place] [address] PATHOLOGIST ELECTROTYPER JAMI BERNABE M.D. Performed By: #### P ROCRERAT #### [facility] [address] [place], [place] [id number] [place] US renal BIon 10-04-2022 US renal BI [facility] Main [place] [id number] Ultrasound Report Signed Patient: Isidro Calhoun MR#: [id number] 11 : 1950 Acct:[id number] Age/Sex: 72 / M ADM Date: 10/04/22 Loc: Room: Type: REG CLI Attending Dr: Saeed Aiken MD Ordering Provider: [...] Leon Jr., D.O.10/04/2022 12:16 PM Dictation Location: [place] [address] Tech: Rosie Vincent Transcribed By: RUDOLPH 10/04/22 1216 Dictated By: Shiv De Leon Jr, DO 10/04/22 1213 Signed By: 10/04/22 1216 [facility] Laboratory - Chemistry and C hemistry - challengeon 08-11-2022 Cholesterol [Mass/Vol] 61 mg/dL Normal <=129 [facility] [facility] 250 DO Work Phone: Cholesterol in LDL [Mass/Vol] 49 mg/dL above high threshold 7-40 [facility] 250 DO Work Phone: No Panel Informationon 08-11 244 mg/dL above high threshold <=149 [facility] [facility] 250 DO Work Phone: 27 mg/dL [facility] [facility] 250 DO Work Phone: Comment on above: HDL > or equal to 60 mg/dL: Low cardiovascular riskHDL < 40 mg/dL : High cardiovascular risk 120 mg/dL Normal 120-200 [facility] 250 DO Work Phone: Office Visit [...] time of your visit. [place] [facility]chem 6 Zetia 10 mg daily Lipid lab in 6 weeks Retrieve kidney BX [place] [facility] Follow up in 6 months Chief Complaint [...] 8. Carotid duplex scan 2020 normal Anayeli Ayala MD, [facility] Surgical History Problems History of Adenoidectomy History [...] FOR CHEST PAIN.CALL 911 IF PAIN PERSISTS. [place] 3 1000 MG Oral CapsuleTAKE 1 CAPSULE [...] breath. Gastroi (more content not included)... Normal [employer] Tobacco Screening.on 023 Adult depression screening assessment [facility] 250 DO Work Phone: Fall risk assessment a) No falls within the last year [facility] Jayashree velasquez 250 DO Work Phone: Tobacco use status [facility] b) [facility] 250 DO Work Phone: Laboratory - Chemistry and C hemistry - challengeon 05-12-2022 Cholesterol [Mass/Vol] 80 mg/dL Normal <=129 [facility] Jayashree velasquez 250 DO Work Phone: Cholesterol in LDL [Mass/Vol] 38 mg/dL Normal 7-40 [facility] Jayashree y 250 DO Work Phone: No Panel Informationon 05-12 24 {Int._Unit/L} Normal 6-46 [facility] Jayashree velasquez 250 DO Work Phone: 29 {Int._Unit/L} Normal 5-43 [facility] Jayashree y 250 DO Work Phone: 190 mg/dL above high threshold <=149 [facility] Jayashree velasquez 250 DO Work Phone: 27 mg/dL [facility] Jayashree y 250 DO Work Phone: Comment on above: HDL > or equal to 60 mg/dL: Low cardiovascular riskHDL < 40 mg/dL : High cardiovascular risk 141 mg/dL Normal 120-200 [facility] [facility] 250 DO Work Phone: CT guided biopsyon 2 CT guided biopsy [facility] Main [place] [address] [place] [address] CT Scan Report Signed Patient: Isidro Calhoun MR#: [id number] 11 : 1950 Acct:[id number] Age/Sex: 71 / M ADM Date: 12/10/21 Loc: UL Room: Type: [facility] Attending Dr: Saeed Aiken MD Copies to: [...] Celso Vasquez M.D.12/10/2021 1:09 PM Dictation Location: [place] [address] Transcribed By: [facility] 12/10/21 1309 Dictated By: Celso Vasquez DO 12/10/21 1303 Signed By: 12/10/21 1309 Normal [facility] Complete Blood Count Auto Di ffon 12-10-2021 Basophils (Bld) [#/Vol] 0.0 10*3/uL Normal 0.0-0.2 [facility] Comment on above: Order Comment: STAT FOR US BX Result Comment: PERF ORMED BY: [place] [address] PATHOLOGIST ELECTROTYPER JAMI BERNABE M.D. Performed By: #### P T, PTT, CBC #### [place] [address] [place] Basophils/100 WBC (Bld) 0.6 % Normal . [facility] Comment on above: Order Comment: STAT FOR US BX Performed By: #### P T, PTT, CBC #### [facility] [address] [place] [address] [place] Eosinophils (Bld) [#/Vol] 0.4 10*3/uL Normal 0.0-0.45 [facility] Comment on above: Order Comment: STAT FOR US BX Performed By: #### P T, PTT, CBC #### [address] Eosinophils/100 WBC (Bld) 5.6 % Normal . [facility] Comment on above: Order Comment: STAT FOR US BX Performed By: #### P T, PTT, CBC #### [address] Erythrocyte distribution width (RBC) [Ratio] 15.1 % High 12.0-14.8 [facility] Comment on above: Order Comment: STAT FOR US BX Performed By: #### P T, PTT, CBC #### [place] [address] [place] Hematocrit (Bld) [Volume fraction] 32.2 % Low 38.8-50.0 [facility] Comment on above: Order Comment: STAT FOR US BX Performed By: #### P T, PTT, CBC #### [place] [address] [place] Hemoglobin (Bld) [Mass/Vol] 10.7 g/dL Low 13.0-17.0 [facility] Comment on above: Order Comment: STAT FOR US BX Performed By: #### P T, PTT, CBC #### [facility] [address] [place] [address] [place] Lymphocytes (Bld) [#/Vol] 0.9 10*3/uL Low 1.00-4.8 [facility] Comment on above: Order Comment: STAT FOR US BX Performed By: #### P T, PTT, CBC #### [place] [address] [place] Lymphocytes/100 WBC (Bld) 12.3 % Normal . [facility] Comment on above: Order Comment: STAT FOR US BX Performed By: #### P T, PTT, CBC #### [facility] [address] MCH (RBC) [Entitic mass] 30.7 pg Normal 27.5-35.2 [facility] Comment on above: Order Comment: STAT FOR US BX Performed By: #### P T, PTT, CBC #### [facility] [address] MCV (RBC) [Entitic vol] 92.0 fL Normal 83.5-101 [facility] Comment on above: Order Comment: STAT FOR US BX Performed By: #### P T, PTT, CBC #### [facility] [address] Mean Corpuscular HGB Conc 33.3 g/dL Normal 32.5-35.6 [facility] Comment on above: Order Comment: STAT FOR US BX Performed By: #### P T, PTT, CBC #### [facility] [address] [place] [address] [place] Monocytes (Bld) [#/Vol] 0.6 10*3/uL Normal 0.0-0.8 [facility] Comment on above: Order Comment: STAT FOR US BX Performed By: #### P T, PTT, CBC #### [facility] [address] [place] [address] [place] Monocytes/100 WBC (Bld) 8.6 % Normal . [facility] Comment on above: Order Comment: STAT FOR US BX Performed By: #### P T, PTT, CBC #### [facility] [address] [place] [address] [place] Neutrophils (Bld) [#/Vol] 5.3 10*3/uL Normal 1.8-7.7 [facility] Comment on above: Order Comment: STAT FOR US BX Performed By: #### P T, PTT, CBC #### [facility] [address] [place] [address] [place] Neutrophils/100 WBC (Bld) 72.9 % Normal . [facility] Comment on above: Order Comment: STAT FOR US BX Performed By: #### P T, PTT, CBC #### [address] Nucleated RBC/100 WBC (Bld) [Ratio] 0.1 % Normal 0-0.5 [facility] Comment on above: Order Comment: STAT FOR US BX Performed By: #### P T, PTT, CBC #### [address] Platelet mean volume (Bld) [Entitic vol] 8.2 fL Normal 6.6-10.1 [facility] Comment on above: Order Comment: STAT FOR US BX Performed By: #### P T, PTT, CBC #### [address] Platelets (Bld) [#/Vol] 203 10*3/uL Normal 150-450 [facility] Comment on above: Order Comment: STAT FOR US BX Performed By: #### P T, PTT, CBC #### [address] RBC (Bld) [#/Vol] 3.49 10*6/uL Low 3.90-5.60 [facility] Comment on above: Order Comment: STAT FOR US BX Performed By: #### P T, PTT, CBC #### [address] WBC (Bld) [#/Vol] 7.3 10*3/uL Normal 4.5-11.0 [facility] Comment on above: Order Comment: STAT FOR US BX Performed By: #### P T, PTT, CBC #### [address] Ivan 12-10-2021 L -- ---- Specimen: [id number] Received: 12/10/21 Status: [place] Yanezdulce Num: [id number] Spec Type: Surgical Subm Dr: Celso Vasquez DO Tissues: A Gross Only Procedures: Gross Exam - L1 ---- Age/ Patient Sex Location Account Attending Physician ---- Isidro Calhoun 71/M [id number] Saeed Aiken MD ---- SPEC NUM: [id number] RECD: 12/10/21 STATUS: [place] YANEZDulce NUM: [id number] MACK: 12/10/[address]: Celso Vasquez DO ENTERED: 12/10/21 BELLA AVILA: DIMITRI TYPE: Surgical DEPT: S ENTERED BY: [id number] RECV BY: [id number] ORDERED: Gross Exam - L1 ORDERED: Gross [...] Glomerulosclerosis: 4 Segmental Sclerosis: Absent ---- Specimen: [id number] Received: 12/10/21 Status: MI Cotton Num: [id number] Spec Type: Surgical Subm Dr: Celso Vasquez DO Tissues: A Gross Only Procedures: Gross Exam - L1 ---- Patient: Isidro Calhoun [id number] (Continued) ---- Specimen: [id number] Received: 12/10/21 (Continued) Pathological Diagnosis (Continued) Signed (signature on file) Jami Bernabe MD 12/23/21 1452 ---- Specimen: [id number] Received: 12/10/21 Status: MI Cotton Num: [id number] Spec Type: Surgical Subm Dr: Celso Vasquez DO Tissues: A Gross Only Procedures: Gross Exam - L1 ---- Patient: Isidro Calhoun [id number] (Continued) ---- Specimen: [id number] Received: 12/10/21 (Continued) Pathological Diagnosis (Continued) Interstitial Fibrosis: Moderate Tubular Atrophy: Moderate 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 Clinical Information CKD stage III, Diabetes, elevated kidney function, gout Gross Description Received fresh labeled with the patient's name and random biopsy kidney are two cores of perez white, focally hyperemic tissue measuring 1.7 x 0.1 cm each. One tissue is placed in formalin and one tissue is placed in Mello's transport media. The specimen is sent to [facility] for renal studies. (TULIO/MYLENE/) Microscopic Description The entire specimen is forwarded to [facility]. Their laboratory has performed the microscopic examination inclusive of special stain and additional studies as diagnostically necessary. The above reported pathologic diagnoses are those of the excellence consultant. See their attached consultative report for a complete description ([facility] #[id number]). [id number] ---- ---- Specimen: [id number] Received: 12/10/21 Status: MI Cotton Num: [id number] Spec Type: Surgical Subm Dr: Celso Vasquez DO Tissues: A Gross Only Procedures: Gross Exam - L1 ---- Patient: Isidro Calhoun [id number] (Continued) ---- Signed (signature on file) Jami Bernabe MD 12/23/21 1452 Normal [facility] Partial Thromboplastin Timeo n 12-10-2021 aPTT Coag (Bld) [Time] 28.6 s Normal 25.1-36.5 [facility] Comment on above: Order Comment: STAT FOR US BX Result Comment: PERF ORMED BY: [place] [address] PATHOLOGIST ELECTROTYPER JAMI BERNABE M.D. Performed By: #### P T, PTT, CBC #### [facility] [address] [place] [address] Prothrombin Time INRon 12-10 INR Coag (PPP) [Relative time] 1.1 {INR} Normal [facility] Comment on above: Order Comment: STAT FOR [...] By: #### P T, PTT, CBC #### [facility] [address] [place] [address] [place] PT Coag (PPP) [Time] 12.1 s Normal 9.0-12.9 [facility] Comment on above: Order Comment: STAT FOR US BX Performed By: #### P T, PTT, CBC #### [facility] [address] [place] [address] [place] Tobacco Screening.on 022 Adult depression screening assessment No [facility] [facility] 250 DO Work Phone: Fall risk assessment a) No falls within the last year [facility] [facility] 250 DO Work Phone: Tobacco use status [facility] b) No [facility] [facility] 250 DO Work Phone: Laboratory - Chemistry and C hemistry - challengeon 03-23-2021 Cholesterol [Mass/Vol] 72 mg/dL Normal <=129 [facility] vel[facility] [address] [place] Work Phone: Cholesterol in LDL [Mass/Vol] 45 mg/dL above high threshold 7-40 [facility] vel[facility] [address] [place] Work Phone: No Panel Informationon 03-23 40 {Int._Unit/L} Normal 6-46 [facility] [place] Work Phone: 37 {Int._Unit/L} Normal 5-43 [facility] [place] Work Phone: 224 mg/dL above high threshold <=149 [facility] [place] Work Phone: 25 mg/dL [facility] [place] Work Phone: Comment on above: HDL > or equal to 60 mg/dL: Low cardiovascular riskHDL < 40 mg/dL : High cardiovascular risk 143 mg/dL Normal 120-200 [facility] [place] Work Phone: [facility] CARDIAC STRESS/REST INJE CTIONon 01-14-2021 [facility] CARDIAC STRESS/REST INJECTION Patient Name: ISIDRO CALHOUN STUDY: MYOCARDIAL PERFUSION STRESS TEST WITH LEXISCAN Performing facility: [facility], [address] [place] [address], [address] [place] [id number] [facility] Provider: Anayeli Ayala MD, FACC PCP: Dr. Bonilla garcia Supervising provider: Anayeli Ayala MD, FACC INDICATION: CAD; HISTORY: Gender: M; Age: 70 y/o ; Height: 185.42 cm; Weight: 932.3246799 kg. CAD; High Cholesterol; Diabetes; HTN; Quit smoking 31 years ago. Cardiac catheterization on 2004. COMPARISON: Previous nuclear testing completed [id number] at [facility]. ACCESSION NUMBER(S): [id number]; [id number]; [id number] ORDERING CLINICIAN: ANAYELI AYALA TECHNIQUE: TWO DAY protocol. Stress injection: Date:01-14-21, [...] significant interval changes. Electronically signed by: ANAYELI AYALA MD [facility] LAB Carotid Artery Dupl ex Ultrasounon 03-20-2020 [facility] Carotid Artery Duplex Ultrasoun [address], [address] [place] [address] Vascular Lab Report Carotid Artery Duplex Ultrasound Patient Name: ISIDRO Denney Physician: [id number] Anayeli Ayala MD, BRYNME [facility] Study Date: 03/20/2020 Referring [id number] Anayeli Ayala MD, Physician: [facility] MRN/PID: [id number] PCP: 11527 Alix Garcia Accession/Order#: [id number] CC Report to: Date of : 1950 Technologist: Suzanna Naranjo RDCS, RVT Gender: M Technologist 2: Admission Status: Outpatient Location Performed: [facility] Diagnosis/ICD: R09.89-Other specified symptoms and signs involving the circulatory and respiratory systems Indication: ASCVD, CKD-Stage III, HTN, Hyperlipidemia, Diabetes, Former Smoker, Morbid Obesity, GAGE Procedure/CPT: 79796 Cerebrovascular Carotid Duplex scan complete-[id number] CONCLUSIONS: Right Carotid: Findings are consistent with [...] cm/s Right Left ICA/CCA Ratio 1.4 0.9 [id number] Anayeli Ayala MD, FACC Final Normal [facility] Vital Signs Date Time Vital Sign Value Performing Clinician Facility 07-12-2024 09:16-0500 Body height 185.4 cm Anayeli Ayala MD Work Phone: [facility] 07-12-2024 09:16-0500 Body mass index (BMI) [Ratio] 38.26 kg/m2 Anayeli Ayala MD Work Phone: [facility] 07-12-2024 09:16-0500 Body weight 131.54 kg Anayeli Ayala MD Work Phone: [facility] 07-12-2024 09:16-0500 Diastolic blood pressure 70 mm[Hg] Anayeli Ayala MD Work Phone: [facility] 07-12-2024 09:16-0500 Heart rate 60 /min Anayeli Ayala MD Work Phone: [facility] 07-12-2024 09:16-0500 Systolic blood pressure 118 mm[Hg] Anayeli Ayala MD Work Phone: [facility] 06-09-2023 10:34-0500 Body height 185.4 cm Anayeli Ayala MD Work Phone: [facility] 06-09-2023 10:34-0500 Body mass index (BMI) [Ratio] 37.47 kg/m2 Anayeli Ayala MD Work Phone: [facility] 06-09-2023 10:34-0500 Body weight 128.82 kg Anayeli Ayala MD Work Phone: [facility] 06-09-2023 10:34-0500 Diastolic blood pressure 62 mm[Hg] Anayeli Ayala MD Work Phone: [facility] 06-09-2023 10:34-0500 Heart rate 52 /min Anayeli Ayala MD Work Phone: [facility] 06-09-2023 10:34-0500 Systolic blood pressure 100 mm[Hg] Anayeli Ayala MD Work Phone: [facility] 05-31-2023 11:40-0500 Body height 185.42 cm Aziz Bakhous Other [facility] Other 05-31-2023 11:40-0500 Body mass index (BMI) [Ratio] 38.73 kg/m2 Azjanie Redds Other [facility] Other 05-31-2023 11:40-0500 Body temperature 97.1 [degF] Saeed Redds Other [facility] Other 05-31-2023 11:40-0500 Body weight 133.18 kg Saeed Redds Other [facility] Other 05-31-2023 11:40-0500 Diastolic blood pressure 80 mm[Hg] Saeed Redds Other [facility] Other 05-31-2023 11:40-0500 Respiratory rate 16 /min Saeed Redds Other [facility] Other 05-31-2023 11:40-0500 SaO2% (BldA) [Mass fraction] 97 % Saeed Redds Other [facility] Other 05-31-2023 11:40-0500 Systolic blood pressure 127 mm[Hg] Saeed Redds Other [facility] Other 01-25-2023 11:00-0400 Body height 185.42 cm Saeed Redds Other [facility] Other 01-25-2023 11:00-0400 Body mass index (BMI) [Ratio] 38.39 kg/m2 Saeed Nicolehous Other [facility] Other 01-25-2023 11:00-0400 Body temperature 97 [degF] Saeed Aiken Other [facility] Other 01-25-2023 11:00-0400 Body weight 132 kg Saeed Aiken Other [facility] Other 01-25-2023 11:00-0400 Diastolic blood pressure 73 mm[Hg] Saeed Aiken Other [facility] Other 01-25-2023 11:00-0400 Respiratory rate 16 /min Saeed Aiken Other [employer] Other 01-25-2023 11:00-0400 SaO2% (BldA) [Mass fraction] 98 % Saeed Aiken Other [facility] Other 01-25-2023 11:00-0400 Systolic blood pressure 115 mm[Hg] Saeed Aiken Other [employer] Other 12-15-2022 10:41-0400 Body height 185.42 cm Alix Delgado [employer] Work Phone: [facility] [place] 250 DO Work Phone: 12-15-2022 10:41-0400 Body mass index (BMI) [Ratio] 38.13 kg/m2 Alix Delgado [employer] Work Phone: [facility] [place] 250 DO Work Phone: 12-15-2022 10:41-0400 Body surface area Derived from formula 2.52 m2 Alix C Meera Work Phone: [facility] [place] 250 DO Work Phone: 12-15-2022 10:41-0400 Body weight 131.09 kg Alix C Meera Work Phone: [facility] 250 DO Work Phone: 12-15-2022 10:41-0400 Diastolic blood pressure 64 mm[Hg] Alix C Meera Work Phone: [facility] 250 DO Work Phone: 12-15-2022 10:41-0400 Heart rate 60 /min Alix C Meera Work Phone: [facility] 250 DO Work Phone: 12-15-2022 10:41-0400 Systolic blood pressure 100 mm[Hg] Alix C Meera Work Phone: [facility] 250 DO Work Phone: 10-26-2022 11:00-0400 Body height 185.42 cm [employer] Phizzle Other [facility] [employer] Other 10-26-2022 11:00-0400 Body mass index (BMI) [Ratio] 38.49 kg/m2 [employer] Phizzle Other [facility] [employer] Other 10-26-2022 11:00-0400 Body temperature 96.4 [degF] [employer] Phizzle Other [facility] [employer] Other 10-26-2022 11:00-0400 Body weight 132.36 kg Aziz Phizzle Other [facility] Other 10-26-2022 11:00-0400 Diastolic blood pressure 73 mm[Hg] Aziz Phizzle Other [employer] Other 10-26-2022 11:00-0400 Respiratory rate 16 /min [employer] Bakhous Other [facility] Other 10-26-2022 11:00-0400 SaO2% (BldA) [Mass fraction] 98 % Aziz Bakhous Other [employer] Other 10-26-2022 11:00-0400 Systolic blood pressure 111 mm[Hg] Aziz Bakhous Other [employer] Other 07-12-2022 10:40-0500 Body height 185.42 cm Aziz Bakhous Other [employer] Other 07-12-2022 10:40-0500 Body mass index (BMI) [Ratio] 39.36 kg/m2 Azjanie Bakhous Other [facility] Other 07-12-2022 10:40-0500 Body temperature 96.8 [degF] Azjanie Redds Other [employer] Other 07-12-2022 10:40-0500 Body weight 135.35 kg Azjanie Bakhous Other [employer] Other 07-12-2022 10:40-0500 Diastolic blood pressure 77 mm[Hg] Aziz Bakhous Other [employer] [employer] Other 07-12-2022 10:40-0500 Respiratory rate 18 /min Aziz Bakhous Other [employer] Other 07-12-2022 10:40-0500 SaO2% (BldA) [Mass fraction] 99 % Aziz Bakhous Other [facility] Other 07-12-2022 10:40-0500 Systolic blood pressure 122 mm[Hg] Saeed GivUshys Other [facility] [employer] Other 06-15-2022 11:05-0500 Body height 182.88 cm Alix C Meera Work Phone: [facility] 250 DO Work Phone: 06-15-2022 11:05-0500 Body mass index (BMI) [Ratio] 40.96 kg/m2 Alix C Meera Work Phone: [facility] 250 DO Work Phone: 06-15-2022 11:05-0500 Body surface area Derived from formula 2.54 m2 Alix C Meera Work Phone: [facility] 250 DO Work Phone: 06-15-2022 11:05-0500 Body weight 136.99 kg Alix C Meera Work Phone: [facility] 250 DO Work Phone: 06-15-2022 11:05-0500 Diastolic blood pressure 64 mm[Hg] Alix C Meera Work Phone: [facility] 250 DO Work Phone: 06-15-2022 11:05-0500 Heart rate 54 /min Alix C Meera Work Phone: [facility] 250 DO Work Phone: 06-15-2022 11:05-0500 Systolic blood pressure 122 mm[Hg] Alix C Meera Work Phone: [facility] 250 DO Work Phone: 03-01-2022 16:00-0400 Body height 185.42 cm Saeed Redds Other [facility] Other 03-01-2022 16:00-0400 Body mass index (BMI) [Ratio] 39.13 kg/m2 Azjanie Redds Other [employer] Other 03-01-2022 16:00-0400 Body temperature 97.1 [degF] Saeed Redds Other [facility] Other 03-01-2022 16:00-0400 Body weight 134.54 kg Saeed Redds Other [employer] Other 03-01-2022 16:00-0400 Diastolic blood pressure 73 mm[Hg] Saeed Redds Other [facility] Other 03-01-2022 16:00-0400 Respiratory rate 18 /min Saeed Redds Other [employer] [employer] Other 03-01-2022 16:00-0400 SaO2% (BldA) [Mass fraction] 97 % Saeed Redds Other [facility] Other 03-01-2022 16:00-0400 Systolic blood pressure 105 mm[Hg] Saeed Redds Other [facility] Other 01-13-2022 12:40-0400 Body height 185.42 cm Azjanie Bakhous Other [facility] Other 01-13-2022 12:40-0400 Body mass index (BMI) [Ratio] 38.15 kg/m2 Azjanie Nicolehous Other [facility] Other 01-13-2022 12:40-0400 Body temperature 96.5 [degF] Aziz Bakhous Other [employer] Other 01-13-2022 12:40-0400 Body weight 131.18 kg Aziz Bakhous Other [facility] Other 01-13-2022 12:40-0400 Diastolic blood pressure 88 mm[Hg] Aziz Bakhous Other [employer] Other 01-13-2022 12:40-0400 Respiratory rate 18 /min Azjanie Bakshys Other [facility] Other 01-13-2022 12:40-0400 SaO2% (BldA) [Mass fraction] 96 % Azjanie Bakhous Other [employer] Other 01-13-2022 12:40-0400 Systolic blood pressure 138 mm[Hg] Aziz Bakhous Other [employer] [employer] Other 11-25-2021 11:00-0400 Body height 185.42 cm Saeed Bakhous Other [employer] [employer] Other 11-25-2021 11:00-0400 Body mass index (BMI) [Ratio] 38.42 kg/m2 Aziz Bakhous Other [employer] Other 11-25-2021 11:00-0400 Body temperature 96.6 [degF] Aziz Bakhous Other [employer] [employer] Other 11-25-2021 11:00-0400 Body weight 132.09 kg Aziz Bakhous Other [facility] Other 11-25-2021 11:00-0400 Diastolic blood pressure 74 mm[Hg] Aziz Bakhous Other [employer] [employer] Other 11-25-2021 11:00-0400 Respiratory rate 18 /min Aziz Bakhous Other [facility] Other 11-25-2021 11:00-0400 SaO2% (BldA) [Mass fraction] 98 % Aziz Bakhous Other [facility] Other 11-25-2021 11:00-0400 Systolic blood pressure 114 mm[Hg] Aziz Bakhous Other [facility] Other 10-14-2021 10:00-0400 Body height 185.42 cm Aziz Bakhous Other [facility] Other 10-14-2021 10:00-0400 Body mass index (BMI) [Ratio] 38.18 kg/m2 Aziz Bakhous Other [facility] Other 10-14-2021 10:00-0400 Body temperature 96.4 [degF] Aziz Bakhous Other [employer] Other 10-14-2021 10:00-0400 Body weight 131.27 kg Aziz Bakhous Other [employer] Other 10-14-2021 10:00-0400 Diastolic blood pressure 74 mm[Hg] Aziz Bakhous Other [facility] Other 10-14-2021 10:00-0400 Respiratory rate 18 /min Aziz Bakhous Other [facility] [employer] Other 10-14-2021 10:00-0400 SaO2% (BldA) [Mass fraction] 98 % Saeed Aiken Other [facility] [employer] Other 10-14-2021 10:00-0400 Systolic blood pressure 115 mm[Hg] Saeed Aiken Other [facility] [employer] Other 09-23-2021 10:23-0400 Body height 185.42 cm Alix C Meera Work Phone: [facility] 250 DO Work Phone: 09-23-2021 10:23-0400 Body mass index (BMI) [Ratio] 37.87 kg/m2 Alix C Meera Work Phone: [facility] 250 DO Work Phone: 09-23-2021 10:23-0400 Body surface area Derived from formula 2.51 m2 Alix C Meera Work Phone: [facility] 250 DO Work Phone: 09-23-2021 10:23-0400 Body weight 130.18 kg Alix C Meera Work Phone: [facility] 250 DO Work Phone: 09-23-2021 10:23-0400 Diastolic blood pressure 70 mm[Hg] Alix C Meera Work Phone: [facility] 250 DO Work Phone: 09-23-2021 10:23-0400 Heart rate 72 /min Alix C Meera Work Phone: [facility] 250 DO Work Phone: 09-23-2021 10:23-0400 Systolic blood pressure 132 mm[Hg] Alix Garcia Work Phone: [facility] 250 DO Work Phone: 04-16-2021 16:20-0500 Body height 185.42 cm Hong Sargentdorothy Other [facility] [employer] Other 04-16-2021 16:20-0500 Body mass index (BMI) [Ratio] 41.03 kg/m2 Hong Sargentdorothy Other [facility] [employer] Other 04-16-2021 16:20-0500 Body temperature 97.1 [degF] Hong Jose M Other [facility] [employer] Other 04-16-2021 16:20-0500 Body weight 141.07 kg Hong Sargentdorothy Other [facility] [employer] Other 04-16-2021 16:20-0500 Diastolic blood pressure 87 mm[Hg] Hong Jose M Other [facility] [employer] Other 04-16-2021 16:20-0500 Respiratory rate 18 /min Hong [employer]ent[employer] Other [employer] Other 04-16-2021 16:20-0500 SaO2% (BldA) [Mass fraction] 95 % Hong Sargentdorothy Other [facility] [employer] Other 04-16-2021 16:20-0500 Systolic blood pressure 139 mm[Hg] Hong Jose M Other [employer] Other Encounters Encounter Date Encounter Type Care Provider Facility Start: 07-12-2024 End: 07-12-2024 Office outpatient visit 25 minutes Anayeli Ayala MD Work Phone: [facility] Comment on above: ASCVD (arteriosclero tic cardiovascular disease) (Primary Dx); Benign essential hypertension; Type 2 diabetes mellitus with chronic kidney disease, without long-term current use of insulin, unspecified CKD stage (Multi); Mixed hyperlipidemia; Stage 4 chronic kidney disease (Multi); Obstructive sleep apnea syndrome; BMI 38.0-38.9,adult; Former smoker; Class 2 obesity Start: 07-12-2024 End: 07-12-2024 ambulatory [facility]ulatory Start: 07-06-2024 End: 07-06-2024 ambulatory [facility] Start: 05-08-2024 End: 05-08-2024 Tawanda Altamirano MD Work Phone: [facility] Start: 05-08-2024 End: 05-08-2024 Tawanda Altamirano MD Work Phone: [facility] Start: 05-08-2024 End: 05-08-2024 Office outpatient visit 15 minutes Jose Luis Altamirano MD Work Phone: [facility] Comment on above: Seborrheic keratosis (Primary Dx); History of basal cell carcinoma; Lentigines; Actinic keratosis; Neoplasm of unspecified behavior of bone, soft tissue, and skin Start: 05-08-2024 End: 05-08-2024 ambulatory JOSE LUIS ALTAMIRANO Not Available Start: 04-25-2024 End: 04-25-2024 ambulatory MD SAEED AIKEN Facility[facility] Start: 01-11-2024 ambulatory MD SAEED Carlos y:[facility] Start: 12-21-2023 End: 12-21-2023 ambulatory [facility] Amb[facility] Start: 12-17-2023 End: 12-17-2023 ambulatory [facility] Start: 09-27-2023 End: 09-27-2023 ambulatory MD ISIDRO MUHAMMAD Facility:[facility] Start: 08-30-2023 End: 08-30-2023 ambulatory ADEEL SHARPE Not Available Start: 06-15-2023 End: 06-16-2023 ambulatory ANAYELI AYALA [facility] Start: 06-09-2023 End: 06-09-2023 Office outpatient visit 25 minutes Anayeli Ayala MD Work Phone: [facility] Comment on above: ASCVD (arteriosclero tic cardiovascular disease) (Primary Dx); Benign essential hypertension; Mixed hyperlipidemia; Stage 4 chronic kidney disease (CMS/HCC); Type 2 diabetes mellitus without complication, without long-term current use of insulin (CMS/[facility]); Shortness of breath; Lung crackles; Obstructive sleep apnea; Morbid obesity ([facility]/HCC) Start: 06-07-2023 End: 06-08-2023 ambulatory Yamilet YADAV [facility] Start: 05-31-2023 End: 05-31-2023 ambulatory Saeed Aikne Other [facility] Other Start: 05-31-2023 Office outpatient vi sit 25 minutes Aziz Ivanias [facility] Start: 05-24-2023 End: 05-24-2023 ambulatory MD SAEED AIKEN [facility] Start: 04-19-2023 End: 04-19-2023 ambulatory Saeed Redds Other [facility] Other Start: 04-19-2023 Telephone encounter Azjanie Redds [facility] Start: 04-14-2023 End: 04-14-2023 ambulatory DANAE SNYDER Facility:[facility] Start: 03-08-2023 End: 03-08-2023 ambulatory Saeed Rdeds Other [facility] Other Start: 03-08-2023 Telephone encounter Azjanie Bakshys [facility] Start: 01-25-2023 End: 01-25-2023 ambulatory Saeed Aiken Other [facility] Other Start: 01-25-2023 Office outpatient vi sit 25 minutes Azjanie Redds [facility] Start: 01-19-2023 End: 01-19-2023 ambulatory MD SAEED AIKEN Facility[facility] Start: 12-15-2022 Office outpatient vi sit 25 minutes Alix C Meera Work Phone: [facility] 250 DO Work Phone: Start: 12-15-[address] Anayeli moraes [facility] Facility: Start: 11-22-2022 End: 11-22-2022 ambulatory Radha Lopezr Other [facility] Other Start: 11-22-2022 Telephone encounter Radhamira Hernandez [facility] Start: 11-01-2022 Rx Renewal Alix C Meera Work Phone: [facility] 250 DO Work Phone: Start: 10-26-2022 End: 10-26-2022 ambulatory Saeed Aiken Other [facility] Other Start: 10-26-2022 Office outpatient vi sit 25 minutes Saeed Aikne [facility] Start: 10-04-2022 End: 10-04-2022 ambulatory Saeed Aiken Facility:[facility] Start: 09-10-2022 Rx Renewal Alix C Meera Work Phone: [facility] 250 DO Work Phone: Start: 08-11-2022 Chart Update Alix C Meera Work Phone: [facility] 250 DO Work Phone: Start: 07-19-2022 Rx Renewal Alix C Meera Work Phone: [facility] 600 DO Work Phone: Start: 07-13-2022 End: 07-13-2022 ambulatory Azjanie GivUshys Other [facility] Other Start: 07-13-2022 Telephone encounter Azjanie Bakhous [facility] Start: 07-12-2022 End: 07-12-2022 ambulatory Aziz Bakhous Other [facility] [employer] Other Start: 07-12-2022 Office outpatient vi sit 25 minutes Aziz Bakhous [facility] Start: 06-15-2022 Office outpatient vi sit 25 minutes Alix C Meera Work Phone: [facility] 250 DO Work Phone: Start: 06-15-[address] Anayeli moraes [facility] Facility: Start: 05-25-2022 Rx Renewal Alix C Meera Work Phone: [facility] 250 DO Work Phone: Start: 05-12-2022 Chart Update Alix C Meera Work Phone: [facility] 250 DO Work Phone: Start: 04-15-2022 End: 04-15-2022 ambulatory Hong Sargentdorothy Other [facility] [employer] Other Start: 04-15-2022 Telephone encounter Hong Sargentdorothy [facility] Start: 03-01-2022 End: 03-01-2022 ambulatory Aziz Bakhous Other [facility] [employer] Other Start: 03-01-2022 Office outpatient vi sit 25 minutes Aziz Bakhous [facility] Start: 02-12-2022 Rx Renewal Alix C Meera Work Phone: [facility] 250 DO Work Phone: Start: 01-14-2022 End: 01-14-2022 ambulatory Aziz Bakhous Other [facility] [employer] Other Start: 01-14-2022 Telephone encounter Aziz Bakhous [facility] Start: 01-13-2022 End: 01-13-2022 ambulatory Aziz Bakhous Other [facility] Other Start: 01-13-2022 Office outpatient vi sit 25 minutes Aziz Bakhous [facility] Start: 12-21-2021 End: 12-21-2021 ambulatory Radha Mary Other [facility] Other Start: 12-21-2021 Telephone encounter Radha Mary [facility] Start: 12-11-2021 End: 12-11-2021 ambulatory Aziz Bakhous Other [facility] Other Start: 12-11-2021 Telephone encounter Aziz Bakhous [facility] Start: 12-10-2021 End: 12-10-2021 ambulatory Aziz Bakhous Facility:[facility] Start: 12-04-2021 End: 12-04-2021 ambulatory Aziz Bakhous Other [facility] Other Start: 12-04-2021 Telephone encounter Aziz Bakhous [facility] Start: 11-25-2021 End: 11-25-2021 ambulatory Aziz Bakhous Other [facility] Other Start: 11-25-2021 Office outpatient vi sit 25 minutes Aziz Bakhous [facility] Start: 11-09-2021 Rx Renewal Alix C Meera Work Phone: [facility] 250 DO Work Phone: Start: 10-14-2021 End: 10-14-2021 ambulatory Aziz Bakhous Other [facility] Other Start: 10-14-2021 Office outpatient vi sit 25 minutes Aziz Bakhous [facility] Start: 09-23-2021 Office outpatient vi sit 25 minutes Alix C Meera Work Phone: [facility] 250 DO Work Phone: Start: 07-09-2021 Rx Renewal Alix C Meera Work Phone: [facility] 250 DO Work Phone: Start: 04-16-2021 End: 04-16-2021 ambulatory Hong Jose M Other [facility] t3n [employer] Other Start: 04-16-2021 Office outpatient vi sit 15 minutes Hong Salguero [facility] Nephrology Start: 03-23-2021 Chart Update Alix C Meera Work Phone: [facility] [address] [place] Work Phone: Procedures Date Procedure Procedure Detail Performing Clinician Start: 05-08-2024 SKIN / NAIL BIOPSY Rosalio Altamirano MD Work Phone: Start: 05-08-2024 CRYOTHERAPY SKIN LESION Jose Luis Altamirano MD Work Phone: Start: 06-15-2023 CT CHEST HIGH RESOLUTION ANAYELI AYALA Adenoid excision Alix C Tin ker Work Phone: Operation on nose Alix C Ti nker Work Phone: Tonsillectomy Alix C Meera Work Phone: Total colonoscopy Alix C Ti nker Work Phone: Plan of Treatment Date Care Activity Detail Author Start: 07-18-2033 DTaP/Tdap/Td Vaccines (2 - Td or Tdap) DTaP/Tdap/Td Vaccines (2 - Td or Tdap) [facility] Start: 08-29-2025 Glaucoma screening Diabetes: Retinopathy Screening [facility] Start: 05-08-2025 End: 05-08-2025 Patient encounter procedure 05/08/2025 9:05 AM EST Office Visit [facility] [address] [place] [address] Jose Luis Altamirano MD [address] [place] [address] [facility] Start: 03-07-2025 End: 03-07-2025 Patient encounter procedure 03/07/2025 9:20 AM EDT Office Visit [facility] [address] [place] [id number] Anayeli Ayala MD [address] [place] [address] [facility] Start: 09-04-2024 End: 09-04-2024 Patient encounter procedure 09/04/2024 1:30 PM EDT Office Visit [facility] [address] [place] [id number] Adeel Sharpe DO [address] [place] [address] [facility] Start: 07-13-2024 Medicare Annual Wellness Visit Medicare Annual Wellness Visit (AWV) [facility] Start: 05-08-2024 End: 05-08-2024 Patient encounter procedure 05/08/2024 8:45 AM EST Office Visit [facility] [address] [place] [address] Jose Luis Altamirano MD [address] [place] [address] Arrived [facility] Comment on above: Arrived Start: 01-29-2024 Influenza vaccination Influenza Vaccine (#1) [facility] Start: 12-21-2023 End: 12-21-2023 Patient encounter procedure 12/21/2023 10:10 AM EDT Office Visit [facility] [address] [facility] [address] [place] [address] Anayeli Ayala MD [address] [facility] [facility] [address] [address] [place] [address] [facility] Start: 2023 Zoster Vaccines (3 of 3) Zoster Vaccines (3 of 3) [facility] Start: 06-23-2023 COVID-19 Vaccine (4 - Pfizer series) COVID-19 Vaccine (4 - Pfizer series) [facility] Start: 06-09-2023 End: 06-09-[address] chest high resolution Imaging Routine Shortness of breath Lung crackles Expected: 06/09/2023, Expires: 06/09/2024 [facility] Service Area Work Phone: Comment on above: Expected: 06/09/2023, Expires: Start: 06-09-2023 FUV, Provider: Anayeli Ayala, Status: Pen, Time: 10:30 AM FUV, Provider: Anayeli Ayala, Status: Pen, Time: 10:30 AM [facility] 250 DO Work Phone: Start: 01-08-2023 Glaucoma screening Diabetes: Retinopathy Screening [facility] Start: 12-15-2022 FUV, Provider: Anayeli Ayala, Status: Pen, Time: 10:40 AM FUV, Provider: Anayeli Ayala, Status: Pen, Time: 10:40 AM [facility] 250 DO Work Phone: Start: 06-15-2022 FUV, Provider: Anayeli Ayala, Status: Pen, Time: 10:50 AM FUV, Provider: Anayeli Ayala, Status: Pen, Time: 10:50 AM [facility] 250 DO Work Phone: Start: 09-23-2021 FUV, Provider: Anayeli Ayala, Status: Pen, Time: 10:15 AM FUV, Provider: Anayeli Ayala, Status: Pen, Time: 10:15 AM [facility] [address] [place] Work Phone: Start: 2017 Abdominal aortic aneurysm screening Abdominal Aortic Aneurysm (AAA) Screening [facility] Start: 07-25-2014 Zoster Vaccines (2 of 3) Zoster Vaccines (2 of 3) [facility] Start: 1974 DTaP/Tdap/Td Vaccines (1 - Tdap) DTaP/Tdap/Td Vaccines (1 - Tdap) [facility] Start: 09-13-1971 Urine screening for protein Diabetes: Urine Protein Screening [facility] Start: 1970 Hepatitis C screening Hepatitis C Screening [facility] Start: 1962 Diabetic foot examination Diabetes: Foot Exam [facility] Start: 1952 Hemoglobin A1c measurement Diabetes: Hemoglobin A1C [facility] Start: 1952 Lipid panel Lipid Panel [facility] Start: 1952 Medicare Annual Wellness Visit Medicare Annual Wellness Visit (AWV) [facility] Start: 1952 Screening for malignant neoplasm of colon [facility] Dermatopathology exam Dermatopat hology exam Pathology and Cytology Timed Neoplasm of unspecified behavior of bone, soft tissue, and skin Release Upon Ordering for 1 Occurrences starting 05/08/2024 [facility] Work Phone: Comment on above: Release Upon Ordering for 1 Occurrences starting 05/08/2024 Immunizations Immunization Date Immunization Notes Care Provider [facility] 03-22-2024 influenza virus vacc ine, unspecified formulation Jose Luis Altamirano MD Work Phone: [facility] 05-07-2022 pneumococcal polysaccharide vaccine, 23 valent Alix Garcia Work Phone: [facility] 04-13-2022 Fluzone High-Dose Quadrivalent 0.7 ML Intramuscular Suspension Prefilled Syringe Alix Garcia Work Phone: [facility] Work Phone: 04-13-2022 influenza, high dose seasonal, preservative-free Anayeli Ayala MD Work Phone: [facility] Work Phone: 04-13-2022 Pfizer COVID-19 Vac Bivalent 30 MCG/0.3ML Intramuscular Suspension Alix C Meera Work Phone: [facility] 250 DO Work Phone: 10-15-2021 Comirnaty 30 MCG/0.3 ML Intramuscular Suspension Alix C Meera Work Phone: [facility] 250 DO Work Phone: 05-13-2021 Fluzone High-Dose Quadrivalent 0.7 ML Intramuscular Suspension Prefilled Syringe Alix C Meera Work Phone: [facility] 250 DO Work Phone: 05-13-2021 influenza, high dose seasonal, preservative-free Anayeli Ayala MD Work Phone: [facility] Work Phone: 05-06-2021 Pfizer-BioNTech COVI D-19 Vacc 30 MCG/0.3ML Intramuscular Suspension Alix C Meera Work Phone: [facility] 08-22-2020 Pfizer-BioNTech COVI D-19 Vacc 30 MCG/0.3ML Intramuscular Suspension Alix C Meera Work Phone: [facility] 250 DO Work Phone: 08-01-2020 Pfizer-BioNTech COVI D-19 Vacc 30 MCG/0.3ML Intramuscular Suspension Alix C Meera Work Phone: [facility] 250 DO Work Phone: 03-28-2020 influenza, high dose seasonal, preservative-free Alix C Meera Work Phone: [facility] 250 DO Work Phone: 02-28-2020 influenza virus vacc ine, unspecified formulation Alix C Meera Work Phone: [facility] 250 DO Work Phone: 03-30-2019 influenza virus vacc ine, unspecified formulation Alix C Meera Work Phone: [facility] 250 DO Work Phone: 03-21-2019 influenza, high dose seasonal, preservative-free Alix C Meera Work Phone: [facility] 250 DO Work Phone: 02-27-2019 pneumococcal polysaccharide vaccine, 23 valent Alix C Meera Work Phone: [place] [address] DO Work Phone: 02-21-2019 pneumococcal conjuga te vaccine, 13 valent Alix C Meera Work Phone: [place] [address] DO Work Phone: 02-28-2018 influenza, seasonal, injectable Alix C Meera Work Phone: [facility] 250 DO Work Phone: 01-28-2018 influenza virus vacc ine, unspecified formulation Alix C Meera Work Phone: [facility] 250 DO Work Phone: 04-04-2017 pneumococcal polysaccharide vaccine, 23 valent Alix C Meera Work Phone: [facility] 250 DO Work Phone: 01-28-2017 influenza virus vacc ine, unspecified formulation Alix C Meera Work Phone: [facility] 250 DO Work Phone: 05-30-2016 pneumococcal polysaccharide vaccine, 23 valent Alix C Meera Work Phone: [facility] 250 DO Work Phone: 03-15-2016 influenza, seasonal, injectable, preservative free Alix C Meera Work Phone: [facility] 250 DO Work Phone: 02-28-2016 influenza virus vacc ine, unspecified formulation Alix C Meera Work Phone: [facility] 250 DO Work Phone: 02-26-2015 influenza, seasonal, injectable Alix C Meera Work Phone: [facility] 250 DO Work Phone: 01-28-2015 influenza virus vacc ine, unspecified formulation Alix C Meera Work Phone: [facility] 250 DO Work Phone: 05-30-2014 zoster vaccine, live Alix C Meera Work Phone: [facility] 250 DO Work Phone: 02-06-2014 influenza virus vacc ine, unspecified formulation Alix C Meera Work Phone: [facility] 250 DO Work Phone: 04-17-2013 influenza virus vacc ine, unspecified formulation Alix C Meera Work Phone: [facility] 250 DO Work Phone: influenza virus vacc ine, unspecified formulation Alix C Meera Work Phone: [facility] 250 DO Work Phone: Comment on above: 2011Feb 2011 Payers Date Payer Category Payer Private Health Insurance [employer] [id number] 2021 Self-pay 2021 Unknown [id number] 2017 Medicare [id number] 2017 Medicare [id number] 1952 Unknown [id number] 2.16.840.1.347318.3.579.2. 356 1952 Unknown [id number] 2.16.840.1.376231.3.579.2. 356 1952 Unknown [id number] 2.16.840.1.485410.3.579.2. 1246 1952 Unknown [id number] 2.16.840.1.789799.3.579.2. 727 1952 Unknown [id number] 2.16.840.1.641845.3.579.2. 72 1952 Unknown [id number] 2.16.840.1.487338.3.579.2. 727 1952 Unknown [id number] 2.16.840.1.572693.3.579.2. 727 1952 Unknown [id number] 2.16.840.1.628572.3.579.2. 727 1952 Unknown [id number] 2.16.840.1.943101.3.579.2. 727 1952 Unknown [id number] 2.16.840.1.881931.3.579.2. 727 1952 Unknown [id number] 2.16.840.1.734544.3.579.2. 727 1952 Unknown [id number] 2.16.840.1.287195.3.579.2. 727 1952 Unknown [id number] 2.16.840.1.032394.3.579.2. 1259 1952 Unknown [id number] 2.16.840.1.134679.3.579.2. 1259 1952 Unknown [id number] 2.16.840.1.916656.3.579.2. 727 1952 Unknown [id number] 2.16.840.1.979117.3.579.2. 1244 1952 Unknown [id number] 2.16.840.1.431262.3.579.2. 1244 1952 Unknown [id number] 2.16.840.1.681660.3.579.2. 727 Unknown Unknown [id number] 2.16.840.1.703776.3.579.2. 531 Unknown [id number] 2.16.840.1.133310.3.579.2. 531 Social History Date Type Detail Facility Start: 06-09-2023 End: 12-21-2023 Caffeine use Caffeine use [facility] Other Comment on above: quit 34 years ago; Start: 06-09-2023 End: 12-21-2023 Sex Assigned At [facility] Other Start: 05-16-2023 End: 06-09-2023 Tobacco smoking status NHIS Ex-smoker [facility] Work Phone: History of tobacco use Current smoker [facility] Work Phone: History of tobacco use Cigarette Smoker [facility] Work Phone: Start: 05-16-2023 End: 06-09-2023 Tobacco use and exposure Smokeless tobacco non-user [facility] Work Phone: Start: 06-09-2023 End: 07-12-2024 Alcohol intake Current drinker of alcohol (finding) [facility] Work Phone: Start: 1950 [facility] Start: 05-02-2023 Gender identity Identifies as male gender (finding) [facility] Work Phone: Start: 05-02-2023 Sexual orientation Heterosexual (sven chau) [facility] Work Phone: Start: 05-30-2023 End: 07-12-2024 Exposure to SARS-CoV-2 (event) Not sure [facility] Medical Equipment Procedure Code Equipment Code Equipment Origin al Text Equipment Identifier Dates CHECK BLOOD GLUC OSE ONCE DAILY. DX: [id number] Start: 03-15-2023 Clinical Notes 04-16-2021 to 07-12-2024 Anayeli Ayala MD - 07/12/2024 9:20 AM ESTPatient InstructionsJose Luis Altamirano MD - 05/08/2024 8:45 AM Shasha Ayala MD - 06/09/2023 10:30 AM ESTPatient Instructions Note Date & Type Note Facility 07-12-2024 History of Present illness Narrative Subjective Isidro Eliud Calhoun is a 73 y.o. male Chief Complaint Follow-up HPI Patient is in the office for follow-up for the problems noted below. Since his last visit he has had no cardiovascular events. He has stage IV kidney disease followed by nephrology. He has pulmonary findings suggestive of inflammatory lung disease for which he was evaluated last year by pulmonary medicine and it turned out to be nothing serious. He has no dyspnea or cough. His weight remains above target maybe 3 pounds above his previous visit places him in class II obesity. He has no orthopnea PND or lower extremity edema. Recent lab data were reviewed and shared with the patient. ASSESSMENT AND PLAN: 1. Coronary artery disease with no prior intervention , cardiac catheterization 2004 revealed 40-50 percent mid LAD lesion managed medically . Nuclear stress test December 2020 was normal. We will continue to emphasize risk factors modifications. 2. stage IV chronic kidney disease, being monitored by nephrology, nonprogressive 3. Essential hypertension, presently under control. 4. Hyperlipidemia, on high intensity statin, well-tolerated 5. Type II diabetes, managed by PCP. Currently under control A1c just over 6 6. Class II obesity, more weight loss is recommended and low-calorie diet and exercise were encouraged. 7. Sleep apnea, on CPAP machine which the patient is compliant. 8. Bibasilar crackles likely inflammatory lung disease, investigated by pulmonary medicine, no action was taken, remains asymptomatic Review of Systems All other systems reviewed and are negative. Vitals: 07/12/24 0916 BP: 118/70 BP Location: Right arm Patient Position: Sitting Pulse: 60 Weight: 132 kg (290 lb) Height: 1.854 m (6' 1 ) Objective Physical Exam Constitutional: Appearance: Normal appearance. HENT: Nose: Nose normal. Neck: Vascular: No carotid bruit. Cardiovascular: Rate and Rhythm: Normal rate. Pulses: Normal pulses. Heart sounds: Normal heart sounds. Pulmonary: Effort: Pulmonary effort is normal. Comments: Mild crackles Abdominal: General: Bowel sounds are normal. Palpations: Abdomen is soft. Musculoskeletal: General: Normal range of motion. Cervical back: Normal range of motion. Right lower leg: No edema. Left lower leg: No edema. Skin: General: Skin is warm and dry. Neurological: General: No focal deficit present. Mental Status: He is alert. Psychiatric: Mood and Affect: Mood normal. Behavior: Behavior normal. Thought Content: Thought content normal. Judgment: Judgment normal. Allergies Shellfish containing products and Lisinopril Current Medications Current Outpatient Medications: aspirin 81 mg EC tablet, TAKE 1 TABLET BY MOUTH EVERY DAY, Disp: 90 tablet, Rfl: 3 atorvastatin (Lipitor) 40 mg tablet, TAKE 1 TABLET BY MOUTH EVERYDAY AT BEDTIME, Disp: 90 tablet, Rfl: 3 choline fenofibrate (Trilipix) [address] capsule, TAKE 1 CAPSULE (135 MG) BY MOUTH ONCE DAILY. DO NOT CRUSH, CHEW, OR SPLIT., Disp: 90 capsule, Rfl: 3 Cinnamon 500 mg capsule, Take 2 tablets [...] EVERY DAY, Disp: 90 tablet, Rfl: 3 febuxostat (Uloric) 40 mg tablet, Take 1 tablet (40 mg) by mouth early in the morning.., Disp: , Rfl: furosemide (Lasix) 20 mg tablet, Take 2 tablets (40 mg) by mouth once daily., Disp: 180 tablet, Rfl: 3 garlic 500 mg capsule, Take by mouth. As directed, Disp: , Rfl: glimepiride (Amaryl) 2 mg tablet, Take 2 tablets (4 mg) by mouth once daily in the morning. Take before meals., Disp: , Rfl: Kerendia 10 mg tablet tablet, Take 1 tablet (10 mg) by mouth once daily., Disp: , Rfl: metoprolol tartrate (Lopressor) 25 mg tablet, TAKE 1 TABLET TWICE A DAY, Disp: 180 tablet, Rfl: 3 nitroglycerin (Nitrostat) 0.4 mg SL tablet, Place 1 tablet (0.4 mg) under the tongue every 5 minutes if needed for chest pain., Disp: , Rfl: omega-3 (Super Friendship-3) 1,000 mg capsule capsule, Take 1 capsule (1,000 mg) by mouth 2 times a day., Disp: , Rfl: tamsulosin (Flomax) 0.4 mg 24 hr capsule, Take 1 capsule (0.4 mg) by mouth once daily., Disp: , Rfl: Assessment/Plan 1. ASCVD (arteriosclerotic cardiovascular disease) Follow Up In Cardiology Follow Up In Cardiology 2. Benign essential hypertension 3. Type 2 diabetes mellitus with chronic kidney disease, without long-term current use of insulin, unspecified CKD stage (Multi) 4. Mixed hyperlipidemia 5. Stage 4 chronic kidney disease (Multi) 6. Obstructive sleep apnea syndrome 7. BMI 38.0-38.9,adult 8. Former smoker Scribe Attestation By signing my name below, I, Tonya Sheikh RN , Scribe attest that this documentation has been prepared under the direction and in the presence of Anayeli Ayala MD. Provider Attestation - Scribe documentation All medical record entries made by the Scribe were at my direction and personally dictated by me. I have reviewed the chart and agree that the record accurately reflects my personal performance of the history, physical exam, discussion and plan. documented in this encounter [facility] Work Phone: 07-12-2024 Instructions Tonya Carrillo RN - 07/12/2024 9:20 AM EST Please bring all medicines, vitamins, and herbal supplements with you when you come to the office. Prescriptions will not be filled unless you are compliant with your follow up appointments or have a follow up appointment scheduled as per instruction of your physician. Refills should be requested at the time of your visit. BMI was above normal measurement. Current weight: 132 kg (290 lb) Weight change since last visit (-) denotes wt loss 3 lbs Weight loss needed to achieve BMI 25: 100.9 Lbs Weight loss needed to achieve BMI 30: 63.1 Lbs Provided instructions on dietary changes Provided instructions on exercise. documented in this encounter [facility] Work Phone: 05-08-2024 History of Present illness Narrative Images from the original note were not included. Skin Check Location: Patient requests a full body skin examination Dermatologic history: history of Actinic Keratosis, history of Basal Cell Carcinoma Last visit: 1 year ago Established patient All pertinent medical history, medications, and allergies were reviewed. General Exam: alert, oriented to person, place, and time, normal affect, well appearing Unaccompanied Scalp, Examined , exam limited by hair Right leg Examined Head, Face Examined Left leg Examined Neck Examined Right foot Examined Chest Examined Left foot Examined Back Examined Buttocks Examined Abdomen Examined Digits,nails: Examined Right arm Examined Left arm Examined Lymphatics: Not examined Hands Examined 1. Seborrheic keratosis Torso - Posterior (Back) Stuck on verrucous, perez-brown papules and plaques. Patient was counseled regarding these benign growths. Removal is normally not necessary, but they may be removed if they are symptomatic or for cosmetic reasons. 2. History of basal cell carcinoma Left Merkel No evidence of recurrence at BCC scar. The patient was counseled that scars from excisional sites of nonmelanoma skin cancers should be monitored closely for recurrence. The patient was instructed to contact the office for any new, changing, or symptomatic moles. The patient was also instructed to contact the office for any new lesions that develop within or around the previous surgery scar. 3. Lentigines Scattered perez macules in sun-exposed areas. The patient was informed that lentigines are benign pigmented lesions that occur on sun-exposed and sun-damaged skin. No treatment is necessary. Recommended regular use of broad spectrum sunscreen SPF 30 or higher 4. Actinic keratosis (8) Left Forehead (2), Left Hand - Posterior, Left Merkel, Left Zygomatic Area, Right Forehead, Right Frontal Scalp, Right Temporal Scalp Erythematous scaly papules Patient was counseled regarding these sun-induced growths that can develop into squamous cell carcinoma if left untreated. Discussed treatment with cryotherapy. It was emphasized that any treated lesions that fail to resolve should be re-evaluated. Cryotherapy performed today; see procedure note Diagnosis: Actinic keratosis Indication: Precancerous Location: see skin exam Consent: Verbal consent was obtained and risks were discussed, including, but not limited to risks of scarring, darker or composition roofer pigmentary changes, recurrence, incomplete removal and infection. Method: Liquid nitrogen was used to treat the lesion(s) with two 5-10 second freeze-thaw cycles. Eyes were shielded using cotton pad during procedure Number of lesions treated: 8 Post-procedure instructions: Instructions were given orally and in writing. The office will be contacted if the lesion fails to resolve despite treatment, or if a side effect develops such as abnormal crusting, scabbing, redness or tenderness Cryotherapy, skin lesion - Left Forehead (2), Left Hand - Posterior, Left Merkel, Left Zygomatic Area, Right Forehead, Right Frontal Scalp, Right Temporal Scalp 5. Neoplasm of unspecified behavior of bone, soft tissue, and skin Right Wrist Irregularly pigmented papule Lesion biopsy Type of biopsy: tangential Informed consent: discussed and consent obtained Informed consent comment: The risks and benefits of the biopsy were discussed. Risks include but are not limited to bleeding, infection, scarring, pain, and nerve damage. An opportunity to ask questions prior to the procedure was permitted and all questions were answered. Patient was prepped and draped in usual sterile fashion: area cleansed with alcohol. Anesthesia: the lesion was anesthetized in a standard fashion Anesthetic: 1% lidocaine w/ epinephrine 1-100,000 buffered w/ 8.4% NaHCO3 Instrument used: DermaBlade Hemostasis achieved with: suture and electrodesiccation Outcome: patient tolerated procedure well Outcome comment: The specimen was placed in a prelabeled formalin container to be sent for pathology Post-procedure details: sterile dressing applied and wound care instructions given Post-procedure details comment: Emphasized need to contact clinic for any signs of infection, uncontrollable bleeding, or complications. Dressing type: bandage Additional details: Photo taken Amount of lidocaine used: 1.0 cc Specimen A - Dermatopathology exam Differential Diagnosis: lentigo maligna vs acanthoma Check Margins: No Size of lesion: 2.0 x 2.2 cm Next Visit: 1 year documented in this encounter [facility] 06-09-2023 History of Present illness Narrative Subjective Isidro Kline Oma is a 72 y.o. male Chief Complaint Follow-up HPI Patient is in the office for follow-up for the problems noted below. He was in the emergency department and subsequently admitted to [facility] for chest pain and dyspnea. He [...] to emphasize risk factors modifications. Admission to [facility] May 2023 demonstrated normal cardiac enzymes and [...] 8. Carotid duplex scan 2020 normal Anayeli Ayala MD, [facility] Review of Systems Cardiovascular: Positive for chest [...] chest pain., Disp: , Rfl: omega-3 (Super Friendship-3) 1,000 mg capsule capsule, Take 1 capsule [...] 8. Obstructive sleep apnea 9. Morbid obesity (CMS/HCC) documented in this encounter [facility] Work Phone: 06-09-2023 Instructions Rudy Mackey MA [...] of your visit. documented in this encounter [facility] Work Phone: 06-08-2023 Note Echocardiology Procedure Exam Date/Time Accession # Ordering Echo Transthoracic w/ 06/08/2023 11:24 EST [id number] Iliana Killian MD CPT code C8929 Reason for Exam (Echo Transthoracic w/ Contrast) [place] [address] Adult Echocardiogram Report Name: ISIDRO CALHOUN Study Date: 06/08/2023 10:39 AM BP: 139/71 mmHg Patient Location: S330 01 [facility]: 97 : 1950 Gender: Male Height: 73 in Age: 72 yrs Ethnicity: [facility] Weight: 289 lb Reason For Study: Dyspnea BSA: 2.5 m2 History: [place], Hypertension, Hypercholesterolemia, DM Ordering Physician: Iliana Killian Performed By: Anamaria Kirk, [facility] Interpretation Summary mild to moderate left ventricular [...] no pleural effusion noted on this exam. Mis No comparison study is available. MMode/2D Measurements [...] Signed by: Iliana Killian MD Transcribed by: AK Technologist: BETSY [facility] 06-08-2023 Note Admission and Discha rge Information Admitting Physician - SHAN PIZANO, Alakaren Consulting Physician - [facility], [place] Admitting Diagnoses: Discharge Diagnoses 1. Chest [...] stable condition. 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 Services Consulted Consult to Cardiology - Ordered -- 06/07/23 13:37:00 EST, chest pain, Consult and Co-manage, [facility] Consult to Photoresist Contact Printer - Ordered -- 06/07/23 15:13:40 EST Physical [...] 77.6 % Lymph Auto - 9.1 % Rooks Auto - 11.8 % Eos Auto - 1.2 % Basophil Auto - 0.3 % Neutro Absolute - 6.7 E9/L Lymph Absolute - 0.8 E9/L Rooks Absolute - 1.0 E9/L Eos Absolute - [...] - 148 mg/dL POC Device SN - [id number] POC User ID - [id number] POC Username - VOLODYMYR BERGMAN CBC w/ [...] Bedtime ezetimibe 10 (more content not included)... [facility] Comment on above: Result Comment: Elec tronically Signed By: SHAN PIZANO, Yamilet\.br\Date and Time Signed: 06/08/23 11:01 EST 06-07-2023 Note Chief Complaint CP and SOB worsening this morning, states he did have some CP on Tuesday that went away. hx [place] in approx. 2005. former smoker. states SOB worsens with exertion. 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 History of Present Illness 72-year-old white male [...] Lymph Auto: 9.1 % Low (06/07/23 11:11:00) Rooks Auto: 11.8 % (06/07/23 11:11:00) Eos Auto: 1.2 % (06/07/23 11:11:00) Basophil Auto: 0.3 % (06/07/23 11:11:00) Neutro Absolute: 6.7 E9/L (06/07/23 11:11:00) Lymph Absolute: 0.8 E9/L Low (06/07/23 11:11:00) Rooks Absolute: 1 E9/L (06/07/23 11:11:00) Eos Absolute: [...] 11:11:00) Troponin: 23.1 pg/mL (06/07/23 11:11:00) Assessment/Plan [id number] R [address] is set up for either tomorrow or tuesday with Mounika Duncan. They will call [facility] kennel operator and have you paged between 12 to 2pm. You will need Case Ref # [id number]. they have all clinical notes. Good luck! thank you IMP 1. Chest pain (R07.9: Chest pain, unspecified) 23-hour observation Cardiac telemetry Troponin x 3 Echocardiogram Serial EKG Aspirin daily Lipitor daily Cardiology consult 2. Acute diastolic heart failure (I50.31: Acute diastolic (congestive) heart failure) Strict i (more content not included)... [facility] Comment on above: Result Comment: Elec [...] disease (ICD-10 - E11.22) F/U with Dr. Garcia now. Diabetes is well controlled. I explained to the patient the necessity of controlling diabetes to attenuate chronic kidney disease progression. Hemoglobin A1c target below 7% May, Hyperlipemia (ICD-10 - E78.5) F/U with Dr. Garcia May, Gout (ICD-10 - M10.9) No more episodes of gout. Uric acid level improved to 7.0 with adding uloric May, BMI 40.0-44.9, adult (ICD-10 - Z68.41) Importance of weight loss has been addressed. May, Anemia, unspecified type (ICD-10 - D64.9) this visit hemoglobin > 12 g/dL. VB12, folate and iron Sat are all within normal ranges.No need for ERNI continue to monitor H&H as the patient has advanced CKD. 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 No nee for active VD May, BPH loc w urin obs/LUTS (ICD-10 - N40.1) will continue flomax May, Metabolic acidemia (ICD-10 - E87.20) serum HC03 is WNL this visit [facility] Other 11-21-2023 Evaluation note* Encounter Date Diagnosis Assessment Notes Treatment Notes Treatment Clinical Notes Mar, BPH loc w urin obs/LUTS (ICD-10 - N40.1) [facility] Other 10-10-2023 Evaluation note* Encounter Date Diagnosis Assessment Notes Treatment Notes Treatment Clinical Notes Feb, Chronic kidney disease, stage 3b (ICD-10 - N18.32) [facility] Other 08-29-2023 Evaluation note* Encounter Date Diagnosis [...] disease (ICD-10 - E11.22) F/U with Dr. Garcia now. Diabetes is well controlled. I explained to the patient the necessity of controlling diabetes to attenuate chronic kidney disease progression. Hemoglobin A1c target below 7% Dec, Hyperlipemia (ICD-10 - E78.5) F/U with Dr. Garcia Dec, Gout (ICD-10 - M10.9) No mor [...] IS SLIGHTLY LOW. WILL CONTINUE TO MONITOR [facility] Other 06-26-2023 Evaluation note* Encounter Date Diagnosis Assessment Notes Treatment Notes Treatment Clinical Notes Oct, Chronic kidney disease, stage 3b (ICD-10 - N18.32) [facility] Other 05-30-2023 Evaluation note* Encounter Date Diagnosis [...] disease (ICD-10 - E11.22) F/U with Dr. Garcia now. Diabetes is well controlled. I explained to the patient the necessity of controlling diabetes to attenuate chronic kidney disease progression. Hemoglobin A1c target below 7% September, Hyperlipemia (ICD-10 - E78.5) F/U with Dr. Garcia September, Gout (ICD-10 - M10.9) No mor [...] urin obs/LUTS (ICD-10 - N40.1) will continue [facility] Other 02-14-2023 Evaluation note* Encounter Date Diagnosis Assessment Notes Treatment Notes Treatment Clinical Notes Jun, Hypertensive chronic kidney disease with stage 1 through stage 4 chronic kidney disease, or unspecified chronic kidney disease (ICD-10 - I12.9) Jun, Gout (ICD-10 - M10.9) Jun, Chronic kidney disease, stage 3b (ICD-10 - N18.32) [facility] Other 02-13-2023 Evaluation note* Encounter Date Diagnosis [...] disease (ICD-10 - E11.22) F/U with Dr. Garcia now. Diabetes is well controlled. I explained to the patient the necessity of controlling diabetes to attenuate chronic kidney disease progression. Hemoglobin A1c target below 7% Jun, Hyperlipemia (ICD-10 - E78.5) F/U with Dr. Garcia Jun, Gout (ICD-10 - M10.9) No mor [...] from CKD. No nee for active VD [facility] Other 11-17-2022 Evaluation note* Encounter Date Diagnosis Assessment Notes Treatment Notes Treatment Clinical Notes Mar, Hypertensive chronic kidney disease with stage 1 through stage 4 chronic kidney disease, or unspecified chronic kidney disease (ICD-10 - I12.9) [facility] Other 10-03-2022 Evaluation note* Encounter Date Diagnosis [...] disease (ICD-10 - E11.22) F/U with Dr. Garcia now. Diabetes is well controlled. I explained to the patient the necessity of controlling diabetes to attenuate chronic kidney disease progression. Hemoglobin A1c target below 7% Feb, Hyperlipemia (ICD-10 - E78.5) F/U with Dr. Garcia Feb, Gout (ICD-10 - M10.9) No more [...] H&H as the patient has advanced CKD. [facility] Other 08-17-2022 Evaluation note* Encounter Date Diagnosis [...] disease (ICD-10 - E11.22) F/U with Dr. Garcia now. Metformin was stopped. Diabetes is well controlled. I asked the patient to monitor blood glucose level closely while his steroid hydrocortisone primary doctor if blood glucose level increases Dec, Hyperlipemia (ICD-10 - E78.5) F/U with Dr. Garcia Dec, Gout (ICD-10 - M10.9) No more episodes of gout. Uric acid level is 5.8. Continue holding allopurinol Dec, BMI 40.0-44.9, adult (ICD-10 - Z68.41) Importance of weight loss has been addressed. Dec, Metabolic acidosis (ICD-10 - E87.2) This has resolved. Serum bicarb level Dec, Anemia, unspecified type (ICD-10 - D64.9) Hemoglobin 11.8 g/dL. No need for ERIN [facility] Other 06-29-2022 Evaluation note* Encounter Date Diagnosis [...] disease (ICD-10 - E11.22) F/U with Dr. Garcia now. Metformin was stopped. Diabetes is well controlled Oct, Hyperlipemia (ICD-10 - E78.5) F/U with Dr. Garcia Oct, Gout (ICD-10 - M10.9) No more [...] in 6 months. No need for ERIN [facility] Other 05-18-2022 Evaluation note* Encounter Date Diagnosis [...] disease (ICD-10 - E11.22) F/U with Dr. Garcia now. I asked the patient to contact his PCP to stop metformin. Patient said he is going to contact Dr. Garcia today September, Hyperlipemia (ICD-10 - E78.5) F/U with Dr. Garcia September, Gout (ICD-10 - M10.9) No more [...] in 6 months. No need for ERIN [facility] Other 11-18-2021 Evaluation note* Encounter Date Diagnosis [...] disease (ICD-10 - E11.22) F/U with Dr. Garcia now. Hemoglobin A1c is better down to 7% after addition of insulin and weight loss. Mar, Hyperlipemia (ICD-10 - E78.5) F/U with Dr. Garcia Mar, Gout (ICD-10 - M10.9) No more episodes of gout. 18 Mar, 2021 BMI 40.0-44.9, adult (ICD-10 - Z68.41) Importance of weight loss has been addressed. [facility] Other Evaluation noteNo [place] Other Evaluation note* Diagnosis ASCVD (arteriosclerotic cardiovascular disease)- Primary Unspecified cardiovascular disease Benign essential hypertension Essential hypertension, benign Mixed hyperlipidemia Stage 4 chronic kidney disease (CMS/HCC) Type 2 diabetes mellitus without complication, without long-term current use of insulin (CMS/HCC) Shortness of breath Lung crackles Obstructive sleep apnea Obstructive sleep apnea (adult) (pediatric) Morbid obesity ([facility]/HCC) Morbid obesity documented in this encounter [facility] Work Phone: Evaluation note* Diagnosis Seborrheic keratosis- Primary History of basal cell carcinoma Personal history of other malignant neoplasm of skin Lentigines Actinic keratosis Neoplasm of unspecified behavior of bone, soft tissue, and skin documented in this encounter [facility] HealthcareEvaluation note* Diagnosis ASCVD (arteriosclerotic cardiovascular disease)- Primary Unspecified cardiovascular disease Benign essential hypertension Essential hypertension, benign Type 2 diabetes mellitus with chronic kidney disease, without long-term current use of insulin, unspecified CKD stage (Multi) Mixed hyperlipidemia Stage 4 chronic kidney disease (Multi) Obstructive sleep apnea syndrome Obstructive sleep apnea (adult) (pediatric) BMI 38.0-38.9,adult Former smoker Personal history of tobacco use, presenting hazards to health Class 2 obesity documented in this encounter [facility] Work Phone: Hisrzxh general Narrative - Reported* Type Description Date [...] 07/2013 Surgical History carpal tunnel release, Right [facility] Other History general Narrative - Reported* Type [...] KIDNEY BIOPSY 12/10/2021 Surgical History COLONOSCOPY 12/2021 [facility] Other Summary Purpose Family History No Family [...] Records FoundNo Advanced Directives Records FoundNo Advanced Directiv es Records FoundNo Advanced Directives Records FoundNo Advanced Directives Records FoundNo AdvancedDirectives Records FoundNo Advanced Directives Records FoundNo Advanced [...] came back normal. His weight is down [id number] pounds from last visit which is encouraging. [...] Carotid duplex scan 2020 normal * Anayeli Ayala MD, FACC * ISIDRO CALHOUN is being [...] Carotid duplex scan 2020 normal * Anayeli Ayala MD, FACC * ISIDRO CALHOUN is being [...] Carotid duplex scan 2020 normal * Anayeli Ayala MD, FACC Reason for Referral Specialty Diagnoses / Procedures Referred By Jonny yu Referred To Contact Radiology Diagnoses Shortness of breath Lung crackles Procedures CT chest high resolution Anayeli Ayala MD [address] [facility] [address] [place] [address] Referral ID Status Reason Start Date Expiration Date Visits Requested Visits Authorized Pending Review Perform Procedure 06/09/2023 06/08/2024 1 1 Specialty Diagnoses / Procedures Referred By Jonny yu Referred To Contact Cardiology Diagnoses ASCVD (arteriosclerotic cardiovascular disease) Procedures Follow Up In Cardiology Anayeli Ayala MD [address] [facility] [address] [place] [address] Anayeli Ayala MD [address] [facility] [address] [place] [address] Referral ID Status Reason Start Date Expiration Date V isits Requested Visits Authorized [id number] Authorized 06/09/2023 06/08/2024 1 1 Additional Source [...] section and content) DATE CREATED AUTHOR 01/24/2021 [facility] DATE CREATED AUTHOR AUTHOR'S ORGANIZ ATION 10/05/2022 [facility] DATE CREATED AUTHOR AUTHOR'S ORGANIZ ATION 12/16/2022 [facility] DATE CREATED AUTHOR AUTHOR'S ORGANIZ ATION 12/16/2022 [facility] DATE CREATED AUTHOR AUTHOR'S ORGANIZ ATION 06/19/2023 [facility] DATE CREATED AUTHOR AUTHOR'S ORGANIZ ATION 12/20/2023 [facility] DATE CREATED AUTHOR AUTHOR'S ORGANIZ ATION 01/12/2024 [facility] DATE CREATED AUTHOR AUTHOR'S ORGANIZ ATION 01/13/2024 [facility] DATE CREATED AUTHOR AUTHOR'S ORGANIZ ATION 04/27/2024 [facility] DATE CREATED AUTHOR AUTHOR'S ORGANIZ ATION 04/28/2024 [facility] DATE CREATED AUTHOR AUTHOR'S ORGANIZ ATION 05/11/2024 [facility] DATE CREATED AUTHOR AUTHOR'S ORGANIZ ATION 07/08/2024 [facility] DATE CREATED AUTHOR AUTHOR'S ORGANIZ ATION 07/14/2024 [facility] DATE CREATED AUTHOR AUTHOR'S ORGANIZ ATION 07/16/2024 [facility] REASON FOR VISIT (unrecogniz ed section and content) Reason Comments Follow-up 6m Reason Comments Skin Check Reason Comments Follow-up 6 month Specialty Diagnoses / Procedures Referred By Contac t Referred To Contact Cardiology Diagnoses ASCVD (arteriosclerotic cardiovascular disease) Procedures Follow Up In Cardiology Anayeli Ayala MD [address] [address] Phone: tel: fax: Anayeli Ayala MD [address] [facility] [address], [address] [address] Phone: tel: fax: Referral ID Status Reason Start Date Expiration Date V isits Requested Visits Authorized [id number] Authorized 12/21/2023 12/20/2024 1 1 Care Teams (unrecognized sec tion and content) Wave Guide Assembler Relationship Specialty Start Date End Date Alix Garcia DO [address] [place] [id number] PCP - General Family Medicine 06/09/23 Wave Guide Assembler Relationship Specialty Start Date End Date Alix Garcia MD [address] [place] [address] PCP - General [facility] Medicine 08/30/23 Wave Guide Assembler Relationship Specialty Start Date End Date Alix Garcia MD [address] [place] [phone] PCP - General Family Medicine 08/30/23 Wave Guide Assembler Relationship Specialty Start Date End Date Alix Garcia DO [address] [place] [address] PCP - General Family Medicine 06/09/23 FOR [...] BE BASED ON THE PRIMARY CLINICAL RECORDS. [employer] provides no warranty or guarantee of the accuracy or completeness of information in this document.
[2024-08-10 12:58] LABS: Hemoglobin 12.8 g/dL (14.0-18.0)
--- NOTE | 2024-08-10 13:39 | CT_ITS ---
The [address] [address] Patient Name: ISIDRO CALHOUN MRN: [id number] date: 1950 Sex: M Assigned Patient Location: CARD Current Patient Location: CARD Accession/Order Number: [id number] Exam Date: 08/10/2024 15:12 Report Date: 08/10/2024 15:17 At the request of: TYLOR JERRY DO Procedure: CT chest high res CT CHEST WITHOUT IV CONTRAST: High-resolution protocol. CLINICAL HISTORY: Pulmonary Fibrosis, Bronchiectasis COMPARISON: CT chest 11/02/2023. TECHNIQUE: Spiral images were obtained through the chest without IV contrast. High-resolution protocol was utilized with both supine and prone imaging. This CT exam was performed using one or more following dose reduction techniques: Automated exposure control, adjustment of the mA and/or kV according to patient size, or use of iterative reconstruction technique. FINDINGS: Mediastinum:Thoracic aorta appears normal in caliber. Pulmonary trunk appears nondilated. No pericardial effusion or lymphadenopathy. The esophagus is grossly unremarkable. Lungs:Diffuse fibrotic changes similar to the prior study from 11/02/2023. There is associated bronchiectasis. No significant honeycombing is identified. No consolidation pneumothorax or pleural effusion. Calcified granulomas. No suspicious pulmonary nodule. Abd:No acute process. Soft tissues/Bones: No acute process. Osseous structures demonstrate degenerative change. CT/CT chest high res IMPRESSION: The degree of fibrotic changes appear grossly unchanged when compared to the 11/02/2023 study. No acute process is seen. Impression dictated by: Shiv De Leon Jr., D.O.08/10/2024 3:17 PM Dictation Location: [place] [address] Electronically authenticated by: [id number] Y Date: 08/10/2024 15:17
== END 2024-08-10 12:41 | disposition home or self-care (01) ==
LOC: CARD 12:40
PROVIDERS: Visit Provider Internal Medicine
DX: J84.10 Pulmonary fibrosis, unspecified (principal); J47.9 Bronchiectasis, uncomplicated
CPT/HCPCS: 36415; 71250; 85018; 94010; 94726; 94729